=== PATIENT | male | born 1965 | race African-American/Black ===

== ENCOUNTER 2016-09-05 06:13 | Inpatient (IN) | payer MEDICAID ==
[~2016-09-05] VITALS: Ht 172 cm; Wt 44.9 kg
[~2016-09-05 06:13] MED LIST: ALBUTEROL2.5 MG/3 M INH; BISACODYL5 MG RECTAL; FLUCONAZOLE100 MG ORAL; FLUCONAZOLE100 MG RECTAL; GABAPENTIN400 MG RECTAL; LEVSIN-SL0.125 MG GT; LORAZEPAM2 MG/1 M4 GT; LOVENOX10 M4 SUBQ; MEROPENEM1 GM IV; MORPHINE S10 MG/5 ML GT; PROCHLORPERAZINE5 MG RECTAL; TYLENOL650 MG/20. GT
[2016-09-05 06:15] VITALS: BP 108/82
[2016-09-05 06:55] LABS: BASOPHILS % (AUTO) 0.6 % (0.0-2.0); EOSINOPHILS % (AUTO) 0.4 % (0.0-3.0); LYMPHOCYTES % (AUTO) 16.4 % (20.0-45.0); MEAN CORPUSCULAR HEMOGLOBIN 25.9 PG (27.0-31.0); MEAN CORPUSCULAR HGB CONC 31.3 G/DL (32.0-36.0); MEAN CORPUSCULAR VOLUME 83 FL (80-99); MONOCYTES % (AUTO) 5.1 % (1.0-10.0); NEUTROPHILS % (AUTO) 77.5 % (45.0-75.0); PLATELET COUNT 528 K/UL (150-450); RED CELL DISTRIBUTION WIDTH 15.6 % (11.6-14.8); WHITE BLOOD COUNT 13.4 K/UL (4.8-10.8)
[2016-09-05 06:57] LABS: INR 1.1 (0.9-1.1); PROTHROMBIN TIME 11.5 SEC (9.30-11.50)
[2016-09-05 07:02] LABS: ALANINE AMINOTRANSFERASE 27 U/L (3-41); ALBUMIN/GLOBULIN RATIO 0.5 (1.0-2.7); ANION GAP 17 (5-15); ASPARTATE AMINO TRANSFERASE 27 U/L (5-40); CALCIUM 10.6 mg/dL (8.6-10.2); CARBON DIOXIDE 28 mEQ/L (20-30); CHLORIDE 92 mEQ/L (98-107); CREATININE 0.6 mg/dL (0.7-1.2); GLOMERULAR FILTRATION RATE > 60 mL/min (>60); HEMOLYSIS 2; LIPASE 24 U/L (< 60); POTASSIUM 4.5 mEQ/L (3.4-4.9); SODIUM 137 mEQ/L (135-145); TOTAL PROTEIN 9.5 g/dL (6.6-8.7)
[2016-09-05 07:03] LABS: TROPONIN I < 0.30 ng/mL (<=0.30)
[2016-09-05 07:06] LABS: REFLEX LACTIC ACID YES OR NO YES
[2016-09-05] MEDS ORDERED: ZINC SULFATE220 M1 GT (07:07)
[2016-09-05] MEDS ORDERED: MACRODANTIN50 MG GT (07:07)
[2016-09-05] MEDS ORDERED: BACTRIM DS TAB1 EAC1 GT (07:07)
[2016-09-05] MEDS ORDERED: GABAPENTIN400 MG GT (07:07)
[2016-09-05] MEDS ORDERED: VITAMIN C500 M1 GT (07:07)
[2016-09-05 07:13] LABS: CKMB 2.1 ng/mL (< 6.7)
[2016-09-05 07:22] LABS: APPEARANCE,URINE SLIGHTLY CLOUDY; KETONES,URINE NEGATIVE (NEGATIVE); LEUKOCYTE ESTERASE ,URINE 3+ (NEGATIVE); NITRITE,URINE NEGATIVE (NEGATIVE); PH,URINE 8 (4.5-8.0); PROTEIN,URINE 2+ (NEGATIVE); UROBILINOGEN,URINE NORMAL MG/DL (0.0-1.0)
[2016-09-05] MEDS ORDERED: Ipratropium 0.02% Inh Soln 2.5ml UD HHN ONE (07:30)
[2016-09-05] MEDS ORDERED: Solu-MEDROL 125mg Inj IVP ONE (07:30)
[2016-09-05] MEDS ORDERED: Albuterol ud Inhalation HHN ONE (07:30)
[2016-09-05 07:35] LABS: BACTERIA,URINE FEW /HPF; SQUAMOUS EPITHELIAL CELL,UR OCCASIONAL /LPF (NONE/OCC); WBC,URINE 15-20 /HPF (0 - 0)
[2016-09-05] MEDS ORDERED: Tubing IV Cassette IV ONE (07:41)
[2016-09-05 08:02] LABS: ABG BASE EXCESS 2.7; ABG PCO2 39.9 mmHg (35.0-45.0)
[2016-09-05 08:03] LABS: ABG ALLEN TEST POSITIVE
--- NOTE | 2016-09-05 08:27 | Emergency Room Report ---
History of Present Illness General Chief Complaint: Dyspnea/Respdistress Source: Medical Record Present Illness HPI 50-year-old male presents ED for evaluation of shortness of breath. Per EMS symptoms started this morning a convalescent home. 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 O2 sats low on room air. Patient placed on nonrebreather by EMS with O2 sats in the 80s. Patient is unable to provide any additional history at this time. No reported fevers or chills. No reported chest pain. No other aggravating or relieving factors. No other associated symptoms Allergies: Coded Allergies: PENICILLINS (Unverified Allergy, Unknown, 09/05/16) Patient History Past Medical History: DM, HTN Past Surgical History: other - gtube Pertinent Family History: none Social History: Denies: alcohol use, drug use, smoking Immunizations: UTD Reviewed Nursing Documentation: PMH: Agreed, PSxH: Agreed Nursing Documentation-PMH Hx Hypertension: Yes Hx Diabetes: Yes Hx Gastrointestinal Problems: Yes - GASTROSTOMY Review of Systems All Other Systems: limited Physical Exam Vital Signs Date Time Temp Pulse Resp B/P Pulse Ox O2 Delivery O2 Flow Rate FiO2 09/05/16 06:07 126 35 94/70 80 Non-Rebreather 15.0 09/05/16 06:15 98.4 09/05/16 06:43 100 Sp02 EP Interpretation: reviewed, normal General Appearance: cachetic, thin, other - encephalopathy Head: normocephalic, atraumatic Eyes: bilateral eye PERRL, bilateral eye normal inspection ENT: hearing grossly normal, normal pharynx, no angioedema, normal voice Neck: full range of motion, supple/symm/no masses Respiratory: decreased breath sounds, crackles Cardiovascular #1: no edema, tachycardia Gastrointestinal: normal bowel sounds, non tender, soft, non-distended, no guarding, no rebound Rectal: deferred Genitourinary: no CVA tenderness Musculoskeletal: other - contracted limbs Neurologic: other - encephalopathy Psychiatric: other - encephalopathy Skin: normal inspection Lymphatic: normal inspection Procedures Critical Care Time Critical Care Time i. I feel this is a highly complex case requiring extensive working including EKG/Rhythm strip, Xray/CT/US, Blood/urine lab work, repeat exams while in ED, and administration of strong opiates/narcotics for pain control, admission to hospital or close patient follow up. Total time: 30 min bedside evaluation and treatment excludes procedures (EKG). Reason for critical care: Respiratory distress, hypoxic, tachycardic Possible complications: hypotension, hypertension, [place], shock, arrhythmias, metabolic acidosis, end organ damage, respiratory failure. Interventions: Labs, IV fluids, EKG, chest x-ray, BiPAP, nebulizer treatments, abx Course: Patient brought in for respiratory distress. Hypoxic period started on BiPAP, nebulizer treatments. O2 saturations improving. Labs showed sepsis, UTI. Chest x-ray shows hyperinflated lungs, atelectasis. Antibiotics given. Consultations: nursing staff, EMS, family Performed by: Dr York Tolerated well condition = serious j. because of unstable vital signs this patient had a condition that could potentially threaten life or limb. I feel this is a critical patient who required my full attention while patient was considered critical. Total Critical Care Time excluding procedures was greater than 35 minutes Medical Decision Making Diagnostic Impression: Primary Impression: COPD exacerbation Additional Impressions: Respiratory distress Sepsis Qualified Codes: A41.9 - Sepsis, unspecified organism UTI (urinary tract infection) Qualified Codes: N39.0 - Urinary tract infection, site not specified ER Course Hospital Course 50-year-old M presenting to ED with respiratory distress, hypoxic Differential diagnoses include: Pneumonia, CHF exacerbation, pneumothorax, fluid overload Clinical course Patient placed on stretcher. On clinical research monitor with hypoxia on room air and tachycardia. After initial history and physical, I ordered nebulizer treatments BIPAP. I ordered labs, IV fluids, EKG, chest x-ray, blood cultures, UA. Labs -leukocytosis noted, hemoglobin/hematocrit stable, electrolytes ok, lactate > 3, trop negative, UA + bacteria CXR - hyperinflated lungs, atelectasis noted EKG - tachycardic, no acute ischemic changes O2 saturations improving on BiPAP. Patient showed less retractions. Patient tachycardia resolving with IV fluids. Antibiotics given Case discussed with Dr. Tuttle and he agreed to the patient to his service for further care and support I feel this is a highly complex case requiring extensive working including EKG/ Rhythm strip, Xray/CT/US, Blood/urine lab work, repeat exams while in ED, and administration of strong opiates/narcotics for pain control, admission to hospital or close patient follow up. Diagnosis - COPD exacerbation, resp distress, sepsis, UTI Patient admitted to [facility] in serious condition Labs Test 09/05/16 06:20 09/05/16 07:00 09/05/16 07:50 09/05/16 08:00 White Blood Count 13.4 K/UL (4.8-10.8) Red Blood Count 3.70 M/UL (4.70-6.10) Hemoglobin 9.6 G/DL (14.2-18.0) Hematocrit 30.6 % (42.0-52.0) Mean Corpuscular Volume 83 FL (80-99) Mean Corpuscular Hemoglobin 25.9 PG (27.0-31.0) Mean Corpuscular Hemoglobin Concent 31.3 G/DL (32.0-36.0) Red Cell Distribution Width 15.6 % (11.6-14.8) Platelet Count 528 K/UL (150-450) Mean Platelet Volume 9.0 FL (6.5-10.1) Neutrophils (%) (Auto) 77.5 % (45.0-75.0) Lymphocytes (%) (Auto) 16.4 % (20.0-45.0) Monocytes (%) (Auto) 5.1 % (1.0-10.0) Eosinophils (%) (Auto) 0.4 % (0.0-3.0) Basophils (%) (Auto) 0.6 % (0.0-2.0) Prothrombin Time 11.5 SEC (9.30-11.50) Prothromb Time International Ratio 1.1 (0.9-1.1) Activated Partial Thromboplast Time 28 SEC (23-33) Sodium Level 137 mEQ/L (135-145) Potassium Level 4.5 mEQ/L (3.4-4.9) Chloride Level 92 mEQ/L (98-107) Carbon Dioxide Level 28 mEQ/L (20-30) Anion Gap 17 (5-15) Blood Urea Nitrogen 23 mg/dL (7-23) Creatinine 0.6 mg/dL (0.7-1.2) Estimat Glomerular Filtration Rate > 60 mL/min (>60) Glucose Level 132 mg/dL (74-106) Lactic Acid Level 3.40 mmol/L (0.66-2.22) Calcium Level 10.6 mg/dL (8.6-10.2) Total Bilirubin < 0.2 mg/dL (0.0-1.2) Aspartate Amino Transf (AST/SGOT) 27 U/L (5-40) Alanine Aminotransferase (ALT/SGPT) 27 U/L (3-41) Alkaline Phosphatase 141 U/L (40-129) Total Creatine Kinase 132 U/L (38-174) Creatine Kinase MB 2.1 ng/mL (< 6.7) Creatine Kinase MB Relative Index 1.5 Troponin I < 0.30 ng/mL (<=0.30) Pro-B-Type Natriuretic Peptide 198 pg/mL (0-125) Total Protein 9.5 g/dL (6.6-8.7) Albumin 3.2 g/dL (3.5-5.2) Globulin 6.3 g/dL Albumin/Globulin Ratio 0.5 (1.0-2.7) Lipase 24 U/L (< 60) Urine Color Pale yellow Urine Appearance Slightly cloudy Urine pH 8 (4.5-8.0) Urine Specific [place] 1.010 (1.005-1.035) Urine Protein 2+ (NEGATIVE) Urine Glucose (UA) Negative (NEGATIVE) Urine Ketones Negative (NEGATIVE) Urine Occult Blood 4+ (NEGATIVE) Urine Nitrite Negative (NEGATIVE) Urine Bilirubin Negative (NEGATIVE) Urine Urobilinogen Normal MG/DL (0.0-1.0) Urine Leukocyte Esterase 3+ (NEGATIVE) Urine RBC 5-10 /HPF (0 - 0) Urine WBC 15-20 /HPF (0 - 0) Urine Squamous Epithelial Cells Occasional /LPF Urine Calcium Oxalate Crystals /LPF (NONE) Urine Bacteria Few /HPF (NONE) Arterial Blood pH 7.447 (7.350-7.450) Arterial Blood Partial Pressure CO2 39.9 mmHg (35.0-45.0) Arterial Blood Partial Pressure O2 411.6 mmHg (75.0-100.0) Arterial Blood HCO3 26.9 mmol/L (22.0-26.0) Arterial Blood Oxygen Saturation 99.7 % (92.0-98.0) Arterial Blood Base Excess 2.7 Hammad Test Positive EKG Diagnostic Results Rate: tachycardiac Rhythm: other - not sinus ST Segments: no acute changes ASA given to the pt in ED: No Rhythm Strip Diag. Results EP Interpretation: yes Rhythm: no PVC's, no ectopy Chest X-Ray Diagnostic Results EP Interpretation: Yes Findings: no effusion, no pneumothorax, no acute cardiopulmonary disease, other - hyperinflatd lungs. atelectasis Number of Views: 1 Last Vital Signs Date Time Temp Pulse Resp B/P Pulse Ox O2 Delivery O2 Flow Rate FiO2 09/05/16 06:54 137 41 98 Facial 100 09/05/16 06:15 98.4 108/82 15.0 Status: improved Disposition: ADMITTED INPATIENT Condition: Serious Referrals: ROLY TUTTLE (PCP) LOUANN YORK M.D. Sep 05, 2016 08:27
[2016-09-05 08:30] VITALS: BP 118/64
[2016-09-05 10:00] VITALS: BP 97/62
--- NOTE | 2016-09-05 10:43 | Diagnostic Imaging Report ---
Indication: Dyspnea Comparison: 06/30/16 A single view chest radiograph was obtained. Findings: Examination limited by rotation. Cardiomegaly is present. Lungs remain clear. There is a right HR SPECIALIST shunt present. Previous right basal infiltrate no longer seen. Abnormal appearance of the right humerus which appears demineralized. Impression: No acute cardiopulmonary disease identified
[2016-09-05 12:00] VITALS: BP 93/61
[2016-09-05] MEDS ORDERED: Miralax 17gm pkt ORAL PRN (12:45)
[2016-09-05] MEDS ORDERED: DuoNeb 0.5-3(2.5)mg/3ml neb HHN PRN (12:45)
[2016-09-05] MEDS ORDERED: Mylanta II UD 30ml ORAL PRN (12:45)
[2016-09-05] MEDS ORDERED: Nitroglycerin Subl 0.4mg tab (Bottle Of 25) SL PRN (12:45)
--- NOTE | 2016-09-05 12:45 | History and Physical ---
History of Present Illness General Date patient seen: Sep 05, 2016 Reason for Hospitalization: Dyspnea/Respdistress Present Illness HPI 50-year-old male with extensive PMHx including meningitis, YARD BRAKEMAN shunt patient convalescent home.resident brought in by paramedics with CC of Dyspnea, desaturation. Pt was in respiratory failure in ER and was put on bipap and transferred to [facility]. Pt is awake, can't communicate, but seems to understand. Allergies: Coded Allergies: PENICILLINS (Unverified Allergy, Unknown, 09/05/16) Medication History Scheduled Ascorbic Acid* (Vitamin C*), 500 MG GT DAILY, (Reported) Bisacodyl* (Dulcolax*), 10 MG RECTAL DAILY, (Reported) Enoxaparin* (Lovenox*), 40 MG SUBQ DAILY, (Reported) Fluconazole (Fluconazole), 200 MG ORAL DAILY, (Reported) Gabapentin* (Gabapentin*), 400 MG GT THREE TIMES A DAY, (Reported) Lorazepam (Lorazepam), 2 MG GT Q4HR, (Reported) Nitrofurantoin Macrocrystal (Macrodantin*), 50 MG GT FOUR TIMES A DAY, (Reported ) Prochlorperazine Maleate* (Compazine*), 25 MG RECTAL Q6H, (Reported) Trimethoprim/Sulfamethoxazole 160/800* (Bactrim Ds Tablet*), 1 TAB GT TWICE A DAY, (Reported) Zinc Sulfate (Zinc Sulfate*), 220 MG GT DAILY, (Reported) Scheduled PRN Acetaminophen (Acetaminophen), 650 MG GT Q6H PRN for Prn Headache/Temp > 101, ( Reported) Albuterol Sulfate* (Albuterol Sulfate Hhn*), 3 ML INH Q4H PRN for Shortness of Breath, (Reported) Morphine Sulfate* (Morphine Sulfate*), 20 MG GT EVERY 2 HOURS PRN for For Pain, (Reported) Patient History Healthcare decision maker NONE Resuscitation status Full Code Advanced Directive on File No Past Medical/Surgical History Past Medical/Surgical History: (1) Feeding by G-tube (2) Severe protein-calorie malnutrition (3) S/P YARD BRAKEMAN shunt Review of Systems All Other Systems: negative except mentioned in HPI Physical Exam General Appearance: cachetic Lines, tubes and drains: peripheral HEENT: normocephalic, atraumatic Neck: non-tender, normal alignment Respiratory/Chest: chest wall non-tender, normal breath sounds Abdomen: normal bowel sounds Genitourinary/Rectal: normal genital exam, normal rectal exam Extremities: normal range of motion Last 24 Hour Vital Signs Date Time Temp Pulse Resp B/P Pulse Ox O2 Delivery O2 Flow Rate FiO2 09/05/16 10:15 100.8 112 28 97/62 100 Bi-pap 15.0 100 09/05/16 10:00 112 28 97/62 100 Bi-pap 40 09/05/16 09:15 40 09/05/16 09:14 119 31 100 Facial 50 09/05/16 08:30 100.8 122 32 118/64 100 Bi-pap 100 09/05/16 06:54 137 41 98 Facial 100 09/05/16 06:43 100 09/05/16 06:15 141 31 09/05/16 06:15 98.4 141 31 108/82 87 Non-Rebreather 15.0 09/05/16 06:07 126 35 94/70 80 Non-Rebreather 15.0 Intake and Output 09/04/16 09/05/16 19:00 07:00 Output Total 100 ml Balance -100 ml Output Urine Total 100 ml Laboratory Tests Test 09/05/16 06:20 09/05/16 07:00 09/05/16 07:50 09/05/16 08:00 White Blood Count 13.4 K/UL (4.8-10.8) H Red Blood Count 3.70 M/UL (4.70-6.10) L Hemoglobin 9.6 G/DL (14.2-18.0) L Hematocrit 30.6 % (42.0-52.0) L Mean Corpuscular Volume 83 FL (80-99) Mean Corpuscular Hemoglobin 25.9 PG (27.0-31.0) L Mean Corpuscular Hemoglobin Concent 31.3 G/DL (32.0-36.0) L Red Cell Distribution Width 15.6 % (11.6-14.8) H Platelet Count 528 K/UL (150-450) H Mean Platelet Volume 9.0 FL (6.5-10.1) Neutrophils (%) (Auto) 77.5 % (45.0-75.0) H Lymphocytes (%) (Auto) 16.4 % (20.0-45.0) L Monocytes (%) (Auto) 5.1 % (1.0-10.0) Eosinophils (%) (Auto) 0.4 % (0.0-3.0) Basophils (%) (Auto) 0.6 % (0.0-2.0) Prothrombin Time 11.5 SEC (9.30-11.50) Prothromb Time International Ratio 1.1 (0.9-1.1) Activated Partial Thromboplast Time 28 SEC (23-33) Sodium Level 137 mEQ/L (135-145) Potassium Level 4.5 mEQ/L (3.4-4.9) Chloride Level 92 mEQ/L (98-107) L Carbon Dioxide Level 28 mEQ/L (20-30) Anion Gap 17 (5-15) H Blood Urea Nitrogen 23 mg/dL (7-23) Creatinine 0.6 mg/dL (0.7-1.2) L Estimat Glomerular Filtration Rate > 60 mL/min (>60) Glucose Level 132 mg/dL (74-106) H Lactic Acid Level 3.40 mmol/L (0.66-2.22) H 0.80 mmol/L (0.66-2.22) Calcium Level 10.6 mg/dL (8.6-10.2) H Total Bilirubin < 0.2 mg/dL (0.0-1.2) Aspartate Amino Transf (AST/SGOT) 27 U/L (5-40) Alanine Aminotransferase (ALT/SGPT) 27 U/L (3-41) Alkaline Phosphatase 141 U/L (40-129) H Total Creatine Kinase 132 U/L (38-174) Creatine Kinase MB 2.1 ng/mL (< 6.7) Creatine Kinase MB Relative Index 1.5 Troponin I < 0.30 ng/mL (<=0.30) Pro-B-Type Natriuretic Peptide 198 pg/mL (0-125) H Total Protein 9.5 g/dL (6.6-8.7) H Albumin 3.2 g/dL (3.5-5.2) L Globulin 6.3 g/dL Albumin/Globulin Ratio 0.5 (1.0-2.7) L Lipase 24 U/L (< 60) Urine Color Pale yellow Urine Appearance Slightly cloudy Urine pH 8 (4.5-8.0) Urine Specific [place] 1.010 (1.005-1.035) Urine Protein 2+ (NEGATIVE) H Urine Glucose (UA) Negative (NEGATIVE) Urine Ketones Negative (NEGATIVE) Urine Occult Blood 4+ (NEGATIVE) H Urine Nitrite Negative (NEGATIVE) Urine Bilirubin Negative (NEGATIVE) Urine Urobilinogen Normal MG/DL (0.0-1.0) Urine Leukocyte Esterase 3+ (NEGATIVE) H Urine RBC 5-10 /HPF (0 - 0) H Urine WBC 15-20 /HPF (0 - 0) H Urine Squamous Epithelial Cells Occasional /LPF Urine Calcium Oxalate Crystals /LPF (NONE) Urine Bacteria Few /HPF (NONE) Arterial Blood pH 7.447 (7.350-7.450) Arterial Blood Partial Pressure CO2 39.9 mmHg (35.0-45.0) Arterial Blood Partial Pressure O2 411.6 mmHg (75.0-100.0) H Arterial Blood HCO3 26.9 mmol/L (22.0-26.0) H Arterial Blood Oxygen Saturation 99.7 % (92.0-98.0) H Arterial Blood Base Excess 2.7 Hammad Test Positive Height (Feet): 5 Height (Inches): 7.70 Weight (Pounds): 99 Assessment/Plan Problem List: (1) Respiratory distress ICD Codes: R06.00 - Dyspnea, unspecified SNOMED: 697602719 (2) Sepsis ICD Codes: A41.9 - Sepsis, unspecified organism SNOMED: 35773599, 879982547 Qualifiers: Qualified Codes: A41.9 - Sepsis, unspecified organism (3) Severe protein-calorie malnutrition ICD Codes: E43 - Unspecified severe protein-calorie malnutrition SNOMED: 186690543 (4) Feeding by G-tube ICD Codes: Z93.1 - Gastrostomy status SNOMED: 479239012, 898490066 (5) S/P YARD BRAKEMAN shunt ICD Codes: Z98.2 - Presence of cerebrospinal fluid drainage device SNOMED: 26888991, 266557877 Assessment/Plan lubin culture broad spectrum antibiotics Gtube feeding sliding scale ID evaluation check electrolytes. ROLY PERRIN Sep 05, 2016 12:45
[2016-09-05] MEDS: Aztreonam Inj 1 GM in NS 55 ML IVPB SCH ×2 (14:22→21:46)
--- NOTE | 2016-09-05 15:21 | Wound Care Consultation ---
Wound Assessment Wound Assessment #1: Wound Present on Admission: Yes New Wound: No Status Change of Wound: No Wound Location Body Site Modif: mid Wound Location Body Site: sacral Wound Type: pressure ulcer Kajal Test: Does not Kajal Pressure Ulcer Stage: IV/unstageable Wound Thickness: Full Thickness Wound Length: 10.0 Wound Width: 10.0 Wound Depth: utd Percent of Wound [place]/Red: 100 Wound Drainage Description: Serosanguineous Wound Drainage Amount: Scant Wound Drainage Odor: None/Absent Tissue Surrounding Wound: Macerated Wound General Appearance: Reddened Wound Assessment #2: Wound Number: #2 Wound Present on Admission: Yes New Wound: No Status Change of Wound: No Wound Location Body Site Modif: right Wound Location Body Site: ischial tuberosity Wound Type: pressure ulcer Kajal Test: Does not Kajal Pressure Ulcer Stage: IV/unstageable Wound Thickness: Full Thickness Wound Length: 8.5 Wound Width: 6.5 Wound Depth: utd Percent of Wound [place]/Red: 30 Percent of Wound Bed Yellow/Wh: 70 Wound Drainage Description: Serosanguineous Wound Drainage Amount: Moderate Wound Drainage Odor: Mild Odor Tissue Surrounding Wound: Macerated Wound General Appearance: Draining, Unapproximated, Bone Palpable Wound Assessment #3: Wound Number: #3 Wound Present on Admission: Yes New Wound: No Status Change of Wound: No Wound Location Body Site Modif: left Wound Location Body Site: ischial tuberosity Wound Type: pressure ulcer Kajal Test: Does not Kajal Pressure Ulcer Stage: IV/unstageable Wound Thickness: Full Thickness Wound Length: 8.0 Wound Width: 5.5 Wound Depth: utd Percent of Wound [place]/Red: 30 Percent of Wound Bed Yellow/Wh: 70 Wound Drainage Description: Serosanguineous Wound Drainage Amount: Moderate Wound Drainage Odor: None/Absent Tissue Surrounding Wound: Macerated Wound General Appearance: Draining, Unapproximated, Bone Palpable Wound Assessment #4: Wound Number: #4 Wound Present on Admission: Yes New Wound: No Status Change of Wound: No Wound Location Body Site Modif: left Wound Location Body Site: trochanter Wound Type: pressure ulcer Kajal Test: Does not Kajal Pressure Ulcer Stage: deep tissue injury Wound Thickness: Full Thickness Wound Length: 3.0 Wound Width: 3.0 Wound Depth: utd Percent of Wound Black/Brown: 100 Wound Drainage Amount: None Wound Drainage Odor: None/Absent Tissue Surrounding Wound: Erythemic Wound General Appearance: Blackened Wound Assessment #5: Wound Number: #5 Wound Present on Admission: Yes New Wound: No Status Change of Wound: No Wound Location Body Site Modif: left Wound Location Body Site: heel Wound Type: pressure ulcer Kajal Test: Does not Kajal Pressure Ulcer Stage: IV/unstageable Wound Thickness: Full Thickness Wound Length: 4.5 Wound Width: 7.0 Wound Depth: utd Percent of Wound [place]/Red: 10 Percent of Wound Bed Yellow/Wh: 60 Percent of Wound Black/Brown: 30 Wound Drainage Description: Serosanguineous Wound Drainage Amount: Moderate Wound Drainage Odor: Mild Odor Tissue Surrounding Wound: Macerated Wound General Appearance: Reddened, Draining, Bone Palpable Wound Assessment #6: Wound Number: #6 Wound Present on Admission: Yes New Wound: No Status Change of Wound: No Wound Location Body Site Modif: right Wound Location Body Site: heel Wound Type: pressure ulcer Kajal Test: Does not Kajal Pressure Ulcer Stage: IV/unstageable Wound Thickness: Full Thickness Wound Length: 4.5 Wound Width: 6.5 Wound Depth: utd Percent of Wound [place]/Red: 30 Percent of Wound Bed Yellow/Wh: 70 Wound Drainage Description: Serosanguineous Wound Drainage Amount: Moderate Wound Drainage Odor: Mild Odor Tissue Surrounding Wound: Macerated Wound General Appearance: Reddened, Draining Wound Assessment #7: Wound Number: #7 Wound Present on Admission: Yes New Wound: No Status Change of Wound: No Wound Location Body Site Modif: right Wound Location Body Site: trochanter Wound Type: pressure ulcer Kajal Test: Does not Kajal Pressure Ulcer Stage: IV/unstageable Wound Thickness: Full Thickness Wound Length: 4.0 Wound Width: 6.0 Wound Depth: utd Percent of Wound [place]/Red: 10 Percent of Wound Bed Yellow/Wh: 60 Percent of Wound Black/Brown: 30 Wound Drainage Description: Serosanguineous Wound Drainage Amount: Moderate Wound Drainage Odor: None/Absent Tissue Surrounding Wound: Macerated Wound General Appearance: Draining, Necrotic Wound Assessment #8: Wound Number: #8 Wound Present on Admission: Yes New Wound: No Status Change of Wound: No Wound Location Body Site Modif: right, mid Wound Location Body Site: foot Wound Type: pressure ulcer Kajal Test: Does not Kajal Pressure Ulcer Stage: IV/unstageable Wound Thickness: Full Thickness Wound Length: 1.5 Wound Width: 2.0 Wound Depth: utd Percent of Wound [place]/Red: 100 Wound Drainage Amount: None Wound Drainage Odor: None/Absent Tissue Surrounding Wound: Erythemic Wound General Appearance: Reddened Wound Assessment #9: Wound Number: #9 Wound Present on Admission: Yes New Wound: No Status Change of Wound: No Wound Location Body Site Modif: right Wound Location Body Site: shoulder Wound Type: pressure ulcer Kajal Test: Does not Kajal Pressure Ulcer Stage: IV/unstageable Wound Thickness: Full Thickness Wound Length: 2.0 Wound Width: 3.5 Wound Depth: utd Percent of Wound [place]/Red: 90 Percent of Wound Black/Brown: 10 Wound Drainage Amount: None Wound Drainage Odor: None/Absent Tissue Surrounding Wound: Indurated Wound General Appearance: Reddened Wound Assessment #10: Wound Present on Admission: Yes New Wound: No Status Change of Wound: No Wound Location Body Site Modif: right, lateral Wound Location Body Site: heel Wound Type: pressure ulcer Kajal Test: Does not Kajal Pressure Ulcer Stage: III Wound Thickness: Full Thickness Wound Length: 1.0 Wound Width: 1.0 Wound Depth: 0.3 Percent of Wound [place]/Red: 100 Wound Drainage Description: Serosanguineous Wound Drainage Amount: Scant Wound Drainage Odor: None/Absent Tissue Surrounding Wound: Erythemic Wound General Appearance: Reddened Wound Comment #1 Sacral stage IV/unstageable pressure ulcer #2 Right ischial tuberosity stage IV/unstageable pressure ulcer #3 Left ischial tuberosity stage IV/unstageable pressure ulcer #4 Right trochanter stage IV/unstageable pressure ulcer #5 Left trochanter DTI brown in color with scar tissue on surrounding area #6 Right heel stage IV/unsatgeable pressure ulcer #7 Left heel stage IV/unsatgeable pressure ulcer #8 Right lateral mid foot stage IV/unstageable pressure ulcer #9 Right lateral aspect of the heel stage III pressure ulcer #10 Right shoulder stage IV/unstageable pressure ulcer Recommendation -Right lateral mid foot, Right lateral heel, Right shoulder, Left trochanter and sacral pressure ulcers Cleanse with saline, pat dry, apply Triad cream, cover with Biatain silicone foam drg daily and PRN soiled/dislodged -Left heel, Right heel, Right trochanter, Left ischial tuberosity and Right ischial tuberosity pressure ulcers Cleanse with Dakin's solution, pat dry, apply Santyl ointment, apply with calcium alginate, cover with Biatain silicone daily and PRN soiled/dislodged -Turn and reposition -Keep clean and dry -Optimize nutrition -Low air loss overlay mattress -Offload both heels -Assess and f/u accordingly for any changes VENUS FERNANDEZ RN Sep 05, 2016 15:21
[2016-09-05 16:00] VITALS: BP 98/61
[2016-09-05] MEDS: Gabapentin 300 MG/6 ML Soln GT SCH ×2 (16:00→21:46)
[2016-09-05] MEDS ORDERED: Vancomycin 1.25 GM in D5W 275 ML IVPB SCH (16:00)
[2016-09-05] MEDS ORDERED: NovoLOG Insulin Flexpen SUBQ SCH (16:30)
[2016-09-05] MEDS: NovoLOG Insulin Flexpen SUBQ SCH (17:54)
[2016-09-05 20:00] VITALS: BP 97/67
--- NOTE | 2016-09-05 21:00 | Consultation ---
Consult Note Assessment/Plan A: The patient is a 50-year-old old male with : leukocytosis Fever UTI , probable Hx of Pna SpCx: ESBL Ecoli History of CVA status post ACADEMY EDUCATION DIRECTOR shunt and meningitis. History of DVT HTN DM PLAN: cont Vanco and Levaquin , change Azactam to Merrem d# 3 / 7 Monitor CBC Monitor BMP Monitor culture urine. Monitor chest x-ray JOSLYN NICOLE M.D. Sep 05, 2016 21:00
[2016-09-05] MEDS: Heparin 5000 units/ml inj SUBQ SCH (21:48)
--- NOTE | 2016-09-05 23:06 | Consultation ---
Consult Note Consult Note [id number] JOSLYN NICOLE M.D. Sep 05, 2016 23:06
[2016-09-06] VITALS (7 sets, daily range): BP systolic 88–115; BP diastolic 60–71
[2016-09-06] MEDS: NovoLOG Insulin Flexpen SUBQ SCH ×4 (00:36→18:00)
--- NOTE | 2016-09-06 04:40 | Consultation ---
DATE OF CONSULTATION: INFECTIOUS DISEASE CONSULTATION CONSULTING PHYSICIAN: Valentin Almeida M.D. REQUESTING PHYSICIAN: Yvon Tuttle M.D. REASON FOR CONSULTATION: Evaluation of the patient for sepsis and antibiotic management. HISTORY OF PRESENT ILLNESS: The patient is a 50-year-old male with multiple medical problems, who was brought to this medical center for sepsis. Infectious Disease consultation has been requested for further evaluation of the patient and antibiotic management. The patient is not able to provide information. Much of the information is gathered through the old chart. PAST MEDICAL HISTORY: 1. Significant for UTI. 2. History of ESBL E. coli pneumonia. 3. History of positive blood culture for coag-negative staph. 4. History of CVA. 5. History of DVT. 6. Hypertension. 7. Diabetes. MEDICATIONS: Levaquin, vancomycin, and aztreonam. ALLERGIES: Penicillin. The patient has been tolerating meropenem. SOCIAL HISTORY: The patient lives in a skilled nursing. FAMILY HISTORY: Noncontributory. REVIEW OF SYSTEMS: Unobtainable. PHYSICAL EXAMINATION: VITAL SIGNS: Pulse 86, temperature 97.4 degrees, T-max 100.8 degrees, blood pressure 97/57, and respiratory rate 22. HEENT: Mild pale conjunctivae. No icterus. NECK: No lymphadenopathy. CHEST: Coarse breathing sounds. HEART: S1 and S2. ABDOMEN: Soft. EXTREMITIES: No cyanosis. NEUROLOGIC: Obtunded. LABORATORY DATA: White blood cells 13.4, hemoglobin 9.6, and platelets 528,000. UA, 15 to 20 white blood cells. BUN 13 and creatinine 0.6. ALT, AST, and alkaline phosphatase were all unremarkable. Chest x-ray shows no active cardiopulmonary disease. ASSESSMENT: The patient is a 50-year-old male with multiple medical problems, who was brought to this medical center due to respiratory distress, fever, possible underlying pneumonia or sepsis due to extended-spectrum beta-lactamases Escherichia coli, cannot rule out in view of having extended-spectrum beta-lactamases and gram negatives in the past. PLAN: 1. We will continue the patient on Levaquin and vancomycin and change Azactam to meropenem. 2. Monitor CBC. 3. Monitor BMP. 4. Monitor other cultures. 5. Monitor chest x-ray. 6. Based on the patient's clinical course and laboratories, we will do further recommendations. Thank you Dr. Tuttle for allowing me to participate in the care of this patient. I will follow the patient with you during this hospitalization. Valentin Almeida M.D. DR: JESSE JOB#: [id number] CC:
[2016-09-06] MEDS ORDERED: Meropenem 1 GM in NS 110 ML IVPB SCH (06:00)
[2016-09-06 06:21] LABS: MEAN CORPUSCULAR HEMOGLOBIN 26.3 PG (27.0-31.0); MEAN CORPUSCULAR HGB CONC 31.6 G/DL (32.0-36.0); MEAN CORPUSCULAR VOLUME 83 FL (80-99); MEAN PLATELET VOLUME 7.6 FL (6.5-10.1); PLATELET COUNT 453 K/UL (150-450); RED BLOOD COUNT 2.52 M/UL (4.70-6.10); RED CELL DISTRIBUTION WIDTH 15.4 % (11.6-14.8); WHITE BLOOD COUNT 16.6 K/UL (4.8-10.8)
[2016-09-06 06:28] LABS: ANION GAP 15 (5-15); CALCIUM 9.1 mg/dL (8.6-10.2); CARBON DIOXIDE 25 mEQ/L (20-30); CHLORIDE 98 mEQ/L (98-107); CREATININE 0.4 mg/dL (0.7-1.2); GLOMERULAR FILTRATION RATE > 60 mL/min (>60); HEMOLYSIS 0; PHOSPHORUS 2.9 mg/dL (2.5-4.8); POTASSIUM 4.2 mEQ/L (3.4-4.9); SODIUM 138 mEQ/L (135-145)
[2016-09-06] MEDS ORDERED: Meropenem 1gm vial ONE (06:48)
[2016-09-06] MEDS: Meropenem 1 GM in NS 55 ML IVPB SCH ×3 (08:12→21:06)
[2016-09-06] MEDS: Gabapentin 300 MG/6 ML Soln GT SCH ×3 (08:32→18:03)
[2016-09-06 08:34] LABS: ANISOCYTOSIS 1+; BAND NEUTROPHILS % (MANUAL) 6 % (0-8); BASOPHILS % (MANUAL) 0 % (0-2); EOSINOPHILS % (MANUAL) 0 % (0-3); HYPOCHROMASIA 1+; LYMPHOCYTES % (MANUAL) 7 % (20-45); NEUTROPHILS % (MANUAL) 81 % (45-75); PLATELET ESTIMATE ADEQUATE; PLATELET MORPHOLOGY NORMAL; TOTAL CELLS COUNTED 100
[2016-09-06] MEDS: Heparin 5000 units/ml inj SUBQ SCH ×2 (08:43→20:18)
[2016-09-06 10:56] LABS: MEAN CORPUSCULAR HEMOGLOBIN 25.4 PG (27.0-31.0); MEAN CORPUSCULAR HGB CONC 30.4 G/DL (32.0-36.0); MEAN CORPUSCULAR VOLUME 83 FL (80-99); MEAN PLATELET VOLUME 7.7 FL (6.5-10.1); PLATELET COUNT 500 K/UL (150-450); RED BLOOD COUNT 2.88 M/UL (4.70-6.10); RED CELL DISTRIBUTION WIDTH 15.3 % (11.6-14.8); WHITE BLOOD COUNT 15.2 K/UL (4.8-10.8)
[2016-09-06 11:35] LABS: ANISOCYTOSIS 1+; BAND NEUTROPHILS % (MANUAL) 4 % (0-8); BASOPHILS % (MANUAL) 0 % (0-2); EOSINOPHILS % (MANUAL) 0 % (0-3); HYPOCHROMASIA 1+; LYMPHOCYTES % (MANUAL) 9 % (20-45); NEUTROPHILS % (MANUAL) 81 % (45-75); PLATELET ESTIMATE INCREASED; PLATELET MORPHOLOGY NORMAL; TOTAL CELLS COUNTED 100
--- NOTE | 2016-09-06 11:43 | Infectious Diseases Prog Note ---
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 History of DVT HTN DM PLAN: cont Vanco and Levaquin d# 3 / 7 Merrem d# 2 / Monitor CBC Monitor BMP Monitor culture urine. Bl, Sp Monitor chest x-ray BiPAP PRN Subjective Allergies: Coded Allergies: PENICILLINS (Unverified Allergy, Unknown, 09/05/16) Subjective non verbal Objective Vital Signs Last 24 Hour Vital Signs Date Time Temp Pulse Resp B/P Pulse Ox O2 Delivery O2 Flow Rate FiO2 09/06/16 10:54 Venturi Mask 10.0 40 09/06/16 10:54 100 Venturi Mask 10.0 40 09/06/16 08:36 86 16 100 Facial 30 09/06/16 08:00 84 09/06/16 08:00 97.3 84 16 97/65 100 Bi-pap 30 09/06/16 06:52 77 16 100 Facial 30 09/06/16 05:00 87 14 100 Facial 30 09/06/16 04:00 98.1 86 24 98/67 100 Bi-pap 30 09/06/16 04:00 84 09/06/16 02:50 81 14 99 Facial 30 09/06/16 00:56 88 16 100 Facial 30 09/06/16 00:00 98.0 89 19 99/65 99 Bi-pap 30 09/05/16 23:42 86 09/05/16 22:55 93 23 99 Facial 30 09/05/16 21:16 85 16 99 Facial 30 09/05/16 20:00 97.4 84 18 97/67 100 Bi-pap 30 09/05/16 19:42 86 09/05/16 19:02 88 19 100 Facial 30 09/05/16 17:27 98 19 100 Facial 30 09/05/16 16:00 97.5 98 17 98/61 100 Venturi Mask 45 09/05/16 14:56 98 18 100 10.0 45 09/05/16 12:00 104 09/05/16 12:00 97.5 107 20 93/61 100 Venturi Mask Height (Feet): 5 Height (Inches): 7.70 Weight (Pounds): 99 HEENT: atraumatic Respiratory/Chest: accessory muscle use Cardiovascular: normal rate, no gallop/murmur Abdomen: no mass Microbiology Date/Time Source Procedure Growth Status 09/05/16 07:00 Urine,Clean Catch Urine Culture - Preliminary Resulted Laboratory Tests Test 09/06/16 03:35 09/06/16 10:30 White Blood Count 16.6 K/UL (4.8-10.8) H 15.2 K/UL (4.8-10.8) H Red Blood Count 2.52 M/UL (4.70-6.10) L 2.88 M/UL (4.70-6.10) L Hemoglobin 6.6 G/DL (14.2-18.0) 7.3 G/DL (14.2-18.0) L Hematocrit 21.0 % (42.0-52.0) #L 24.0 % (42.0-52.0) L Mean Corpuscular Volume 83 FL (80-99) 83 FL (80-99) Mean Corpuscular Hemoglobin 26.3 PG (27.0-31.0) L 25.4 PG (27.0-31.0) L Mean Corpuscular Hemoglobin Concent 31.6 G/DL (32.0-36.0) L 30.4 G/DL (32.0-36.0) L Red Cell Distribution Width 15.4 % (11.6-14.8) H 15.3 % (11.6-14.8) H Platelet Count 453 K/UL (150-450) H 500 K/UL (150-450) H Mean Platelet Volume 7.6 FL (6.5-10.1) 7.7 FL (6.5-10.1) Neutrophils (%) (Auto) % (45.0-75.0) % (45.0-75.0) Lymphocytes (%) (Auto) % (20.0-45.0) % (20.0-45.0) Monocytes (%) (Auto) % (1.0-10.0) % (1.0-10.0) Eosinophils (%) (Auto) % (0.0-3.0) % (0.0-3.0) Basophils (%) (Auto) % (0.0-2.0) % (0.0-2.0) Differential Total Cells Counted 100 100 Neutrophils % (Manual) 81 % (45-75) H 81 % (45-75) H Lymphocytes % (Manual) 7 % (20-45) L 9 % (20-45) L Monocytes % (Manual) 6 % (1-10) 6 % (1-10) Eosinophils % (Manual) 0 % (0-3) 0 % (0-3) Basophils % (Manual) 0 % (0-2) 0 % (0-2) Band Neutrophils 6 % (0-8) 4 % (0-8) Platelet Estimate Adequate Increased H Platelet Morphology Normal Normal Hypochromasia 1+ 1+ Anisocytosis 1+ 1+ Sodium Level 138 mEQ/L (135-145) Potassium Level 4.2 mEQ/L (3.4-4.9) Chloride Level 98 mEQ/L (98-107) Carbon Dioxide Level 25 mEQ/L (20-30) Anion Gap 15 (5-15) Blood Urea Nitrogen 19 mg/dL (7-23) Creatinine 0.4 mg/dL (0.7-1.2) L Estimat Glomerular Filtration Rate > 60 mL/min (>60) Glucose Level 122 mg/dL (74-106) H Calcium Level 9.1 mg/dL (8.6-10.2) Phosphorus Level 2.9 mg/dL (2.5-4.8) Albumin 2.5 g/dL (3.5-5.2) L Current Medications Medications (Trade) Dose Ordered Sig/Cristina Route PRN Reason Start Time Stop Time Status Last Admin Dose Admin Acetaminophen (Tylenol) 650 mg Q4H PRN ORAL fever 09/05/16 12:45 10/05/16 12:44 Al Hydroxide/Mg Hydroxide (Mylanta II) 30 ml Q6H PRN ORAL dyspepsia 09/05/16 12:45 10/05/16 12:44 Albuterol/ Ipratropium (DuoNeb 0.5-3(2.5)mg/3ml) 3 ml EVERY 4 HOURS PRN HHN Shortness of Breath 09/05/16 12:45 09/10/16 12:44 Collagenase 1 applic 1 applic DAILY TOPIC 09/05/16 16:00 10/05/16 15:59 09/06/16 08:32 Dextrose STAT PRN IV Hypoglycemia 09/05/16 12:45 10/05/16 12:44 Gabapentin (Neurontin) 400 mg TID GT 09/05/16 16:00 10/05/16 15:59 09/06/16 08:32 Heparin Sodium (Porcine) (Heparin 5000 units/ml) 5,000 units EVERY 12 HOURS SUBQ 09/05/16 21:00 10/05/16 20:59 09/05/16 21:48 Insulin Aspart (NovoLOG) Q6HR SUBQ 09/05/16 18:00 10/05/16 17:59 09/06/16 06:42 Levofloxacin (Levaquin) 100 ml @ 100 mls/hr Q24H IVPB 09/06/16 08:00 09/13/16 07:59 09/06/16 09:27 Meropenem/Sodium Chloride (Merrem/Sodium Chloride) 55 ml @ 110 mls/hr Q8HR IVPB 09/06/16 08:00 09/11/16 07:59 09/06/16 08:12 Nitroglycerin (Ntg) 0.4 mg Q5M PRN SL Prn Chest Pain 09/05/16 12:45 10/05/16 12:44 Ondansetron HCl (Zofran) 4 mg Q6H PRN IVP Nausea & Vomiting 09/05/16 12:45 10/05/16 12:44 Polyethylene Glycol (Miralax) 17 gm DAILYPRN PRN ORAL Constipation 09/05/16 12:45 10/05/16 12:44 Temazepam (Restoril) 15 mg HSPRN PRN ORAL Insomnia 09/05/16 12:45 09/12/16 12:44 Vancomycin HCl (Vanco rx to dose) 1 ea DAILY PRN MISC . 09/05/16 13:30 10/05/16 13:29 Vancomycin HCl 1.25 gm/Dextrose 275 ml @ 183.3 mls/ hr Q24H IVPB 09/05/16 16:00 09/10/16 15:59 09/05/16 17:53 JOSLYN NICOLE M.D. Sep 06, 2016 11:43
--- NOTE | 2016-09-06 12:15 | Pulmonology Progress Note ---
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 Assessment/Plan iv antibiotics check cultures tolerating feeding check electrolytes med/surg prbc today Subjective ROS Limited/Unobtainable: No Interval Events: awake, lookd comfortable Allergies: Coded Allergies: PENICILLINS (Unverified Allergy, Unknown, 09/05/16) Objective Last 24 Hour Vital Signs Date Time Temp Pulse Resp B/P Pulse Ox O2 Delivery O2 Flow Rate FiO2 09/06/16 10:54 Venturi Mask 10.0 40 09/06/16 10:54 100 Venturi Mask 10.0 40 09/06/16 08:36 86 16 100 Facial 30 09/06/16 08:00 84 09/06/16 08:00 97.3 84 16 97/65 100 Bi-pap 30 09/06/16 06:52 77 16 100 Facial 30 09/06/16 05:00 87 14 100 Facial 30 09/06/16 04:00 98.1 86 24 98/67 100 Bi-pap 30 09/06/16 04:00 84 09/06/16 02:50 81 14 99 Facial 30 09/06/16 00:56 88 16 100 Facial 30 09/06/16 00:00 98.0 89 19 99/65 99 Bi-pap 30 09/05/16 23:42 86 09/05/16 22:55 93 23 99 Facial 30 09/05/16 21:16 85 16 99 Facial 30 09/05/16 20:00 97.4 84 18 97/67 100 Bi-pap 30 09/05/16 19:42 86 09/05/16 19:02 88 19 100 Facial 30 09/05/16 17:27 98 19 100 Facial 30 09/05/16 16:00 97.5 98 17 98/61 100 Venturi Mask 45 09/05/16 14:56 98 18 100 10.0 45 Intake and Output 09/05/16 09/06/16 19:00 07:00 Intake Total 1925 ml 460 ml Output Total 100 ml 350 ml Balance 1825 ml 110 ml Intake Free Water 100 ml 100 ml IV Total 1705 ml Tube Feeding 120 ml 360 ml Output Urine Total 100 ml 350 ml # Bowel Movements 1 Objective Respiratory/Chest: chest wall non-tender, lungs clear Cardiovascular: normal peripheral pulses Abdomen: normal bowel sounds, soft, non tender Extremities: no cyanosis, no clubbing Skin: no rash, no ulcers Lymphatic: no neck adenopathy General Appearance: cachetic Microbiology Date/Time Source Procedure Growth Status 09/05/16 07:00 Urine,Clean Catch Urine Culture - Preliminary Resulted Laboratory Tests 09/06/16 03:35: White Blood Count 16.6H, Red Blood Count 2.52L, Hemoglobin 6.6#*L, Hematocrit 21.0#L, Mean Corpuscular Volume 83, Mean Corpuscular Hemoglobin 26.3L, Mean Corpuscular Hemoglobin Concent 31.6L, Red Cell Distribution Width 15.4H, Platelet Count 453H, Mean Platelet Volume 7.6, Neutrophils (%) (Auto) , Lymphocytes (%) (Auto) , Monocytes (%) (Auto) , Eosinophils (%) (Auto) , Basophils (%) (Auto) , Differential Total Cells Counted 100, Neutrophils % ( Manual) 81H, Lymphocytes % (Manual) 7L, Monocytes % (Manual) 6, Eosinophils % ( Manual) 0, Basophils % (Manual) 0, Band Neutrophils 6, Platelet Estimate Adequate, Platelet Morphology Normal, Hypochromasia 1+, Anisocytosis 1+, Sodium Level 138, Potassium Level 4.2, Chloride Level 98, Carbon Dioxide Level 25, Anion Gap 15, Blood Urea Nitrogen 19, Creatinine 0.4L, Estimat Glomerular Filtration Rate > 60, Glucose Level 122H, Calcium Level 9.1, Phosphorus Level 2.9, Albumin 2.5L 09/06/16 10:30: White Blood Count 15.2H, Red Blood Count 2.88L, Hemoglobin 7.3L, Hematocrit 24.0L, Mean Corpuscular Volume 83, Mean Corpuscular Hemoglobin 25.4L, Mean Corpuscular Hemoglobin Concent 30.4L, Red Cell Distribution Width 15.3H, Platelet Count 500H, Mean Platelet Volume 7.7, Neutrophils (%) (Auto) , Lymphocytes (%) (Auto) , Monocytes (%) (Auto) , Eosinophils (%) (Auto) , Basophils (%) (Auto) , Differential Total Cells Counted 100, Neutrophils % ( Manual) 81H, Lymphocytes % (Manual) 9L, Monocytes % (Manual) 6, Eosinophils % ( Manual) 0, Basophils % (Manual) 0, Band Neutrophils 4, Platelet Estimate IncreasedH, Platelet Morphology Normal, Hypochromasia 1+, Anisocytosis 1+ Current Medications Medications (Trade) Dose Ordered Sig/Cristina Route PRN Reason Start Time Stop Time Status Last Admin Dose Admin Acetaminophen (Tylenol) 650 mg Q4H PRN ORAL fever 09/05/16 12:45 10/05/16 12:44 Al Hydroxide/Mg Hydroxide (Mylanta II) 30 ml Q6H PRN ORAL dyspepsia 09/05/16 12:45 10/05/16 12:44 Albuterol/ Ipratropium (DuoNeb 0.5-3(2.5)mg/3ml) 3 ml EVERY 4 HOURS PRN HHN Shortness of Breath 09/05/16 12:45 09/10/16 12:44 Collagenase 1 applic 1 applic DAILY TOPIC 09/05/16 16:00 10/05/16 15:59 09/06/16 08:32 Dextrose STAT PRN IV Hypoglycemia 09/05/16 12:45 10/05/16 12:44 Gabapentin (Neurontin) 400 mg TID GT 09/05/16 16:00 10/05/16 15:59 09/06/16 08:32 Heparin Sodium (Porcine) (Heparin 5000 units/ml) 5,000 units EVERY 12 HOURS SUBQ 09/05/16 21:00 10/05/16 20:59 09/05/16 21:48 Insulin Aspart (NovoLOG) Q6HR SUBQ 09/05/16 18:00 10/05/16 17:59 09/06/16 06:42 Levofloxacin (Levaquin) 100 ml @ 100 mls/hr Q24H IVPB 09/06/16 08:00 09/13/16 07:59 09/06/16 09:27 Meropenem/Sodium Chloride (Merrem/Sodium Chloride) 55 ml @ 110 mls/hr Q8HR IVPB 09/06/16 08:00 09/11/16 07:59 09/06/16 08:12 Nitroglycerin (Ntg) 0.4 mg Q5M PRN SL Prn Chest Pain 09/05/16 12:45 10/05/16 12:44 Ondansetron HCl (Zofran) 4 mg Q6H PRN IVP Nausea & Vomiting 09/05/16 12:45 10/05/16 12:44 Polyethylene Glycol (Miralax) 17 gm DAILYPRN PRN ORAL Constipation 09/05/16 12:45 10/05/16 12:44 Temazepam (Restoril) 15 mg HSPRN PRN ORAL Insomnia 09/05/16 12:45 09/12/16 12:44 Vancomycin HCl (Vanco rx to dose) 1 ea DAILY PRN MISC . 09/05/16 13:30 10/05/16 13:29 Vancomycin HCl 1.25 gm/Dextrose 275 ml @ 183.3 mls/ hr Q24H IVPB 09/05/16 16:00 09/10/16 15:59 09/05/16 17:53 ROLY PERRIN Sep 06, 2016 12:15
--- NOTE | 2016-09-06 14:16 | Cardiology Report ---
APPROVED REPORT EKG Measurement Heart [id number] Sinus tachycardia. Low voltage QRS Nonspecific ST abnormality Abnormal ECG
[2016-09-06] MEDS ORDERED: Nitroglycerin Subl 0.4mg tab (Bottle Of 25) SL PRN (15:15)
[2016-09-06] MEDS ORDERED: Mylanta II UD 30ml ORAL PRN (17:00)
[2016-09-06] MEDS ORDERED: DuoNeb 0.5-3(2.5)mg/3ml neb HHN PRN (17:00)
[2016-09-06] MEDS: Vancomycin 1.25 GM in D5W 275 ML IVPB SCH (18:03)
[2016-09-07] VITALS: BP 112/75
[2016-09-07 04:00] VITALS: BP 115/71
[2016-09-07] MEDS: NovoLOG Insulin Flexpen SUBQ SCH ×4 (06:00→18:51)
[2016-09-07] MEDS: Meropenem 1 GM in NS 55 ML IVPB SCH ×3 (06:04→21:48)
[2016-09-07 07:59] LABS: BASOPHILS % (AUTO) 0.4 % (0.0-2.0); LYMPHOCYTES % (AUTO) 11.5 % (20.0-45.0); MEAN CORPUSCULAR HEMOGLOBIN 26.6 PG (27.0-31.0); MEAN CORPUSCULAR HGB CONC 31.5 G/DL (32.0-36.0); MEAN CORPUSCULAR VOLUME 85 FL (80-99); MEAN PLATELET VOLUME 7.3 FL (6.5-10.1); MONOCYTES % (AUTO) 6.2 % (1.0-10.0); PLATELET COUNT 476 K/UL (150-450); RED BLOOD COUNT 3.29 M/UL (4.70-6.10); RED CELL DISTRIBUTION WIDTH 15.6 % (11.6-14.8)
[2016-09-07 08:00] VITALS: BP 87/56
[2016-09-07 08:27] LABS: ALANINE AMINOTRANSFERASE 20 U/L (3-41); ALBUMIN/GLOBULIN RATIO 0.5 (1.0-2.7); ANION GAP 14 (5-15); ASPARTATE AMINO TRANSFERASE 21 U/L (5-40); CALCIUM 9.1 mg/dL (8.6-10.2); CARBON DIOXIDE 27 mEQ/L (20-30); CHLORIDE 99 mEQ/L (98-107); CREATININE 0.5 mg/dL (0.7-1.2); GLOMERULAR FILTRATION RATE > 60 mL/min (>60); HEMOLYSIS 0; MAGNESIUM 2.1 mg/dL (1.7-2.5); PHOSPHORUS 2.2 mg/dL (2.5-4.8); POTASSIUM 3.5 mEQ/L (3.4-4.9); SODIUM 140 mEQ/L (135-145); TOTAL PROTEIN 7.5 g/dL (6.6-8.7)
[2016-09-07] MEDS: Gabapentin 300 MG/6 ML Soln GT SCH ×3 (09:55→19:14)
[2016-09-07] MEDS: Heparin 5000 units/ml inj SUBQ SCH ×2 (10:30→21:58)
[2016-09-07 12:00] VITALS: BP 95/69
[2016-09-07] MEDS ORDERED: NS 275ml ONE (14:47)
[2016-09-07] MEDS ORDERED: Tubing IV Secondary IV ONE (14:47)
[2016-09-07 16:00] VITALS: BP 87/56
[2016-09-07] MEDS: Vancomycin 1.25 GM in D5W 275 ML IVPB SCH (16:59)
--- NOTE | 2016-09-07 18:55 | Pulmonology Progress Note ---
Subjective Allergies: Coded Allergies: PENICILLINS (Unverified Allergy, Unknown, 09/05/16) Objective Last 24 Hour Vital Signs Date Time Temp Pulse Resp B/P Pulse Ox O2 Delivery O2 Flow Rate FiO2 09/07/16 12:00 97.4 100 95/69 09/07/16 08:00 97.9 73 18 87/56 97 Nasal Cannula 2.0 09/07/16 07:43 113 20 Nasal Cannula 2.0 28 09/07/16 07:43 97 Nasal Cannula 2.0 28 09/07/16 07:43 Nasal Cannula 2.0 28 09/07/16 04:00 98.6 113 18 115/71 99 Nasal Cannula 2.0 09/07/16 00:00 98.4 112 20 112/75 98 Nasal Cannula 2.0 09/06/16 20:00 97.9 109 18 115/71 100 Nasal Cannula 2.0 09/06/16 19:10 Nasal Cannula 3.0 32 09/06/16 19:09 100 Nasal Cannula 3.0 32 Intake and Output 09/06/16 09/07/16 19:00 07:00 Intake Total 115 ml 585 ml Output Total 600 ml 1050 ml Balance -485 ml -465 ml Intake Free Water 200 ml IV Total 55 ml 55 ml Tube Feeding 60 ml 330 ml Output Urine Total 600 ml 1050 ml Microbiology Date/Time Source Procedure Growth Status 09/05/16 06:30 Blood Blood Culture - Preliminary Gram Positive Cocci Resulted 09/05/16 06:20 Blood Blood Culture - Preliminary Gram Positive Cocci Resulted 09/05/16 21:00 Nasal Nares MRSA Culture - Final Staphylococcus Aureus - Mrsa Complete 09/05/16 07:30 Nasal Nares MRSA Culture - Final Staphylococcus Aureus - Mrsa Complete 09/05/16 07:00 Urine,Clean Catch Urine Culture - Preliminary Gram Negative Bacillus 1 Gram Negative Bacillus 2 Resulted 09/05/16 07:30 Rectum VRE Culture - Final Enterococcus Faecalis - Vre Complete Laboratory Tests 09/07/16 06:15: White Blood Count 12.0H, Red Blood Count 3.29L, Hemoglobin 8.8L, Hematocrit 27.8L, Mean Corpuscular Volume 85, Mean Corpuscular Hemoglobin 26.6L, Mean Corpuscular Hemoglobin Concent 31.5L, Red Cell Distribution Width 15.6H, Platelet Count 476H, Mean Platelet Volume 7.3, Neutrophils (%) (Auto) 82.0H, Lymphocytes (%) (Auto) 11.5L, Monocytes (%) (Auto) 6.2, Eosinophils (%) (Auto) 0.0, Basophils (%) (Auto) 0.4, Sodium Level 140, Potassium Level 3.5, Chloride Level 99, Carbon Dioxide Level 27, Anion Gap 14, Blood Urea Nitrogen 16, Creatinine 0.5L, Estimat Glomerular Filtration Rate > 60, Glucose Level 90, Calcium Level 9.1, Phosphorus Level 2.2L, Magnesium Level 2.1, Total Bilirubin 0.2, Aspartate Amino Transf (AST/SGOT) 21, Alanine Aminotransferase (ALT/SGPT) 20, Alkaline Phosphatase 153H, Total Protein 7.5, Albumin 2.6L, Globulin 4.9, Albumin/Globulin Ratio 0.5L Current Medications Medications (Trade) Dose Ordered Sig/Cristina Route PRN Reason Start Time Stop Time Status Last Admin Dose Admin Acetaminophen (Tylenol) 650 mg Q4H PRN ORAL fever 09/06/16 17:00 10/06/16 16:59 Al Hydroxide/Mg Hydroxide (Mylanta II) 30 ml Q6H PRN ORAL dyspepsia 09/06/16 17:00 10/06/16 16:59 Albuterol/ Ipratropium (DuoNeb 0.5-3(2.5)mg/3ml) 3 ml Q4H PRN HHN Shortness of Breath 09/06/16 17:00 09/11/16 16:59 Collagenase (Santyl) 1 applic DAILY TOPIC 09/07/16 09:00 10/07/16 08:59 09/07/16 12:07 Dextrose (Dextrose 50%) STAT PRN IV Hypoglycemia 09/06/16 17:00 10/06/16 16:59 Gabapentin (Neurontin) 400 mg TID GT 09/06/16 18:00 10/06/16 17:59 09/07/16 14:20 Heparin Sodium (Porcine) (Heparin 5000 units/ml) 5,000 units EVERY 12 HOURS SUBQ 09/06/16 21:00 10/06/16 20:59 09/07/16 10:30 Insulin Aspart (NovoLOG) Q6HR SUBQ 09/06/16 18:00 10/06/16 17:59 Levofloxacin 100 ml @ 100 mls/hr Q24H IVPB 09/07/16 08:00 09/14/16 07:59 09/07/16 10:06 Meropenem 1 gm/ Sodium Chloride 55 ml @ 110 mls/hr Q8HR IVPB 09/06/16 22:00 09/11/16 21:59 09/07/16 14:20 Nitroglycerin (Ntg) 0.4 mg Q5MIN X 3 DOSES PRN SL Prn Chest Pain 09/06/16 15:15 10/06/16 15:14 Ondansetron HCl (Zofran) 4 mg Q6H PRN IVP Nausea & Vomiting 09/06/16 18:00 10/06/16 17:59 Polyethylene Glycol (Miralax) 17 gm DAILYPRN PRN ORAL Constipation 09/07/16 17:00 10/07/16 16:59 Sodium Chloride (0.45% NS 1000ml) 1,000 ml @ 75 mls/hr [id number] IV 09/07/16 14:00 10/07/16 13:59 09/07/16 14:22 Temazepam (Restoril) 15 mg HSPRN PRN ORAL Insomnia 09/06/16 17:00 09/13/16 16:59 Vancomycin HCl 1 ea 1 ea DAILY PRN MISC PRN RX PROTOCOL 09/06/16 09:00 10/06/16 08:59 Vancomycin HCl/ Dextrose (Vancomycin/D5W) 275 ml @ 183.3 mls/ hr Q24H IVPB 09/06/16 17:00 09/11/16 16:59 09/07/16 16:59 Juana Will NP (Vanchtein) Sep 07, 2016 18:55
--- NOTE | 2016-09-07 19:36 | Pulmonology Progress Note ---
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 hx of HTN DM PLAN OF CARE MS floor O2 HHN prn CXR negative empiric abx ID follows, urine cx + GNB , blood cx + GPC aspiration precautions, GT feeding, monitor tolerance DVT prophylaxis BS management with SS of insulin off anti HTN meds, BP on the low side, monitor, gentle IVF HH stable after 2 u PRBC anemia workup discussed with sister at the bedside and caller anotehr sister Regina Cha re further POC case discussed and evaluated by supervising physician Subjective Allergies: Coded Allergies: PENICILLINS (Unverified Allergy, Unknown, 09/05/16) Subjective leukocytosis trending down,afebrile on O2 via NC sat stable s/p blood transfusion, sister at the bedside Objective Last 24 Hour Vital Signs Date Time Temp Pulse Resp B/P Pulse Ox O2 Delivery O2 Flow Rate FiO2 09/07/16 12:00 97.4 100 95/69 09/07/16 08:00 97.9 73 18 87/56 97 Nasal Cannula 2.0 09/07/16 07:43 113 20 Nasal Cannula 2.0 28 09/07/16 07:43 97 Nasal Cannula 2.0 28 09/07/16 07:43 Nasal Cannula 2.0 28 09/07/16 04:00 98.6 113 18 115/71 99 Nasal Cannula 2.0 09/07/16 00:00 98.4 112 20 112/75 98 Nasal Cannula 2.0 09/06/16 20:00 97.9 109 18 115/71 100 Nasal Cannula 2.0 Intake and Output 09/06/16 09/07/16 19:00 07:00 Intake Total 115 ml 585 ml Output Total 600 ml 1050 ml Balance -485 ml -465 ml Intake Free Water 200 ml IV Total 55 ml 55 ml Tube Feeding 60 ml 330 ml Output Urine Total 600 ml 1050 ml General Appearance: no acute distress, cachetic, other - bedridden HEENT: normocephalic, atraumatic, anicteric Respiratory/Chest: chest wall non-tender, lungs clear, no respiratory distress , no accessory muscle use Cardiovascular: normal rate, regular rhythm, no JVD Abdomen: normal bowel sounds, soft, non tender, other - G tube Genitourinary: normal external genitalia Extremities: no edema Neurologic/Psychiatric: abnormal gait - bedridden , other - lethargic occasionally arousable, bedridden, contracted Musculoskeletal: atrophy - BLE Microbiology Date/Time Source Procedure Growth Status 09/05/16 06:30 Blood Blood Culture - Preliminary Gram Positive Cocci Resulted 09/05/16 06:20 Blood Blood Culture - Preliminary Gram Positive Cocci Resulted 09/05/16 21:00 Nasal Nares MRSA Culture - Final Staphylococcus Aureus - Mrsa Complete 09/05/16 07:30 Nasal Nares MRSA Culture - Final Staphylococcus Aureus - Mrsa Complete 09/05/16 07:00 Urine,Clean Catch Urine Culture - Preliminary Gram Negative Bacillus 1 Gram Negative Bacillus 2 Resulted 09/05/16 07:30 Rectum VRE Culture - Final Enterococcus Faecalis - Vre Complete Laboratory Tests 09/07/16 06:15: White Blood Count 12.0H, Red Blood Count 3.29L, Hemoglobin 8.8L, Hematocrit 27.8L, Mean Corpuscular Volume 85, Mean Corpuscular Hemoglobin 26.6L, Mean Corpuscular Hemoglobin Concent 31.5L, Red Cell Distribution Width 15.6H, Platelet Count 476H, Mean Platelet Volume 7.3, Neutrophils (%) (Auto) 82.0H, Lymphocytes (%) (Auto) 11.5L, Monocytes (%) (Auto) 6.2, Eosinophils (%) (Auto) 0.0, Basophils (%) (Auto) 0.4, Sodium Level 140, Potassium Level 3.5, Chloride Level 99, Carbon Dioxide Level 27, Anion Gap 14, Blood Urea Nitrogen 16, Creatinine 0.5L, Estimat Glomerular Filtration Rate > 60, Glucose Level 90, Calcium Level 9.1, Phosphorus Level 2.2L, Magnesium Level 2.1, Total Bilirubin 0.2, Aspartate Amino Transf (AST/SGOT) 21, Alanine Aminotransferase (ALT/SGPT) 20, Alkaline Phosphatase 153H, Total Protein 7.5, Albumin 2.6L, Globulin 4.9, Albumin/Globulin Ratio 0.5L Current Medications Medications (Trade) Dose Ordered Sig/Cristina Route PRN Reason Start Time Stop Time Status Last Admin Dose Admin Acetaminophen (Tylenol) 650 mg Q4H PRN ORAL fever 09/06/16 17:00 10/06/16 16:59 Al Hydroxide/Mg Hydroxide (Mylanta II) 30 ml Q6H PRN ORAL dyspepsia 09/06/16 17:00 10/06/16 16:59 Albuterol/ Ipratropium (DuoNeb 0.5-3(2.5)mg/3ml) 3 ml Q4H PRN HHN Shortness of Breath 09/06/16 17:00 09/11/16 16:59 Collagenase (Santyl) 1 applic DAILY TOPIC 09/07/16 09:00 10/07/16 08:59 09/07/16 12:07 Dextrose (Dextrose 50%) STAT PRN IV Hypoglycemia 09/06/16 17:00 10/06/16 16:59 Gabapentin (Neurontin) 400 mg TID GT 09/06/16 18:00 10/06/16 17:59 09/07/16 19:14 Heparin Sodium (Porcine) (Heparin 5000 units/ml) 5,000 units EVERY 12 HOURS SUBQ 09/06/16 21:00 10/06/16 20:59 09/07/16 10:30 Insulin Aspart (NovoLOG) Q6HR SUBQ 09/06/16 18:00 10/06/16 17:59 Levofloxacin 100 ml @ 100 mls/hr Q24H IVPB 09/07/16 08:00 09/14/16 07:59 09/07/16 10:06 Meropenem 1 gm/ Sodium Chloride 55 ml @ 110 mls/hr Q8HR IVPB 09/06/16 22:00 09/11/16 21:59 09/07/16 14:20 Nitroglycerin (Ntg) 0.4 mg Q5MIN X 3 DOSES PRN SL Prn Chest Pain 09/06/16 15:15 10/06/16 15:14 Ondansetron HCl (Zofran) 4 mg Q6H PRN IVP Nausea & Vomiting 09/06/16 18:00 10/06/16 17:59 Polyethylene Glycol (Miralax) 17 gm DAILYPRN PRN ORAL Constipation 09/07/16 17:00 10/07/16 16:59 Sodium Chloride (0.45% NS 1000ml) 1,000 ml @ 75 mls/hr [id number] IV 09/07/16 14:00 10/07/16 13:59 09/07/16 14:22 Temazepam (Restoril) 15 mg HSPRN PRN ORAL Insomnia 09/06/16 17:00 09/13/16 16:59 Vancomycin HCl 1 ea 1 ea DAILY PRN MISC PRN RX PROTOCOL 09/06/16 09:00 10/06/16 08:59 Vancomycin HCl/ Dextrose (Vancomycin/D5W) 275 ml @ 183.3 mls/ hr Q24H IVPB 09/06/16 17:00 09/11/16 16:59 09/07/16 16:59 Suman (Nancy)Juana NP Sep 07, 2016 19:36
[2016-09-07 20:00] VITALS: BP 94/62
[2016-09-08] VITALS: BP 95/58
[2016-09-08 04:00] VITALS: BP 103/70
[2016-09-08] MEDS: Meropenem 1 GM in NS 55 ML IVPB SCH ×3 (06:05→21:26)
[2016-09-08] MEDS: NovoLOG Insulin Flexpen SUBQ SCH ×4 (06:39→17:23)
[2016-09-08 07:35] LABS: BASOPHILS % (AUTO) 0.3 % (0.0-2.0); EOSINOPHILS % (AUTO) 0.7 % (0.0-3.0); LYMPHOCYTES % (AUTO) 12.5 % (20.0-45.0); MEAN CORPUSCULAR HEMOGLOBIN 26.4 PG (27.0-31.0); MEAN CORPUSCULAR HGB CONC 31.3 G/DL (32.0-36.0); MEAN CORPUSCULAR VOLUME 85 FL (80-99); MEAN PLATELET VOLUME 7.4 FL (6.5-10.1); MONOCYTES % (AUTO) 4.4 % (1.0-10.0); NEUTROPHILS % (AUTO) 82.1 % (45.0-75.0); PLATELET COUNT 527 K/UL (150-450); RED BLOOD COUNT 4.26 M/UL (4.70-6.10); RED CELL DISTRIBUTION WIDTH 15.9 % (11.6-14.8)
[2016-09-08 07:47] LABS: HEMOLYSIS 176; IRON 35 ug/dL (59-158); TOTAL IRON BINDING CAPACITY 303 ug/dL (250-400)
[2016-09-08 07:52] LABS: ANION GAP 16 (5-15); CALCIUM 9.7 mg/dL (8.6-10.2); CARBON DIOXIDE 26 mEQ/L (20-30); CHLORIDE 92 mEQ/L (98-107); CREATININE 0.5 mg/dL (0.7-1.2); GLOMERULAR FILTRATION RATE > 60 mL/min (>60); HEMOLYSIS 8; POTASSIUM 4.1 mEQ/L (3.4-4.9); SODIUM 134 mEQ/L (135-145)
[2016-09-08 07:58] LABS: FERRITIN 1604 ng/mL (10-230)
[2016-09-08] MEDS: Heparin 5000 units/ml inj SUBQ SCH ×2 (08:36→21:27)
[2016-09-08 08:58] VITALS: BP 114/72
[2016-09-08] MEDS: Gabapentin 300 MG/6 ML Soln GT SCH ×3 (09:21→17:20)
[2016-09-08] MEDS ORDERED: 1/2 NS 1000ml IV ONE (11:09)
--- NOTE | 2016-09-08 11:50 | Pulmonology Progress Note ---
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 hx of HTN DM PLAN OF CARE MS floor O2 HHN prn CXR negative abx ID follows, urine cx + E coli, Pseudomonas , blood cx + SCON aspiration precautions, GT feeding, monitor tolerance DVT prophylaxis BS management with SS of insulin off anti HTN meds, BP on the low side, monitor, gentle IVF HH stable after 2 u PRBC anemia workup with high ferritin and low iron , stable B 12 , folate pending , CEA WNL , discussed with sister at the bedside and caller another sister Regina Cha re further POC case discussed and evaluated by supervising physician Subjective Allergies: Coded Allergies: PENICILLINS (Unverified Allergy, Unknown, 09/05/16) Subjective leukocytosis trending down, low garde feerv last night on O2 via NC sat stable s/p blood transfusion, HH stable Objective Last 24 Hour Vital Signs Date Time Temp Pulse Resp B/P Pulse Ox O2 Delivery O2 Flow Rate FiO2 09/08/16 08:58 97.7 80 15 114/72 99 Room Air 09/08/16 04:00 97.5 91 20 103/70 100 Nasal Cannula 2.0 09/08/16 00:00 98.1 80 22 95/58 98 09/07/16 22:47 98.1 09/07/16 20:00 100.4 107 22 94/62 100 Room Air 09/07/16 19:31 102 20 Nasal Cannula 2.0 28 09/07/16 19:30 99 Nasal Cannula 2.0 28 09/07/16 19:30 Nasal Cannula 2.0 28 09/07/16 16:00 97.9 73 18 87/56 97 Nasal Cannula 2.0 09/07/16 12:00 97.4 100 95/69 Intake and Output 09/07/16 09/08/16 19:00 07:00 Intake Total 1106.6 ml 745 ml Output Total 300 ml 800 ml Balance 806.6 ml -55 ml Intake Free Water 230 ml 200 ml IV Total 516.6 ml 185 ml Tube Feeding 360 ml 360 ml Output Urine Total 300 ml 800 ml # Bowel Movements 2 Objective General Appearance: no acute distress, cachetic, other - bedridden HEENT: normocephalic, atraumatic, anicteric Respiratory/Chest: chest wall non-tender, lungs clear, no respiratory distress , no accessory muscle use Cardiovascular: normal rate, regular rhythm, no JVD Abdomen: normal bowel sounds, soft, non tender, other - G tube Genitourinary: normal external genitalia Extremities: no edema Neurologic/Psychiatric: abnormal gait - bedridden , other - lethargic occasionally arousable, bedridden, contracted Musculoskeletal: atrophy - BLE Microbiology Date/Time Source Procedure Growth Status 09/05/16 21:00 Nasal Nares MRSA Culture - Final Staphylococcus Aureus - Mrsa Complete Laboratory Tests 09/08/16 04:45: Urine Legionella Antigen [Pending] 09/08/16 05:20: White Blood Count 11.0H, Red Blood Count 4.26L, Hemoglobin 11.3L, Hematocrit 36.0L, Mean Corpuscular Volume 85, Mean Corpuscular Hemoglobin 26.4L, Mean Corpuscular Hemoglobin Concent 31.3L, Red Cell Distribution Width 15.9H, Platelet Count 527H, Mean Platelet Volume 7.4, Neutrophils (%) (Auto) 82.1H, Lymphocytes (%) (Auto) 12.5L, Monocytes (%) (Auto) 4.4, Eosinophils (%) (Auto) 0.7, Basophils (%) (Auto) 0.3, Sodium Level 134L, Potassium Level 4.1, Chloride Level 92L, Carbon Dioxide Level 26, Anion Gap 16H, Blood Urea Nitrogen 13, Creatinine 0.5L, Estimat Glomerular Filtration Rate > 60, Glucose Level 89, Calcium Level 9.7, Iron Level 35L, Total Iron Binding Capacity 303, Percent Iron Saturation 12L, Unsaturated Iron Binding 268, Ferritin 1604H, Carcinoembryonic Antigen 2.0, Vitamin B12 Level 1896H, Folate [Pending] Current Medications Medications (Trade) Dose Ordered Sig/Cristina Route PRN Reason Start Time Stop Time Status Last Admin Dose Admin Acetaminophen (Tylenol) 650 mg Q4H PRN ORAL fever 09/06/16 17:00 10/06/16 16:59 09/07/16 21:48 Al Hydroxide/Mg Hydroxide (Mylanta II) 30 ml Q6H PRN ORAL dyspepsia 09/06/16 17:00 10/06/16 16:59 Albuterol/ Ipratropium (DuoNeb 0.5-3(2.5)mg/3ml) 3 ml Q4H PRN HHN Shortness of Breath 09/06/16 17:00 09/11/16 16:59 Collagenase (Santyl) 1 applic DAILY TOPIC 09/07/16 09:00 10/07/16 08:59 09/07/16 12:07 Dextrose (Dextrose 50%) STAT PRN IV Hypoglycemia 09/06/16 17:00 10/06/16 16:59 Gabapentin (Neurontin) 400 mg TID GT 09/06/16 18:00 10/06/16 17:59 09/08/16 09:21 Heparin Sodium (Porcine) (Heparin 5000 units/ml) 5,000 units EVERY 12 HOURS SUBQ 09/06/16 21:00 10/06/16 20:59 09/08/16 08:36 Insulin Aspart (NovoLOG) Q6HR SUBQ 09/06/16 18:00 10/06/16 17:59 Levofloxacin 100 ml @ 100 mls/hr Q24H IVPB 09/07/16 08:00 09/14/16 07:59 09/08/16 08:35 Meropenem 1 gm/ Sodium Chloride 55 ml @ 110 mls/hr Q8HR IVPB 09/06/16 22:00 09/11/16 21:59 09/08/16 06:05 Nitroglycerin (Ntg) 0.4 mg Q5MIN X 3 DOSES PRN SL Prn Chest Pain 09/06/16 15:15 10/06/16 15:14 Ondansetron HCl (Zofran) 4 mg Q6H PRN IVP Nausea & Vomiting 09/06/16 18:00 10/06/16 17:59 Polyethylene Glycol (Miralax) 17 gm DAILYPRN PRN ORAL Constipation 09/07/16 17:00 10/07/16 16:59 Sodium Chloride (0.45% NS 1000ml) 1,000 ml @ 75 mls/hr [id number] IV 09/07/16 14:00 10/07/16 13:59 09/08/16 04:30 Temazepam (Restoril) 15 mg HSPRN PRN ORAL Insomnia 09/06/16 17:00 09/13/16 16:59 Vancomycin HCl 1 ea 1 ea DAILY PRN MISC PRN RX PROTOCOL 09/06/16 09:00 10/06/16 08:59 Vancomycin HCl/ Dextrose (Vancomycin/D5W) 275 ml @ 183.3 mls/ hr Q24H IVPB 09/06/16 17:00 09/11/16 16:59 09/07/16 16:59 Suman (Nancy)Juana NP Sep 08, 2016 11:50
[2016-09-08 12:00] VITALS: BP 109/73
--- NOTE | 2016-09-08 13:51 | Infectious Diseases Prog Note ---
Assessment/Plan Assessment/Plan A; UTI Infected pressure ulcer DM HPN MRSA colonization P: Continue Meropenem & Vancomycin Discontinue Levaquin Subjective ROS Limited/Unobtainable: Yes Constitutional: Reports: fever, other - Oiuw=530.4 Allergies: Coded Allergies: PENICILLINS (Unverified Allergy, Unknown, 09/05/16) Objective Vital Signs Last 24 Hour Vital Signs Date Time Temp Pulse Resp B/P Pulse Ox O2 Delivery O2 Flow Rate FiO2 09/08/16 08:58 97.7 80 15 114/72 99 Room Air 09/08/16 04:00 97.5 91 20 103/70 100 Nasal Cannula 2.0 09/08/16 00:00 98.1 80 22 95/58 98 09/07/16 22:47 98.1 09/07/16 20:00 100.4 107 22 94/62 100 Room Air 09/07/16 19:31 102 20 Nasal Cannula 2.0 28 09/07/16 19:30 99 Nasal Cannula 2.0 28 09/07/16 19:30 Nasal Cannula 2.0 28 09/07/16 16:00 97.9 73 18 87/56 97 Nasal Cannula 2.0 Height (Feet): 5 Height (Inches): 7.70 Weight (Pounds): 99 General Appearance: no acute distress HEENT: mucous membranes moist Respiratory/Chest: lungs clear Cardiovascular: normal rate Abdomen: soft, non tender, other - GT feeding Extremities: no edema Skin: ulcers Neurologic/Psychiatric: unresponsiveness Microbiology Date/Time Source Procedure Growth Status 09/05/16 21:00 Nasal Nares MRSA Culture - Final Staphylococcus Aureus - Mrsa Complete Laboratory Tests Test 09/08/16 04:45 09/08/16 05:20 Urine Legionella Antigen Pending White Blood Count 11.0 K/UL (4.8-10.8) H Red Blood Count 4.26 M/UL (4.70-6.10) L Hemoglobin 11.3 G/DL (14.2-18.0) L Hematocrit 36.0 % (42.0-52.0) L Mean Corpuscular Volume 85 FL (80-99) Mean Corpuscular Hemoglobin 26.4 PG (27.0-31.0) L Mean Corpuscular Hemoglobin Concent 31.3 G/DL (32.0-36.0) L Red Cell Distribution Width 15.9 % (11.6-14.8) H Platelet Count 527 K/UL (150-450) H Mean Platelet Volume 7.4 FL (6.5-10.1) Neutrophils (%) (Auto) 82.1 % (45.0-75.0) H Lymphocytes (%) (Auto) 12.5 % (20.0-45.0) L Monocytes (%) (Auto) 4.4 % (1.0-10.0) Eosinophils (%) (Auto) 0.7 % (0.0-3.0) Basophils (%) (Auto) 0.3 % (0.0-2.0) Sodium Level 134 mEQ/L (135-145) L Potassium Level 4.1 mEQ/L (3.4-4.9) Chloride Level 92 mEQ/L (98-107) L Carbon Dioxide Level 26 mEQ/L (20-30) Anion Gap 16 (5-15) H Blood Urea Nitrogen 13 mg/dL (7-23) Creatinine 0.5 mg/dL (0.7-1.2) L Estimat Glomerular Filtration Rate > 60 mL/min (>60) Glucose Level 89 mg/dL (74-106) Calcium Level 9.7 mg/dL (8.6-10.2) Iron Level 35 ug/dL (59-158) L Total Iron Binding Capacity 303 ug/dL (250-400) Percent Iron Saturation 12 % (15-50) L Unsaturated Iron Binding 268 ug/dL (112-346) Ferritin 1604 ng/mL (10-230) H Carcinoembryonic Antigen 2.0 ng/mL Vitamin B12 Level 1896 pg/mL (211-946) H Folate Pending Current Medications Medications (Trade) Dose Ordered Sig/Cristina Route PRN Reason Start Time Stop Time Status Last Admin Dose Admin Acetaminophen (Tylenol) 650 mg Q4H PRN ORAL fever 09/06/16 17:00 10/06/16 16:59 09/07/16 21:48 Al Hydroxide/Mg Hydroxide (Mylanta II) 30 ml Q6H PRN ORAL dyspepsia 09/06/16 17:00 10/06/16 16:59 Albuterol/ Ipratropium (DuoNeb 0.5-3(2.5)mg/3ml) 3 ml Q4H PRN HHN Shortness of Breath 09/06/16 17:00 09/11/16 16:59 Collagenase (Santyl) 1 applic DAILY TOPIC 09/07/16 09:00 10/07/16 08:59 09/08/16 13:00 Dextrose (Dextrose 50%) STAT PRN IV Hypoglycemia 09/06/16 17:00 10/06/16 16:59 Gabapentin (Neurontin) 400 mg TID GT 09/06/16 18:00 10/06/16 17:59 09/08/16 13:38 Heparin Sodium (Porcine) (Heparin 5000 units/ml) 5,000 units EVERY 12 HOURS SUBQ 09/06/16 21:00 10/06/16 20:59 09/08/16 08:36 Insulin Aspart (NovoLOG) Q6HR SUBQ 09/06/16 18:00 10/06/16 17:59 09/08/16 12:00 Levofloxacin 100 ml @ 100 mls/hr Q24H IVPB 09/07/16 08:00 09/14/16 07:59 09/08/16 08:35 Meropenem 1 gm/ Sodium Chloride 55 ml @ 110 mls/hr Q8HR IVPB 09/06/16 22:00 09/11/16 21:59 09/08/16 13:38 Nitroglycerin (Ntg) 0.4 mg Q5MIN X 3 DOSES PRN SL Prn Chest Pain 09/06/16 15:15 10/06/16 15:14 Ondansetron HCl (Zofran) 4 mg Q6H PRN IVP Nausea & Vomiting 09/06/16 18:00 10/06/16 17:59 Polyethylene Glycol (Miralax) 17 gm DAILYPRN PRN ORAL Constipation 09/07/16 17:00 10/07/16 16:59 Sodium Chloride (0.45% NS 1000ml) 1,000 ml @ 75 mls/hr [id number] IV 09/07/16 14:00 10/07/16 13:59 09/08/16 04:30 Temazepam (Restoril) 15 mg HSPRN PRN ORAL Insomnia 09/06/16 17:00 09/13/16 16:59 Vancomycin HCl 1 ea 1 ea DAILY PRN MISC PRN RX PROTOCOL 09/06/16 09:00 10/06/16 08:59 Vancomycin HCl/ Dextrose (Vancomycin/D5W) 275 ml @ 183.3 mls/ hr Q24H IVPB 09/06/16 17:00 09/11/16 16:59 09/07/16 16:59 LOPEZ MARCIAL Sep 08, 2016 13:51
[2016-09-08 16:00] VITALS: BP 108/68
[2016-09-08] MEDS: Vancomycin 1.25 GM in D5W 275 ML IVPB SCH (17:19)
[2016-09-08 19:00] VITALS: BP 110/73
[2016-09-09] VITALS: BP 112/72
[2016-09-09] MEDS: NovoLOG Insulin Flexpen SUBQ SCH ×4 (00:29→18:30)
[2016-09-09 04:00] VITALS: BP 116/73
[2016-09-09] MEDS: Vancomycin 1gm/D5W 275ml IVPB SCH ×4 (05:04→17:18)
[2016-09-09] MEDS: Meropenem 1 GM in NS 55 ML IVPB SCH ×3 (06:19→21:00)
[2016-09-09 08:00] VITALS: BP 110/68
[2016-09-09 08:06] LABS: OTHERS PATHOLOGIST COMMENT
[2016-09-09] MEDS: Gabapentin 300 MG/6 ML Soln GT SCH ×3 (09:05→19:06)
[2016-09-09] MEDS: Dakin's 0.25% (Half Strength) 16oz TOPIC SCH (09:05)
[2016-09-09] MEDS: Heparin 5000 units/ml inj SUBQ SCH ×2 (09:07→21:05)
--- NOTE | 2016-09-09 09:52 | Infectious Diseases Prog Note ---
Assessment/Plan Assessment/Plan A: The patient is a 50-year-old old male with : leukocytosis , increased Fever , SP UTI , probable Hx of Pna SpCx: ESBL Ecoli Multiple lower Ext decubitus Cxray : No acute cardiopulmonary disease identified History of CVA status post FI[employer]GEANT shunt and meningitis. History of DVT HTN DM PLAN: cont Vanco d# 6 / 7 Merrem d# 5 / 7 ( 2/5 SP Levaquin d# 5 ) Monitor CBC Monitor BMP Monitor culture B Monitor chest x-ray BiPAP PRN Subjective Constitutional: Denies: anorexia, chills, drenching sweats, fatigue, fever, no symptoms, other Allergies: Coded Allergies: PENICILLINS (Unverified Allergy, Unknown, 09/05/16) Subjective non verbal Objective Vital Signs Last 24 Hour Vital Signs Date Time Temp Pulse Resp B/P Pulse Ox O2 Delivery O2 Flow Rate FiO2 09/09/16 08:00 96.1 68 18 110/68 98 Nasal Cannula 2.0 09/09/16 04:00 96.8 104 20 116/73 90 Nasal Cannula 2.0 09/09/16 00:00 97.9 102 20 112/72 93 Nasal Cannula 2.0 09/08/16 19:09 Nasal Cannula 2.0 28 09/08/16 19:09 99 Nasal Cannula 2.0 28 09/08/16 19:07 90 18 Nasal Cannula 2.0 28 09/08/16 19:00 97.0 88 16 110/73 98 Nasal Cannula 2.0 09/08/16 16:00 96.1 94 16 108/68 98 Nasal Cannula 2.0 09/08/16 12:00 80 20 109/73 98 Nasal Cannula 2.0 80 Height (Feet): 5 Height (Inches): 7.70 Weight (Pounds): 99 HEENT: atraumatic Respiratory/Chest: normal breath sounds Cardiovascular: normal rate Abdomen: no organomegaly Laboratory Tests Test 09/08/16 15:00 Vancomycin Level Trough 7.4 ug/mL (5.0-12.0) Current Medications Medications (Trade) Dose Ordered Sig/Cristina Route PRN Reason Start Time Stop Time Status Last Admin Dose Admin Acetaminophen (Tylenol) 650 mg Q4H PRN ORAL fever 09/06/16 17:00 10/06/16 16:59 09/07/16 21:48 Al Hydroxide/Mg Hydroxide (Mylanta II) 30 ml Q6H PRN ORAL dyspepsia 09/06/16 17:00 10/06/16 16:59 Albuterol/ Ipratropium (DuoNeb 0.5-3(2.5)mg/3ml) 3 ml Q4H PRN HHN Shortness of Breath 09/06/16 17:00 09/11/16 16:59 Collagenase (Santyl) 1 applic DAILY TOPIC 09/07/16 09:00 10/07/16 08:59 09/09/16 09:06 Dextrose (Dextrose 50%) STAT PRN IV Hypoglycemia 09/06/16 17:00 10/06/16 16:59 Gabapentin (Neurontin) 400 mg TID GT 09/06/16 18:00 10/06/16 17:59 09/09/16 09:05 Heparin Sodium (Porcine) (Heparin 5000 units/ml) 5,000 units EVERY 12 HOURS SUBQ 09/06/16 21:00 10/06/16 20:59 09/09/16 09:07 Insulin Aspart (NovoLOG) Q6HR SUBQ 09/06/16 18:00 10/06/16 17:59 09/09/16 05:29 Meropenem/Sodium Chloride (Merrem/Sodium Chloride) 55 ml @ 110 mls/hr Q8HR IVPB 09/06/16 22:00 09/11/16 21:59 09/09/16 06:19 Nitroglycerin (Ntg) 0.4 mg Q5MIN X 3 DOSES PRN SL Prn Chest Pain 09/06/16 15:15 10/06/16 15:14 Ondansetron HCl (Zofran) 4 mg Q6H PRN IVP Nausea & Vomiting 09/06/16 18:00 10/06/16 17:59 Polyethylene Glycol (Miralax) 17 gm DAILYPRN PRN ORAL Constipation 09/07/16 17:00 10/07/16 16:59 Sodium Hypochlorite 1 applic 1 applic DAILY TOPIC 09/09/16 09:00 10/09/16 08:59 09/09/16 09:05 Sodium Chloride (0.45% NS 1000ml) 1,000 ml @ 75 mls/hr [id number] IV 09/07/16 14:00 10/07/16 13:59 09/09/16 00:20 Temazepam (Restoril) 15 mg HSPRN PRN ORAL Insomnia 09/06/16 17:00 09/13/16 16:59 Vancomycin HCl 1 ea 1 ea DAILY PRN MISC PRN RX PROTOCOL 09/06/16 09:00 10/06/16 08:59 Vancomycin HCl/ Dextrose (Vancomycin/D5W) 275 ml @ 183.708 mls/hr Q12HR@0500,1700 IVPB 09/09/16 05:00 09/14/16 04:59 09/09/16 05:04 JOSLYN NICOLE M.D. Sep 09, 2016 09:51
[2016-09-09 12:00] VITALS: BP 117/70
[2016-09-09 16:00] VITALS: BP 109/70
[2016-09-09 20:00] VITALS: BP 105/67
--- NOTE | 2016-09-09 23:03 | Pulmonology Progress Note ---
Assessment/Plan Problems: (1) Respiratory distress (2) Sepsis (3) Severe protein-calorie malnutrition (4) Feeding by G-tube (5) S/P AGILE QA TESTER shunt Assessment/Plan wbc decreasing iv antibiotics check cultures tolerating feeding check electrolytes med/surg h/h better dc soon Subjective Allergies: Coded Allergies: PENICILLINS (Unverified Allergy, Unknown, 09/05/16) Objective Last 24 Hour Vital Signs Date Time Temp Pulse Resp B/P Pulse Ox O2 Delivery O2 Flow Rate FiO2 09/09/16 20:00 99.0 80 17 105/67 99 Room Air 09/09/16 16:00 100.2 105 17 109/70 99 Room Air 09/09/16 12:00 97.5 95 18 117/70 98 Nasal Cannula 2.0 09/09/16 08:00 96.1 68 18 110/68 98 Nasal Cannula 2.0 09/09/16 07:54 91 18 Nasal Cannula 2.0 28 09/09/16 07:54 100 Nasal Cannula 2.0 28 09/09/16 07:54 Nasal Cannula 2.0 28 09/09/16 04:00 96.8 104 20 116/73 90 Nasal Cannula 2.0 09/09/16 00:00 97.9 102 20 112/72 93 Nasal Cannula 2.0 Intake and Output 09/08/16 09/09/16 18:59 06:59 Intake Total 1623.3 ml 1590 ml Output Total 1050 ml Balance 1623.3 ml 540 ml Intake Free Water 200 ml 200 ml IV Total 1063.3 ml 1060 ml Tube Feeding 360 ml 330 ml Output Urine Total 1050 ml Objective Respiratory/Chest: chest wall non-tender, lungs clear Cardiovascular: normal peripheral pulses Abdomen: normal bowel sounds, soft, non tender Extremities: no cyanosis, no clubbing Skin: no rash, no ulcers Lymphatic: no neck adenopathy Current Medications Medications (Trade) Dose Ordered Sig/Cristina Route PRN Reason Start Time Stop Time Status Last Admin Dose Admin Acetaminophen (Tylenol) 650 mg Q4H PRN ORAL fever 09/06/16 17:00 10/06/16 16:59 09/07/16 21:48 Al Hydroxide/Mg Hydroxide (Mylanta II) 30 ml Q6H PRN ORAL dyspepsia 09/06/16 17:00 10/06/16 16:59 Albuterol/ Ipratropium (DuoNeb 0.5-3(2.5)mg/3ml) 3 ml Q4H PRN HHN Shortness of Breath 09/06/16 17:00 09/11/16 16:59 Collagenase (Santyl) 1 applic DAILY TOPIC 09/07/16 09:00 10/07/16 08:59 09/09/16 09:06 Dextrose (Dextrose 50%) STAT PRN IV Hypoglycemia 09/06/16 17:00 10/06/16 16:59 Gabapentin (Neurontin) 400 mg TID GT 09/06/16 18:00 10/06/16 17:59 09/09/16 19:06 Heparin Sodium (Porcine) (Heparin 5000 units/ml) 5,000 units EVERY 12 HOURS SUBQ 09/06/16 21:00 10/06/16 20:59 09/09/16 21:05 Insulin Aspart (NovoLOG) Q6HR SUBQ 09/06/16 18:00 10/06/16 17:59 09/09/16 18:30 Meropenem/Sodium Chloride (Merrem/Sodium Chloride) 55 ml @ 110 mls/hr Q8HR IVPB 09/06/16 22:00 09/11/16 21:59 09/09/16 21:00 Nitroglycerin (Ntg) 0.4 mg Q5MIN X 3 DOSES PRN SL Prn Chest Pain 09/06/16 15:15 10/06/16 15:14 Ondansetron HCl (Zofran) 4 mg Q6H PRN IVP Nausea & Vomiting 09/06/16 18:00 10/06/16 17:59 Polyethylene Glycol (Miralax) 17 gm DAILYPRN PRN ORAL Constipation 09/07/16 17:00 10/07/16 16:59 Sodium Hypochlorite 1 applic 1 applic DAILY TOPIC 09/09/16 09:00 10/09/16 08:59 09/09/16 09:05 Sodium Chloride (0.45% NS 1000ml) 1,000 ml @ 75 mls/hr [id number] IV 09/07/16 14:00 10/07/16 13:59 09/09/16 19:05 Temazepam (Restoril) 15 mg HSPRN PRN ORAL Insomnia 09/06/16 17:00 09/13/16 16:59 Vancomycin HCl 1 ea 1 ea DAILY PRN MISC PRN RX PROTOCOL 09/06/16 09:00 10/06/16 08:59 Vancomycin HCl/ Dextrose (Vancomycin/D5W) 275 ml @ 183.708 mls/hr Q12HR@0500,1700 IVPB 09/09/16 05:00 09/14/16 04:59 09/09/16 17:18 ROLY PERRIN Sep 09, 2016 23:03
[2016-09-10] VITALS: BP 115/81
[2016-09-10] MEDS: Miralax 17gm pkt ORAL PRN (00:31)
[2016-09-10 04:00] VITALS: BP 117/80
[2016-09-10] MEDS: Meropenem 1 GM in NS 55 ML IVPB SCH ×3 (05:16→21:14)
[2016-09-10] MEDS: NovoLOG Insulin Flexpen SUBQ SCH ×5 (05:31→23:48)
[2016-09-10] MEDS: Vancomycin 1gm/D5W 275ml IVPB SCH ×2 (06:42)
[2016-09-10 08:00] VITALS: BP 118/87
[2016-09-10] MEDS: Gabapentin 300 MG/6 ML Soln GT SCH ×3 (09:04→19:10)
[2016-09-10] MEDS: Heparin 5000 units/ml inj SUBQ SCH ×2 (09:05→21:16)
[2016-09-10] MEDS: Dakin's 0.25% (Half Strength) 16oz TOPIC SCH (09:07)
--- NOTE | 2016-09-10 10:03 | Infectious Diseases Prog Note ---
Assessment/Plan Assessment/Plan A: The patient is a 50-year-old old male with : leukocytosis , improving Fever , low grade UTI , probable Hx of Pna SpCx: ESBL Ecoli Multiple lower Ext decubitus Cxray : No acute cardiopulmonary disease identified History of CVA status post [employer] shunt and meningitis. History of DVT HTN DM PLAN: cont Merrem d# 6 / , DC Vanco d# 7 / 7 ( 2/5 SP Levaquin d# 5 ) Monitor CBC Monitor BMP Monitor culture Monitor chest x-ray BiPAP PRN Subjective Allergies: Coded Allergies: PENICILLINS (Unverified Allergy, Unknown, 09/05/16) Subjective non verbal Objective Vital Signs Last 24 Hour Vital Signs Date Time Temp Pulse Resp B/P Pulse Ox O2 Delivery O2 Flow Rate FiO2 09/10/16 08:00 98.1 73 18 118/87 97 Nasal Cannula 2.0 09/10/16 04:00 98.1 76 18 117/80 100 Nasal Cannula 2.0 09/10/16 00:00 98.2 75 18 115/81 100 Nasal Cannula 2.0 09/09/16 20:15 80 20 Room Air 2.0 28 09/09/16 20:15 99 Nasal Cannula 2.0 28 09/09/16 20:15 Nasal Cannula 2.0 28 09/09/16 20:00 99.0 80 17 105/67 99 Room Air 09/09/16 16:00 100.2 105 17 109/70 99 Room Air 09/09/16 12:00 97.5 95 18 117/70 98 Nasal Cannula 2.0 Height (Feet): 5 Height (Inches): 7.70 Weight (Pounds): 99 HEENT: anicteric Respiratory/Chest: no respiratory distress Abdomen: soft, non tender Laboratory Tests Test 09/10/16 04:30 Vancomycin Level Trough 16.3 ug/mL (5.0-12.0) H Current Medications Medications (Trade) Dose Ordered Sig/Cristina Route PRN Reason Start Time Stop Time Status Last Admin Dose Admin Acetaminophen (Tylenol) 650 mg Q4H PRN ORAL fever 09/06/16 17:00 10/06/16 16:59 09/07/16 21:48 Al Hydroxide/Mg Hydroxide (Mylanta II) 30 ml Q6H PRN ORAL dyspepsia 09/06/16 17:00 10/06/16 16:59 Albuterol/ Ipratropium (DuoNeb 0.5-3(2.5)mg/3ml) 3 ml Q4H PRN HHN Shortness of Breath 09/06/16 17:00 09/11/16 16:59 Collagenase (Santyl) 1 applic DAILY TOPIC 09/07/16 09:00 10/07/16 08:59 09/10/16 09:08 Dextrose (Dextrose 50%) STAT PRN IV Hypoglycemia 09/06/16 17:00 10/06/16 16:59 Gabapentin (Neurontin) 400 mg TID GT 09/06/16 18:00 10/06/16 17:59 09/10/16 09:04 Heparin Sodium (Porcine) (Heparin 5000 units/ml) 5,000 units EVERY 12 HOURS SUBQ 09/06/16 21:00 10/06/16 20:59 09/10/16 09:05 Insulin Aspart (NovoLOG) Q6HR SUBQ 09/06/16 18:00 10/06/16 17:59 09/10/16 05:31 Meropenem/Sodium Chloride (Merrem/Sodium Chloride) 55 ml @ 110 mls/hr Q8HR IVPB 09/06/16 22:00 09/11/16 21:59 09/10/16 05:16 Nitroglycerin (Ntg) 0.4 mg Q5MIN X 3 DOSES PRN SL Prn Chest Pain 09/06/16 15:15 10/06/16 15:14 Ondansetron HCl (Zofran) 4 mg Q6H PRN IVP Nausea & Vomiting 09/06/16 18:00 10/06/16 17:59 Polyethylene Glycol (Miralax) 17 gm DAILYPRN PRN ORAL Constipation 09/07/16 17:00 10/07/16 16:59 09/10/16 00:31 Sodium Hypochlorite 1 applic 1 applic DAILY TOPIC 09/09/16 09:00 10/09/16 08:59 09/10/16 09:07 Sodium Chloride (0.45% NS 1000ml) 1,000 ml @ 75 mls/hr [id number] IV 09/07/16 14:00 10/07/16 13:59 09/10/16 09:04 Temazepam (Restoril) 15 mg HSPRN PRN ORAL Insomnia 09/06/16 17:00 09/13/16 16:59 Vancomycin HCl 1 ea 1 ea DAILY PRN MISC PRN RX PROTOCOL 09/06/16 09:00 10/06/16 08:59 Vancomycin HCl/ Dextrose (Vancomycin/D5W) 275 ml @ 183.708 mls/hr Q12HR@0500,1700 IVPB 09/09/16 05:00 09/14/16 04:59 09/10/16 06:42 JOSLYN NICOLE M.D. Sep 10, 2016 10:03
[2016-09-10 12:00] VITALS: BP 112/78
[2016-09-10] MEDS ORDERED: Tubing IV Secondary IV ONE (15:19)
[2016-09-10] MEDS ORDERED: 1/2 NS 1000ml IV ONE (15:19)
[2016-09-10 16:00] VITALS: BP 122/76
--- NOTE | 2016-09-10 16:31 | Pulmonology Progress Note ---
Assessment/Plan Problems: (1) Respiratory distress (2) Sepsis (3) Severe protein-calorie malnutrition (4) Feeding by G-tube (5) S/P PLASTER CASTER shunt Assessment/Plan wbc decreasing iv antibiotics check cultures tolerating feeding check electrolytes med/surg h/h better dc soon Subjective ROS Limited/Unobtainable: No Constitutional: Reports: no symptoms HEENT: Repors: no symptoms Allergies: Coded Allergies: PENICILLINS (Unverified Allergy, Unknown, 09/05/16) Objective Last 24 Hour Vital Signs Date Time Temp Pulse Resp B/P Pulse Ox O2 Delivery O2 Flow Rate FiO2 09/10/16 12:00 97.6 78 18 112/78 97 Nasal Cannula 2.0 09/10/16 08:00 98.1 73 18 118/87 97 Nasal Cannula 2.0 09/10/16 04:00 98.1 76 18 117/80 100 Nasal Cannula 2.0 09/10/16 00:00 98.2 75 18 115/81 100 Nasal Cannula 2.0 09/09/16 20:15 80 20 Room Air 2.0 28 09/09/16 20:15 99 Nasal Cannula 2.0 28 09/09/16 20:15 Nasal Cannula 2.0 28 09/09/16 20:00 99.0 80 17 105/67 99 Room Air Intake and Output 09/09/16 09/10/16 19:00 07:00 Intake Total 1505.000 ml 1465 ml Output Total 975 ml Balance 1505.000 ml 490 ml Intake Free Water 200 ml 200 ml IV Total 875.000 ml 785 ml Tube Feeding 430 ml 480 ml Output Urine Total 975 ml Objective Respiratory/Chest: chest wall non-tender, lungs clear Cardiovascular: normal peripheral pulses Abdomen: normal bowel sounds, soft, non tender Extremities: no cyanosis, no clubbing Skin: no rash, no ulcers Lymphatic: no neck adenopathy General Appearance: WD/WN HEENT: normocephalic, atraumatic Respiratory/Chest: chest wall non-tender, respiratory distress Cardiovascular: normal peripheral pulses Abdomen: normal bowel sounds Genitourinary: normal external genitalia Extremities: no cyanosis Neurologic/Psychiatric: no motor/sensory deficits Laboratory Tests 09/10/16 04:30: Vancomycin Level Trough 16.3H Current Medications Medications (Trade) Dose Ordered Sig/Cristina Route PRN Reason Start Time Stop Time Status Last Admin Dose Admin Acetaminophen (Tylenol) 650 mg Q4H PRN ORAL fever 09/06/16 17:00 10/06/16 16:59 09/07/16 21:48 Al Hydroxide/Mg Hydroxide (Mylanta II) 30 ml Q6H PRN ORAL dyspepsia 09/06/16 17:00 10/06/16 16:59 Albuterol/ Ipratropium (DuoNeb 0.5-3(2.5)mg/3ml) 3 ml Q4H PRN HHN Shortness of Breath 09/06/16 17:00 09/11/16 16:59 Collagenase (Santyl) 1 applic DAILY TOPIC 09/07/16 09:00 10/07/16 08:59 09/10/16 09:08 Dextrose (Dextrose 50%) STAT PRN IV Hypoglycemia 09/06/16 17:00 10/06/16 16:59 Gabapentin (Neurontin) 400 mg TID GT 09/06/16 18:00 10/06/16 17:59 09/10/16 13:08 Heparin Sodium (Porcine) (Heparin 5000 units/ml) 5,000 units EVERY 12 HOURS SUBQ 09/06/16 21:00 10/06/16 20:59 09/10/16 09:05 Insulin Aspart (NovoLOG) Q6HR SUBQ 09/06/16 18:00 10/06/16 17:59 09/10/16 12:36 Meropenem/Sodium Chloride (Merrem/Sodium Chloride) 55 ml @ 110 mls/hr Q8HR IVPB 09/10/16 14:00 09/18/16 21:59 09/10/16 13:34 Nitroglycerin (Ntg) 0.4 mg Q5MIN X 3 DOSES PRN SL Prn Chest Pain 09/06/16 15:15 10/06/16 15:14 Ondansetron HCl (Zofran) 4 mg Q6H PRN IVP Nausea & Vomiting 09/06/16 18:00 10/06/16 17:59 Polyethylene Glycol (Miralax) 17 gm DAILYPRN PRN ORAL Constipation 09/07/16 17:00 10/07/16 16:59 09/10/16 00:31 Sodium Hypochlorite 1 applic 1 applic DAILY TOPIC 09/09/16 09:00 10/09/16 08:59 09/10/16 09:07 Sodium Chloride (0.45% NS 1000ml) 1,000 ml @ 75 mls/hr [id number] IV 09/07/16 14:00 10/07/16 13:59 09/10/16 09:04 Temazepam 15 mg 15 mg HSPRN PRN ORAL Insomnia 09/06/16 17:00 09/13/16 16:59 ROLY PERRIN Sep 10, 2016 16:31
[2016-09-10 20:00] VITALS: BP 126/76
[2016-09-11] VITALS: BP 130/85
[2016-09-11 04:00] VITALS: BP 125/79
[2016-09-11 04:21] LABS: BASOPHILS % (AUTO) 0.7 % (0.0-2.0); EOSINOPHILS % (AUTO) 1.6 % (0.0-3.0); LYMPHOCYTES % (AUTO) 12.4 % (20.0-45.0); MEAN CORPUSCULAR HEMOGLOBIN 26.7 PG (27.0-31.0); MEAN CORPUSCULAR HGB CONC 32.3 G/DL (32.0-36.0); MEAN CORPUSCULAR VOLUME 83 FL (80-99); MEAN PLATELET VOLUME 7.3 FL (6.5-10.1); MONOCYTES % (AUTO) 7.9 % (1.0-10.0); NEUTROPHILS % (AUTO) 77.4 % (45.0-75.0); PLATELET COUNT 488 K/UL (150-450); RED BLOOD COUNT 3.75 M/UL (4.70-6.10); RED CELL DISTRIBUTION WIDTH 15.9 % (11.6-14.8); WHITE BLOOD COUNT 10.8 K/UL (4.8-10.8)
[2016-09-11] MEDS: Meropenem 1 GM in NS 55 ML IVPB SCH ×3 (05:05→21:27)
[2016-09-11 05:28] LABS: ERYTHROCYTE SEDIMENTATION RATE 110 MM/HR (0-20)
[2016-09-11] MEDS: NovoLOG Insulin Flexpen SUBQ SCH ×4 (06:01→23:56)
[2016-09-11 07:17] LABS: ALANINE AMINOTRANSFERASE 12 U/L (3-41); ALBUMIN/GLOBULIN RATIO 0.5 (1.0-2.7); ANION GAP 11 (5-15); ASPARTATE AMINO TRANSFERASE 14 U/L (5-40); CALCIUM 8.6 mg/dL (8.6-10.2); CARBON DIOXIDE 30 mEQ/L (20-30); CHLORIDE 86 mEQ/L (98-107); CREATININE 0.3 mg/dL (0.7-1.2); CRP QUANT 2.5 mg/dL (< 0.5); GLOMERULAR FILTRATION RATE > 60 mL/min (>60); HEMOLYSIS 8; MAGNESIUM 1.9 mg/dL (1.7-2.5); PHOSPHORUS 1.3 mg/dL (2.5-4.8); POTASSIUM 3.6 mEQ/L (3.4-4.9); SODIUM 127 mEQ/L (135-145); TOTAL PROTEIN 7.2 g/dL (6.6-8.7)
[2016-09-11 08:00] VITALS: BP 141/95
[2016-09-11] MEDS: Gabapentin 300 MG/6 ML Soln GT SCH ×3 (09:23→18:20)
[2016-09-11] MEDS: Dakin's 0.25% (Half Strength) 16oz TOPIC SCH (09:23)
[2016-09-11] MEDS: Heparin 5000 units/ml inj SUBQ SCH ×2 (09:25→21:35)
[2016-09-11 12:00] VITALS: BP 127/75
[2016-09-11 16:00] VITALS: BP 152/84
--- NOTE | 2016-09-11 17:10 | Infectious Diseases Prog Note ---
Assessment/Plan Assessment/Plan A: The patient is a 50-year-old old male with : leukocytosis , SP Fever , low grade UTI , probable Hx of Pna SpCx: ESBL Ecoli Multiple lower Ext decubitus Cxray : No acute cardiopulmonary disease identified History of CVA status post FINISH OPENER shunt and meningitis. History of DVT HTN DM PLAN: cont Merrem d# , ( 3 Vanco d# ) ( 2/ SP Levaquin d# 5 ) Monitor CBC Monitor BMP Monitor culture Monitor chest x-ray BiPAP PRN Subjective Constitutional: Denies: anorexia, chills, drenching sweats, fatigue, fever, no symptoms, other Allergies: Coded Allergies: PENICILLINS (Unverified Allergy, Unknown, 09/05/16) Subjective non verbal Objective Vital Signs Last 24 Hour Vital Signs Date Time Temp Pulse Resp B/P Pulse Ox O2 Delivery O2 Flow Rate FiO2 09/11/16 16:00 97.9 83 18 152/84 100 Room Air 09/11/16 12:06 98 Nasal Cannula 2.0 28 09/11/16 12:06 Nasal Cannula 2.0 28 09/11/16 12:06 78 18 Room Air 2.0 28 09/11/16 12:00 98.1 77 18 127/75 98 Room Air 09/11/16 08:00 96.6 74 20 141/95 98 Nasal Cannula 2.0 09/11/16 04:00 98.4 71 18 125/79 98 Nasal Cannula 2.0 09/11/16 00:00 98.7 77 20 130/85 98 Nasal Cannula 2.0 09/10/16 20:00 97.3 74 19 126/76 97 Nasal Cannula 2.0 09/10/16 19:25 Nasal Cannula 2.0 28 09/10/16 19:25 77 20 Room Air 2.0 28 09/10/16 19:25 98 Nasal Cannula 2.0 28 Height (Feet): 5 Height (Inches): 7.70 Weight (Pounds): 99 HEENT: anicteric Respiratory/Chest: lungs clear Cardiovascular: regularly irregular Abdomen: no organomegaly Laboratory Tests Test 09/11/16 03:50 09/11/16 16:30 White Blood Count 10.8 K/UL (4.8-10.8) Red Blood Count 3.75 M/UL (4.70-6.10) L Hemoglobin 10.0 G/DL (14.2-18.0) L Hematocrit 31.0 % (42.0-52.0) L Mean Corpuscular Volume 83 FL (80-99) Mean Corpuscular Hemoglobin 26.7 PG (27.0-31.0) L Mean Corpuscular Hemoglobin Concent 32.3 G/DL (32.0-36.0) Red Cell Distribution Width 15.9 % (11.6-14.8) H Platelet Count 488 K/UL (150-450) H Mean Platelet Volume 7.3 FL (6.5-10.1) Neutrophils (%) (Auto) 77.4 % (45.0-75.0) H Lymphocytes (%) (Auto) 12.4 % (20.0-45.0) L Monocytes (%) (Auto) 7.9 % (1.0-10.0) Eosinophils (%) (Auto) 1.6 % (0.0-3.0) Basophils (%) (Auto) 0.7 % (0.0-2.0) Erythrocyte Sedimentation Rate 110 MM/HR (0-20) H Sodium Level 127 mEQ/L (135-145) L Potassium Level 3.6 mEQ/L (3.4-4.9) Chloride Level 86 mEQ/L (98-107) L Carbon Dioxide Level 30 mEQ/L (20-30) Anion Gap 11 (5-15) Blood Urea Nitrogen 6 mg/dL (7-23) L Creatinine 0.3 mg/dL (0.7-1.2) L Estimat Glomerular Filtration Rate > 60 mL/min (>60) Glucose Level 123 mg/dL (74-106) H Calcium Level 8.6 mg/dL (8.6-10.2) Phosphorus Level 1.3 mg/dL (2.5-4.8) L Magnesium Level 1.9 mg/dL (1.7-2.5) Total Bilirubin < 0.2 mg/dL (0.0-1.2) Aspartate Amino Transf (AST/SGOT) 14 U/L (5-40) Alanine Aminotransferase (ALT/SGPT) 12 U/L (3-41) Alkaline Phosphatase 112 U/L (40-129) C-Reactive Protein, Quantitative 2.5 mg/dL (< 0.5) H Total Protein 7.2 g/dL (6.6-8.7) Albumin 2.6 g/dL (3.5-5.2) L Globulin 4.6 g/dL Albumin/Globulin Ratio 0.5 (1.0-2.7) L Vancomycin Level Trough 2.9 ug/mL (5.0-12.0) L Current Medications Medications (Trade) Dose Ordered Sig/Cristina Route PRN Reason Start Time Stop Time Status Last Admin Dose Admin Acetaminophen (Tylenol) 650 mg Q4H PRN ORAL fever 09/06/16 17:00 10/06/16 16:59 09/07/16 21:48 Al Hydroxide/Mg Hydroxide (Mylanta II) 30 ml Q6H PRN ORAL dyspepsia 09/06/16 17:00 10/06/16 16:59 Collagenase (Santyl) 1 applic DAILY TOPIC 09/07/16 09:00 10/07/16 08:59 09/11/16 09:23 Dextrose (Dextrose 50%) STAT PRN IV Hypoglycemia 09/06/16 17:00 10/06/16 16:59 Gabapentin (Neurontin) 400 mg TID GT 09/06/16 18:00 10/06/16 17:59 09/11/16 14:11 Heparin Sodium (Porcine) (Heparin 5000 units/ml) 5,000 units EVERY 12 HOURS SUBQ 09/06/16 21:00 10/06/16 20:59 09/11/16 09:25 Insulin Aspart (NovoLOG) Q6HR SUBQ 09/06/16 18:00 10/06/16 17:59 09/11/16 11:38 Meropenem/Sodium Chloride (Merrem/Sodium Chloride) 55 ml @ 110 mls/hr Q8HR IVPB 09/10/16 14:00 09/18/16 21:59 09/11/16 14:03 Nitroglycerin (Ntg) 0.4 mg Q5MIN X 3 DOSES PRN SL Prn Chest Pain 09/06/16 15:15 10/06/16 15:14 Ondansetron HCl (Zofran) 4 mg Q6H PRN IVP Nausea & Vomiting 09/06/16 18:00 10/06/16 17:59 Polyethylene Glycol (Miralax) 17 gm DAILYPRN PRN ORAL Constipation 09/07/16 17:00 10/07/16 16:59 09/10/16 00:31 Sodium Hypochlorite 1 applic 1 applic DAILY TOPIC 09/09/16 09:00 10/09/16 08:59 09/11/16 09:23 Sodium Chloride (0.45% NS 1000ml) 1,000 ml @ 75 mls/hr [id number] IV 09/07/16 14:00 10/07/16 13:59 09/11/16 11:40 Temazepam 15 mg 15 mg HSPRN PRN ORAL Insomnia 09/06/16 17:00 09/13/16 16:59 JOSLYN NICOLE M.D. Sep 11, 2016 17:10
--- NOTE | 2016-09-11 20:52 | Pulmonology Progress Note ---
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 Assessment/Plan wbc decreasing iv antibiotics check cultures tolerating feeding check electrolytes med/surg h/h better dc soon Subjective ROS Limited/Unobtainable: Yes Interval Events: awake, looks comfortable, Allergies: Coded Allergies: PENICILLINS (Unverified Allergy, Unknown, 09/05/16) Objective Last 24 Hour Vital Signs Date Time Temp Pulse Resp B/P Pulse Ox O2 Delivery O2 Flow Rate FiO2 09/11/16 16:00 97.9 83 18 152/84 100 Room Air 09/11/16 12:06 98 Nasal Cannula 2.0 28 09/11/16 12:06 Nasal Cannula 2.0 28 09/11/16 12:06 78 18 Room Air 2.0 28 09/11/16 12:00 98.1 77 18 127/75 98 Room Air 09/11/16 08:00 96.6 74 20 141/95 98 Nasal Cannula 2.0 09/11/16 04:00 98.4 71 18 125/79 98 Nasal Cannula 2.0 09/11/16 00:00 98.7 77 20 130/85 98 Nasal Cannula 2.0 Intake and Output 09/10/16 09/11/16 19:00 07:00 Intake Total 930 ml 835 ml Output Total 2300 ml 1100 ml Balance -1370 ml -265 ml Intake Oral 240 ml Free Water 250 ml IV Total 675 ml Tube Feeding 440 ml 160 ml Output Urine Total 2300 ml 1100 ml Objective Respiratory/Chest: chest wall non-tender, lungs clear Cardiovascular: normal peripheral pulses Abdomen: normal bowel sounds, soft, non tender Extremities: no cyanosis, no clubbing Skin: no rash, no ulcers Lymphatic: no neck adenopathy Laboratory Tests 09/11/16 03:50: White Blood Count 10.8, Red Blood Count 3.75L, Hemoglobin 10.0L, Hematocrit 31.0L, Mean Corpuscular Volume 83, Mean Corpuscular Hemoglobin 26.7L, Mean Corpuscular Hemoglobin Concent 32.3, Red Cell Distribution Width 15.9H, Platelet Count 488H, Mean Platelet Volume 7.3, Neutrophils (%) (Auto) 77.4H, Lymphocytes (%) (Auto) 12.4L, Monocytes (%) (Auto) 7.9, Eosinophils (%) (Auto) 1.6, Basophils (%) (Auto) 0.7, Erythrocyte Sedimentation Rate 110H, Sodium Level 127L, Potassium Level 3.6, Chloride Level 86L, Carbon Dioxide Level 30, Anion Gap 11, Blood Urea Nitrogen 6L, Creatinine 0.3L, Estimat Glomerular Filtration Rate > 60, Glucose Level 123H, Calcium Level 8.6, Phosphorus Level 1.3L, Magnesium Level 1.9, Total Bilirubin < 0.2, Aspartate Amino Transf (AST/ SGOT) 14, Alanine Aminotransferase (ALT/SGPT) 12, Alkaline Phosphatase 112, C- Reactive Protein, Quantitative 2.5H, Total Protein 7.2, Albumin 2.6L, Globulin 4.6, Albumin/Globulin Ratio 0.5L 09/11/16 16:30: Vancomycin Level Trough 2.9L Current Medications Medications (Trade) Dose Ordered Sig/Cristina Route PRN Reason Start Time Stop Time Status Last Admin Dose Admin Acetaminophen (Tylenol) 650 mg Q4H PRN ORAL fever 09/06/16 17:00 10/06/16 16:59 09/07/16 21:48 Al Hydroxide/Mg Hydroxide (Mylanta II) 30 ml Q6H PRN ORAL dyspepsia 09/06/16 17:00 10/06/16 16:59 Collagenase (Santyl) 1 applic DAILY TOPIC 09/07/16 09:00 10/07/16 08:59 09/11/16 09:23 Dextrose (Dextrose 50%) STAT PRN IV Hypoglycemia 09/06/16 17:00 10/06/16 16:59 Gabapentin (Neurontin) 400 mg TID GT 09/06/16 18:00 10/06/16 17:59 09/11/16 18:20 Heparin Sodium (Porcine) (Heparin 5000 units/ml) 5,000 units EVERY 12 HOURS SUBQ 09/06/16 21:00 10/06/16 20:59 09/11/16 09:25 Insulin Aspart (NovoLOG) Q6HR SUBQ 09/06/16 18:00 10/06/16 17:59 09/11/16 18:35 Meropenem/Sodium Chloride (Merrem/Sodium Chloride) 55 ml @ 110 mls/hr Q8HR IVPB 09/10/16 14:00 09/18/16 21:59 09/11/16 14:03 Nitroglycerin (Ntg) 0.4 mg Q5MIN X 3 DOSES PRN SL Prn Chest Pain 09/06/16 15:15 10/06/16 15:14 Ondansetron HCl (Zofran) 4 mg Q6H PRN IVP Nausea & Vomiting 09/06/16 18:00 10/06/16 17:59 Polyethylene Glycol (Miralax) 17 gm DAILYPRN PRN ORAL Constipation 09/07/16 17:00 10/07/16 16:59 09/10/16 00:31 Sodium Hypochlorite 1 applic 1 applic DAILY TOPIC 09/09/16 09:00 10/09/16 08:59 09/11/16 09:23 Sodium Chloride (0.45% NS 1000ml) 1,000 ml @ 75 mls/hr [id number] IV 09/07/16 14:00 10/07/16 13:59 09/11/16 11:40 Temazepam 15 mg 15 mg HSPRN PRN ORAL Insomnia 09/06/16 17:00 09/13/16 16:59 ROLY PERRIN Sep 11, 2016 20:52
[2016-09-11 20:57] VITALS: BP 139/85
[2016-09-12] VITALS (7 sets, daily range): BP systolic 99–137; BP diastolic 70–96
[2016-09-12] MEDS: Meropenem 1 GM in NS 55 ML IVPB SCH ×3 (05:05→21:59)
[2016-09-12] MEDS: NovoLOG Insulin Flexpen SUBQ SCH ×3 (05:56→18:57)
[2016-09-12] MEDS: Dakin's 0.25% (Half Strength) 16oz TOPIC SCH (08:43)
[2016-09-12] MEDS: Heparin 5000 units/ml inj SUBQ SCH (08:47)
[2016-09-12] MEDS: Gabapentin 300 MG/6 ML Soln GT SCH ×3 (10:18→18:58)
[2016-09-12] MEDS: Miralax 17gm pkt ORAL PRN (13:52)
[2016-09-12] MEDS ORDERED: Miralax 17gm pkt ORAL PRN (17:00)
[2016-09-12] MEDS ORDERED: Nitroglycerin Subl 0.4mg tab (Bottle Of 25) SL PRN (19:45)
[2016-09-12] MEDS ORDERED: Morphine Sulfate 10mg/5ml Oral Soln ud GT PRN (19:45)
[2016-09-12] MEDS ORDERED: Albuterol ud Inhalation HHN PRN (19:45)
[2016-09-12] MEDS ORDERED: Mylanta II UD 30ml GT PRN (20:00)
[2016-09-12] MEDS ORDERED: Mylanta II UD 30ml ORAL PRN (20:00)
[2016-09-12] MEDS ORDERED: Miralax 17gm pkt GT PRN (20:12)
[2016-09-12] MEDS ORDERED: Heparin 5000 units/ml inj SUBQ SCH (21:00)
[2016-09-12] MEDS: Fluconazole 100mg tab GT SCH (21:56)
[2016-09-12] MEDS: Acetaminophen 650mg/20.3ml GT PRN (21:57)
[2016-09-12] MEDS: Nitrofurantoin 50mg cap GT SCH (22:18)
[2016-09-13] VITALS: BP 99/5
[2016-09-13 00:37] LABS: ABG ALLEN TEST POSITIVE; ABG BASE EXCESS 8.6; ABG PCO2 41.6 mmHg (35.0-45.0)
[2016-09-13] MEDS: NovoLOG Insulin Flexpen SUBQ SCH ×5 (00:44→23:46)
[2016-09-13 04:00] VITALS: BP 108/71
[2016-09-13] MEDS: Meropenem 1 GM in NS 55 ML IVPB SCH ×3 (05:30→21:00)
[2016-09-13 06:16] LABS: MEAN CORPUSCULAR HEMOGLOBIN 26.4 PG (27.0-31.0); MEAN CORPUSCULAR HGB CONC 32.4 G/DL (32.0-36.0); MEAN CORPUSCULAR VOLUME 81 FL (80-99); PLATELET COUNT 336 K/UL (150-450); RED BLOOD COUNT 4.13 M/UL (4.70-6.10)
[2016-09-13 06:54] LABS: ALANINE AMINOTRANSFERASE 11 U/L (3-41); ALBUMIN/GLOBULIN RATIO 0.5 (1.0-2.7); ANION GAP 16 (5-15); ASPARTATE AMINO TRANSFERASE 16 U/L (5-40); CALCIUM 8.8 mg/dL (8.6-10.2); CARBON DIOXIDE 28 mEQ/L (20-30); CHLORIDE 78 mEQ/L (98-107); CREATININE 0.4 mg/dL (0.7-1.2); GLOMERULAR FILTRATION RATE > 60 mL/min (>60); HEMOLYSIS 7; POTASSIUM 3.9 mEQ/L (3.4-4.9); SODIUM 122 mEQ/L (135-145); TOTAL PROTEIN 7.6 g/dL (6.6-8.7)
[2016-09-13] MEDS: Acetaminophen 650mg/20.3ml GT PRN (07:46)
[2016-09-13 08:00] VITALS: BP 104/72
[2016-09-13 08:08] LABS: BAND NEUTROPHILS % (MANUAL) 5 % (0-8); BASOPHILS % (MANUAL) 0 % (0-2); EOSINOPHILS % (MANUAL) 0 % (0-3); LYMPHOCYTES % (MANUAL) 13 % (20-45); NEUTROPHILS % (MANUAL) 75 % (45-75); PLATELET CLUMPS 1+; PLATELET ESTIMATE ADEQUATE; PLATELET MORPHOLOGY NORMAL; TOTAL CELLS COUNTED 100
[2016-09-13] MEDS ORDERED: Bactrim DS (160mg/800mg) tab GT SCH (09:00)
[2016-09-13] MEDS: Fluconazole 100mg tab GT SCH (09:09)
[2016-09-13] MEDS: Zinc Sulfate 220mg cap GT SCH (09:10)
[2016-09-13] MEDS: Ascorbic Acid 500mg tab GT SCH (09:10)
[2016-09-13] MEDS: Dakin's 0.25% (Half Strength) 16oz TOPIC SCH (09:11)
[2016-09-13] MEDS: Enoxaparin 40mg Inj SUBQ SCH (09:12)
[2016-09-13] MEDS: Nitrofurantoin 50mg cap GT SCH ×2 (09:38→14:19)
[2016-09-13] MEDS: Gabapentin 300 MG/6 ML Soln GT SCH ×3 (09:39→18:19)
--- NOTE | 2016-09-13 11:43 | Pulmonology Progress Note ---
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 Assessment/Plan repeat labs, cxr transfer to [facility] check cultures tolerating feeding check electrolytes Subjective ROS Limited/Unobtainable: Yes Interval Events: late note for 09/12/16, pt is more dysnic Allergies: Coded Allergies: PENICILLINS (Unverified Allergy, Unknown, 09/05/16) Objective Last 24 Hour Vital Signs Date Time Temp Pulse Resp B/P Pulse Ox O2 Delivery O2 Flow Rate FiO2 09/13/16 10:30 98.4 09/13/16 08:20 98.4 09/13/16 08:00 112 09/13/16 08:00 101.5 120 20 104/72 99 Nasal Cannula 3.0 09/13/16 06:45 Nasal Cannula 2.0 28 09/13/16 06:45 98 Nasal Cannula 2.0 28 09/13/16 04:00 98.1 120 20 108/71 100 Nasal Cannula 3.0 09/13/16 00:00 116 09/13/16 00:00 98.0 103 24 99/5 99 Nasal Cannula 4.0 09/12/16 20:00 98 09/12/16 20:00 99.5 104 19 99/70 98 Nasal Cannula 2.0 09/12/16 19:46 97 Nasal Cannula 2.0 28 09/12/16 19:46 Nasal Cannula 2.0 28 09/12/16 17:43 101.7 09/12/16 17:15 101.5 130 22 124/81 95 Nasal Cannula 2.0 09/12/16 16:00 101.1 131 20 118/81 95 Nasal Cannula 2.0 09/12/16 12:00 98.6 109 18 128/91 97 Nasal Cannula 2.0 Intake and Output 09/12/16 09/13/16 19:00 07:00 Intake Total 840 ml 1468 ml Output Total 1150 ml 2400 ml Balance -310 ml -932 ml Free Water 100 ml 150 ml IV Total 300 ml 878 ml Tube Feeding 440 ml 440 ml Output Urine Total 1150 ml 2400 ml Objective Respiratory/Chest: chest wall non-tender, lungs clear Cardiovascular: normal peripheral pulses Abdomen: normal bowel sounds, soft, non tender Extremities: no cyanosis, no clubbing Skin: no rash, no ulcers Lymphatic: no neck adenopathy Laboratory Tests 09/13/16 00:26: Arterial Blood pH 7.510H, Arterial Blood Partial Pressure CO2 41.6, Arterial Blood Partial Pressure O2 81.6, Arterial Blood HCO3 32.4H, Arterial Blood Oxygen Saturation 95.7, Arterial Blood Base Excess 8.6, Hammad Test Positive 09/13/16 03:15: White Blood Count 21.0H, Red Blood Count 4.13L, Hemoglobin 10.9L, Hematocrit 33.6L, Mean Corpuscular Volume 81, Mean Corpuscular Hemoglobin 26.4L, Mean Corpuscular Hemoglobin Concent 32.4, Red Cell Distribution Width 16.0H, Platelet Count 336, Mean Platelet Volume 7.0, Neutrophils (%) (Auto) , Lymphocytes (%) (Auto) , Monocytes (%) (Auto) , Eosinophils (%) (Auto) , Basophils (%) (Auto) , Differential Total Cells Counted 100, Neutrophils % ( Manual) 75, Lymphocytes % (Manual) 13L, Monocytes % (Manual) 7, Eosinophils % ( Manual) 0, Basophils % (Manual) 0, Band Neutrophils 5, Platelet Estimate Adequate, Platelet Morphology Normal, Clumped Platelets 1+, Red Blood Cell Morphology Normal, Sodium Level 122L, Potassium Level 3.9, Chloride Level 78L, Carbon Dioxide Level 28, Anion Gap 16H, Blood Urea Nitrogen 9, Creatinine 0.4L, Estimat Glomerular Filtration Rate > 60, Glucose Level 88, Calcium Level 8.8, Total Bilirubin 0.5, Aspartate Amino Transf (AST/SGOT) 16, Alanine Aminotransferase (ALT/SGPT) 11, Alkaline Phosphatase 120, Total Protein 7.6, Albumin 2.8L, Globulin 4.8, Albumin/Globulin Ratio 0.5L Current Medications Medications (Trade) Dose Ordered Sig/Cristina Route PRN Reason Start Time Stop Time Status Last Admin Dose Admin Acetaminophen (Tylenol) 650 mg Q6H PRN GT Prn Headache/Temp > 101 09/12/16 19:45 10/12/16 19:44 09/13/16 07:46 Al Hydroxide/Mg Hydroxide (Mylanta II) 30 ml Q6H PRN GT dyspepsia 09/12/16 20:00 10/12/16 19:59 Albuterol Sulfate (Proventil) 2.5 mg Q4H PRN HHN Shortness of Breath 09/12/16 19:45 09/17/16 19:44 Ascorbic Acid (Vitamin C) 500 mg DAILY GT 09/13/16 09:00 10/13/16 08:59 09/13/16 09:10 Bisacodyl (Dulcolax) 10 mg DAILYPRN PRN RECTAL Constipation 09/13/16 07:45 10/13/16 07:44 09/13/16 09:13 Collagenase (Santyl) 1 applic DAILY TOPIC 09/13/16 09:00 10/13/16 08:59 09/13/16 09:11 Dextrose (Dextrose 50%) STAT PRN IV Hypoglycemia 09/12/16 20:00 10/12/16 19:59 Enoxaparin Sodium (Lovenox) 40 mg DAILY SUBQ 09/13/16 09:00 10/13/16 08:59 09/13/16 09:12 Fluconazole (Diflucan) 200 mg DAILY GT 09/12/16 21:00 09/19/16 20:59 09/13/16 09:09 Gabapentin (Neurontin) 400 mg TID GT 09/13/16 09:00 10/13/16 08:59 09/13/16 09:39 Insulin Aspart (NovoLOG) Q6HR SUBQ 09/13/16 00:00 10/13/16 00:00 09/13/16 05:30 Meropenem/Sodium Chloride (Merrem/Sodium Chloride) 55 ml @ 110 mls/hr Q8HR IVPB 09/12/16 22:00 09/14/16 21:59 09/13/16 05:30 Morphine Sulfate (Morphine 10mg/ 5ml Oral Soln) 20 mg Q2H PRN GT FOR PAIN 4-09/12/16 19:45 09/19/16 19:44 Nitrofurantoin (Nitrofurantoin) 50 mg FOUR TIMES A DAY GT 09/12/16 21:00 09/19/16 20:59 09/13/16 09:38 Nitroglycerin (Ntg) 0.4 mg Q5MIN X 3 DOSES PRN SL Prn Chest Pain 09/12/16 19:45 10/12/16 19:44 Ondansetron HCl (Zofran) 4 mg Q6H PRN IVP Nausea & Vomiting 3/9/17 20:00 10/12/16 19:59 Polyethylene Glycol (Miralax) 17 gm DAILYPRN PRN GT Constipation 09/12/16 20:12 10/12/16 16:59 Sodium Hypochlorite (Dakin's Half Strength) 1 applic DAILY TOPIC 09/13/16 09:00 10/13/16 08:59 09/13/16 09:11 Temazepam (Restoril) 15 mg HSPRN PRN GT Insomnia 09/12/16 21:00 09/19/16 20:59 Trimethoprim/ Sulfamethoxazole (Bactrim-DS) 1 ea TWICE A DAY GT 09/13/16 09:00 09/20/16 08:59 09/13/16 09:10 Zinc Sulfate 220 mg 220 mg DAILY GT 09/13/16 09:00 10/13/16 08:59 09/13/16 09:10 ROLY PERRIN Sep 13, 2016 11:43
--- NOTE | 2016-09-13 11:45 | Pulmonology Progress Note ---
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 Assessment/Plan wbc higherr cxr is unchanged keep in [facility] repeat cultures tolerating feeding adjust antibiotics Subjective ROS Limited/Unobtainable: No Interval Events: breathing is much better Allergies: Coded Allergies: PENICILLINS (Unverified Allergy, Unknown, 09/05/16) Objective Last 24 Hour Vital Signs Date Time Temp Pulse Resp B/P Pulse Ox O2 Delivery O2 Flow Rate FiO2 09/13/16 10:30 98.4 09/13/16 08:20 98.4 09/13/16 08:00 112 09/13/16 08:00 101.5 120 20 104/72 99 Nasal Cannula 3.0 09/13/16 06:45 Nasal Cannula 2.0 28 09/13/16 06:45 98 Nasal Cannula 2.0 28 09/13/16 04:00 98.1 120 20 108/71 100 Nasal Cannula 3.0 09/13/16 00:00 116 09/13/16 00:00 98.0 103 24 99/5 99 Nasal Cannula 4.0 09/12/16 20:00 98 09/12/16 20:00 99.5 104 19 99/70 98 Nasal Cannula 2.0 09/12/16 19:46 97 Nasal Cannula 2.0 28 09/12/16 19:46 Nasal Cannula 2.0 28 09/12/16 17:43 101.7 09/12/16 17:15 101.5 130 22 124/81 95 Nasal Cannula 2.0 09/12/16 16:00 101.1 131 20 118/81 95 Nasal Cannula 2.0 09/12/16 12:00 98.6 109 18 128/91 97 Nasal Cannula 2.0 Intake and Output 09/12/16 09/13/16 19:00 07:00 Intake Total 840 ml 1468 ml Output Total 1150 ml 2400 ml Balance -310 ml -932 ml Free Water 100 ml 150 ml IV Total 300 ml 878 ml Tube Feeding 440 ml 440 ml Output Urine Total 1150 ml 2400 ml Objective Respiratory/Chest: chest wall non-tender, lungs clear Cardiovascular: normal peripheral pulses Abdomen: normal bowel sounds, soft, non tender Extremities: no cyanosis, no clubbing Skin: no rash, no ulcers Lymphatic: no neck adenopathy Laboratory Tests 09/13/16 00:26: Arterial Blood pH 7.510H, Arterial Blood Partial Pressure CO2 41.6, Arterial Blood Partial Pressure O2 81.6, Arterial Blood HCO3 32.4H, Arterial Blood Oxygen Saturation 95.7, Arterial Blood Base Excess 8.6, Hammad Test Positive 09/13/16 03:15: White Blood Count 21.0H, Red Blood Count 4.13L, Hemoglobin 10.9L, Hematocrit 33.6L, Mean Corpuscular Volume 81, Mean Corpuscular Hemoglobin 26.4L, Mean Corpuscular Hemoglobin Concent 32.4, Red Cell Distribution Width 16.0H, Platelet Count 336, Mean Platelet Volume 7.0, Neutrophils (%) (Auto) , Lymphocytes (%) (Auto) , Monocytes (%) (Auto) , Eosinophils (%) (Auto) , Basophils (%) (Auto) , Differential Total Cells Counted 100, Neutrophils % ( Manual) 75, Lymphocytes % (Manual) 13L, Monocytes % (Manual) 7, Eosinophils % ( Manual) 0, Basophils % (Manual) 0, Band Neutrophils 5, Platelet Estimate Adequate, Platelet Morphology Normal, Clumped Platelets 1+, Red Blood Cell Morphology Normal, Sodium Level 122L, Potassium Level 3.9, Chloride Level 78L, Carbon Dioxide Level 28, Anion Gap 16H, Blood Urea Nitrogen 9, Creatinine 0.4L, Estimat Glomerular Filtration Rate > 60, Glucose Level 88, Calcium Level 8.8, Total Bilirubin 0.5, Aspartate Amino Transf (AST/SGOT) 16, Alanine Aminotransferase (ALT/SGPT) 11, Alkaline Phosphatase 120, Total Protein 7.6, Albumin 2.8L, Globulin 4.8, Albumin/Globulin Ratio 0.5L Current Medications Medications (Trade) Dose Ordered Sig/Cristina Route PRN Reason Start Time Stop Time Status Last Admin Dose Admin Acetaminophen (Tylenol) 650 mg Q6H PRN GT Prn Headache/Temp > 101 09/12/16 19:45 10/12/16 19:44 09/13/16 07:46 Al Hydroxide/Mg Hydroxide (Mylanta II) 30 ml Q6H PRN GT dyspepsia 09/12/16 20:00 10/12/16 19:59 Albuterol Sulfate (Proventil) 2.5 mg Q4H PRN HHN Shortness of Breath 09/12/16 19:45 09/17/16 19:44 Ascorbic Acid (Vitamin C) 500 mg DAILY GT 09/13/16 09:00 10/13/16 08:59 09/13/16 09:10 Bisacodyl (Dulcolax) 10 mg DAILYPRN PRN RECTAL Constipation 09/13/16 07:45 10/13/16 07:44 09/13/16 09:13 Collagenase (Santyl) 1 applic DAILY TOPIC 09/13/16 09:00 10/13/16 08:59 09/13/16 09:11 Dextrose (Dextrose 50%) STAT PRN IV Hypoglycemia 09/12/16 20:00 10/12/16 19:59 Enoxaparin Sodium (Lovenox) 40 mg DAILY SUBQ 09/13/16 09:00 10/13/16 08:59 09/13/16 09:12 Fluconazole (Diflucan) 200 mg DAILY GT 09/12/16 21:00 09/19/16 20:59 09/13/16 09:09 Gabapentin (Neurontin) 400 mg TID GT 09/13/16 09:00 10/13/16 08:59 09/13/16 09:39 Insulin Aspart (NovoLOG) Q6HR SUBQ 09/13/16 00:00 10/13/16 00:00 09/13/16 05:30 Meropenem/Sodium Chloride (Merrem/Sodium Chloride) 55 ml @ 110 mls/hr Q8HR IVPB 09/12/16 22:00 09/14/16 21:59 09/13/16 05:30 Morphine Sulfate (Morphine 10mg/ 5ml Oral Soln) 20 mg Q2H PRN GT FOR PAIN 4-09/12/16 19:45 09/19/16 19:44 Nitrofurantoin (Nitrofurantoin) 50 mg FOUR TIMES A DAY GT 09/12/16 21:00 09/19/16 20:59 09/13/16 09:38 Nitroglycerin (Ntg) 0.4 mg Q5MIN X 3 DOSES PRN SL Prn Chest Pain 09/12/16 19:45 10/12/16 19:44 Ondansetron HCl (Zofran) 4 mg Q6H PRN IVP Nausea & Vomiting 09/12/16 20:00 4/8/17 19:59 Polyethylene Glycol (Miralax) 17 gm DAILYPRN PRN GT Constipation 09/12/16 20:12 10/12/16 16:59 Sodium Hypochlorite (Dakin's Half Strength) 1 applic DAILY TOPIC 09/13/16 09:00 10/13/16 08:59 09/13/16 09:11 Temazepam (Restoril) 15 mg HSPRN PRN GT Insomnia 09/12/16 21:00 09/19/16 20:59 Trimethoprim/ Sulfamethoxazole (Bactrim-DS) 1 ea TWICE A DAY GT 09/13/16 09:00 09/20/16 08:59 09/13/16 09:10 Zinc Sulfate 220 mg 220 mg DAILY GT 09/13/16 09:00 10/13/16 08:59 09/13/16 09:10 ROLY PERRIN Sep 13, 2016 11:45
--- NOTE | 2016-09-13 11:47 | Infectious Diseases Prog Note ---
Assessment/Plan Assessment/Plan A: The patient is a 50-year-old old male with : leukocytosis Fever UTI , probable Hx of Pna SpCx: ESBL Ecoli Multiple lower Ext decubitus Cxray : No acute cardiopulmonary disease identified History of CVA status post [employer] shunt and meningitis. History of DVT HTN DM PLAN: cont Merrem d# , cont Diflucan d# 2 add IV Vanco d# 1 ( hold Bactrim and Nitrofurantoin ) ( 09/10 Vanco d# ) ( 08/11 SP Levaquin d# 5 ) Monitor CBC Monitor BMP Monitor chest x-ray Monitor Cx ( Bl, Ur. SP ) DW PCP Subjective Constitutional: Denies: anorexia, chills, drenching sweats, fatigue, fever, no symptoms, other Allergies: Coded Allergies: PENICILLINS (Unverified Allergy, Unknown, 09/05/16) Subjective non verbal Objective Vital Signs Last 24 Hour Vital Signs Date Time Temp Pulse Resp B/P Pulse Ox O2 Delivery O2 Flow Rate FiO2 09/13/16 10:30 98.4 09/13/16 08:20 98.4 09/13/16 08:00 112 09/13/16 08:00 101.5 120 20 104/72 99 Nasal Cannula 3.0 09/13/16 06:45 Nasal Cannula 2.0 28 09/13/16 06:45 98 Nasal Cannula 2.0 28 09/13/16 04:00 98.1 120 20 108/71 100 Nasal Cannula 3.0 09/13/16 00:00 116 09/13/16 00:00 98.0 103 24 99/5 99 Nasal Cannula 4.0 09/12/16 20:00 98 09/12/16 20:00 99.5 104 19 99/70 98 Nasal Cannula 2.0 09/12/16 19:46 97 Nasal Cannula 2.0 28 09/12/16 19:46 Nasal Cannula 2.0 28 09/12/16 17:43 101.7 09/12/16 17:15 101.5 130 22 124/81 95 Nasal Cannula 2.0 09/12/16 16:00 101.1 131 20 118/81 95 Nasal Cannula 2.0 09/12/16 12:00 98.6 109 18 128/91 97 Nasal Cannula 2.0 Height (Feet): 5 Height (Inches): 7.70 Weight (Pounds): 99 HEENT: anicteric Respiratory/Chest: lungs clear Cardiovascular: normal rate Abdomen: soft, non tender Laboratory Tests Test 09/13/16 00:26 09/13/16 03:15 Arterial Blood pH 7.510 (7.350-7.450) Arterial Blood Partial Pressure CO2 41.6 mmHg (35.0-45.0) Arterial Blood Partial Pressure O2 81.6 mmHg (75.0-100.0) Arterial Blood HCO3 32.4 mmol/L (22.0-26.0) H Arterial Blood Oxygen Saturation 95.7 % (92.0-98.0) Arterial Blood Base Excess 8.6 Hammad Test Positive White Blood Count 21.0 K/UL (4.8-10.8) H Red Blood Count 4.13 M/UL (4.70-6.10) L Hemoglobin 10.9 G/DL (14.2-18.0) L Hematocrit 33.6 % (42.0-52.0) L Mean Corpuscular Volume 81 FL (80-99) Mean Corpuscular Hemoglobin 26.4 PG (27.0-31.0) L Mean Corpuscular Hemoglobin Concent 32.4 G/DL (32.0-36.0) Red Cell Distribution Width 16.0 % (11.6-14.8) H Platelet Count 336 K/UL (150-450) Mean Platelet Volume 7.0 FL (6.5-10.1) Neutrophils (%) (Auto) % (45.0-75.0) Lymphocytes (%) (Auto) % (20.0-45.0) Monocytes (%) (Auto) % (1.0-10.0) Eosinophils (%) (Auto) % (0.0-3.0) Basophils (%) (Auto) % (0.0-2.0) Differential Total Cells Counted 100 Neutrophils % (Manual) 75 % (45-75) Lymphocytes % (Manual) 13 % (20-45) L Monocytes % (Manual) 7 % (1-10) Eosinophils % (Manual) 0 % (0-3) Basophils % (Manual) 0 % (0-2) Band Neutrophils 5 % (0-8) Platelet Estimate Adequate Platelet Morphology Normal Clumped Platelets 1+ Red Blood Cell Morphology Normal Sodium Level 122 mEQ/L (135-145) L Potassium Level 3.9 mEQ/L (3.4-4.9) Chloride Level 78 mEQ/L (98-107) L Carbon Dioxide Level 28 mEQ/L (20-30) Anion Gap 16 (5-15) H Blood Urea Nitrogen 9 mg/dL (7-23) Creatinine 0.4 mg/dL (0.7-1.2) L Estimat Glomerular Filtration Rate > 60 mL/min (>60) Glucose Level 88 mg/dL (74-106) Calcium Level 8.8 mg/dL (8.6-10.2) Total Bilirubin 0.5 mg/dL (0.0-1.2) Aspartate Amino Transf (AST/SGOT) 16 U/L (5-40) Alanine Aminotransferase (ALT/SGPT) 11 U/L (3-41) Alkaline Phosphatase 120 U/L (40-129) Total Protein 7.6 g/dL (6.6-8.7) Albumin 2.8 g/dL (3.5-5.2) L Globulin 4.8 g/dL Albumin/Globulin Ratio 0.5 (1.0-2.7) L Current Medications Medications (Trade) Dose Ordered Sig/Cristina Route PRN Reason Start Time Stop Time Status Last Admin Dose Admin Acetaminophen (Tylenol) 650 mg Q6H PRN GT Prn Headache/Temp > 101 09/12/16 19:45 10/12/16 19:44 09/13/16 07:46 Al Hydroxide/Mg Hydroxide (Mylanta II) 30 ml Q6H PRN GT dyspepsia 09/12/16 20:00 10/12/16 19:59 Albuterol Sulfate (Proventil) 2.5 mg Q4H PRN HHN Shortness of Breath 09/12/16 19:45 09/17/16 19:44 Ascorbic Acid (Vitamin C) 500 mg DAILY GT 09/13/16 09:00 10/13/16 08:59 09/13/16 09:10 Bisacodyl (Dulcolax) 10 mg DAILYPRN PRN RECTAL Constipation 09/13/16 07:45 10/13/16 07:44 09/13/16 09:13 Collagenase (Santyl) 1 applic DAILY TOPIC 09/13/16 09:00 10/13/16 08:59 09/13/16 09:11 Dextrose (Dextrose 50%) STAT PRN IV Hypoglycemia 09/12/16 20:00 10/12/16 19:59 Enoxaparin Sodium (Lovenox) 40 mg DAILY SUBQ 09/13/16 09:00 10/13/16 08:59 09/13/16 09:12 Fluconazole (Diflucan) 200 mg DAILY GT 09/12/16 21:00 09/19/16 20:59 09/13/16 09:09 Gabapentin (Neurontin) 400 mg TID GT 09/13/16 09:00 10/13/16 08:59 09/13/16 09:39 Insulin Aspart (NovoLOG) Q6HR SUBQ 09/13/16 00:00 10/13/16 00:00 09/13/16 05:30 Meropenem/Sodium Chloride (Merrem/Sodium Chloride) 55 ml @ 110 mls/hr Q8HR IVPB 09/12/16 22:00 09/14/16 21:59 09/13/16 05:30 Morphine Sulfate (Morphine 10mg/ 5ml Oral Soln) 20 mg Q2H PRN GT FOR PAIN 4-09/12/16 19:45 09/19/16 19:44 Nitrofurantoin (Nitrofurantoin) 50 mg FOUR TIMES A DAY GT 09/12/16 21:00 09/19/16 20:59 09/13/16 09:38 Nitroglycerin (Ntg) 0.4 mg Q5MIN X 3 DOSES PRN SL Prn Chest Pain 09/12/16 19:45 10/12/16 19:44 Ondansetron HCl (Zofran) 4 mg Q6H PRN IVP Nausea & Vomiting 09/12/16 20:00 10/12/16 19:59 Polyethylene Glycol (Miralax) 17 gm DAILYPRN PRN GT Constipation 09/12/16 20:12 10/12/16 16:59 Sodium Hypochlorite (Dakin's Half Strength) 1 applic DAILY TOPIC 09/13/16 09:00 10/13/16 08:59 09/13/16 09:11 Temazepam (Restoril) 15 mg HSPRN PRN GT Insomnia 09/12/16 21:00 09/19/16 20:59 Trimethoprim/ Sulfamethoxazole (Bactrim-DS) 1 ea TWICE A DAY GT 09/13/16 09:00 09/20/16 08:59 09/13/16 09:10 Zinc Sulfate 220 mg 220 mg DAILY GT 09/13/16 09:00 10/13/16 08:59 09/13/16 09:10 JOSLYN NICOLE M.D. Sep 13, 2016 11:47
[2016-09-13 12:00] VITALS: BP 90/60
--- NOTE | 2016-09-13 13:55 | Diagnostic Imaging Report ---
Indication: Dyspnea Comparison: September 05, 2016 A single view chest radiograph was obtained. Findings: The lungs remain clear. Cardiac silhouette is stable. Ventricular peritoneal shunt, IVC filter and gastrostomy again noted. Impression: No significant change. No acute findings appreciated.
[2016-09-13] MEDS ORDERED: Vancomycin 1gm/D5W 275ml IVPB ONE ×2 (15:00)
[2016-09-13 16:00] VITALS: BP 127/78
--- NOTE | 2016-09-13 18:55 | Cardiology Progress Note ---
Assessment/Plan Assessment/Plan [id number] profound sinus tachy demand related fever ivc filter hyponatremia echo and ivf abx with ivc filter unlikey to have a PE but not impossible Objective Last 24 Hour Vital Signs Date Time Temp Pulse Resp B/P Pulse Ox O2 Delivery O2 Flow Rate FiO2 09/13/16 16:00 98.6 122 20 127/78 100 Nasal Cannula 3.0 09/13/16 15:20 97.9 09/13/16 12:00 97.9 99 20 90/60 100 Nasal Cannula 3.0 09/13/16 08:20 98.4 09/13/16 08:00 112 09/13/16 08:00 101.5 120 20 104/72 99 Nasal Cannula 3.0 09/13/16 06:45 Nasal Cannula 2.0 28 09/13/16 06:45 98 Nasal Cannula 2.0 28 09/13/16 04:00 98.1 120 20 108/71 100 Nasal Cannula 3.0 09/13/16 00:00 116 09/13/16 00:00 98.0 103 24 99/5 99 Nasal Cannula 4.0 09/12/16 20:00 98 09/12/16 20:00 99.5 104 19 99/70 98 Nasal Cannula 2.0 09/12/16 19:46 97 Nasal Cannula 2.0 28 09/12/16 19:46 Nasal Cannula 2.0 28 Intake and Output 09/12/16 09/13/16 19:00 07:00 Intake Total 840 ml 1543 ml Output Total 1150 ml 2400 ml Balance -310 ml -857 ml Free Water 100 ml 150 ml IV Total 300 ml 953 ml Tube Feeding 440 ml 440 ml Output Urine Total 1150 ml 2400 ml Laboratory Tests Test 09/13/16 00:26 09/13/16 03:15 Arterial Blood pH 7.510 (7.350-7.450) Arterial Blood Partial Pressure CO2 41.6 mmHg (35.0-45.0) Arterial Blood Partial Pressure O2 81.6 mmHg (75.0-100.0) Arterial Blood HCO3 32.4 mmol/L (22.0-26.0) H Arterial Blood Oxygen Saturation 95.7 % (92.0-98.0) Arterial Blood Base Excess 8.6 Hammad Test Positive White Blood Count 21.0 K/UL (4.8-10.8) H Red Blood Count 4.13 M/UL (4.70-6.10) L Hemoglobin 10.9 G/DL (14.2-18.0) L Hematocrit 33.6 % (42.0-52.0) L Mean Corpuscular Volume 81 FL (80-99) Mean Corpuscular Hemoglobin 26.4 PG (27.0-31.0) L Mean Corpuscular Hemoglobin Concent 32.4 G/DL (32.0-36.0) Red Cell Distribution Width 16.0 % (11.6-14.8) H Platelet Count 336 K/UL (150-450) Mean Platelet Volume 7.0 FL (6.5-10.1) Neutrophils (%) (Auto) % (45.0-75.0) Lymphocytes (%) (Auto) % (20.0-45.0) Monocytes (%) (Auto) % (1.0-10.0) Eosinophils (%) (Auto) % (0.0-3.0) Basophils (%) (Auto) % (0.0-2.0) Differential Total Cells Counted 100 Neutrophils % (Manual) 75 % (45-75) Lymphocytes % (Manual) 13 % (20-45) L Monocytes % (Manual) 7 % (1-10) Eosinophils % (Manual) 0 % (0-3) Basophils % (Manual) 0 % (0-2) Band Neutrophils 5 % (0-8) Platelet Estimate Adequate Platelet Morphology Normal Clumped Platelets 1+ Red Blood Cell Morphology Normal Sodium Level 122 mEQ/L (135-145) L Potassium Level 3.9 mEQ/L (3.4-4.9) Chloride Level 78 mEQ/L (98-107) L Carbon Dioxide Level 28 mEQ/L (20-30) Anion Gap 16 (5-15) H Blood Urea Nitrogen 9 mg/dL (7-23) Creatinine 0.4 mg/dL (0.7-1.2) L Estimat Glomerular Filtration Rate > 60 mL/min (>60) Glucose Level 88 mg/dL (74-106) Calcium Level 8.8 mg/dL (8.6-10.2) Total Bilirubin 0.5 mg/dL (0.0-1.2) Aspartate Amino Transf (AST/SGOT) 16 U/L (5-40) Alanine Aminotransferase (ALT/SGPT) 11 U/L (3-41) Alkaline Phosphatase 120 U/L (40-129) Total Protein 7.6 g/dL (6.6-8.7) Albumin 2.8 g/dL (3.5-5.2) L Globulin 4.8 g/dL Albumin/Globulin Ratio 0.5 (1.0-2.7) L EUFEMIA NELSON Sep 13, 2016 18:55
[2016-09-13 20:00] VITALS: BP 103/90
--- NOTE | 2016-09-13 20:57 | Wound Nurse Progress Note ---
Wound RN Progress Note Wound Consult Pt with multiple stage IV/unstageable pressure ulcers. wounds area same in size. no further deterioration noted. cont same wound care treatment. kept clean and dry. will cont to monitor. VENUS FERNANDEZ RN Sep 13, 2016 20:57
[2016-09-14] VITALS (7 sets, daily range): BP systolic 94–159; BP diastolic 59–94
[2016-09-14] MEDS: Vancomycin 1gm/D5W 275ml IVPB SCH ×4 (02:21→14:13)
[2016-09-14 05:13] LABS: BASOPHILS % (AUTO) 0.8 % (0.0-2.0); LYMPHOCYTES % (AUTO) 10.7 % (20.0-45.0); MEAN CORPUSCULAR HEMOGLOBIN 26.2 PG (27.0-31.0); MEAN CORPUSCULAR HGB CONC 31.6 G/DL (32.0-36.0); MEAN CORPUSCULAR VOLUME 83 FL (80-99); MEAN PLATELET VOLUME 7.1 FL (6.5-10.1); MONOCYTES % (AUTO) 6.2 % (1.0-10.0); NEUTROPHILS % (AUTO) 81.2 % (45.0-75.0); PLATELET COUNT 474 K/UL (150-450); RED BLOOD COUNT 4.08 M/UL (4.70-6.10)
[2016-09-14 05:26] LABS: ALANINE AMINOTRANSFERASE 10 U/L (3-41); ALBUMIN/GLOBULIN RATIO 0.5 (1.0-2.7); ANION GAP 12 (5-15); ASPARTATE AMINO TRANSFERASE 15 U/L (5-40); CALCIUM 8.8 mg/dL (8.6-10.2); CARBON DIOXIDE 30 mEQ/L (20-30); CHLORIDE 89 mEQ/L (98-107); CREATININE 0.4 mg/dL (0.7-1.2); GLOMERULAR FILTRATION RATE > 60 mL/min (>60); HEMOLYSIS 0; MAGNESIUM 2.1 mg/dL (1.7-2.5); PHOSPHORUS 1.2 mg/dL (2.5-4.8); POTASSIUM 3.9 mEQ/L (3.4-4.9); SODIUM 131 mEQ/L (135-145); TOTAL PROTEIN 7.3 g/dL (6.6-8.7)
[2016-09-14] MEDS: NovoLOG Insulin Flexpen SUBQ SCH ×3 (05:37→18:33)
[2016-09-14] MEDS: Meropenem 1 GM in NS 55 ML IVPB SCH ×2 (05:38→13:34)
[2016-09-14] MEDS: Acetaminophen 650mg/20.3ml GT PRN (05:55)
[2016-09-14] MEDS: Zinc Sulfate 220mg cap GT SCH (09:12)
[2016-09-14] MEDS: Ascorbic Acid 500mg tab GT SCH (09:12)
[2016-09-14] MEDS: Dakin's 0.25% (Half Strength) 16oz TOPIC SCH (09:12)
[2016-09-14] MEDS: Fluconazole 100mg tab GT SCH (09:12)
[2016-09-14] MEDS: Enoxaparin 40mg Inj SUBQ SCH (09:17)
[2016-09-14] MEDS: Gabapentin 300 MG/6 ML Soln GT SCH ×3 (10:46→13:34)
--- NOTE | 2016-09-14 11:32 | Pulmonology Progress Note ---
Assessment/Plan Problems: (1) Respiratory distress (2) Sepsis (3) Severe protein-calorie malnutrition (4) Feeding by G-tube (5) S/P [employer] shunt Assessment/Plan wbc is back to asif cxr is unchanged keep in cecilia repeat cultures, sputum has GNR tolerating feeding Subjective ROS Limited/Unobtainable: No Allergies: Coded Allergies: PENICILLINS (Unverified Allergy, Unknown, 09/05/16) Objective Last 24 Hour Vital Signs Date Time Temp Pulse Resp B/P Pulse Ox O2 Delivery O2 Flow Rate FiO2 09/14/16 08:00 90 09/14/16 08:00 97.2 101 18 94/59 100 Nasal Cannula 3.0 09/14/16 06:57 105 18 Nasal Cannula 3.0 32 09/14/16 06:56 Nasal Cannula 2.0 28 09/14/16 06:56 98 Nasal Cannula 2.0 28 09/14/16 06:25 98.7 09/14/16 04:00 99.5 118 20 121/80 100 Nasal Cannula 3.0 09/14/16 04:00 111 09/14/16 00:00 133 09/14/16 00:00 98.6 123 20 105/72 97 Nasal Cannula 3.0 09/13/16 20:00 116 09/13/16 20:00 97.0 124 18 103/90 100 Nasal Cannula 3.0 09/13/16 19:40 Nasal Cannula 2.0 28 09/13/16 19:30 93 Nasal Cannula 2.0 28 09/13/16 19:18 97.9 09/13/16 16:00 117 09/13/16 16:00 98.6 122 20 127/78 100 Nasal Cannula 3.0 09/13/16 12:00 97.9 99 20 90/60 100 Nasal Cannula 3.0 Intake and Output 09/13/16 09/14/16 19:00 07:00 Intake Total 785 ml 1962.4 ml Output Total 650 ml 700 ml Balance 135 ml 1262.4 ml Free Water 100 ml 100 ml IV Total 175 ml 1367.4 ml Tube Feeding 480 ml 495 ml Other 30 ml Output Urine Total 650 ml 700 ml # Bowel Movements 1 Objective Respiratory/Chest: chest wall non-tender, lungs clear Cardiovascular: normal peripheral pulses Abdomen: normal bowel sounds, soft, non tender Extremities: no cyanosis, no clubbing Skin: no rash, no ulcers Lymphatic: no neck adenopathy Microbiology Date/Time Source Procedure Growth Status 09/13/16 14:20 Sputum Gram Stain Pending Resulted 09/13/16 14:20 Sputum Culture - Preliminary Gram Negative Bacillus 1 Resulted 09/13/16 14:20 Urine,Clean Catch Urine Culture - Preliminary NO GROWTH Resulted Laboratory Tests 09/14/16 03:25: White Blood Count 10.0#, Red Blood Count 4.08L, Hemoglobin 10.7L, Hematocrit 33.7L, Mean Corpuscular Volume 83, Mean Corpuscular Hemoglobin 26.2L, Mean Corpuscular Hemoglobin Concent 31.6L, Red Cell Distribution Width 16.0H, Platelet Count 474H, Mean Platelet Volume 7.1, Neutrophils (%) (Auto) 81.2H, Lymphocytes (%) (Auto) 10.7L, Monocytes (%) (Auto) 6.2, Eosinophils (%) (Auto) 1.0, Basophils (%) (Auto) 0.8, Sodium Level 131L, Potassium Level 3.9, Chloride Level 89L, Carbon Dioxide Level 30, Anion Gap 12, Blood Urea Nitrogen 10, Creatinine 0.4L, Estimat Glomerular Filtration Rate > 60, Glucose Level 131H, Calcium Level 8.8, Phosphorus Level 1.2L, Magnesium Level 2.1, Total Bilirubin < 0.2, Aspartate Amino Transf (AST/SGOT) 15, Alanine Aminotransferase (ALT/SGPT ) 10, Alkaline Phosphatase 117, Pro-B-Type Natriuretic Peptide 358H, Total Protein 7.3, Albumin 2.6L, Globulin 4.7, Albumin/Globulin Ratio 0.5L Current Medications Medications (Trade) Dose Ordered Sig/Cristina Route PRN Reason Start Time Stop Time Status Last Admin Dose Admin Acetaminophen (Tylenol) 650 mg Q6H PRN GT Prn Headache/Temp > 101 09/12/16 19:45 10/12/16 19:44 09/14/16 05:55 Al Hydroxide/Mg Hydroxide (Mylanta II) 30 ml Q6H PRN GT dyspepsia 09/12/16 20:00 10/12/16 19:59 Albuterol Sulfate (Proventil) 2.5 mg Q4H PRN HHN Shortness of Breath 09/12/16 19:45 09/17/16 19:44 Ascorbic Acid (Vitamin C) 500 mg DAILY GT 09/13/16 09:00 10/13/16 08:59 09/14/16 09:12 Bisacodyl (Dulcolax) 10 mg DAILYPRN PRN RECTAL Constipation 09/13/16 07:45 10/13/16 07:44 09/13/16 09:13 Collagenase (Santyl) 1 applic DAILY TOPIC 09/13/16 09:00 10/13/16 08:59 09/14/16 09:12 Dextrose (Dextrose 50%) STAT PRN IV Hypoglycemia 09/12/16 20:00 10/12/16 19:59 Enoxaparin Sodium (Lovenox) 40 mg DAILY SUBQ 09/13/16 09:00 10/13/16 08:59 09/14/16 09:17 Fluconazole (Diflucan) 200 mg DAILY GT 09/12/16 21:00 09/19/16 20:59 09/14/16 09:12 Gabapentin (Neurontin) 400 mg TID GT 09/13/16 09:00 10/13/16 08:59 09/14/16 10:48 Insulin Aspart (NovoLOG) Q6HR SUBQ 09/13/16 00:00 10/13/16 00:00 09/13/16 12:23 Meropenem/Sodium Chloride (Merrem/Sodium Chloride) 55 ml @ 110 mls/hr Q8HR IVPB 09/13/16 14:00 09/21/16 21:59 09/14/16 05:38 Morphine Sulfate (Morphine 10mg/ 5ml Oral Soln) 20 mg Q2H PRN GT FOR PAIN 10-1409/12/16 19:45 09/19/16 19:44 Ondansetron HCl (Zofran) 4 mg Q6H PRN IVP Nausea & Vomiting 09/12/16 20:00 10/12/16 19:59 Polyethylene Glycol 17 gm 17 gm DAILYPRN PRN GT Constipation 09/12/16 20:12 10/12/16 16:59 Sodium Hypochlorite (Dakin's Half Strength) 1 applic DAILY TOPIC 09/13/16 09:00 10/13/16 08:59 09/14/16 09:12 Sodium Chloride (Sodium Chloride 1000ml bag) 1,000 ml @ 125 mls/hr Q8H IV 09/13/16 19:15 10/13/16 19:14 09/14/16 07:55 Temazepam (Restoril) 15 mg HSPRN PRN GT Insomnia 09/12/16 21:00 09/19/16 20:59 Vancomycin HCl 1 ea 1 ea DAILY PRN MISC Per rx protocol 09/13/16 12:15 10/13/16 12:14 Vancomycin HCl 1 gm/Dextrose 275 ml @ 183.708 mls/hr Q12HR@0200,1400 IVPB 09/14/16 02:00 09/19/16 01:59 09/14/16 02:21 Zinc Sulfate (Zinc Sulfate) 220 mg DAILY GT 09/13/16 09:00 10/13/16 08:59 09/14/16 09:12 ROLY PERRIN Sep 14, 2016 11:32
--- NOTE | 2016-09-14 12:33 | Cardiology Progress Note ---
Assessment/Plan Assessment/Plan profound sinus tachy demand related fever ivc filter hyponatremia echo beign performed now no effusion abx with ivc filter unlikey to have a PE but not impossible contineu ivf na is better Subjective ROS Limited/Unobtainable: Yes Objective Last 24 Hour Vital Signs Date Time Temp Pulse Resp B/P Pulse Ox O2 Delivery O2 Flow Rate FiO2 09/14/16 11:40 97.2 09/14/16 08:00 90 09/14/16 08:00 97.2 101 18 94/59 100 Nasal Cannula 3.0 09/14/16 06:57 105 18 Nasal Cannula 3.0 32 09/14/16 06:56 Nasal Cannula 2.0 28 09/14/16 06:56 98 Nasal Cannula 2.0 28 09/14/16 06:25 98.7 09/14/16 04:00 99.5 118 20 121/80 100 Nasal Cannula 3.0 09/14/16 04:00 111 09/14/16 00:00 133 09/14/16 00:00 98.6 123 20 105/72 97 Nasal Cannula 3.0 09/13/16 20:00 116 09/13/16 20:00 97.0 124 18 103/90 100 Nasal Cannula 3.0 09/13/16 19:40 Nasal Cannula 2.0 28 09/13/16 19:30 93 Nasal Cannula 2.0 28 09/13/16 16:00 117 09/13/16 16:00 98.6 122 20 127/78 100 Nasal Cannula 3.0 General Appearance: no apparent distress, alert Neck: supple Cardiovascular: normal rate, regular rhythm Respiratory/Chest: lungs clear Abdomen: non tender, soft Extremities: no swelling Intake and Output 09/13/16 09/14/16 19:00 07:00 Intake Total 785 ml 1962.4 ml Output Total 650 ml 700 ml Balance 135 ml 1262.4 ml Free Water 100 ml 100 ml IV Total 175 ml 1367.4 ml Tube Feeding 480 ml 495 ml Other 30 ml Output Urine Total 650 ml 700 ml # Bowel Movements 1 Laboratory Tests Test 09/14/16 03:25 White Blood Count 10.0 K/UL (4.8-10.8) # Red Blood Count 4.08 M/UL (4.70-6.10) L Hemoglobin 10.7 G/DL (14.2-18.0) L Hematocrit 33.7 % (42.0-52.0) L Mean Corpuscular Volume 83 FL (80-99) Mean Corpuscular Hemoglobin 26.2 PG (27.0-31.0) L Mean Corpuscular Hemoglobin Concent 31.6 G/DL (32.0-36.0) L Red Cell Distribution Width 16.0 % (11.6-14.8) H Platelet Count 474 K/UL (150-450) H Mean Platelet Volume 7.1 FL (6.5-10.1) Neutrophils (%) (Auto) 81.2 % (45.0-75.0) H Lymphocytes (%) (Auto) 10.7 % (20.0-45.0) L Monocytes (%) (Auto) 6.2 % (1.0-10.0) Eosinophils (%) (Auto) 1.0 % (0.0-3.0) Basophils (%) (Auto) 0.8 % (0.0-2.0) Sodium Level 131 mEQ/L (135-145) L Potassium Level 3.9 mEQ/L (3.4-4.9) Chloride Level 89 mEQ/L (98-107) L Carbon Dioxide Level 30 mEQ/L (20-30) Anion Gap 12 (5-15) Blood Urea Nitrogen 10 mg/dL (7-23) Creatinine 0.4 mg/dL (0.7-1.2) L Estimat Glomerular Filtration Rate > 60 mL/min (>60) Glucose Level 131 mg/dL (74-106) H Calcium Level 8.8 mg/dL (8.6-10.2) Phosphorus Level 1.2 mg/dL (2.5-4.8) L Magnesium Level 2.1 mg/dL (1.7-2.5) Total Bilirubin < 0.2 mg/dL (0.0-1.2) Aspartate Amino Transf (AST/SGOT) 15 U/L (5-40) Alanine Aminotransferase (ALT/SGPT) 10 U/L (3-41) Alkaline Phosphatase 117 U/L (40-129) Pro-B-Type Natriuretic Peptide 358 pg/mL (0-125) H Total Protein 7.3 g/dL (6.6-8.7) Albumin 2.6 g/dL (3.5-5.2) L Globulin 4.7 g/dL Albumin/Globulin Ratio 0.5 (1.0-2.7) L Microbiology Date/Time Source Procedure Growth Status 09/13/16 14:20 Sputum Gram Stain - Final Resulted 09/13/16 14:20 Sputum Culture - Preliminary Gram Negative Bacillus 1 Resulted 09/13/16 14:20 Urine,Clean Catch Urine Culture - Preliminary NO GROWTH Resulted EUFEMIA NELSON Sep 14, 2016 12:33
[2016-09-14] MEDS ORDERED: Morphine Sulfate 10mg/5ml Oral Soln ud GT PRN (15:45)
[2016-09-14] MEDS ORDERED: Albuterol ud Inhalation HHN PRN (15:45)
--- NOTE | 2016-09-14 16:09 | Infectious Diseases Prog Note ---
Assessment/Plan Assessment/Plan A: The patient is a 50-year-old old male with : leukocytosis , SP Fever improving UTI , probable Hx of Pna SpCx: ESBL Ecoli Multiple lower Ext decubitus Cxray : No acute cardiopulmonary disease identified History of CVA status post [employer] shunt and meningitis. History of DVT HTN DM PLAN: cont Merrem d# , cont Diflucan d# 3 add IV Vanco d# 2 ( hold Bactrim and Nitrofurantoin ) ( 09/10 Vanco d# / ) ( / SP Levaquin d# 5 ) Monitor CBC Monitor BMP Monitor chest x-ray Monitor Cx ( Bl, Ur. SP ) Subjective Allergies: Coded Allergies: PENICILLINS (Unverified Allergy, Unknown, 09/05/16) Subjective non verbal Objective Vital Signs Last 24 Hour Vital Signs Date Time Temp Pulse Resp B/P Pulse Ox O2 Delivery O2 Flow Rate FiO2 09/14/16 14:30 97.2 09/14/16 12:00 96.4 117 19 131/75 100 Nasal Cannula 2.0 09/14/16 08:00 90 09/14/16 08:00 97.2 101 18 94/59 100 Nasal Cannula 3.0 09/14/16 06:57 105 18 Nasal Cannula 3.0 32 09/14/16 06:56 Nasal Cannula 2.0 28 09/14/16 06:56 98 Nasal Cannula 2.0 28 09/14/16 06:25 98.7 09/14/16 04:00 99.5 118 20 121/80 100 Nasal Cannula 3.0 09/14/16 04:00 111 09/14/16 00:00 133 09/14/16 00:00 98.6 123 20 105/72 97 Nasal Cannula 3.0 09/13/16 20:00 116 09/13/16 20:00 97.0 124 18 103/90 100 Nasal Cannula 3.0 09/13/16 19:40 Nasal Cannula 2.0 28 09/13/16 19:30 93 Nasal Cannula 2.0 28 Height (Feet): 5 Height (Inches): 7.70 Weight (Pounds): 99 HEENT: anicteric Respiratory/Chest: normal breath sounds Cardiovascular: regular rhythm Abdomen: non distended Microbiology Date/Time Source Procedure Growth Status 09/13/16 14:20 Sputum Gram Stain - Final Resulted 09/13/16 14:20 Sputum Culture - Preliminary Gram Negative Bacillus 1 Resulted 09/13/16 14:20 Urine,Clean Catch Urine Culture - Preliminary NO GROWTH Resulted Laboratory Tests Test 09/14/16 03:25 White Blood Count 10.0 K/UL (4.8-10.8) # Red Blood Count 4.08 M/UL (4.70-6.10) L Hemoglobin 10.7 G/DL (14.2-18.0) L Hematocrit 33.7 % (42.0-52.0) L Mean Corpuscular Volume 83 FL (80-99) Mean Corpuscular Hemoglobin 26.2 PG (27.0-31.0) L Mean Corpuscular Hemoglobin Concent 31.6 G/DL (32.0-36.0) L Red Cell Distribution Width 16.0 % (11.6-14.8) H Platelet Count 474 K/UL (150-450) H Mean Platelet Volume 7.1 FL (6.5-10.1) Neutrophils (%) (Auto) 81.2 % (45.0-75.0) H Lymphocytes (%) (Auto) 10.7 % (20.0-45.0) L Monocytes (%) (Auto) 6.2 % (1.0-10.0) Eosinophils (%) (Auto) 1.0 % (0.0-3.0) Basophils (%) (Auto) 0.8 % (0.0-2.0) Sodium Level 131 mEQ/L (135-145) L Potassium Level 3.9 mEQ/L (3.4-4.9) Chloride Level 89 mEQ/L (98-107) L Carbon Dioxide Level 30 mEQ/L (20-30) Anion Gap 12 (5-15) Blood Urea Nitrogen 10 mg/dL (7-23) Creatinine 0.4 mg/dL (0.7-1.2) L Estimat Glomerular Filtration Rate > 60 mL/min (>60) Glucose Level 131 mg/dL (74-106) H Calcium Level 8.8 mg/dL (8.6-10.2) Phosphorus Level 1.2 mg/dL (2.5-4.8) L Magnesium Level 2.1 mg/dL (1.7-2.5) Total Bilirubin < 0.2 mg/dL (0.0-1.2) Aspartate Amino Transf (AST/SGOT) 15 U/L (5-40) Alanine Aminotransferase (ALT/SGPT) 10 U/L (3-41) Alkaline Phosphatase 117 U/L (40-129) Pro-B-Type Natriuretic Peptide 358 pg/mL (0-125) H Total Protein 7.3 g/dL (6.6-8.7) Albumin 2.6 g/dL (3.5-5.2) L Globulin 4.7 g/dL Albumin/Globulin Ratio 0.5 (1.0-2.7) L Current Medications Medications (Trade) Dose Ordered Sig/Cristina Route PRN Reason Start Time Stop Time Status Last Admin Dose Admin Acetaminophen (Tylenol) 650 mg Q6H PRN GT Prn Headache/Temp > 101 09/14/16 19:45 10/14/16 19:44 Al Hydroxide/Mg Hydroxide (Mylanta II) 30 ml Q6H PRN GT dyspepsia 09/14/16 20:00 10/14/16 19:59 Albuterol Sulfate (Proventil) 2.5 mg Q4H PRN HHN Shortness of Breath 09/14/16 15:45 09/19/16 15:44 Ascorbic Acid (Vitamin C) 500 mg DAILY GT 09/15/16 09:00 10/15/16 08:59 Bisacodyl (Dulcolax) 10 mg DAILYPRN PRN RECTAL Constipation 09/15/16 07:45 10/15/16 07:44 Collagenase (Santyl) 1 applic DAILY TOPIC 09/15/16 09:00 10/15/16 08:59 Dextrose (Dextrose 50%) STAT PRN IV Hypoglycemia 09/14/16 20:00 10/14/16 19:59 Enoxaparin Sodium (Lovenox) 40 mg DAILY SUBQ 09/15/16 09:00 10/15/16 08:59 Fluconazole (Diflucan) 200 mg DAILY GT 09/15/16 09:00 09/19/16 08:59 Gabapentin (Neurontin) 400 mg TID GT 09/14/16 18:00 10/14/16 17:59 Insulin Aspart (NovoLOG) Q6HR SUBQ 09/14/16 18:00 10/14/16 17:59 Meropenem 1 gm/ Sodium Chloride 55 ml @ 110 mls/hr Q8HR IVPB 09/14/16 22:00 09/18/16 21:59 Morphine Sulfate (Morphine 10mg/ 5ml Oral Soln) 20 mg Q2H PRN GT FOR PAIN 4-10 09/14/16 15:45 09/21/16 15:44 Ondansetron HCl (Zofran) 4 mg Q6H PRN IVP Nausea & Vomiting 09/14/16 20:00 10/14/16 19:59 Polyethylene Glycol (Miralax) 17 gm DAILYPRN PRN GT Constipation 09/14/16 20:15 10/14/16 20:14 Sodium Hypochlorite (Dakin's Half Strength) 1 applic DAILY TOPIC 09/15/16 09:00 10/15/16 08:59 Sodium Chloride 1,000 ml @ 125 mls/hr Q8H IV 09/14/16 16:00 10/14/16 15:59 Temazepam (Restoril) 15 mg HSPRN PRN GT Insomnia 09/14/16 21:00 09/21/16 20:59 Vancomycin HCl (Vanco rx to dose) 1 ea DAILY PRN MISC Per rx protocol 09/15/16 09:00 10/15/16 08:59 Vancomycin HCl/ Dextrose (Vancomycin/D5W) 275 ml @ 183.708 mls/hr Q12HR@0200,1400 IVPB 09/15/16 02:00 09/18/16 01:59 Zinc Sulfate (Zinc Sulfate) 220 mg DAILY GT 09/15/16 09:00 10/15/16 08:59 JOSLYN NICOLE M.D. Sep 14, 2016 16:09
[2016-09-14] MEDS ORDERED: Gabapentin 300 MG/6 ML Soln GT SCH (18:00)
[2016-09-14] MEDS ORDERED: Acetaminophen 650mg/20.3ml GT PRN (19:45)
[2016-09-14] MEDS ORDERED: Mylanta II UD 30ml GT PRN (20:00)
[2016-09-14] MEDS ORDERED: Miralax 17gm pkt GT PRN (20:15)
[2016-09-14] MEDS ORDERED: Sterile Water For Irrig 2000ml IRRIG ONE (21:37)
[2016-09-14] MEDS ORDERED: 1/2 NS 1000ml IV ONE (21:37)
[2016-09-14] MEDS ORDERED: Meropenem 1 GM in NS 55 ML IVPB SCH (22:00)
[2016-09-14 23:57] LABS: ABG ALLEN TEST POSITIVE; ABG BASE EXCESS 2.1; ABG PCO2 42.2 mmHg (35.0-45.0)
[2016-09-15 00:20] VITALS: BP 89/57
[2016-09-15] MEDS ORDERED: Acetaminophen 650mg/20.3ml GT PRN (01:45)
[2016-09-15] MEDS ORDERED: Morphine Sulfate 10mg/5ml Oral Soln ud GT PRN (01:45)
[2016-09-15] MEDS ORDERED: Vancomycin 1 GM in D5W 275 ML IVPB SCH ×4 (02:00)
[2016-09-15] MEDS ORDERED: Mylanta II UD 30ml GT PRN (02:00)
[2016-09-15] MEDS ORDERED: Albuterol ud Inhalation HHN PRN (03:45)
[2016-09-15 04:00] VITALS: BP 121/78
[2016-09-15 05:02] LABS: BASOPHILS % (AUTO) 0.5 % (0.0-2.0); LYMPHOCYTES % (AUTO) 15.8 % (20.0-45.0); MEAN CORPUSCULAR HEMOGLOBIN 25.9 PG (27.0-31.0); MEAN CORPUSCULAR HGB CONC 31.1 G/DL (32.0-36.0); MEAN CORPUSCULAR VOLUME 83 FL (80-99); MEAN PLATELET VOLUME 6.9 FL (6.5-10.1); MONOCYTES % (AUTO) 5.9 % (1.0-10.0); NEUTROPHILS % (AUTO) 76.9 % (45.0-75.0); PLATELET COUNT 360 K/UL (150-450); RED BLOOD COUNT 3.64 M/UL (4.70-6.10); RED CELL DISTRIBUTION WIDTH 16.2 % (11.6-14.8); WHITE BLOOD COUNT 10.5 K/UL (4.8-10.8)
[2016-09-15] MEDS: Meropenem 1 GM in NS 55 ML IVPB SCH ×3 (05:45→21:26)
[2016-09-15] MEDS: NovoLOG Insulin Flexpen SUBQ SCH ×4 (05:51→17:45)
[2016-09-15 07:10] LABS: ALANINE AMINOTRANSFERASE 14 U/L (3-41); ALBUMIN/GLOBULIN RATIO 0.5 (1.0-2.7); ANION GAP 9 (5-15); ASPARTATE AMINO TRANSFERASE 21 U/L (5-40); CALCIUM 8.7 mg/dL (8.6-10.2); CARBON DIOXIDE 33 mEQ/L (20-30); CHLORIDE 92 mEQ/L (98-107); CREATININE 0.4 mg/dL (0.7-1.2); GLOMERULAR FILTRATION RATE > 60 mL/min (>60); HEMOLYSIS 3; MAGNESIUM 2.1 mg/dL (1.7-2.5); PHOSPHORUS 1.4 mg/dL (2.5-4.8); SODIUM 134 mEQ/L (135-145); TOTAL PROTEIN 6.8 g/dL (6.6-8.7)
[2016-09-15 08:00] VITALS: BP 118/77
--- NOTE | 2016-09-15 08:51 | Infectious Diseases Prog Note ---
Assessment/Plan Assessment/Plan A; UTI Infected pressure ulcer DM HPN MRSA colonization P: Continue Meropenem & Vancomycin Subjective ROS Limited/Unobtainable: Yes Allergies: Coded Allergies: PENICILLINS (Unverified Allergy, Unknown, 09/05/16) Objective Vital Signs Last 24 Hour Vital Signs Date Time Temp Pulse Resp B/P Pulse Ox O2 Delivery O2 Flow Rate FiO2 09/15/16 07:43 99 Nasal Cannula 2.0 28 09/15/16 07:43 84 20 Nasal Cannula 2.0 28 09/15/16 07:43 Nasal Cannula 2.0 28 09/15/16 04:00 99.0 112 24 121/78 99 Nasal Cannula 09/15/16 03:49 106 09/15/16 00:42 101 09/15/16 00:20 98.2 99 28 89/57 92 Room Air 09/14/16 22:00 99.1 09/14/16 20:00 100.0 129 14 100/61 98 Room Air 09/14/16 19:10 96 18 Nasal Cannula 2.0 28 09/14/16 19:10 97 Nasal Cannula 2.0 28 09/14/16 19:10 Nasal Cannula 2.0 28 09/14/16 16:21 98.2 118 20 115/81 100 Nasal Cannula 09/14/16 14:30 97.2 09/14/16 12:00 96.4 117 19 131/75 100 Nasal Cannula 2.0 Height (Feet): 5 Height (Inches): 7.70 Weight (Pounds): 99 General Appearance: cachetic HEENT: mucous membranes moist Respiratory/Chest: lungs clear Cardiovascular: normal rate Abdomen: soft, non tender, other - GT feeding Neurologic/Psychiatric: aphasia Microbiology Date/Time Source Procedure Growth Status 09/13/16 14:30 Blood Blood Culture - Preliminary NO GROWTH AFTER 24 HOURS Resulted 09/13/16 14:20 Blood Blood Culture - Preliminary NO GROWTH AFTER 24 HOURS Resulted 09/13/16 14:20 Sputum Gram Stain - Final Resulted 09/13/16 14:20 Sputum Culture - Preliminary Gram Negative Bacillus 1 Resulted 09/13/16 14:20 Urine,Clean Catch Urine Culture - Preliminary NO GROWTH AFTER 24 HOURS Resulted Laboratory Tests Test 09/14/16 23:46 09/15/16 01:30 09/15/16 03:00 Arterial Blood pH 7.421 (7.350-7.450) Arterial Blood Partial Pressure CO2 42.2 mmHg (35.0-45.0) Arterial Blood Partial Pressure O2 151.7 mmHg (75.0-100.0) H Arterial Blood HCO3 26.8 mmol/L (22.0-26.0) H Arterial Blood Oxygen Saturation 98.6 % (92.0-98.0) H Arterial Blood Base Excess 2.1 Hammad Test Positive Vancomycin Level Trough 11.6 ug/mL (5.0-12.0) White Blood Count 10.5 K/UL (4.8-10.8) Red Blood Count 3.64 M/UL (4.70-6.10) L Hemoglobin 9.4 G/DL (14.2-18.0) L Hematocrit 30.4 % (42.0-52.0) L Mean Corpuscular Volume 83 FL (80-99) Mean Corpuscular Hemoglobin 25.9 PG (27.0-31.0) L Mean Corpuscular Hemoglobin Concent 31.1 G/DL (32.0-36.0) L Red Cell Distribution Width 16.2 % (11.6-14.8) H Platelet Count 360 K/UL (150-450) Mean Platelet Volume 6.9 FL (6.5-10.1) Neutrophils (%) (Auto) 76.9 % (45.0-75.0) H Lymphocytes (%) (Auto) 15.8 % (20.0-45.0) L Monocytes (%) (Auto) 5.9 % (1.0-10.0) Eosinophils (%) (Auto) 1.0 % (0.0-3.0) Basophils (%) (Auto) 0.5 % (0.0-2.0) Sodium Level 134 mEQ/L (135-145) L Potassium Level 4.0 mEQ/L (3.4-4.9) Chloride Level 92 mEQ/L (98-107) L Carbon Dioxide Level 33 mEQ/L (20-30) H Anion Gap 9 (5-15) Blood Urea Nitrogen 10 mg/dL (7-23) Creatinine 0.4 mg/dL (0.7-1.2) L Estimat Glomerular Filtration Rate > 60 mL/min (>60) Glucose Level 94 mg/dL (74-106) Calcium Level 8.7 mg/dL (8.6-10.2) Phosphorus Level 1.4 mg/dL (2.5-4.8) L Magnesium Level 2.1 mg/dL (1.7-2.5) Total Bilirubin < 0.2 mg/dL (0.0-1.2) Aspartate Amino Transf (AST/SGOT) 21 U/L (5-40) Alanine Aminotransferase (ALT/SGPT) 14 U/L (3-41) Alkaline Phosphatase 115 U/L (40-129) Total Protein 6.8 g/dL (6.6-8.7) Albumin 2.5 g/dL (3.5-5.2) L Globulin 4.3 g/dL Albumin/Globulin Ratio 0.5 (1.0-2.7) L Current Medications Medications (Trade) Dose Ordered Sig/Cristina Route PRN Reason Start Time Stop Time Status Last Admin Dose Admin Acetaminophen (Tylenol) 650 mg Q6H PRN GT Prn Headache/Temp > 101 09/15/16 01:45 10/15/16 01:44 Al Hydroxide/Mg Hydroxide (Mylanta II) 30 ml Q6H PRN GT dyspepsia 09/15/16 02:00 10/15/16 01:59 Albuterol Sulfate (Proventil) 2.5 mg Q4H PRN HHN Shortness of Breath 09/15/16 03:45 09/20/16 03:44 Ascorbic Acid (Vitamin C) 500 mg DAILY GT 09/15/16 09:00 10/15/16 08:59 Bisacodyl (Dulcolax) 10 mg DAILYPRN PRN RECTAL Constipation 09/15/16 07:45 10/15/16 07:44 Collagenase (Santyl) 1 applic DAILY TOPIC 09/15/16 09:00 10/15/16 08:59 Dextrose (Dextrose 50%) STAT PRN IV Hypoglycemia 09/15/16 20:00 10/15/16 19:59 Enoxaparin Sodium (Lovenox) 40 mg DAILY SUBQ 09/15/16 09:00 10/15/16 08:59 Fluconazole (Diflucan) 200 mg DAILY GT 09/15/16 09:00 09/22/16 08:59 Gabapentin (Neurontin) 400 mg TID GT 09/15/16 09:00 10/15/16 08:59 Insulin Aspart (NovoLOG) Q6HR SUBQ 09/15/16 06:00 10/15/16 05:59 Meropenem 1 gm/ Sodium Chloride 55 ml @ 110 mls/hr Q8HR IVPB 09/15/16 06:00 09/20/16 05:59 09/15/16 05:45 Morphine Sulfate (Morphine 10mg/ 5ml Oral Soln) 20 mg Q2H PRN GT FOR PAIN 4-10 09/15/16 01:45 09/22/16 01:44 Ondansetron HCl (Zofran) 4 mg Q6H PRN IVP Nausea & Vomiting 09/15/16 02:00 10/15/16 01:59 Polyethylene Glycol (Miralax) 17 gm DAILYPRN PRN GT Constipation 09/15/16 20:15 10/15/16 20:14 Sodium Hypochlorite (Dakin's Half Strength) 1 applic DAILY TOPIC 09/15/16 09:00 10/15/16 08:59 Sodium Chloride (Sodium Chloride 1000ml bag) 1,000 ml @ 125 mls/hr Q8H IV 09/15/16 00:30 10/15/16 00:29 09/15/16 03:05 Temazepam (Restoril) 15 mg HSPRN PRN GT Insomnia 09/15/16 21:00 09/22/16 20:59 Vancomycin HCl (Vanco rx to dose) 1 ea DAILY PRN MISC Per rx protocol 09/15/16 09:00 10/15/16 08:59 Vancomycin HCl/ Dextrose (Vancomycin/D5W) 275 ml @ 183.708 mls/hr Q8H IVPB 09/15/16 11:30 09/20/16 11:29 Zinc Sulfate 220 mg 220 mg DAILY GT 09/15/16 09:00 10/15/16 08:59 LOPEZ MARCIAL Sep 15, 2016 08:51
[2016-09-15] MEDS ORDERED: Enoxaparin 40mg Inj SUBQ SCH ×2 (09:00)
[2016-09-15] MEDS ORDERED: Fluconazole 100mg tab GT SCH ×2 (09:00)
[2016-09-15] MEDS ORDERED: Zinc Sulfate 220mg cap GT SCH ×2 (09:00)
[2016-09-15] MEDS ORDERED: Ascorbic Acid 500mg tab GT SCH ×2 (09:00)
[2016-09-15] MEDS ORDERED: Dakin's 0.25% (Half Strength) 16oz TOPIC SCH ×2 (09:00)
[2016-09-15] MEDS: Gabapentin 300 MG/6 ML Soln GT SCH ×3 (09:43→18:44)
[2016-09-15] MEDS ORDERED: NS 275ml ONE (09:59)
[2016-09-15 12:00] VITALS: BP 117/76
[2016-09-15] MEDS: Vancomycin 750mg/D5W 275ml IVPB SCH ×4 (12:23→19:41)
--- NOTE | 2016-09-15 13:00 | Cardiology Progress Note ---
Assessment/Plan Assessment/Plan profound sinus tachy demand related fever ivc filter hyponatremia echo no effusion abx with ivc filter unlikely to have a PE but not impossible continue ivf na is better than yest hr still high but overall the peak are not as high as they were a few days ago Subjective ROS Limited/Unobtainable: Yes Objective Last 24 Hour Vital Signs Date Time Temp Pulse Resp B/P Pulse Ox O2 Delivery O2 Flow Rate FiO2 09/15/16 12:00 98.6 126 20 117/76 99 Nasal Cannula 1.0 09/15/16 10:42 98.2 09/15/16 08:00 98.2 102 19 118/77 97 Nasal Cannula 2.5 09/15/16 07:43 99 Nasal Cannula 2.0 28 09/15/16 07:43 84 20 Nasal Cannula 2.0 28 09/15/16 07:43 Nasal Cannula 2.0 28 09/15/16 04:00 99.0 112 24 121/78 99 Nasal Cannula 09/15/16 03:49 106 09/15/16 00:42 101 09/15/16 00:20 98.2 99 28 89/57 92 Room Air 09/14/16 22:00 99.1 09/14/16 20:00 100.0 129 14 100/61 98 Room Air 09/14/16 19:10 96 18 Nasal Cannula 2.0 28 09/14/16 19:10 97 Nasal Cannula 2.0 28 09/14/16 19:10 Nasal Cannula 2.0 28 09/14/16 16:21 98.2 118 20 115/81 100 Nasal Cannula 09/14/16 14:30 97.2 General Appearance: alert Neck: supple Cardiovascular: normal rate, regular rhythm Respiratory/Chest: lungs clear Abdomen: normal bowel sounds, non tender, soft Extremities: non-tender Intake and Output 09/14/16 09/15/16 19:00 07:00 Intake Total 1883.7 ml 1370 ml Output Total 600 ml 1400 ml Balance 1283.7 ml -30 ml Free Water 100 ml IV Total 1238.7 ml 555 ml Tube Feeding 600 ml 715 ml Other 45 ml Output Urine Total 600 ml 1400 ml Laboratory Tests Test 09/14/16 23:46 09/15/16 01:30 09/15/16 03:00 Arterial Blood pH 7.421 (7.350-7.450) Arterial Blood Partial Pressure CO2 42.2 mmHg (35.0-45.0) Arterial Blood Partial Pressure O2 151.7 mmHg (75.0-100.0) H Arterial Blood HCO3 26.8 mmol/L (22.0-26.0) H Arterial Blood Oxygen Saturation 98.6 % (92.0-98.0) H Arterial Blood Base Excess 2.1 Hammad Test Positive Vancomycin Level Trough 11.6 ug/mL (5.0-12.0) White Blood Count 10.5 K/UL (4.8-10.8) Red Blood Count 3.64 M/UL (4.70-6.10) L Hemoglobin 9.4 G/DL (14.2-18.0) L Hematocrit 30.4 % (42.0-52.0) L Mean Corpuscular Volume 83 FL (80-99) Mean Corpuscular Hemoglobin 25.9 PG (27.0-31.0) L Mean Corpuscular Hemoglobin Concent 31.1 G/DL (32.0-36.0) L Red Cell Distribution Width 16.2 % (11.6-14.8) H Platelet Count 360 K/UL (150-450) Mean Platelet Volume 6.9 FL (6.5-10.1) Neutrophils (%) (Auto) 76.9 % (45.0-75.0) H Lymphocytes (%) (Auto) 15.8 % (20.0-45.0) L Monocytes (%) (Auto) 5.9 % (1.0-10.0) Eosinophils (%) (Auto) 1.0 % (0.0-3.0) Basophils (%) (Auto) 0.5 % (0.0-2.0) Sodium Level 134 mEQ/L (135-145) L Potassium Level 4.0 mEQ/L (3.4-4.9) Chloride Level 92 mEQ/L (98-107) L Carbon Dioxide Level 33 mEQ/L (20-30) H Anion Gap 9 (5-15) Blood Urea Nitrogen 10 mg/dL (7-23) Creatinine 0.4 mg/dL (0.7-1.2) L Estimat Glomerular Filtration Rate > 60 mL/min (>60) Glucose Level 94 mg/dL (74-106) Calcium Level 8.7 mg/dL (8.6-10.2) Phosphorus Level 1.4 mg/dL (2.5-4.8) L Magnesium Level 2.1 mg/dL (1.7-2.5) Total Bilirubin < 0.2 mg/dL (0.0-1.2) Aspartate Amino Transf (AST/SGOT) 21 U/L (5-40) Alanine Aminotransferase (ALT/SGPT) 14 U/L (3-41) Alkaline Phosphatase 115 U/L (40-129) Total Protein 6.8 g/dL (6.6-8.7) Albumin 2.5 g/dL (3.5-5.2) L Globulin 4.3 g/dL Albumin/Globulin Ratio 0.5 (1.0-2.7) L Microbiology Date/Time Source Procedure Growth Status 09/13/16 14:30 Blood Blood Culture - Preliminary NO GROWTH AFTER 24 HOURS Resulted 09/13/16 14:20 Blood Blood Culture - Preliminary NO GROWTH AFTER 24 HOURS Resulted 09/13/16 14:20 Sputum Gram Stain - Final Complete 09/13/16 14:20 Sputum Culture - Final Acinetobacter Baumannii Complx Complete 09/13/16 14:20 Urine,Clean Catch Urine Culture - Preliminary NO GROWTH AFTER 24 HOURS Resulted EUFEMIA NELSON Sep 15, 2016 13:00
[2016-09-15 16:00] VITALS: BP 117/81
[2016-09-15] MEDS: Colistin for inhalation INH SCH (19:20)
[2016-09-15 20:00] VITALS: BP 113/69
[2016-09-15] MEDS ORDERED: Miralax 17gm pkt GT PRN (20:15)
--- NOTE | 2016-09-15 23:16 | Pulmonology Progress Note ---
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 Assessment/Plan wbc is back to asif cxr is unchanged repeat cultures, sputum has GNR tolerating feeding Subjective ROS Limited/Unobtainable: Yes Interval Events: more comfortable Allergies: Coded Allergies: PENICILLINS (Unverified Allergy, Unknown, 09/05/16) Objective Last 24 Hour Vital Signs Date Time Temp Pulse Resp B/P Pulse Ox O2 Delivery O2 Flow Rate FiO2 09/15/16 21:49 75 18 99 Nasal Cannula 3.0 32 09/15/16 21:40 78 18 96 Nasal Cannula 3.0 32 09/15/16 20:00 98.4 107 20 113/69 98 Nasal Cannula 2.0 09/15/16 20:00 102 09/15/16 19:43 98.4 09/15/16 19:36 Nasal Cannula 2.0 28 09/15/16 19:35 98 Nasal Cannula 2.0 28 09/15/16 19:35 75 20 Nasal Cannula 2.0 28 09/15/16 16:00 99.0 107 18 117/81 99 Nasal Cannula 3.0 09/15/16 16:00 96 09/15/16 12:00 108 09/15/16 12:00 98.6 126 20 117/76 99 Nasal Cannula 1.0 09/15/16 08:00 100 09/15/16 08:00 98.2 102 19 118/77 97 Nasal Cannula 2.5 09/15/16 07:43 99 Nasal Cannula 2.0 28 09/15/16 07:43 84 20 Nasal Cannula 2.0 28 09/15/16 07:43 Nasal Cannula 2.0 28 09/15/16 04:00 99.0 112 24 121/78 99 Nasal Cannula 09/15/16 03:49 106 09/15/16 00:42 101 09/15/16 00:20 98.2 99 28 89/57 92 Room Air Intake and Output 09/14/16 09/15/16 19:00 07:00 Intake Total 1883.7 ml 1370 ml Output Total 600 ml 1400 ml Balance 1283.7 ml -30 ml Free Water 100 ml IV Total 1238.7 ml 555 ml Tube Feeding 600 ml 715 ml Other 45 ml Output Urine Total 600 ml 1400 ml Objective Respiratory/Chest: chest wall non-tender, lungs clear Cardiovascular: normal peripheral pulses Abdomen: normal bowel sounds, soft, non tender Extremities: no cyanosis, no clubbing Skin: no rash, no ulcers Lymphatic: no neck adenopathy Microbiology Date/Time Source Procedure Growth Status 09/13/16 14:30 Blood Blood Culture - Preliminary NO GROWTH AFTER 24 HOURS Resulted 09/13/16 14:20 Blood Blood Culture - Preliminary NO GROWTH AFTER 24 HOURS Resulted 09/13/16 14:20 Sputum Gram Stain - Final Complete 09/13/16 14:20 Sputum Culture - Final Acinetobacter Baumannii Complx Complete 09/13/16 14:20 Urine,Clean Catch Urine Culture - Preliminary NO GROWTH AFTER 24 HOURS Resulted Laboratory Tests 09/14/16 23:46: Arterial Blood pH 7.421, Arterial Blood Partial Pressure CO2 42.2, Arterial Blood Partial Pressure O2 151.7H, Arterial Blood HCO3 26.8H, Arterial Blood Oxygen Saturation 98.6H, Arterial Blood Base Excess 2.1, Hammad Test Positive 09/15/16 01:30: Vancomycin Level Trough 11.6 09/15/16 03:00: White Blood Count 10.5, Red Blood Count 3.64L, Hemoglobin 9.4L, Hematocrit 30.4L , Mean Corpuscular Volume 83, Mean Corpuscular Hemoglobin 25.9L, Mean Corpuscular Hemoglobin Concent 31.1L, Red Cell Distribution Width 16.2H, Platelet Count 360, Mean Platelet Volume 6.9, Neutrophils (%) (Auto) 76.9H, Lymphocytes (%) (Auto) 15.8L, Monocytes (%) (Auto) 5.9, Eosinophils (%) (Auto) 1.0, Basophils (%) (Auto) 0.5, Sodium Level 134L, Potassium Level 4.0, Chloride Level 92L, Carbon Dioxide Level 33H, Anion Gap 9, Blood Urea Nitrogen 10, Creatinine 0.4L, Estimat Glomerular Filtration Rate > 60, Glucose Level 94, Calcium Level 8.7, Phosphorus Level 1.4L, Magnesium Level 2.1, Total Bilirubin < 0.2, Aspartate Amino Transf (AST/SGOT) 21, Alanine Aminotransferase (ALT/SGPT ) 14, Alkaline Phosphatase 115, Total Protein 6.8, Albumin 2.5L, Globulin 4.3, Albumin/Globulin Ratio 0.5L Current Medications Medications (Trade) Dose Ordered Sig/Cristina Route PRN Reason Start Time Stop Time Status Last Admin Dose Admin Acetaminophen (Tylenol) 650 mg Q6H PRN GT Prn Headache/Temp > 101 09/15/16 01:45 10/15/16 01:44 Al Hydroxide/Mg Hydroxide (Mylanta II) 30 ml Q6H PRN GT dyspepsia 09/15/16 02:00 10/15/16 01:59 Albuterol Sulfate (Proventil) 2.5 mg Q4H PRN HHN Shortness of Breath 09/15/16 03:45 09/20/16 03:44 Ascorbic Acid (Vitamin C) 500 mg DAILY GT 09/15/16 09:00 10/15/16 08:59 09/15/16 09:33 Bisacodyl (Dulcolax) 10 mg DAILYPRN PRN RECTAL Constipation 09/15/16 07:45 10/15/16 07:44 Colistimethate Sodium (Colistin *inhalation use only*) 75 mg Q12HR@0600,1800 INH 09/15/16 18:00 09/22/16 17:59 Collagenase (Santyl) 1 applic DAILY TOPIC 09/15/16 09:00 10/15/16 08:59 09/15/16 09:37 Dextrose (Dextrose 50%) STAT PRN IV Hypoglycemia 09/15/16 20:00 10/15/16 19:59 Enoxaparin Sodium (Lovenox) 40 mg DAILY SUBQ 09/15/16 09:00 10/15/16 08:59 09/15/16 09:45 Fluconazole (Diflucan) 200 mg DAILY GT 09/15/16 09:00 09/22/16 08:59 09/15/16 09:34 Gabapentin (Neurontin) 400 mg TID GT 09/15/16 09:00 10/15/16 08:59 09/15/16 18:44 Insulin Aspart (NovoLOG) Q6HR SUBQ 09/15/16 06:00 10/15/16 05:59 09/15/16 17:45 Meropenem 1 gm/ Sodium Chloride 55 ml @ 110 mls/hr Q8HR IVPB 09/15/16 06:00 09/20/16 05:59 09/15/16 21:26 Morphine Sulfate (Morphine 10mg/ 5ml Oral Soln) 20 mg Q2H PRN GT FOR PAIN 4-10 09/15/16 01:45 09/22/16 01:44 Ondansetron HCl (Zofran) 4 mg Q6H PRN IVP Nausea & Vomiting 09/15/16 02:00 10/15/16 01:59 Polyethylene Glycol (Miralax) 17 gm DAILYPRN PRN GT Constipation 09/15/16 20:15 10/15/16 20:14 Sodium Hypochlorite (Dakin's Half Strength) 1 applic DAILY TOPIC 09/15/16 09:00 10/15/16 08:59 09/15/16 09:35 Sodium Chloride (Sodium Chloride 1000ml bag) 1,000 ml @ 125 mls/hr Q8H IV 09/15/16 00:30 10/15/16 00:29 09/15/16 16:42 Temazepam (Restoril) 15 mg HSPRN PRN GT Insomnia 09/15/16 21:00 09/22/16 20:59 Vancomycin HCl (Vanco rx to dose) 1 ea DAILY PRN MISC Per rx protocol 09/15/16 09:00 10/15/16 08:59 Vancomycin HCl/ Dextrose (Vancomycin/D5W) 275 ml @ 183.708 mls/hr Q8H IVPB 09/15/16 11:30 09/20/16 11:29 09/15/16 19:41 Zinc Sulfate 220 mg 220 mg DAILY GT 09/15/16 09:00 10/15/16 08:59 09/15/16 09:35 ROLY PERRIN Sep 15, 2016 23:16
[2016-09-16] VITALS: BP 116/73
[2016-09-16] MEDS: NovoLOG Insulin Flexpen SUBQ SCH ×4 (00:16→18:29)
[2016-09-16] MEDS: Vancomycin 750mg/D5W 275ml IVPB SCH ×2 (03:15)
[2016-09-16 04:00] VITALS: BP 99/56
[2016-09-16] MEDS: Meropenem 1 GM in NS 55 ML IVPB SCH ×3 (05:28→22:07)
[2016-09-16] MEDS: Colistin for inhalation INH SCH ×2 (06:45→21:21)
[2016-09-16 08:30] VITALS: BP 93/59
--- NOTE | 2016-09-16 08:58 | Consultation ---
DATE OF CONSULTATION: 09/13/2016 CARDIOLOGY CONSULTATION CONSULTING PHYSICIAN: Toby Calero M.D. REFERRING PHYSICIAN: Yvon Tuttle M.D. REASON FOR REFERRAL: Tachycardia. HISTORY OF PRESENT ILLNESS: The patient is an unfortunate middle-aged male with history of multiple medical problems, who has presented to the hospital for evaluation of possible pneumonia. This cardiac consultation was requested by Dr. Tuttle because of tachycardia up to 150 beats per minute. The patient is unable to provide a meaningful history whatsoever. The patient has had a past medical history of UTI, bacteremia, CVA, DVT, hypertension, diabetes mellitus as well as meningitis reportedly previously according to the old chart, and encephalopathy and diabetes mellitus. The patient also has dysphagia and pneumonia as well. REVIEW OF SYSTEMS: Unable to obtain. ALLERGIES: To penicillin. SOCIAL HISTORY: He does not smoke or drink alcoholic beverages. He lives in a convalescent facility. PHYSICAL EXAMINATION: GENERAL: The patient is a middle-aged . HEENT: Eyes are open, responsive. NECK: Supple. There is no jugular venous distention. LUNGS: Rhonchi noted. CARDIAC: Regular rhythm. Tachycardic. ABDOMEN: Soft and nontender. Positive bowel sounds. EXTREMITIES: Contracted. NEUROLOGIC: Noncommunicative, responsive. LABORATORY VALUES: White count of 21,000 with a hemoglobin of 10.9 and platelet count of 336,000. PH of 7.51, pCO2 of 41, pO2 of 82, and bicarbonate of 32. Sodium is 122, down from 127; potassium 3.9; chloride 78; bicarbonate 28; BUN of 9; creatinine 0.4; and glucose of 88. Liver function tests are normal except for the fact he has an albumin of 2.8. Vitamin B12 previously was 1800. Ferritin was 1600. INR is 1.0. Urinalysis shows 15 to 20 WBCs. The patient's chest x-ray performed today shows no significant changes. Lungs are clear. Cardiac silhouette is stable. Ventriculoperitoneal shunt, IVC filter, and gastrostomy tube are in place. Electrocardiogram shows picture consistent with sinus tachycardia with rates up to 150s to 160s. ASSESSMENT AND PLAN: 1. Sinus tachycardia secondary to . 2. Urinary tract infection. 3. Sepsis. 4. Protein-calorie malnutrition. 5. . 6. Ventriculoperitoneal shunt. 7. Inferior vena cava filter. PLAN: Dr. Tuttle, this patient was seen in cardiac consultation. The etiology of the patient's tachycardia is not yet clear although he did have some fevers of 101.5 earlier actually, which can certainly explain the tachycardia. He does not appear to be overtly hypoxic or respiratory distress of any sort. At this time, I would recommend checking an electrocardiogram to make sure there is no pericardial effusion or other etiologies that caused this tachycardia in addition to the fevers. have already been started and the patient's fever has decreased. His heart rate is not as high as it was before, nevertheless, still elevated. Chest x-ray was not revealing of any infiltrates although pulmonary embolism is a possibility. The patient has IVC filter making that less likely. Toby Calero M.D. DR: MOIZ JOB#: [id number] CC:
[2016-09-16] MEDS ORDERED: Dakin's 0.25% (Half Strength) 16oz TOPIC SCH (09:00)
[2016-09-16] MEDS ORDERED: Morphine Sulfate 10mg/5ml Oral Soln ud GT PRN (09:45)
--- NOTE | 2016-09-16 09:46 | Infectious Diseases Prog Note ---
Assessment/Plan Assessment/Plan A: The patient is a 50-year-old old male with : leukocytosis , SP Fever improving UTI , probable Hx of Pna SpCx: ESBL Ecoli Multiple lower Ext decubitus sputum Cx : MDR- ACB Cxray : No acute cardiopulmonary disease identified History of CVA status post BIOLOGY LECTURER shunt and meningitis. History of DVT HTN DM PLAN: cont Merrem d# , cont Diflucan d# / and IV Vanco d# / , colistin d# 1 ( 09/10 Vanco d# / ) ( 2/ SP Levaquin d# 5 ) Monitor CBC Monitor BMP Monitor chest x-ray Monitor Cx ( Bl ) Subjective Allergies: Coded Allergies: PENICILLINS (Unverified Allergy, Unknown, 09/05/16) Subjective non verbal Objective Vital Signs Last 24 Hour Vital Signs Date Time Temp Pulse Resp B/P Pulse Ox O2 Delivery O2 Flow Rate FiO2 09/16/16 08:30 96.8 89 20 93/59 99 Nasal Cannula 3.0 09/16/16 07:05 89 19 100 Nasal Cannula 3.0 32 09/16/16 06:45 84 20 Nasal Cannula 3.0 32 09/16/16 06:45 Nasal Cannula 3.0 32 09/16/16 06:45 100 Nasal Cannula 3.0 32 09/16/16 06:45 32 09/16/16 06:45 84 20 100 Nasal Cannula 3.0 32 09/16/16 04:00 95 09/16/16 04:00 98.1 75 22 99/56 100 Nasal Cannula 3.0 09/16/16 03:44 98.1 09/16/16 00:00 100.2 102 20 116/73 100 Nasal Cannula 3.0 09/16/16 00:00 100.2 94 19 116/73 99 Nasal Cannula 5.0 09/16/16 00:00 93 09/15/16 21:49 75 18 99 Nasal Cannula 3.0 32 09/15/16 21:40 78 18 96 Nasal Cannula 3.0 32 09/15/16 20:00 98.4 107 20 113/69 98 Nasal Cannula 2.0 09/15/16 20:00 102 09/15/16 19:43 98.4 09/15/16 19:36 Nasal Cannula 2.0 28 09/15/16 19:35 98 Nasal Cannula 2.0 28 09/15/16 19:35 75 20 Nasal Cannula 2.0 28 09/15/16 16:00 99.0 107 18 117/81 99 Nasal Cannula 3.0 09/15/16 16:00 96 09/15/16 12:00 108 09/15/16 12:00 98.6 126 20 117/76 99 Nasal Cannula 1.0 Height (Feet): 5 Height (Inches): 7.70 Weight (Pounds): 99 HEENT: mucous membranes moist Respiratory/Chest: normal breath sounds Cardiovascular: regular rhythm Abdomen: non distended Microbiology Date/Time Source Procedure Growth Status 09/13/16 14:30 Blood Blood Culture - Preliminary NO GROWTH AFTER 48 HOURS Resulted 09/13/16 14:20 Blood Blood Culture - Preliminary NO GROWTH AFTER 48 HOURS Resulted 09/13/16 14:20 Sputum Gram Stain - Final Complete 09/13/16 14:20 Sputum Culture - Final Acinetobacter Baumannii Complx Complete 09/13/16 14:20 Urine,Clean Catch Urine Culture - Final NO GROWTH AFTER 48 HOURS Complete Current Medications Medications (Trade) Dose Ordered Sig/Cristina Route PRN Reason Start Time Stop Time Status Last Admin Dose Admin Acetaminophen (Tylenol) 650 mg Q6H PRN GT Prn Headache/Temp > 101 09/16/16 10:00 10/16/16 09:59 Al Hydroxide/Mg Hydroxide (Mylanta II) 30 ml Q6H PRN GT dyspepsia 09/16/16 10:00 10/16/16 09:59 Albuterol Sulfate (Proventil) 2.5 mg Q4H PRN HHN Shortness of Breath 09/16/16 10:00 09/21/16 09:59 Ascorbic Acid (Vitamin C) 500 mg DAILY GT 09/16/16 10:00 10/16/16 09:59 Bisacodyl (Dulcolax) 10 mg DAILYPRN PRN RECTAL Constipation 09/16/16 10:00 10/16/16 09:59 Colistimethate Sodium (Colistin *inhalation use only*) 75 mg Q12HR@0600,1800 INH 09/16/16 18:00 09/23/16 17:59 Collagenase (Santyl) 1 applic DAILY TOPIC 09/16/16 09:00 10/16/16 08:59 Dextrose (Dextrose 50%) STAT PRN IV Hypoglycemia 09/16/16 10:00 10/16/16 09:59 Enoxaparin Sodium (Lovenox) 40 mg DAILY SUBQ 09/16/16 10:00 10/16/16 09:59 Fluconazole (Diflucan) 200 mg DAILY GT 09/16/16 10:00 09/23/16 09:59 Gabapentin (Neurontin) 400 mg TID GT 09/16/16 10:00 10/16/16 09:59 Insulin Aspart (NovoLOG) Q6HR SUBQ 09/16/16 12:00 10/16/16 11:59 Meropenem 1 gm/ Sodium Chloride 55 ml @ 110 mls/hr Q8HR IVPB 09/16/16 14:00 09/21/16 13:59 Morphine Sulfate (Morphine 10mg/ 5ml Oral Soln) 20 mg Q2H PRN GT FOR PAIN 4-10 09/16/16 09:45 09/23/16 09:44 Ondansetron HCl (Zofran) 4 mg Q6H PRN IVP Nausea & Vomiting 09/16/16 10:00 10/16/16 09:59 Polyethylene Glycol (Miralax) 17 gm DAILYPRN PRN GT Constipation 09/16/16 10:00 10/16/16 09:59 Sodium Hypochlorite (Dakin's Half Strength) 1 applic DAILY TOPIC 09/16/16 09:00 10/16/16 08:59 Sodium Chloride 1,000 ml @ 125 mls/hr Q8H IV 09/16/16 09:45 10/16/16 09:44 Temazepam (Restoril) 15 mg HSPRN PRN GT Insomnia 09/16/16 21:00 09/23/16 20:59 Vancomycin HCl (Vanco rx to dose) 1 ea DAILY PRN MISC Per rx protocol 09/16/16 09:00 10/16/16 08:59 Vancomycin HCl/ Dextrose (Vancomycin/D5W) 275 ml @ 183.708 mls/hr Q8H IVPB 09/16/16 11:30 09/21/16 11:29 Zinc Sulfate (Zinc Sulfate) 220 mg DAILY GT 09/16/16 10:00 10/16/16 09:59 JOSLYN NICOLE M.D. Sep 16, 2016 09:46
[2016-09-16] MEDS: Fluconazole 100mg tab GT SCH (09:57)
[2016-09-16] MEDS: Zinc Sulfate 220mg cap GT SCH (09:57)
[2016-09-16] MEDS: Ascorbic Acid 500mg tab GT SCH (09:57)
[2016-09-16] MEDS ORDERED: Mylanta II UD 30ml GT PRN (10:00)
[2016-09-16] MEDS ORDERED: Miralax 17gm pkt GT PRN (10:00)
[2016-09-16] MEDS ORDERED: Albuterol ud Inhalation HHN PRN (10:00)
[2016-09-16] MEDS: Gabapentin 300 MG/6 ML Soln GT SCH ×3 (10:34→18:26)
[2016-09-16] MEDS: Enoxaparin 40mg Inj SUBQ SCH (10:36)
[2016-09-16 11:24] VITALS: BP 104/66
[2016-09-16] MEDS: Vancomycin 750 MG in D5W 275 ML IVPB SCH ×2 (12:45→20:33)
--- NOTE | 2016-09-16 13:59 | Cardiology Report ---
APPROVED REPORT EKG Measurement Heart [id number] Sinus rhythm Low voltage QRS Nonspecific ST and T wave abnormality Abnormal ECG
--- NOTE | 2016-09-16 14:29 | Cardiology Report ---
APPROVED REPORT EXAM: Two-dimensional and M-mode echocardiogram with Doppler and color Doppler. INDICATION Tachycardia M-Mode DIMENSIONS IVSd0.7 (0.7-1.1cm)Left Atrium (MM)2.3 (1.6-4.0cm) LVDd3.5 (3.5-5.6cm)Aortic Root2.9 (2.0-3.7cm) PWd0.8 (0.7-1.1cm)Aortic Cusp Exc.1.9 (1.5-2.0cm) LVDs1.6 (2.5-4.0cm) PWs1.2 cm Technically difficult study due to poor acoustic windows, patient position and contacted arm. Study quality precludes accurate assessment of regional wall motion. Normal left ventricular chamber size, systolic function and wall motion. Left ventricular ejection fraction estimated to be 55 %. No evidence of ventricular hypertrophy. No evidence of pericardial fat or effusion. All other cardiac chamber sizes are within normal limits. Mild focal aortic valve sclerosis with adequate cusp excursion. Mildly thickened mitral valve leaflets with normal excursion. Mild mitral annulus and aortic root calcification. Pulmonic valve not well visualized. Normal tricuspid valve structure. IVC at normal size with physiologic collapse. A color flow and spectral Doppler study was performed and revealed: No aortic regurgitation. Trace mitral regurgitation. Mitral inflow velocities indicates normal left ventricular diastolic function. Tricuspid systolic velocities suggests peak right ventricular systolic pressure of 26 mmHg. No pulmonic regurgitation present.
[2016-09-16 16:00] VITALS: BP 129/65
--- NOTE | 2016-09-16 16:38 | Pulmonology Progress Note ---
Assessment/Plan Problems: (1) Multiple drug resistant organism (MDRO) culture positive (2) Respiratory distress (3) Sepsis (4) Severe protein-calorie malnutrition (5) Feeding by G-tube (6) S/P [employer] shunt Assessment/Plan wbc is back to asif cxr is unchanged repeat cultures, sputum has MDR GNR tolerating feeding cont Merrem d# 12 / , cont Diflucan d# 5/ and IV Vanco d# 4 / , colistin d# 1 Subjective ROS Limited/Unobtainable: Yes Interval Events: comfortable Allergies: Coded Allergies: PENICILLINS (Unverified Allergy, Unknown, 09/05/16) Objective Last 24 Hour Vital Signs Date Time Temp Pulse Resp B/P Pulse Ox O2 Delivery O2 Flow Rate FiO2 09/16/16 14:36 97.2 09/16/16 11:24 97.2 106 21 104/66 100 Nasal Cannula 3.0 09/16/16 08:30 96.8 89 20 93/59 99 Nasal Cannula 3.0 09/16/16 08:00 89 09/16/16 07:05 89 19 100 Nasal Cannula 3.0 32 09/16/16 06:45 84 20 Nasal Cannula 3.0 32 09/16/16 06:45 Nasal Cannula 3.0 32 09/16/16 06:45 100 Nasal Cannula 3.0 32 09/16/16 06:45 32 09/16/16 06:45 84 20 100 Nasal Cannula 3.0 32 09/16/16 04:00 95 09/16/16 04:00 98.1 75 22 99/56 100 Nasal Cannula 3.0 09/16/16 03:44 98.1 09/16/16 00:00 100.2 102 20 116/73 100 Nasal Cannula 3.0 09/16/16 00:00 100.2 94 19 116/73 99 Nasal Cannula 5.0 09/16/16 00:00 93 09/15/16 21:49 75 18 99 Nasal Cannula 3.0 32 09/15/16 21:40 78 18 96 Nasal Cannula 3.0 32 09/15/16 20:00 98.4 107 20 113/69 98 Nasal Cannula 2.0 09/15/16 20:00 102 09/15/16 19:43 98.4 09/15/16 19:36 Nasal Cannula 2.0 28 09/15/16 19:35 98 Nasal Cannula 2.0 28 09/15/16 19:35 75 20 Nasal Cannula 2.0 28 Intake and Output 09/15/16 09/16/16 19:00 07:00 Intake Total 2620 ml 2605.000 ml Output Total 675 ml 2600 ml Balance 1945 ml 5.000 ml Free Water 100 ml 100 ml IV Total 1830 ml 1845.000 ml Tube Feeding 660 ml 660 ml Other 30 ml Output Urine Total 675 ml 2600 ml # Bowel Movements 1 Objective Respiratory/Chest: chest wall non-tender, lungs clear Cardiovascular: normal peripheral pulses Abdomen: normal bowel sounds, soft, non tender Extremities: no cyanosis, no clubbing Skin: no rash, no ulcers Lymphatic: no neck adenopathy Current Medications Medications (Trade) Dose Ordered Sig/Cristina Route PRN Reason Start Time Stop Time Status Last Admin Dose Admin Acetaminophen (Tylenol) 650 mg Q6H PRN GT Prn Headache/Temp > 101 09/16/16 10:00 10/16/16 09:59 Al Hydroxide/Mg Hydroxide (Mylanta II) 30 ml Q6H PRN GT dyspepsia 09/16/16 10:00 10/16/16 09:59 Albuterol Sulfate (Proventil) 2.5 mg Q4H PRN HHN Shortness of Breath 09/16/16 10:00 09/21/16 09:59 Ascorbic Acid (Vitamin C) 500 mg DAILY GT 09/16/16 10:00 10/16/16 09:59 09/16/16 09:57 Bisacodyl (Dulcolax) 10 mg DAILYPRN PRN RECTAL Constipation 09/16/16 10:00 10/16/16 09:59 Colistimethate Sodium (Colistin *inhalation use only*) 75 mg Q12HR@0600,1800 INH 09/16/16 18:00 09/23/16 17:59 Collagenase (Santyl) 1 applic DAILY@2100 TOPIC 09/16/16 21:00 10/16/16 20:59 Dextrose (Dextrose 50%) STAT PRN IV Hypoglycemia 09/16/16 10:00 10/16/16 09:59 Enoxaparin Sodium (Lovenox) 40 mg DAILY SUBQ 09/16/16 10:00 10/16/16 09:59 09/16/16 10:36 Fluconazole (Diflucan) 200 mg DAILY GT 09/16/16 10:00 09/23/16 09:59 09/16/16 09:57 Gabapentin (Neurontin) 400 mg TID GT 09/16/16 10:00 10/16/16 09:59 09/16/16 13:37 Insulin Aspart (NovoLOG) Q6HR SUBQ 09/16/16 12:00 10/16/16 11:59 09/16/16 12:16 Meropenem 1 gm/ Sodium Chloride 55 ml @ 110 mls/hr Q8HR IVPB 09/16/16 14:00 09/21/16 13:59 09/16/16 14:16 Morphine Sulfate (Morphine 10mg/ 5ml Oral Soln) 20 mg Q2H PRN GT FOR PAIN 4-10 09/16/16 09:45 09/23/16 09:44 Ondansetron HCl (Zofran) 4 mg Q6H PRN IVP Nausea & Vomiting 09/16/16 10:00 10/16/16 09:59 Polyethylene Glycol (Miralax) 17 gm DAILYPRN PRN GT Constipation 09/16/16 10:00 10/16/16 09:59 Sodium Hypochlorite (Dakin's Half Strength) 1 applic DAILY@2100 TOPIC 09/16/16 21:00 10/16/16 20:59 Sodium Chloride 1,000 ml @ 125 mls/hr Q8H IV 09/16/16 09:45 10/16/16 09:44 09/16/16 10:31 Temazepam (Restoril) 15 mg HSPRN PRN GT Insomnia 09/16/16 21:00 09/23/16 20:59 Vancomycin HCl (Vanco rx to dose) 1 ea DAILY PRN MISC Per rx protocol 09/16/16 09:00 10/16/16 08:59 Vancomycin HCl/ Dextrose (Vancomycin/D5W) 275 ml @ 183.708 mls/hr Q8H IVPB 09/16/16 11:30 09/21/16 11:29 09/16/16 12:45 Zinc Sulfate (Zinc Sulfate) 220 mg DAILY GT 09/16/16 10:00 10/16/16 09:59 09/16/16 09:57 ROLY PERRIN Sep 16, 2016 16:38
[2016-09-16] MEDS ORDERED: Colistin for inhalation INH SCH (18:00)
[2016-09-16 19:00] VITALS: BP 112/61
[2016-09-16] MEDS: Dakin's 0.25% (Half Strength) 16oz TOPIC SCH (22:41)
[2016-09-17] VITALS (7 sets, daily range): BP systolic 92–117; BP diastolic 60–71
[2016-09-17] MEDS: Vancomycin 750 MG in D5W 275 ML IVPB SCH ×3 (03:30→19:20)
[2016-09-17] MEDS: NovoLOG Insulin Flexpen SUBQ SCH ×4 (05:09→18:00)
[2016-09-17] MEDS: Meropenem 1 GM in NS 55 ML IVPB SCH ×3 (05:09→22:32)
[2016-09-17] MEDS: Ascorbic Acid 500mg tab GT SCH (09:39)
[2016-09-17] MEDS: Zinc Sulfate 220mg cap GT SCH (09:39)
[2016-09-17] MEDS: Fluconazole 100mg tab GT SCH (09:39)
[2016-09-17] MEDS: Enoxaparin 40mg Inj SUBQ SCH (09:41)
[2016-09-17] MEDS: Gabapentin 300 MG/6 ML Soln GT SCH ×3 (09:47→19:21)
--- NOTE | 2016-09-17 10:16 | Infectious Diseases Prog Note ---
Assessment/Plan Assessment/Plan A: The patient is a 50-year-old old male with : leukocytosis , SP Fever low grade UTI , probable Hx of Pna SpCx: ESBL Ecoli Multiple lower Ext decubitus ? Pneumonia sputum Cx : MDR- ACB Cxray : No acute cardiopulmonary disease identified History of CVA status post [employer] shunt and meningitis. History of DVT HTN DM PLAN: cont Merrem d# , cont Diflucan d# / and IV Vanco d# / , colistin INH d#2 ( 09/10 Vanco d# ) ( / SP Levaquin d# 5 ) Monitor CBC Monitor BMP Monitor chest x-ray Monitor Cx ( Bl ) Subjective Constitutional: Denies: anorexia, chills, drenching sweats, fatigue, fever, no symptoms, other Allergies: Coded Allergies: PENICILLINS (Unverified Allergy, Unknown, 09/05/16) Subjective non verbal Objective Vital Signs Last 24 Hour Vital Signs Date Time Temp Pulse Resp B/P Pulse Ox O2 Delivery O2 Flow Rate FiO2 09/17/16 08:15 98 105/60 09/17/16 07:25 98.2 93 16 92/70 99 Nasal Cannula 09/17/16 04:00 97.7 86 16 96/61 99 Nasal Cannula 2.0 09/17/16 00:00 99.9 95 16 102/64 98 Nasal Cannula 2.0 09/16/16 21:25 103 18 98 Nasal Cannula 3.0 32 09/16/16 21:24 98 18 98 Nasal Cannula 3.0 32 09/16/16 20:33 Nasal Cannula 3.0 32 09/16/16 20:33 99 Nasal Cannula 3.0 32 09/16/16 20:32 116 18 Nasal Cannula 3.0 32 09/16/16 19:00 99.1 109 18 112/61 99 Nasal Cannula 3.0 09/16/16 16:00 100.2 105 18 129/65 99 Nasal Cannula 3.0 09/16/16 14:36 97.2 09/16/16 11:24 97.2 106 21 104/66 100 Nasal Cannula 3.0 Height (Feet): 5 Height (Inches): 7.70 Weight (Pounds): 99 HEENT: atraumatic Respiratory/Chest: normal breath sounds Cardiovascular: no gallop/murmur Abdomen: non distended Current Medications Medications (Trade) Dose Ordered Sig/Cristina Route PRN Reason Start Time Stop Time Status Last Admin Dose Admin Acetaminophen (Tylenol) 650 mg Q6H PRN GT Prn Headache/Temp > 101 09/16/16 10:00 10/16/16 09:59 Al Hydroxide/Mg Hydroxide (Mylanta II) 30 ml Q6H PRN GT dyspepsia 09/16/16 10:00 10/16/16 09:59 Albuterol Sulfate (Proventil) 2.5 mg Q4H PRN HHN Shortness of Breath 09/16/16 10:00 09/21/16 09:59 Ascorbic Acid (Vitamin C) 500 mg DAILY GT 09/16/16 10:00 10/16/16 09:59 09/17/16 09:39 Bisacodyl (Dulcolax) 10 mg DAILYPRN PRN RECTAL Constipation 09/16/16 10:00 10/16/16 09:59 Colistimethate Sodium (Colistin *inhalation use only*) 75 mg Q12H INH 09/16/16 22:00 09/23/16 21:59 09/16/16 21:21 Collagenase (Santyl) 1 applic DAILY@2100 TOPIC 09/16/16 21:00 10/16/16 20:59 09/16/16 22:40 Dextrose (Dextrose 50%) STAT PRN IV Hypoglycemia 09/16/16 10:00 10/16/16 09:59 Enoxaparin Sodium (Lovenox) 40 mg DAILY SUBQ 09/16/16 10:00 10/16/16 09:59 09/17/16 09:41 Fluconazole (Diflucan) 200 mg DAILY GT 09/16/16 10:00 09/23/16 09:59 09/17/16 09:39 Gabapentin (Neurontin) 400 mg TID GT 09/16/16 10:00 10/16/16 09:59 09/17/16 09:47 Insulin Aspart (NovoLOG) Q6HR SUBQ 09/16/16 12:00 10/16/16 11:59 09/17/16 05:09 Meropenem 1 gm/ Sodium Chloride 55 ml @ 110 mls/hr Q8HR IVPB 09/16/16 14:00 09/21/16 13:59 09/17/16 05:09 Morphine Sulfate (Morphine 10mg/ 5ml Oral Soln) 20 mg Q2H PRN GT FOR PAIN 4-10 09/16/16 09:45 09/23/16 09:44 Ondansetron HCl (Zofran) 4 mg Q6H PRN IVP Nausea & Vomiting 09/16/16 10:00 10/16/16 09:59 Polyethylene Glycol (Miralax) 17 gm DAILYPRN PRN GT Constipation 09/16/16 10:00 10/16/16 09:59 Sodium Hypochlorite (Dakin's Half Strength) 1 applic DAILY@2100 TOPIC 09/16/16 21:00 10/16/16 20:59 09/16/16 22:41 Sodium Chloride 1,000 ml @ 125 mls/hr Q8H IV 09/16/16 09:45 10/16/16 09:44 09/17/16 09:40 Temazepam (Restoril) 15 mg HSPRN PRN GT Insomnia 09/16/16 21:00 09/23/16 20:59 Vancomycin HCl (Vanco rx to dose) 1 ea DAILY PRN MISC Per rx protocol 09/16/16 09:00 10/16/16 08:59 Vancomycin HCl/ Dextrose (Vancomycin/D5W) 275 ml @ 183.708 mls/hr Q8H IVPB 09/16/16 11:30 09/21/16 11:29 09/17/16 03:30 Zinc Sulfate (Zinc Sulfate) 220 mg DAILY GT 09/16/16 10:00 10/16/16 09:59 09/17/16 09:39 JOSLYN NICOLE M.D. Sep 17, 2016 10:16
[2016-09-17] MEDS: Colistin for inhalation INH SCH ×2 (10:36→22:49)
[2016-09-17] MEDS ORDERED: Sterile Water Irrig 1000ml IRRIG ONE (15:41)
--- NOTE | 2016-09-17 22:33 | Pulmonology Progress Note ---
Assessment/Plan Problems: (1) Multiple drug resistant organism (MDRO) culture positive (2) Respiratory distress (3) Sepsis (4) Severe protein-calorie malnutrition (5) Feeding by G-tube (6) S/P [employer] shunt Assessment/Plan wbc is back to asif cxr is unchanged repeat cultures, sputum has MDR GNR tolerating feeding abx by ID pts sister apparently agreed to hospice Subjective ROS Limited/Unobtainable: No Interval Events: awake, comfortable Allergies: Coded Allergies: PENICILLINS (Unverified Allergy, Unknown, 09/05/16) Objective Last 24 Hour Vital Signs Date Time Temp Pulse Resp B/P Pulse Ox O2 Delivery O2 Flow Rate FiO2 09/17/16 20:20 96.2 09/17/16 19:00 96.1 107 18 117/71 94 Nasal Cannula 2.0 09/17/16 16:00 96.2 92 20 114/61 94 Nasal Cannula 2.0 09/17/16 11:14 97.9 79 16 105/66 98 Nasal Cannula 09/17/16 10:46 102 18 99 Nasal Cannula 2.0 28 09/17/16 10:36 99 Nasal Cannula 2.0 28 09/17/16 10:36 102 18 99 Nasal Cannula 2.0 28 09/17/16 10:36 Nasal Cannula 2.0 28 09/17/16 10:36 102 18 Nasal Cannula 2.0 28 09/17/16 08:15 98 105/60 09/17/16 07:25 98.2 93 16 92/70 99 Nasal Cannula 09/17/16 04:00 97.7 86 16 96/61 99 Nasal Cannula 2.0 09/17/16 00:00 99.9 95 16 102/64 98 Nasal Cannula 2.0 Intake and Output 09/16/16 09/17/16 19:00 07:00 Intake Total 1293.708 ml 1830.000 ml Output Total 400 ml 1600 ml Balance 893.708 ml 230.000 ml Intake Oral 0 ml Free Water 100 ml IV Total 808.708 ml 1830.000 ml Tube Feeding 385 ml Output Urine Total 400 ml 1600 ml Objective Respiratory/Chest: chest wall non-tender, lungs clear Cardiovascular: normal peripheral pulses Abdomen: normal bowel sounds, soft, non tender Extremities: no cyanosis, no clubbing Skin: no rash, no ulcers Lymphatic: no neck adenopathy Current Medications Medications (Trade) Dose Ordered Sig/Cristina Route PRN Reason Start Time Stop Time Status Last Admin Dose Admin Acetaminophen (Tylenol) 650 mg Q6H PRN GT Prn Headache/Temp > 101 09/16/16 10:00 10/16/16 09:59 Al Hydroxide/Mg Hydroxide (Mylanta II) 30 ml Q6H PRN GT dyspepsia 09/16/16 10:00 10/16/16 09:59 Albuterol Sulfate (Proventil) 2.5 mg Q4H PRN HHN Shortness of Breath 09/16/16 10:00 09/21/16 09:59 Ascorbic Acid (Vitamin C) 500 mg DAILY GT 09/16/16 10:00 10/16/16 09:59 09/17/16 09:39 Bisacodyl (Dulcolax) 10 mg DAILYPRN PRN RECTAL Constipation 09/16/16 10:00 10/16/16 09:59 Colistimethate Sodium (Colistin *inhalation use only*) 75 mg Q12H INH 09/16/16 22:00 09/23/16 21:59 09/17/16 10:36 Collagenase (Santyl) 1 applic DAILY@2100 TOPIC 09/16/16 21:00 10/16/16 20:59 09/16/16 22:40 Dextrose (Dextrose 50%) STAT PRN IV Hypoglycemia 09/16/16 10:00 10/16/16 09:59 Enoxaparin Sodium (Lovenox) 40 mg DAILY SUBQ 09/16/16 10:00 10/16/16 09:59 09/17/16 09:41 Fluconazole (Diflucan) 200 mg DAILY GT 09/16/16 10:00 09/23/16 09:59 09/17/16 09:39 Gabapentin (Neurontin) 400 mg TID GT 09/16/16 10:00 10/16/16 09:59 09/17/16 19:21 Insulin Aspart (NovoLOG) Q6HR SUBQ 09/16/16 12:00 10/16/16 11:59 09/17/16 13:54 Meropenem 1 gm/ Sodium Chloride 55 ml @ 110 mls/hr Q8HR IVPB 09/16/16 14:00 09/21/16 13:59 09/17/16 13:57 Morphine Sulfate (Morphine 10mg/ 5ml Oral Soln) 20 mg Q2H PRN GT FOR PAIN 4-10 09/16/16 09:45 09/23/16 09:44 Ondansetron HCl (Zofran) 4 mg Q6H PRN IVP Nausea & Vomiting 09/16/16 10:00 10/16/16 09:59 Polyethylene Glycol (Miralax) 17 gm DAILYPRN PRN GT Constipation 09/16/16 10:00 10/16/16 09:59 Sodium Hypochlorite (Dakin's Half Strength) 1 applic DAILY@2100 TOPIC 09/16/16 21:00 10/16/16 20:59 09/16/16 22:41 Sodium Chloride 1,000 ml @ 125 mls/hr Q8H IV 09/16/16 09:45 10/16/16 09:44 09/17/16 09:40 Temazepam (Restoril) 15 mg HSPRN PRN GT Insomnia 09/16/16 21:00 09/23/16 20:59 Vancomycin HCl (Vanco rx to dose) 1 ea DAILY PRN MISC Per rx protocol 09/16/16 09:00 10/16/16 08:59 Vancomycin HCl/ Dextrose (Vancomycin/D5W) 275 ml @ 183.708 mls/hr Q8H IVPB 09/16/16 11:30 09/21/16 11:29 09/17/16 19:20 Zinc Sulfate (Zinc Sulfate) 220 mg DAILY GT 09/16/16 10:00 10/16/16 09:59 09/17/16 09:39 ROLY PERRIN Sep 17, 2016 22:33
[2016-09-18] VITALS: BP 128/72
[2016-09-18] MEDS: NovoLOG Insulin Flexpen SUBQ SCH ×4 (00:07→18:00)
[2016-09-18] MEDS: Dakin's 0.25% (Half Strength) 16oz TOPIC SCH ×3 (03:17→22:45)
[2016-09-18] MEDS: Vancomycin 750 MG in D5W 275 ML IVPB SCH ×3 (03:18→21:54)
[2016-09-18 04:00] VITALS: BP 109/58
[2016-09-18] MEDS: Meropenem 1 GM in NS 55 ML IVPB SCH ×3 (05:59→20:55)
[2016-09-18] MEDS: Colistin for inhalation INH SCH ×2 (07:43→19:58)
[2016-09-18 08:09] VITALS: BP 98/62
[2016-09-18] MEDS: Fluconazole 100mg tab GT SCH (08:52)
[2016-09-18] MEDS: Ascorbic Acid 500mg tab GT SCH (08:52)
[2016-09-18] MEDS: Zinc Sulfate 220mg cap GT SCH (08:52)
[2016-09-18] MEDS: Enoxaparin 40mg Inj SUBQ SCH (08:53)
[2016-09-18] MEDS: Gabapentin 300 MG/6 ML Soln GT SCH ×3 (10:37→18:23)
[2016-09-18 11:37] VITALS: BP 95/59
[2016-09-18 16:00] VITALS: BP 106/68
[2016-09-18 20:00] VITALS: BP 108/67
--- NOTE | 2016-09-18 20:12 | Infectious Diseases Prog Note ---
Assessment/Plan Assessment/Plan A: The patient is a 50-year-old old male with : leukocytosis , SP Fever low grade , SP UTI , probable Hx of Pna SpCx: ESBL Ecoli Multiple lower Ext decubitus ? Pneumonia sputum Cx : MDR- ACB Cxray : No acute cardiopulmonary disease identified History of CVA status post [employer] shunt and meningitis. History of DVT HTN DM PLAN: cont Merrem d# / , cont Diflucan d# / and IV Vanco d# / , colistin INH d# 3 ( 09/10 Vanco d# ) ( 2/ SP Levaquin d# 5 ) Monitor CBC Monitor BMP Monitor chest x-ray Monitor Cx ( Bl ) d poor prognosis, consider hospice / comfort care Subjective Constitutional: Denies: anorexia, chills, drenching sweats, fatigue, fever, no symptoms, other Allergies: Coded Allergies: PENICILLINS (Unverified Allergy, Unknown, 09/05/16) Subjective non verbal Objective Vital Signs Last 24 Hour Vital Signs Date Time Temp Pulse Resp B/P Pulse Ox O2 Delivery O2 Flow Rate FiO2 09/18/16 20:05 118 18 99 Nasal Cannula 2.0 28 09/18/16 20:05 109 18 100 Nasal Cannula 2.0 28 09/18/16 19:04 Nasal Cannula 2.0 28 09/18/16 19:03 105 18 Nasal Cannula 2.0 28 09/18/16 19:03 99 Nasal Cannula 2.0 28 09/18/16 16:00 98.1 107 18 106/68 100 Room Air 09/18/16 11:37 98.4 100 20 95/59 94 Nasal Cannula 2.0 09/18/16 08:09 97.7 104 21 98/62 98 Nasal Cannula 2.0 09/18/16 07:55 106 18 100 Nasal Cannula 2.0 28 09/18/16 07:48 Nasal Cannula 2.0 28 09/18/16 07:41 103 16 Nasal Cannula 2.0 28 09/18/16 07:40 103 18 99 Nasal Cannula 2.0 28 09/18/16 07:39 99 Nasal Cannula 2.0 28 09/18/16 04:00 100 18 109/58 94 Nasal Cannula 2.0 09/18/16 00:00 98.6 99 18 128/72 99 Nasal Cannula 09/17/16 23:00 102 18 99 Nasal Cannula 2.0 28 09/17/16 22:52 28 09/17/16 22:52 100 18 96 Nasal Cannula 2.0 28 09/17/16 22:51 96 Nasal Cannula 2.0 28 09/17/16 22:51 Nasal Cannula 2.0 28 09/17/16 22:50 100 18 Nasal Cannula 2.0 28 09/17/16 20:20 96.2 Height (Feet): 5 Height (Inches): 7.70 Weight (Pounds): 99 HEENT: anicteric Respiratory/Chest: normal breath sounds Cardiovascular: regular rhythm Abdomen: no organomegaly Laboratory Tests Test 09/18/16 19:50 Vancomycin Level Trough Pending Current Medications Medications (Trade) Dose Ordered Sig/Cristina Route PRN Reason Start Time Stop Time Status Last Admin Dose Admin Acetaminophen (Tylenol) 650 mg Q6H PRN GT Prn Headache/Temp > 101 09/16/16 10:00 10/16/16 09:59 Al Hydroxide/Mg Hydroxide (Mylanta II) 30 ml Q6H PRN GT dyspepsia 09/16/16 10:00 10/16/16 09:59 Albuterol Sulfate (Proventil) 2.5 mg Q4H PRN HHN Shortness of Breath 09/16/16 10:00 09/21/16 09:59 Ascorbic Acid (Vitamin C) 500 mg DAILY GT 09/16/16 10:00 10/16/16 09:59 09/18/16 08:52 Bisacodyl (Dulcolax) 10 mg DAILYPRN PRN RECTAL Constipation 09/16/16 10:00 10/16/16 09:59 Colistimethate Sodium (Colistin *inhalation use only*) 75 mg Q12H INH 09/16/16 22:00 09/23/16 21:59 09/18/16 19:58 Collagenase (Santyl) 1 applic DAILY@2100 TOPIC 09/16/16 21:00 10/16/16 20:59 09/18/16 03:17 Dextrose (Dextrose 50%) STAT PRN IV Hypoglycemia 09/16/16 10:00 10/16/16 09:59 Enoxaparin Sodium (Lovenox) 40 mg DAILY SUBQ 09/16/16 10:00 4/12/17 09:59 09/18/16 08:53 Fluconazole (Diflucan) 200 mg DAILY GT 09/16/16 10:00 09/23/16 09:59 09/18/16 08:52 Gabapentin (Neurontin) 400 mg TID GT 09/16/16 10:00 10/16/16 09:59 09/18/16 18:23 Insulin Aspart (NovoLOG) Q6HR SUBQ 09/16/16 12:00 10/16/16 11:59 09/18/16 13:05 Meropenem 1 gm/ Sodium Chloride 55 ml @ 110 mls/hr Q8HR IVPB 09/16/16 14:00 09/21/16 13:59 09/18/16 15:01 Morphine Sulfate (Morphine 10mg/ 5ml Oral Soln) 20 mg Q2H PRN GT FOR PAIN 4-10 09/16/16 09:45 09/23/16 09:44 Ondansetron HCl (Zofran) 4 mg Q6H PRN IVP Nausea & Vomiting 09/16/16 10:00 10/16/16 09:59 Polyethylene Glycol (Miralax) 17 gm DAILYPRN PRN GT Constipation 09/16/16 10:00 10/16/16 09:59 Sodium Hypochlorite (Dakin's Half Strength) 1 applic DAILY@2100 TOPIC 09/16/16 21:00 10/16/16 20:59 09/18/16 03:17 Sodium Chloride 1,000 ml @ 125 mls/hr Q8H IV 09/16/16 09:45 10/16/16 09:44 09/18/16 10:37 Temazepam (Restoril) 15 mg HSPRN PRN GT Insomnia 09/16/16 21:00 09/23/16 20:59 Vancomycin HCl (Vanco rx to dose) 1 ea DAILY PRN MISC Per rx protocol 09/16/16 09:00 10/16/16 08:59 Vancomycin HCl/ Dextrose (Vancomycin/D5W) 275 ml @ 183.708 mls/hr Q8H IVPB 09/16/16 11:30 09/21/16 11:29 09/18/16 13:04 Zinc Sulfate (Zinc Sulfate) 220 mg DAILY GT 09/16/16 10:00 10/16/16 09:59 09/18/16 08:52 JOSLYN NICOLE M.D. Sep 18, 2016 20:12
[2016-09-19] VITALS: BP 92/52
[2016-09-19] MEDS: NovoLOG Insulin Flexpen SUBQ SCH ×4 (00:37→18:25)
[2016-09-19 04:00] VITALS: BP 113/71
[2016-09-19] MEDS: Meropenem 1 GM in NS 55 ML IVPB SCH ×3 (06:39→21:10)
[2016-09-19 08:14] VITALS: BP 95/61
[2016-09-19] MEDS: Colistin for inhalation INH SCH ×2 (09:58→19:59)
[2016-09-19] MEDS: Zinc Sulfate 220mg cap GT SCH (10:10)
[2016-09-19] MEDS: Ascorbic Acid 500mg tab GT SCH (10:10)
[2016-09-19] MEDS: Fluconazole 100mg tab GT SCH (10:11)
[2016-09-19] MEDS: Gabapentin 300 MG/6 ML Soln GT SCH ×3 (10:11→18:22)
--- NOTE | 2016-09-19 10:14 | Infectious Diseases Prog Note ---
Assessment/Plan Assessment/Plan A: The patient is a 50-year-old old male with : leukocytosis , SP Fever low grade , SP UTI , probable Hx of Pna SpCx: ESBL Ecoli Multiple lower Ext decubitus ? 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 History of DVT HTN DM PLAN: cont Merrem d# / , cont Diflucan d# / and IV Vanco d# / , colistin INH d# / ( 09/10 Vanco d# / ) ( 2/ SP Levaquin d# 5 ) Monitor CBC Monitor BMP Monitor chest x-ray Monitor Cx ( Bl ) poor prognosis, consider hospice / comfort care Subjective Allergies: Coded Allergies: PENICILLINS (Unverified Allergy, Unknown, 09/05/16) Subjective non verbal Objective Vital Signs Last 24 Hour Vital Signs Date Time Temp Pulse Resp B/P Pulse Ox O2 Delivery O2 Flow Rate FiO2 09/19/16 10:00 108 16 Nasal Cannula 2.0 28 09/19/16 10:00 Nasal Cannula 2.0 28 09/19/16 10:00 108 16 100 Nasal Cannula 2.0 28 09/19/16 10:00 100 Nasal Cannula 2.0 28 09/19/16 08:14 97.6 105 20 95/61 99 Nasal Cannula 2.0 09/19/16 04:00 98.1 96 18 113/71 100 Nasal Cannula 2.0 09/19/16 00:00 98.2 97 18 92/52 100 Nasal Cannula 2.0 09/18/16 20:05 118 18 99 Nasal Cannula 2.0 28 09/18/16 20:05 109 18 100 Nasal Cannula 2.0 28 09/18/16 20:00 98.1 107 17 108/67 100 Room Air 09/18/16 19:04 Nasal Cannula 2.0 28 09/18/16 19:03 105 18 Nasal Cannula 2.0 28 09/18/16 19:03 99 Nasal Cannula 2.0 28 09/18/16 16:00 98.1 107 18 106/68 100 Room Air 09/18/16 11:37 98.4 100 20 95/59 94 Nasal Cannula 2.0 Height (Feet): 5 Height (Inches): 7.70 Weight (Pounds): 99 HEENT: anicteric Respiratory/Chest: lungs clear Cardiovascular: regular rhythm Abdomen: soft, non tender Laboratory Tests Test 09/18/16 19:50 Vancomycin Level Trough 18.9 ug/mL (5.0-12.0) H Current Medications Medications (Trade) Dose Ordered Sig/Cristina Route PRN Reason Start Time Stop Time Status Last Admin Dose Admin Acetaminophen (Tylenol) 650 mg Q6H PRN GT Prn Headache/Temp > 101 09/16/16 10:00 10/16/16 09:59 Al Hydroxide/Mg Hydroxide (Mylanta II) 30 ml Q6H PRN GT dyspepsia 09/16/16 10:00 10/16/16 09:59 Albuterol Sulfate (Proventil) 2.5 mg Q4H PRN HHN Shortness of Breath 09/16/16 10:00 09/21/16 09:59 Ascorbic Acid (Vitamin C) 500 mg DAILY GT 09/16/16 10:00 10/16/16 09:59 09/18/16 08:52 Bisacodyl (Dulcolax) 10 mg DAILYPRN PRN RECTAL Constipation 09/16/16 10:00 10/16/16 09:59 Colistimethate Sodium 75 mg 75 mg Q12H INH 09/16/16 22:00 09/23/16 21:59 09/19/16 09:58 Collagenase (Santyl) 1 applic DAILY@2100 TOPIC 09/16/16 21:00 10/16/16 20:59 09/18/16 22:45 Dextrose (Dextrose 50%) STAT PRN IV Hypoglycemia 09/16/16 10:00 10/16/16 09:59 Enoxaparin Sodium (Lovenox) 40 mg DAILY SUBQ 09/16/16 10:00 10/16/16 09:59 09/18/16 08:53 Fluconazole (Diflucan) 200 mg DAILY GT 09/16/16 10:00 09/23/16 09:59 09/18/16 08:52 Gabapentin (Neurontin) 400 mg TID GT 09/16/16 10:00 10/16/16 09:59 09/18/16 18:23 Insulin Aspart (NovoLOG) Q6HR SUBQ 09/16/16 12:00 10/16/16 11:59 09/19/16 06:40 Meropenem 1 gm/ Sodium Chloride 55 ml @ 110 mls/hr Q8HR IVPB 09/16/16 14:00 09/21/16 13:59 09/19/16 06:39 Morphine Sulfate (Morphine 10mg/ 5ml Oral Soln) 20 mg Q2H PRN GT FOR PAIN 4-10 09/16/16 09:45 09/23/16 09:44 Ondansetron HCl (Zofran) 4 mg Q6H PRN IVP Nausea & Vomiting 09/16/16 10:00 10/16/16 09:59 Polyethylene Glycol (Miralax) 17 gm DAILYPRN PRN GT Constipation 09/16/16 10:00 10/16/16 09:59 Sodium Hypochlorite (Dakin's Half Strength) 1 applic DAILY@2100 TOPIC 09/16/16 21:00 10/16/16 20:59 09/18/16 22:45 Sodium Chloride (Sodium Chloride 1000ml bag) 1,000 ml @ 125 mls/hr Q8H IV 09/16/16 09:45 10/16/16 09:44 09/18/16 20:54 Temazepam (Restoril) 15 mg HSPRN PRN GT Insomnia 09/16/16 21:00 09/23/16 20:59 Vancomycin HCl (Vanco rx to dose) 1 ea DAILY PRN MISC Per rx protocol 09/16/16 09:00 10/16/16 08:59 Vancomycin HCl/ Dextrose (Vancomycin/D5W) 275 ml @ 183.708 mls/hr Q12HR@1100,2300 IVPB 09/19/16 11:00 09/24/16 10:59 Zinc Sulfate (Zinc Sulfate) 220 mg DAILY GT 09/16/16 10:00 10/16/16 09:59 09/18/16 08:52 JOSLYN NICOLE M.D. Sep 19, 2016 10:14
[2016-09-19] MEDS: Enoxaparin 40mg Inj SUBQ SCH (10:17)
[2016-09-19] MEDS: Vancomycin 1gm in D5W 275ml IVPB SCH ×2 (10:19→22:03)
[2016-09-19 12:15] VITALS: BP 95/62
[2016-09-19] MEDS ORDERED: Sterile Water Irrig 1000ml IRRIG ONE (14:45)
[2016-09-19 16:00] VITALS: BP_SYST 130
--- NOTE | 2016-09-19 16:21 | Pulmonology Progress Note ---
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 Assessment/Plan wbc is back to asif cxr is unchanged repeat cultures, sputum has MDR GNR tolerating feeding abx by ID pts sister apparently agreed to hospice dc planning in process check labs in am Subjective ROS Limited/Unobtainable: No Allergies: Coded Allergies: PENICILLINS (Unverified Allergy, Unknown, 09/05/16) Objective Last 24 Hour Vital Signs Date Time Temp Pulse Resp B/P Pulse Ox O2 Delivery O2 Flow Rate FiO2 09/19/16 14:01 97.6 09/19/16 12:15 98.3 70 20 95/62 95 Nasal Cannula 2.0 09/19/16 10:15 106 18 100 Nasal Cannula 2.0 28 09/19/16 10:00 108 16 Nasal Cannula 2.0 28 09/19/16 10:00 Nasal Cannula 2.0 28 09/19/16 10:00 108 16 100 Nasal Cannula 2.0 28 09/19/16 10:00 100 Nasal Cannula 2.0 28 09/19/16 08:14 97.6 105 20 95/61 99 Nasal Cannula 2.0 09/19/16 04:00 98.1 96 18 113/71 100 Nasal Cannula 2.0 09/19/16 00:00 98.2 97 18 92/52 100 Nasal Cannula 2.0 09/18/16 20:05 118 18 99 Nasal Cannula 2.0 28 09/18/16 20:05 109 18 100 Nasal Cannula 2.0 28 09/18/16 20:00 98.1 107 17 108/67 100 Room Air 09/18/16 19:04 Nasal Cannula 2.0 28 09/18/16 19:03 105 18 Nasal Cannula 2.0 28 09/18/16 19:03 99 Nasal Cannula 2.0 28 Intake and Output 09/18/16 09/19/16 19:00 07:00 Intake Total 735 ml 1665 ml Output Total 1400 ml 1750 ml Balance -665 ml -85 ml Free Water 100 ml 100 ml IV Total 250 ml 1125 ml Tube Feeding 385 ml 440 ml Output Urine Total 1400 ml 1750 ml Objective Respiratory/Chest: chest wall non-tender, lungs clear Cardiovascular: normal peripheral pulses Abdomen: normal bowel sounds, soft, non tender Extremities: no cyanosis, no clubbing Skin: no rash, no ulcers Lymphatic: no neck adenopathy Laboratory Tests 09/18/16 19:50: Vancomycin Level Trough 18.9H Current Medications Medications (Trade) Dose Ordered Sig/Cristina Route PRN Reason Start Time Stop Time Status Last Admin Dose Admin Acetaminophen (Tylenol) 650 mg Q6H PRN GT Prn Headache/Temp > 101 09/16/16 10:00 10/16/16 09:59 Al Hydroxide/Mg Hydroxide (Mylanta II) 30 ml Q6H PRN GT dyspepsia 09/16/16 10:00 10/16/16 09:59 Albuterol Sulfate (Proventil) 2.5 mg Q4H PRN HHN Shortness of Breath 09/16/16 10:00 09/21/16 09:59 Ascorbic Acid (Vitamin C) 500 mg DAILY GT 09/16/16 10:00 10/16/16 09:59 09/19/16 10:10 Bisacodyl (Dulcolax) 10 mg DAILYPRN PRN RECTAL Constipation 09/16/16 10:00 10/16/16 09:59 Colistimethate Sodium 75 mg 75 mg Q12H INH 09/16/16 22:00 09/23/16 21:59 09/19/16 09:58 Collagenase (Santyl) 1 applic DAILY@2100 TOPIC 09/16/16 21:00 10/16/16 20:59 09/18/16 22:45 Dextrose (Dextrose 50%) STAT PRN IV Hypoglycemia 09/16/16 10:00 10/16/16 09:59 Enoxaparin Sodium (Lovenox) 40 mg DAILY SUBQ 09/16/16 10:00 10/16/16 09:59 09/19/16 10:17 Fluconazole (Diflucan) 200 mg DAILY GT 09/16/16 10:00 09/23/16 09:59 09/19/16 10:11 Gabapentin (Neurontin) 400 mg TID GT 09/16/16 10:00 10/16/16 09:59 09/19/16 13:02 Insulin Aspart (NovoLOG) Q6HR SUBQ 09/16/16 12:00 10/16/16 11:59 09/19/16 13:05 Meropenem 1 gm/ Sodium Chloride 55 ml @ 110 mls/hr Q8HR IVPB 09/16/16 14:00 09/21/16 13:59 09/19/16 13:02 Morphine Sulfate (Morphine 10mg/ 5ml Oral Soln) 20 mg Q2H PRN GT FOR PAIN 4-10 09/16/16 09:45 09/23/16 09:44 Ondansetron HCl (Zofran) 4 mg Q6H PRN IVP Nausea & Vomiting 09/16/16 10:00 10/16/16 09:59 Polyethylene Glycol (Miralax) 17 gm DAILYPRN PRN GT Constipation 09/16/16 10:00 10/16/16 09:59 Sodium Hypochlorite (Dakin's Half Strength) 1 applic DAILY@2100 TOPIC 09/16/16 21:00 10/16/16 20:59 09/18/16 22:45 Sodium Chloride (Sodium Chloride 1000ml bag) 1,000 ml @ 125 mls/hr Q8H IV 09/16/16 09:45 10/16/16 09:44 09/19/16 10:11 Temazepam (Restoril) 15 mg HSPRN PRN GT Insomnia 09/16/16 21:00 09/23/16 20:59 Vancomycin HCl (Vanco rx to dose) 1 ea DAILY PRN MISC Per rx protocol 09/16/16 09:00 10/16/16 08:59 Vancomycin HCl/ Dextrose (Vancomycin/D5W) 275 ml @ 183.708 mls/hr Q12HR@1100,2300 IVPB 09/19/16 11:00 09/24/16 10:59 09/19/16 10:19 Zinc Sulfate (Zinc Sulfate) 220 mg DAILY GT 09/16/16 10:00 10/16/16 09:59 09/19/16 10:10 ROLY PERRIN Sep 19, 2016 16:21
[2016-09-19 20:00] VITALS: BP 125/84
[2016-09-20] VITALS: BP 114/67
[2016-09-20] MEDS: NovoLOG Insulin Flexpen SUBQ SCH ×4 (00:30→19:11)
[2016-09-20 04:00] VITALS: BP 117/76
[2016-09-20] MEDS: Meropenem 1 GM in NS 55 ML IVPB SCH ×3 (05:23→22:11)
[2016-09-20 07:17] LABS: INR 1.1 (0.9-1.1); PROTHROMBIN TIME 10.7 SEC (9.30-11.50)
[2016-09-20 07:32] LABS: ALANINE AMINOTRANSFERASE 15 U/L (3-41); ALBUMIN/GLOBULIN RATIO 0.5 (1.0-2.7); ANION GAP 9 (5-15); ASPARTATE AMINO TRANSFERASE 17 U/L (5-40); CALCIUM 8.7 mg/dL (8.6-10.2); CARBON DIOXIDE 34 mEQ/L (20-30); CHLORIDE 92 mEQ/L (98-107); CREATININE 0.2 mg/dL (0.7-1.2); GLOMERULAR FILTRATION RATE > 60 mL/min (>60); HEMOLYSIS 0; MAGNESIUM 1.8 mg/dL (1.7-2.5); PHOSPHORUS 1.7 mg/dL (2.5-4.8); POTASSIUM 3.9 mEQ/L (3.4-4.9); SODIUM 135 mEQ/L (135-145); TOTAL PROTEIN 6.7 g/dL (6.6-8.7)
[2016-09-20 07:34] LABS: MEAN CORPUSCULAR HEMOGLOBIN 26.1 PG (27.0-31.0); MEAN CORPUSCULAR VOLUME 84 FL (80-99); MEAN PLATELET VOLUME 6.9 FL (6.5-10.1); PLATELET COUNT 322 K/UL (150-450); RED BLOOD COUNT 2.79 M/UL (4.70-6.10); RED CELL DISTRIBUTION WIDTH 16.5 % (11.6-14.8); WHITE BLOOD COUNT 10.5 K/UL (4.8-10.8)
--- NOTE | 2016-09-20 07:36 | Pulmonology Progress Note ---
Assessment/Plan Assessment/Plan ASSESSMENT acute respiratorily failure requiring BiPAP,- resolved Sepsis with bacteremia UTI possible PNA acute anemia s/p blood transfusion dysphagia, feeding by G-tube severe protein calorie malnutrition hx of CVA S/P [employer]IST shunt hx of HTN DM IVC filter protein calorie malnutrition multiple decub POA ( sacral stage 4, R heel stage 4, L heel stage 4, R trochanter stage 4, R shoulder st 4) electrolyte imbalance PLAN OF CARE [facility] floor O2 HHN prn CXR negative abx ID follows, urine cx + E coli ESBL, Pseudomonas , repeated urine cx negative blood cx + SCON, repeated negative sputum cx + MDR ACB, but CXR negative aspiration precautions, GT feeding, monitor tolerance DVT prophylaxis , has IVC filter BS management with SS of insulin off anti HTN meds, gentle IVF transfuse one unit of PRBC today anemia workup with high ferritin and low iron , stable B 12 , folate , CEA WNL , 30 meQ K phosphate sister apparently agreed to hospice dc planning case discussed and evaluated by supervising physician Subjective Allergies: Coded Allergies: PENICILLINS (Unverified Allergy, Unknown, 09/05/16) Subjective leukocytosis resolved, afebrile on O2 via NC , sat stable HH trending down Objective Last 24 Hour Vital Signs Date Time Temp Pulse Resp B/P Pulse Ox O2 Delivery O2 Flow Rate FiO2 09/20/16 04:00 99.1 103 18 117/76 100 Nasal Cannula 2.0 09/20/16 00:00 99.1 18 114/67 100 Room Air 09/19/16 20:58 97 18 99 Nasal Cannula 2.0 28 09/19/16 20:00 97.9 102 19 125/84 96 Room Air 09/19/16 20:00 99 Nasal Cannula 2.0 28 09/19/16 20:00 97 18 96 Nasal Cannula 2.0 28 09/19/16 20:00 Nasal Cannula 2.0 28 09/19/16 20:00 100 18 Nasal Cannula 2.0 28 09/19/16 16:00 97.7 17 130/ 99 Room Air 09/19/16 14:01 97.6 09/19/16 12:15 98.3 70 20 95/62 95 Nasal Cannula 2.0 09/19/16 10:15 106 18 100 Nasal Cannula 2.0 28 09/19/16 10:00 108 16 Nasal Cannula 2.0 28 09/19/16 10:00 Nasal Cannula 2.0 28 09/19/16 10:00 108 16 100 Nasal Cannula 2.0 28 09/19/16 10:00 100 Nasal Cannula 2.0 28 09/19/16 08:14 97.6 105 20 95/61 99 Nasal Cannula 2.0 Intake and Output 09/19/16 09/20/16 19:00 07:00 Intake Total 1870 ml 708.708 ml Output Total 600 ml 2100 ml Balance 1270 ml -1391.292 ml Free Water 350 ml IV Total 860 ml 488.708 ml Tube Feeding 660 ml 220 ml Output Urine Total 600 ml 2100 ml Objective General Appearance: no acute distress, cachetic, bedridden AA male HEENT: normocephalic, atraumatic, anicteric Respiratory/Chest: chest wall non-tender, lungs clear, no respiratory distress , no accessory muscle use Cardiovascular: normal rate, regular rhythm, no JVD Abdomen: normal bowel sounds, soft, non tender, G tube Genitourinary: normal external genitalia Extremities: no edema Neurologic/Psychiatric: abnormal gait, bedridden , contracted, open eyes spontaneously, not verbally responsive Musculoskeletal: atrophy - BLE Laboratory Tests 09/20/16 04:45: White Blood Count [Pending], Red Blood Count [Pending], Hemoglobin [Pending], Hematocrit [Pending], Mean Corpuscular Volume [Pending], Mean Corpuscular Hemoglobin [Pending], Mean Corpuscular Hemoglobin Concent [Pending], Red Cell Distribution Width [Pending], Platelet Count [Pending], Mean Platelet Volume [ Pending], Neutrophils (%) (Auto) [Pending], Lymphocytes (%) (Auto) [Pending], Monocytes (%) (Auto) [Pending], Eosinophils (%) (Auto) [Pending], Basophils (%) (Auto) [Pending], Prothrombin Time 10.7, Prothromb Time International Ratio 1.1 , Activated Partial Thromboplast Time 31, Sodium Level [Pending], Potassium Level [Pending], Chloride Level [Pending], Carbon Dioxide Level [Pending], Blood Urea Nitrogen [Pending], Creatinine [Pending], Estimat Glomerular Filtration Rate [Pending], Glucose Level [Pending], Calcium Level [Pending], Phosphorus Level [Pending], Magnesium Level [Pending], Total Bilirubin [Pending] , Aspartate Amino Transf (AST/SGOT) [Pending], Alanine Aminotransferase (ALT/ SGPT) [Pending], Alkaline Phosphatase [Pending], Total Protein [Pending], Albumin [Pending], Globulin [Pending] Current Medications Medications (Trade) Dose Ordered Sig/Cristina Route PRN Reason Start Time Stop Time Status Last Admin Dose Admin Acetaminophen (Tylenol) 650 mg Q6H PRN GT Prn Headache/Temp > 101 09/16/16 10:00 10/16/16 09:59 Al Hydroxide/Mg Hydroxide (Mylanta II) 30 ml Q6H PRN GT dyspepsia 09/16/16 10:00 10/16/16 09:59 Albuterol Sulfate (Proventil) 2.5 mg Q4H PRN HHN Shortness of Breath 09/16/16 10:00 09/21/16 09:59 Ascorbic Acid (Vitamin C) 500 mg DAILY GT 09/16/16 10:00 10/16/16 09:59 09/19/16 10:10 Bisacodyl (Dulcolax) 10 mg DAILYPRN PRN RECTAL Constipation 09/16/16 10:00 10/16/16 09:59 Colistimethate Sodium 75 mg 75 mg Q12H INH 09/16/16 22:00 09/25/16 21:59 09/19/16 19:59 Collagenase (Santyl) 1 applic DAILY@2100 TOPIC 09/16/16 21:00 10/16/16 20:59 09/18/16 22:45 Dextrose (Dextrose 50%) STAT PRN IV Hypoglycemia 09/16/16 10:00 10/16/16 09:59 Enoxaparin Sodium (Lovenox) 40 mg DAILY SUBQ 09/16/16 10:00 10/16/16 09:59 09/19/16 10:17 Fluconazole (Diflucan) 200 mg DAILY GT 09/16/16 10:00 09/23/16 09:59 09/19/16 10:11 Gabapentin (Neurontin) 400 mg TID GT 09/16/16 10:00 10/16/16 09:59 09/19/16 18:22 Insulin Aspart (NovoLOG) Q6HR SUBQ 09/16/16 12:00 10/16/16 11:59 09/20/16 06:30 Meropenem 1 gm/ Sodium Chloride 55 ml @ 110 mls/hr Q8HR IVPB 09/16/16 14:00 09/25/16 13:59 09/20/16 05:23 Morphine Sulfate (Morphine 10mg/ 5ml Oral Soln) 20 mg Q2H PRN GT FOR PAIN 4-10 09/16/16 09:45 09/23/16 09:44 Ondansetron HCl (Zofran) 4 mg Q6H PRN IVP Nausea & Vomiting 09/16/16 10:00 10/16/16 09:59 Polyethylene Glycol (Miralax) 17 gm DAILYPRN PRN GT Constipation 09/16/16 10:00 10/16/16 09:59 Sodium Hypochlorite (Dakin's Half Strength) 1 applic DAILY@2100 TOPIC 09/16/16 21:00 10/16/16 20:59 09/18/16 22:45 Sodium Chloride (Sodium Chloride 1000ml bag) 1,000 ml @ 125 mls/hr Q8H IV 09/16/16 09:45 10/16/16 09:44 09/20/16 01:57 Temazepam (Restoril) 15 mg HSPRN PRN GT Insomnia 09/16/16 21:00 09/23/16 20:59 Vancomycin HCl (Vanco rx to dose) 1 ea DAILY PRN MISC Per rx protocol 09/16/16 09:00 10/16/16 08:59 Vancomycin HCl/ Dextrose (Vancomycin/D5W) 275 ml @ 183.708 mls/hr Q12HR@1100,2300 IVPB 09/19/16 11:00 09/24/16 10:59 09/19/16 22:03 Zinc Sulfate (Zinc Sulfate) 220 mg DAILY GT 09/16/16 10:00 10/16/16 09:59 09/19/16 10:10 Juana Will NP (Vanchtein) Sep 20, 2016 07:36
[2016-09-20 08:23] VITALS: BP 119/61
[2016-09-20] MEDS: Ascorbic Acid 500mg tab GT SCH (09:22)
[2016-09-20] MEDS: Zinc Sulfate 220mg cap GT SCH (09:22)
[2016-09-20] MEDS: Fluconazole 100mg tab GT SCH (09:22)
[2016-09-20] MEDS: Enoxaparin 40mg Inj SUBQ SCH (09:23)
[2016-09-20] MEDS: Gabapentin 300 MG/6 ML Soln GT SCH ×3 (09:24→19:10)
--- NOTE | 2016-09-20 10:05 | Infectious Diseases Prog Note ---
Assessment/Plan Assessment/Plan A: The patient is a 50-year-old old male with : leukocytosis SP Fever low grade SP UTI , probable - UCx PSA, ESBL Ecoli Multiple lower Ext decubitus ? 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 History of DVT DM MRSA, VRE colonized PCN allergy - tolerating meropenem Full Code PLAN: cont Merrem d# 16 / , cont Diflucan d# / , IV Vanco d# 8 / , colistin INH d# / ( 09/10 Vanco d# / ) ( 08/11 SP Levaquin d# 5 ) Monitor CBC, temperatures, re-culture if acute change Monitor BMP Monitor chest x-ray wound care Subjective Allergies: Coded Allergies: PENICILLINS (Unverified Allergy, Unknown, 09/05/16) Subjective remains afebrile. appears comfortable Objective Vital Signs Last 24 Hour Vital Signs Date Time Temp Pulse Resp B/P Pulse Ox O2 Delivery O2 Flow Rate FiO2 09/20/16 08:23 97.9 105 21 119/61 98 Nasal Cannula 2.0 09/20/16 04:00 99.1 103 18 117/76 100 Nasal Cannula 2.0 09/20/16 00:00 99.1 18 114/67 100 Room Air 09/19/16 20:58 97 18 99 Nasal Cannula 2.0 28 09/19/16 20:00 97.9 102 19 125/84 96 Room Air 09/19/16 20:00 99 Nasal Cannula 2.0 28 09/19/16 20:00 97 18 96 Nasal Cannula 2.0 28 09/19/16 20:00 Nasal Cannula 2.0 28 09/19/16 20:00 100 18 Nasal Cannula 2.0 28 09/19/16 16:00 97.7 17 130/ 99 Room Air 09/19/16 14:01 97.6 09/19/16 12:15 98.3 70 20 95/62 95 Nasal Cannula 2.0 09/19/16 10:15 106 18 100 Nasal Cannula 2.0 28 Height (Feet): 5 Height (Inches): 7.70 Weight (Pounds): 99 General Appearance: no acute distress Respiratory/Chest: no respiratory distress Cardiovascular: normal rate, regular rhythm Abdomen: normal bowel sounds, soft, non tender, non distended Laboratory Tests Test 09/20/16 04:45 White Blood Count 10.5 K/UL (4.8-10.8) Red Blood Count 2.79 M/UL (4.70-6.10) L Hemoglobin 7.3 G/DL (14.2-18.0) L Hematocrit 23.4 % (42.0-52.0) L Mean Corpuscular Volume 84 FL (80-99) Mean Corpuscular Hemoglobin 26.1 PG (27.0-31.0) L Mean Corpuscular Hemoglobin Concent 31.0 G/DL (32.0-36.0) L Red Cell Distribution Width 16.5 % (11.6-14.8) H Platelet Count 322 K/UL (150-450) Mean Platelet Volume 6.9 FL (6.5-10.1) Neutrophils (%) (Auto) % (45.0-75.0) Lymphocytes (%) (Auto) % (20.0-45.0) Monocytes (%) (Auto) % (1.0-10.0) Eosinophils (%) (Auto) % (0.0-3.0) Basophils (%) (Auto) % (0.0-2.0) Neutrophils % (Manual) Pending Lymphocytes % (Manual) Pending Platelet Estimate Pending Platelet Morphology Pending Prothrombin Time 10.7 SEC (9.30-11.50) Prothromb Time International Ratio 1.1 (0.9-1.1) Activated Partial Thromboplast Time 31 SEC (23-33) Sodium Level 135 mEQ/L (135-145) Potassium Level 3.9 mEQ/L (3.4-4.9) Chloride Level 92 mEQ/L (98-107) L Carbon Dioxide Level 34 mEQ/L (20-30) H Anion Gap 9 (5-15) Blood Urea Nitrogen 8 mg/dL (7-23) Creatinine 0.2 mg/dL (0.7-1.2) L Estimat Glomerular Filtration Rate > 60 mL/min (>60) Glucose Level 109 mg/dL (74-106) H Calcium Level 8.7 mg/dL (8.6-10.2) Phosphorus Level 1.7 mg/dL (2.5-4.8) L Magnesium Level 1.8 mg/dL (1.7-2.5) Total Bilirubin < 0.2 mg/dL (0.0-1.2) Aspartate Amino Transf (AST/SGOT) 17 U/L (5-40) Alanine Aminotransferase (ALT/SGPT) 15 U/L (3-41) Alkaline Phosphatase 119 U/L (40-129) Total Protein 6.7 g/dL (6.6-8.7) Albumin 2.3 g/dL (3.5-5.2) L Globulin 4.4 g/dL Albumin/Globulin Ratio 0.5 (1.0-2.7) L Current Medications Medications (Trade) Dose Ordered Sig/Cristina Route PRN Reason Start Time Stop Time Status Last Admin Dose Admin Acetaminophen (Tylenol) 650 mg Q6H PRN GT Prn Headache/Temp > 101 09/16/16 10:00 10/16/16 09:59 Al Hydroxide/Mg Hydroxide (Mylanta II) 30 ml Q6H PRN GT dyspepsia 09/16/16 10:00 10/16/16 09:59 Albuterol Sulfate (Proventil) 2.5 mg Q4H PRN HHN Shortness of Breath 09/16/16 10:00 09/21/16 09:59 Ascorbic Acid (Vitamin C) 500 mg DAILY GT 09/16/16 10:00 10/16/16 09:59 09/20/16 09:22 Bisacodyl (Dulcolax) 10 mg DAILYPRN PRN RECTAL Constipation 09/16/16 10:00 10/16/16 09:59 Colistimethate Sodium 75 mg 75 mg Q12H INH 09/16/16 22:00 09/25/16 21:59 09/19/16 19:59 Collagenase (Santyl) 1 applic DAILY@2100 TOPIC 09/16/16 21:00 10/16/16 20:59 09/18/16 22:45 Dextrose (Dextrose 50%) STAT PRN IV Hypoglycemia 09/16/16 10:00 10/16/16 09:59 Enoxaparin Sodium (Lovenox) 40 mg DAILY SUBQ 09/16/16 10:00 10/16/16 09:59 09/20/16 09:23 Fluconazole (Diflucan) 200 mg DAILY GT 09/16/16 10:00 09/23/16 09:59 09/20/16 09:22 Gabapentin (Neurontin) 400 mg TID GT 09/16/16 10:00 10/16/16 09:59 09/20/16 09:24 Insulin Aspart (NovoLOG) Q6HR SUBQ 09/16/16 12:00 10/16/16 11:59 09/20/16 06:30 Meropenem 1 gm/ Sodium Chloride 55 ml @ 110 mls/hr Q8HR IVPB 09/16/16 14:00 09/25/16 13:59 09/20/16 05:23 Morphine Sulfate (Morphine 10mg/ 5ml Oral Soln) 20 mg Q2H PRN GT FOR PAIN 4-09/16/16 09:45 09/23/16 09:44 Ondansetron HCl (Zofran) 4 mg Q6H PRN IVP Nausea & Vomiting 09/16/16 10:00 10/16/16 09:59 Polyethylene Glycol (Miralax) 17 gm DAILYPRN PRN GT Constipation 09/16/16 10:00 10/16/16 09:59 Sodium Hypochlorite (Dakin's Half Strength) 1 applic DAILY@2100 TOPIC 09/16/16 21:00 10/16/16 20:59 09/18/16 22:45 Sodium Chloride (Sodium Chloride 1000ml bag) 1,000 ml @ 125 mls/hr Q8H IV 09/16/16 09:45 10/16/16 09:44 09/20/16 01:57 Temazepam (Restoril) 15 mg HSPRN PRN GT Insomnia 09/16/16 21:00 09/23/16 20:59 Vancomycin HCl (Vanco rx to dose) 1 ea DAILY PRN MISC Per rx protocol 09/16/16 09:00 10/16/16 08:59 Vancomycin HCl/ Dextrose (Vancomycin/D5W) 275 ml @ 183.708 mls/hr Q12HR@1100,2300 IVPB 09/19/16 11:00 09/24/16 10:59 09/19/16 22:03 Zinc Sulfate (Zinc Sulfate) 220 mg DAILY GT 09/16/16 10:00 10/16/16 09:59 09/20/16 09:22 LULU HARRIS 17, 2017 10:05
[2016-09-20] MEDS: Colistin for inhalation INH SCH ×2 (10:33→22:48)
[2016-09-20] MEDS: Vancomycin 1gm in D5W 275ml IVPB SCH ×2 (11:00→22:49)
[2016-09-20 11:16] LABS: ANISOCYTOSIS 1+; BAND NEUTROPHILS % (MANUAL) 1 % (0-8); BASOPHILS % (MANUAL) 0 % (0-2); EOSINOPHILS % (MANUAL) 2 % (0-3); HYPOCHROMASIA 1+; LYMPHOCYTES % (MANUAL) 13 % (20-45); NEUTROPHILS % (MANUAL) 76 % (45-75); PLATELET ESTIMATE ADEQUATE; PLATELET MORPHOLOGY NORMAL; TOTAL CELLS COUNTED 100
[2016-09-20 11:38] VITALS: BP 97/63
[2016-09-20 15:37] VITALS: BP 117/87
[2016-09-20] MEDS ORDERED: POTASSIUM PHOSPHATE IV ONE (18:00)
[2016-09-20] MEDS ORDERED: NS IV ONE (18:00)
[2016-09-20 20:00] VITALS: BP 116/72
[2016-09-20] MEDS: Dakin's 0.25% (Half Strength) 16oz TOPIC SCH (21:47)
[2016-09-21] VITALS: BP 116/69
[2016-09-21] MEDS: NovoLOG Insulin Flexpen SUBQ SCH ×4 (00:12→18:02)
[2016-09-21 04:00] VITALS: BP 128/77
[2016-09-21] MEDS: Meropenem 1 GM in NS 55 ML IVPB SCH ×3 (05:16→21:21)
[2016-09-21 07:26] LABS: ANION GAP 12 (5-15); CARBON DIOXIDE 32 mEQ/L (20-30); CHLORIDE 90 mEQ/L (98-107); CREATININE 0.4 mg/dL (0.7-1.2); GLOMERULAR FILTRATION RATE > 60 mL/min (>60); HEMOLYSIS 6; POTASSIUM 4.5 mEQ/L (3.4-4.9); SODIUM 134 mEQ/L (135-145)
[2016-09-21 07:39] LABS: BASOPHILS % (AUTO) 0.6 % (0.0-2.0); EOSINOPHILS % (AUTO) 1.7 % (0.0-3.0); MEAN CORPUSCULAR HEMOGLOBIN 27.8 PG (27.0-31.0); MEAN CORPUSCULAR VOLUME 84 FL (80-99); MEAN PLATELET VOLUME 7.2 FL (6.5-10.1); MONOCYTES % (AUTO) 7.8 % (1.0-10.0); NEUTROPHILS % (AUTO) 75.9 % (45.0-75.0); PLATELET COUNT 259 K/UL (150-450); RED BLOOD COUNT 3.97 M/UL (4.70-6.10); RED CELL DISTRIBUTION WIDTH 16.8 % (11.6-14.8); WHITE BLOOD COUNT 9.5 K/UL (4.8-10.8)
[2016-09-21 08:10] VITALS: BP 110/74
[2016-09-21] MEDS: Ascorbic Acid 500mg tab GT SCH (09:10)
[2016-09-21] MEDS: Fluconazole 100mg tab GT SCH (09:10)
[2016-09-21] MEDS: Zinc Sulfate 220mg cap GT SCH (09:10)
[2016-09-21] MEDS: Enoxaparin 40mg Inj SUBQ SCH (09:11)
[2016-09-21] MEDS: Colistin for inhalation INH SCH ×2 (09:31→21:31)
[2016-09-21] MEDS: Gabapentin 300 MG/6 ML Soln GT SCH ×3 (10:12→18:00)
--- NOTE | 2016-09-21 10:23 | Infectious Diseases Prog Note ---
Assessment/Plan Assessment/Plan ASSESSMENT: 50-year-old old male with : leukocytosis SP Fever low grade - recurrent UTI , probable - UCx PSA, ESBL Ecoli Multiple lower Ext decubitus ? 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 History of DVT DM MRSA, VRE colonized PCN allergy - tolerating meropenem Full Code PLAN: cont Merrem d# , cont Diflucan d# , IV Vanco d# / , colistin INH d# / ( 09/10 Vanco d# / ) ( 08/11 SP Levaquin d# 5 ) Monitor CBC, temperatures, re-culture if acute leukocytosis or persistent low grade fever Monitor BMP Monitor chest x-ray wound care Subjective Allergies: Coded Allergies: PENICILLINS (Unverified Allergy, Unknown, 09/05/16) Subjective recurrent low grade fever. no new cultures sent appears comfortable Objective Vital Signs Last 24 Hour Vital Signs Date Time Temp Pulse Resp B/P Pulse Ox O2 Delivery O2 Flow Rate FiO2 09/21/16 09:41 72 20 99 Nasal Cannula 2.0 28 09/21/16 09:31 Nasal Cannula 2.0 28 09/21/16 09:31 97 Nasal Cannula 2.0 28 09/21/16 09:31 68 20 97 Nasal Cannula 2.0 28 09/21/16 09:31 68 20 Nasal Cannula 2.0 28 09/21/16 08:10 97.7 101 21 110/74 97 Nasal Cannula 2.0 09/21/16 04:00 99.0 108 18 128/77 98 Nasal Cannula 2.0 09/21/16 00:00 99.1 107 18 116/69 96 Nasal Cannula 2.0 09/20/16 20:09 100.0 09/20/16 20:00 100.0 108 18 116/72 99 Nasal Cannula 2.0 09/20/16 19:30 Nasal Cannula 2.0 28 09/20/16 19:30 97 Nasal Cannula 2.0 28 09/20/16 19:30 102 20 99 Nasal Cannula 2.0 28 09/20/16 19:30 97 20 Nasal Cannula 2.0 28 09/20/16 19:30 100 20 96 Nasal Cannula 2.0 28 09/20/16 15:37 99.3 102 21 117/87 100 Nasal Cannula 2.0 09/20/16 11:38 98.0 109 21 97/63 97 Nasal Cannula 2.0 09/20/16 10:37 101 16 99 Nasal Cannula 2.0 28 09/20/16 10:30 Nasal Cannula 2.0 28 09/20/16 10:30 99 Nasal Cannula 2.0 28 09/20/16 10:30 101 18 Nasal Cannula 2.0 28 09/20/16 10:30 101 18 99 Nasal Cannula 2.0 28 Height (Feet): 5 Height (Inches): 7.70 Weight (Pounds): 99 General Appearance: no acute distress Respiratory/Chest: no respiratory distress Cardiovascular: normal rate, regular rhythm Abdomen: normal bowel sounds, soft, non tender, non distended Laboratory Tests Test 09/21/16 04:35 White Blood Count 9.5 K/UL (4.8-10.8) Red Blood Count 3.97 M/UL (4.70-6.10) L Hemoglobin 11.1 G/DL (14.2-18.0) #L Hematocrit 33.5 % (42.0-52.0) #L Mean Corpuscular Volume 84 FL (80-99) Mean Corpuscular Hemoglobin 27.8 PG (27.0-31.0) Mean Corpuscular Hemoglobin Concent 33.0 G/DL (32.0-36.0) Red Cell Distribution Width 16.8 % (11.6-14.8) H Platelet Count 259 K/UL (150-450) Mean Platelet Volume 7.2 FL (6.5-10.1) Neutrophils (%) (Auto) 75.9 % (45.0-75.0) H Lymphocytes (%) (Auto) 14.0 % (20.0-45.0) L Monocytes (%) (Auto) 7.8 % (1.0-10.0) Eosinophils (%) (Auto) 1.7 % (0.0-3.0) Basophils (%) (Auto) 0.6 % (0.0-2.0) Sodium Level 134 mEQ/L (135-145) L Potassium Level 4.5 mEQ/L (3.4-4.9) Chloride Level 90 mEQ/L (98-107) L Carbon Dioxide Level 32 mEQ/L (20-30) H Anion Gap 12 (5-15) Blood Urea Nitrogen 6 mg/dL (7-23) L Creatinine 0.4 mg/dL (0.7-1.2) #L Estimat Glomerular Filtration Rate > 60 mL/min (>60) Glucose Level 97 mg/dL (74-106) Calcium Level 9.0 mg/dL (8.6-10.2) Phosphorus Level 3.0 mg/dL (2.5-4.8) Current Medications Medications (Trade) Dose Ordered Sig/Cristina Route PRN Reason Start Time Stop Time Status Last Admin Dose Admin Acetaminophen (Tylenol) 650 mg Q6H PRN GT Prn Headache/Temp > 101 09/16/16 10:00 10/16/16 09:59 Al Hydroxide/Mg Hydroxide (Mylanta II) 30 ml Q6H PRN GT dyspepsia 09/16/16 10:00 10/16/16 09:59 Ascorbic Acid (Vitamin C) 500 mg DAILY GT 09/16/16 10:00 10/16/16 09:59 09/21/16 09:10 Bisacodyl (Dulcolax) 10 mg DAILYPRN PRN RECTAL Constipation 09/16/16 10:00 10/16/16 09:59 Colistimethate Sodium 75 mg 75 mg Q12H INH 09/16/16 22:00 09/25/16 21:59 09/21/16 09:31 Collagenase (Santyl) 1 applic DAILY@2100 TOPIC 09/16/16 21:00 10/16/16 20:59 09/20/16 21:46 Dextrose (Dextrose 50%) STAT PRN IV Hypoglycemia 09/16/16 10:00 10/16/16 09:59 Enoxaparin Sodium (Lovenox) 40 mg DAILY SUBQ 09/16/16 10:00 10/16/16 09:59 09/21/16 09:11 Fluconazole (Diflucan) 200 mg DAILY GT 09/16/16 10:00 09/23/16 09:59 09/21/16 09:10 Gabapentin (Neurontin) 400 mg TID GT 09/16/16 10:00 10/16/16 09:59 09/21/16 10:12 Insulin Aspart (NovoLOG) Q6HR SUBQ 09/16/16 12:00 10/16/16 11:59 09/21/16 00:12 Meropenem 1 gm/ Sodium Chloride 55 ml @ 110 mls/hr Q8HR IVPB 09/16/16 14:00 09/25/16 13:59 09/21/16 05:16 Morphine Sulfate (Morphine 10mg/ 5ml Oral Soln) 20 mg Q2H PRN GT FOR PAIN 4-10 09/16/16 09:45 09/23/16 09:44 Ondansetron HCl (Zofran) 4 mg Q6H PRN IVP Nausea & Vomiting 09/16/16 10:00 10/16/16 09:59 Polyethylene Glycol (Miralax) 17 gm DAILYPRN PRN GT Constipation 09/16/16 10:00 10/16/16 09:59 Sodium Hypochlorite (Dakin's Half Strength) 1 applic DAILY@2100 TOPIC 09/16/16 21:00 10/16/16 20:59 09/20/16 21:47 Sodium Chloride (Sodium Chloride 1000ml bag) 1,000 ml @ 125 mls/hr Q8H IV 09/16/16 09:45 10/16/16 09:44 09/21/16 09:17 Temazepam (Restoril) 15 mg HSPRN PRN GT Insomnia 09/16/16 21:00 09/23/16 20:59 Vancomycin HCl (Vanco rx to dose) 1 ea DAILY PRN MISC Per rx protocol 09/16/16 09:00 10/16/16 08:59 Vancomycin HCl/ Dextrose (Vancomycin/D5W) 275 ml @ 183.708 mls/hr Q12HR@1100,2300 IVPB 09/19/16 11:00 09/24/16 10:59 09/20/16 22:49 Zinc Sulfate (Zinc Sulfate) 220 mg DAILY GT 09/16/16 10:00 10/16/16 09:59 09/21/16 09:10 LULU HARRIS 18, 2017 10:23
[2016-09-21] MEDS: Vancomycin 1gm in D5W 275ml IVPB SCH ×2 (11:17→22:28)
[2016-09-21 12:02] VITALS: BP 103/67
--- NOTE | 2016-09-21 13:34 | Pulmonology Progress Note ---
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 hx of HTN DM IVC filter protein calorie malnutrition multiple decub POA ( sacral stage 4, R heel stage 4, L heel stage 4, R trochanter stage 4, R shoulder st 4) electrolyte imbalance PLAN OF CARE [facility] floor O2 HHN prn CXR negative abx ID follows, urine cx + E coli ESBL, Pseudomonas , repeated urine cx negative blood cx + SCON, repeated negative sputum cx + MDR ACB, but CXR negative aspiration precautions, GT feeding, monitor tolerance DVT prophylaxis , has IVC filter BS management with SS of insulin off anti HTN meds, gentle IVF s/p 1 u PRBC , HH stable anemia workup with high ferritin and low iron , stable B 12 , folate , CEA WNL , 30 meQ K phosphate sister apparently agreed to hospice dc planning hospice eval in progress case discussed and evaluated by supervising physician Subjective Allergies: Coded Allergies: PENICILLINS (Unverified Allergy, Unknown, 09/05/16) Subjective leukocytosis resolved, afebrile on O2 via NC , sat stable HH up after blood transfusion Objective Last 24 Hour Vital Signs Date Time Temp Pulse Resp B/P Pulse Ox O2 Delivery O2 Flow Rate FiO2 09/21/16 12:02 97.7 105 21 103/67 97 Nasal Cannula 2.0 09/21/16 11:10 97.7 09/21/16 09:41 72 20 99 Nasal Cannula 2.0 28 09/21/16 09:31 Nasal Cannula 2.0 28 09/21/16 09:31 97 Nasal Cannula 2.0 28 09/21/16 09:31 68 20 97 Nasal Cannula 2.0 28 09/21/16 09:31 68 20 Nasal Cannula 2.0 28 09/21/16 08:10 97.7 101 21 110/74 97 Nasal Cannula 2.0 09/21/16 04:00 99.0 108 18 128/77 98 Nasal Cannula 2.0 09/21/16 00:00 99.1 107 18 116/69 96 Nasal Cannula 2.0 09/20/16 20:00 100.0 108 18 116/72 99 Nasal Cannula 2.0 09/20/16 19:30 Nasal Cannula 2.0 28 09/20/16 19:30 97 Nasal Cannula 2.0 28 09/20/16 19:30 102 20 99 Nasal Cannula 2.0 28 09/20/16 19:30 97 20 Nasal Cannula 2.0 28 09/20/16 19:30 100 20 96 Nasal Cannula 2.0 28 09/20/16 15:37 99.3 102 21 117/87 100 Nasal Cannula 2.0 Intake and Output 09/20/16 09/21/16 19:00 07:00 Intake Total 1595 ml 1858.000 ml Output Total 1150 ml 1300 ml Balance 445 ml 558.000 ml Intake Oral 0 ml Free Water 200 ml 100 ml IV Total 485 ml 1098.000 ml Tube Feeding 660 ml 660 ml Blood Product 250 ml Output Urine Total 1150 ml 1300 ml # Bowel Movements 2 Objective General Appearance: no acute distress, cachetic, bedridden AA male HEENT: normocephalic, atraumatic, anicteric Respiratory/Chest: chest wall non-tender, lungs clear, no respiratory distress , no accessory muscle use Cardiovascular: normal rate, regular rhythm, no JVD Abdomen: normal bowel sounds, soft, non tender, G tube Genitourinary: normal external genitalia Extremities: no edema Neurologic/Psychiatric: abnormal gait, bedridden , contracted, open eyes spontaneously, not verbally responsive Musculoskeletal: atrophy - BLE Laboratory Tests 09/21/16 04:35: White Blood Count 9.5, Red Blood Count 3.97L, Hemoglobin 11.1#L, Hematocrit 33.5 #L, Mean Corpuscular Volume 84, Mean Corpuscular Hemoglobin 27.8, Mean Corpuscular Hemoglobin Concent 33.0, Red Cell Distribution Width 16.8H, Platelet Count 259, Mean Platelet Volume 7.2, Neutrophils (%) (Auto) 75.9H, Lymphocytes (%) (Auto) 14.0L, Monocytes (%) (Auto) 7.8, Eosinophils (%) (Auto) 1.7, Basophils (%) (Auto) 0.6, Sodium Level 134L, Potassium Level 4.5, Chloride Level 90L, Carbon Dioxide Level 32H, Anion Gap 12, Blood Urea Nitrogen 6L, Creatinine 0.4#L, Estimat Glomerular Filtration Rate > 60, Glucose Level 97, Calcium Level 9.0, Phosphorus Level 3.0 Current Medications Medications (Trade) Dose Ordered Sig/Cristina Route PRN Reason Start Time Stop Time Status Last Admin Dose Admin Acetaminophen (Tylenol) 650 mg Q6H PRN GT Prn Headache/Temp > 101 09/16/16 10:00 10/16/16 09:59 Al Hydroxide/Mg Hydroxide (Mylanta II) 30 ml Q6H PRN GT dyspepsia 09/16/16 10:00 10/16/16 09:59 Ascorbic Acid (Vitamin C) 500 mg DAILY GT 09/16/16 10:00 10/16/16 09:59 09/21/16 09:10 Bisacodyl (Dulcolax) 10 mg DAILYPRN PRN RECTAL Constipation 09/16/16 10:00 10/16/16 09:59 Colistimethate Sodium 75 mg 75 mg Q12H INH 09/16/16 22:00 09/25/16 21:59 09/21/16 09:31 Collagenase (Santyl) 1 applic DAILY@2100 TOPIC 09/16/16 21:00 10/16/16 20:59 09/20/16 21:46 Dextrose (Dextrose 50%) STAT PRN IV Hypoglycemia 09/16/16 10:00 10/16/16 09:59 Enoxaparin Sodium (Lovenox) 40 mg DAILY SUBQ 09/16/16 10:00 10/16/16 09:59 09/21/16 09:11 Fluconazole (Diflucan) 200 mg DAILY GT 09/16/16 10:00 09/21/16 23:59 09/21/16 09:10 Gabapentin (Neurontin) 400 mg TID GT 09/16/16 10:00 10/16/16 09:59 09/21/16 13:12 Insulin Aspart (NovoLOG) Q6HR SUBQ 09/16/16 12:00 10/16/16 11:59 09/21/16 11:34 Meropenem 1 gm/ Sodium Chloride 55 ml @ 110 mls/hr Q8HR IVPB 09/16/16 14:00 09/25/16 13:59 09/21/16 05:16 Morphine Sulfate (Morphine 10mg/ 5ml Oral Soln) 20 mg Q2H PRN GT FOR PAIN 4-10 09/16/16 09:45 09/23/16 09:44 Ondansetron HCl (Zofran) 4 mg Q6H PRN IVP Nausea & Vomiting 09/16/16 10:00 10/16/16 09:59 Polyethylene Glycol (Miralax) 17 gm DAILYPRN PRN GT Constipation 09/16/16 10:00 10/16/16 09:59 Sodium Hypochlorite (Dakin's Half Strength) 1 applic DAILY@2100 TOPIC 09/16/16 21:00 10/16/16 20:59 09/20/16 21:47 Sodium Chloride (Sodium Chloride 1000ml bag) 1,000 ml @ 125 mls/hr Q8H IV 09/16/16 09:45 10/16/16 09:44 09/21/16 09:17 Temazepam (Restoril) 15 mg HSPRN PRN GT Insomnia 09/16/16 21:00 09/23/16 20:59 Vancomycin HCl (Vanco rx to dose) 1 ea DAILY PRN MISC Per rx protocol 09/16/16 09:00 10/16/16 08:59 Vancomycin HCl/ Dextrose (Vancomycin/D5W) 275 ml @ 183.708 mls/hr Q12HR@1100,2300 IVPB 09/19/16 11:00 09/24/16 10:59 09/21/16 11:17 Zinc Sulfate (Zinc Sulfate) 220 mg DAILY GT 09/16/16 10:00 10/16/16 09:59 09/21/16 09:10 Suman (Nancy)Juana NP Sep 21, 2016 13:34
[2016-09-21 16:00] VITALS: BP 112/70
[2016-09-21 19:00] VITALS: BP 117/73
[2016-09-22] VITALS: BP 121/76
[2016-09-22] MEDS: Dakin's 0.25% (Half Strength) 16oz TOPIC SCH
[2016-09-22] MEDS: NovoLOG Insulin Flexpen SUBQ SCH ×4 (00:22→18:00)
[2016-09-22 04:00] VITALS: BP 105/68
[2016-09-22] MEDS: Meropenem 1 GM in NS 55 ML IVPB SCH ×3 (05:54→22:16)
[2016-09-22 07:59] VITALS: BP 101/66
[2016-09-22 08:21] LABS: ANION GAP 15 (5-15); CALCIUM 8.4 mg/dL (8.6-10.2); CARBON DIOXIDE 30 mEQ/L (20-30); CHLORIDE 92 mEQ/L (98-107); CREATININE 0.3 mg/dL (0.7-1.2); GLOMERULAR FILTRATION RATE > 60 mL/min (>60); HEMOLYSIS 131; POTASSIUM 4.7 mEQ/L (3.4-4.9); SODIUM 137 mEQ/L (135-145)
[2016-09-22] MEDS: Ascorbic Acid 500mg tab GT SCH (09:20)
[2016-09-22] MEDS: Zinc Sulfate 220mg cap GT SCH (09:20)
[2016-09-22] MEDS: Enoxaparin 40mg Inj SUBQ SCH (09:23)
[2016-09-22] MEDS: Colistin for inhalation INH SCH ×2 (09:49→21:12)
[2016-09-22] MEDS: Gabapentin 300 MG/6 ML Soln GT SCH ×3 (10:39→18:40)
[2016-09-22 10:42] LABS: BASOPHILS % (AUTO) 0.8 % (0.0-2.0); MEAN CORPUSCULAR HEMOGLOBIN 27.1 PG (27.0-31.0); MEAN CORPUSCULAR HGB CONC 31.8 G/DL (32.0-36.0); MEAN CORPUSCULAR VOLUME 85 FL (80-99); MONOCYTES % (AUTO) 8.2 % (1.0-10.0); PLATELET COUNT 348 K/UL (150-450); RED BLOOD COUNT 3.49 M/UL (4.70-6.10); WHITE BLOOD COUNT 10.8 K/UL (4.8-10.8)
--- NOTE | 2016-09-22 10:51 | Infectious Diseases Prog Note ---
Assessment/Plan Assessment/Plan ASSESSMENT: 50-year-old old male with : leukocytosis SP Fever low grade - recurrent x1 resolved UTI , probable - UCx PSA, ESBL Ecoli Multiple lower Ext decubitus ? 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 History of DVT DM MRSA, VRE colonized PCN allergy - tolerating meropenem Full Code PLAN: cont Merrem d# , colistin INH d# . Finishes IV Vanco d# today ( 09/21 SP Diflucan d# ) ( 09/10 Vanco d# ) ( 08/11 SP Levaquin d# 5 ) Monitor CBC, temperatures, re-culture if acute leukocytosis or persistent low grade fever Monitor BMP Monitor chest x-ray wound care Subjective Allergies: Coded Allergies: PENICILLINS (Unverified Allergy, Unknown, 09/05/16) Subjective recurrent low grade fever x1 resolved. appears comfortable Objective Vital Signs Last 24 Hour Vital Signs Date Time Temp Pulse Resp B/P Pulse Ox O2 Delivery O2 Flow Rate FiO2 09/22/16 09:55 Nasal Cannula 3.0 32 09/22/16 09:55 97 Nasal Cannula 3.0 32 09/22/16 09:49 32 09/22/16 09:49 107 20 97 Nasal Cannula 3.0 32 09/22/16 07:59 97.0 111 20 101/66 100 Room Air 09/22/16 04:00 98.1 113 18 105/68 100 Nasal Cannula 2.0 09/22/16 00:00 97.7 160 22 121/76 99 Nasal Cannula 2.0 09/21/16 21:46 98 20 94 Nasal Cannula 2.0 28 09/21/16 21:26 Nasal Cannula 2.0 28 09/21/16 21:26 92 20 94 Nasal Cannula 2.0 28 09/21/16 21:26 94 Nasal Cannula 2.0 28 09/21/16 21:26 28 09/21/16 19:00 98.0 94 18 117/73 100 Nasal Cannula 2.0 09/21/16 18:59 97.2 09/21/16 16:00 97.2 119 18 112/70 100 Nasal Cannula 2.0 09/21/16 12:02 97.7 105 21 103/67 97 Nasal Cannula 2.0 Height (Feet): 5 Height (Inches): 7.70 Weight (Pounds): 99 General Appearance: no acute distress Respiratory/Chest: no respiratory distress Cardiovascular: normal rate, regular rhythm Abdomen: normal bowel sounds, soft, non tender, non distended Laboratory Tests Test 09/22/16 05:20 09/22/16 09:30 Sodium Level 137 mEQ/L (135-145) Potassium Level 4.7 mEQ/L (3.4-4.9) Chloride Level 92 mEQ/L (98-107) L Carbon Dioxide Level 30 mEQ/L (20-30) Anion Gap 15 (5-15) Blood Urea Nitrogen 10 mg/dL (7-23) Creatinine 0.3 mg/dL (0.7-1.2) L Estimat Glomerular Filtration Rate > 60 mL/min (>60) Glucose Level 115 mg/dL (74-106) H Calcium Level 8.4 mg/dL (8.6-10.2) L White Blood Count 10.8 K/UL (4.8-10.8) Red Blood Count 3.49 M/UL (4.70-6.10) L Hemoglobin 9.5 G/DL (14.2-18.0) L Hematocrit 29.7 % (42.0-52.0) L Mean Corpuscular Volume 85 FL (80-99) Mean Corpuscular Hemoglobin 27.1 PG (27.0-31.0) Mean Corpuscular Hemoglobin Concent 31.8 G/DL (32.0-36.0) L Red Cell Distribution Width 17.0 % (11.6-14.8) H Platelet Count 348 K/UL (150-450) Mean Platelet Volume 7.0 FL (6.5-10.1) Neutrophils (%) (Auto) 83.0 % (45.0-75.0) H Lymphocytes (%) (Auto) 7.0 % (20.0-45.0) L Monocytes (%) (Auto) 8.2 % (1.0-10.0) Eosinophils (%) (Auto) 1.0 % (0.0-3.0) Basophils (%) (Auto) 0.8 % (0.0-2.0) Current Medications Medications (Trade) Dose Ordered Sig/Cristina Route PRN Reason Start Time Stop Time Status Last Admin Dose Admin Acetaminophen (Tylenol) 650 mg Q6H PRN GT Prn Headache/Temp > 101 09/16/16 10:00 10/16/16 09:59 Al Hydroxide/Mg Hydroxide (Mylanta II) 30 ml Q6H PRN GT dyspepsia 09/16/16 10:00 10/16/16 09:59 Ascorbic Acid (Vitamin C) 500 mg DAILY GT 09/16/16 10:00 10/16/16 09:59 09/22/16 09:20 Bisacodyl (Dulcolax) 10 mg DAILYPRN PRN RECTAL Constipation 09/16/16 10:00 10/16/16 09:59 Colistimethate Sodium 75 mg 75 mg Q12H INH 09/16/16 22:00 09/25/16 21:59 09/22/16 09:49 Collagenase (Santyl) 1 applic DAILY@0000 TOPIC 09/22/16 00:00 10/16/16 20:59 09/22/16 00:00 Dextrose (Dextrose 50%) STAT PRN IV Hypoglycemia 09/16/16 10:00 10/16/16 09:59 Enoxaparin Sodium (Lovenox) 40 mg DAILY SUBQ 09/16/16 10:00 10/16/16 09:59 09/22/16 09:23 Gabapentin (Neurontin) 400 mg TID GT 09/16/16 10:00 10/16/16 09:59 09/22/16 10:39 Insulin Aspart (NovoLOG) Q6HR SUBQ 09/16/16 12:00 10/16/16 11:59 09/22/16 05:50 Meropenem 1 gm/ Sodium Chloride 55 ml @ 110 mls/hr Q8HR IVPB 09/16/16 14:00 09/25/16 13:59 09/22/16 05:54 Morphine Sulfate (Morphine 10mg/ 5ml Oral Soln) 20 mg Q2H PRN GT FOR PAIN 4-10 09/21/16 13:45 09/28/16 13:44 Ondansetron HCl (Zofran) 4 mg Q6H PRN IVP Nausea & Vomiting 09/16/16 10:00 10/16/16 09:59 Polyethylene Glycol (Miralax) 17 gm DAILYPRN PRN GT Constipation 09/16/16 10:00 10/16/16 09:59 Sodium Hypochlorite (Dakin's Half Strength) 1 applic DAILY@0000 TOPIC 09/22/16 00:00 10/16/16 20:59 09/22/16 00:00 Sodium Chloride (Sodium Chloride 1000ml bag) 1,000 ml @ 125 mls/hr Q8H IV 09/16/16 09:45 10/16/16 09:44 09/22/16 09:24 Temazepam (Restoril) 15 mg HSPRN PRN GT Insomnia 09/21/16 13:45 09/28/16 13:44 Vancomycin HCl (Vanco rx to dose) 1 ea DAILY PRN MISC Per rx protocol 09/16/16 09:00 10/16/16 08:59 Vancomycin HCl/ Dextrose (Vancomycin/D5W) 275 ml @ 183.708 mls/hr Q12HR@1100,2300 IVPB 09/19/16 11:00 09/24/16 10:59 09/21/16 22:28 Zinc Sulfate (Zinc Sulfate) 220 mg DAILY GT 09/16/16 10:00 10/16/16 09:59 09/22/16 09:20 LULU HARRIS 19, 2017 10:51
[2016-09-22] MEDS: Vancomycin 1gm in D5W 275ml IVPB SCH ×2 (11:35→22:16)
[2016-09-22 11:49] VITALS: BP 117/65
--- NOTE | 2016-09-22 13:03 | Pulmonology Progress Note ---
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 hx of HTN DM IVC filter protein calorie malnutrition multiple decub POA ( sacral stage 4, R heel stage 4, L heel stage 4, R trochanter stage 4, R shoulder st 4) electrolyte imbalance PLAN OF CARE [facility] floor O2 HHN prn CXR negative abx ID follows, urine cx + E coli ESBL, Pseudomonas , repeated urine cx negative blood cx + SCON, repeated negative sputum cx + MDR ACB, but CXR negative aspiration precautions, GT feeding, monitor tolerance DVT prophylaxis , has IVC filter BS management with SS of insulin off anti HTN meds, gentle IVF s/p 1 u PRBC , HH stable anemia workup with high ferritin and low iron , stable B 12 , folate , CEA WNL , 30 meQ K phosphate sister apparently agreed to hospice dc planning hospice eval in progress case discussed and evaluated by supervising physician Subjective Allergies: Coded Allergies: PENICILLINS (Unverified Allergy, Unknown, 09/05/16) Subjective leukocytosis resolved, afebrile on O2 via NC , sat stable HH up after blood transfusion Objective Last 24 Hour Vital Signs Date Time Temp Pulse Resp B/P Pulse Ox O2 Delivery O2 Flow Rate FiO2 09/22/16 11:49 97.4 109 20 117/65 100 Room Air 09/22/16 10:00 102 20 97 Nasal Cannula 3.0 32 09/22/16 09:55 Nasal Cannula 3.0 32 09/22/16 09:55 97 Nasal Cannula 3.0 32 09/22/16 09:49 32 09/22/16 09:49 107 20 97 Nasal Cannula 3.0 32 09/22/16 07:59 97.0 111 20 101/66 100 Room Air 09/22/16 04:00 98.1 113 18 105/68 100 Nasal Cannula 2.0 09/22/16 00:00 97.7 160 22 121/76 99 Nasal Cannula 2.0 09/21/16 21:46 98 20 94 Nasal Cannula 2.0 28 09/21/16 21:26 Nasal Cannula 2.0 28 09/21/16 21:26 92 20 94 Nasal Cannula 2.0 28 09/21/16 21:26 94 Nasal Cannula 2.0 28 09/21/16 21:26 28 09/21/16 19:00 98.0 94 18 117/73 100 Nasal Cannula 2.0 09/21/16 18:59 97.2 09/21/16 16:00 97.2 119 18 112/70 100 Nasal Cannula 2.0 Intake and Output 09/21/16 09/22/16 19:00 07:00 Intake Total 1130 ml 1720 ml Output Total 1400 ml 500 ml Balance -270 ml 1220 ml Free Water 190 ml 100 ml IV Total 555 ml 1180 ml Tube Feeding 385 ml 440 ml Output Urine Total 1400 ml 500 ml # Bowel Movements 1 Objective General Appearance: no acute distress, cachetic, bedridden AA male HEENT: normocephalic, atraumatic, anicteric Respiratory/Chest: chest wall non-tender, lungs clear, no respiratory distress , no accessory muscle use Cardiovascular: normal rate, regular rhythm, no JVD Abdomen: normal bowel sounds, soft, non tender, G tube Genitourinary: normal external genitalia Extremities: no edema Neurologic/Psychiatric: abnormal gait, bedridden , contracted, open eyes spontaneously, not verbally responsive Musculoskeletal: atrophy - BLE Laboratory Tests 09/22/16 05:20: Sodium Level 137, Potassium Level 4.7, Chloride Level 92L, Carbon Dioxide Level 30, Anion Gap 15, Blood Urea Nitrogen 10, Creatinine 0.3L, Estimat Glomerular Filtration Rate > 60, Glucose Level 115H, Calcium Level 8.4L 09/22/16 09:30: White Blood Count 10.8, Red Blood Count 3.49L, Hemoglobin 9.5L, Hematocrit 29.7L , Mean Corpuscular Volume 85, Mean Corpuscular Hemoglobin 27.1, Mean Corpuscular Hemoglobin Concent 31.8L, Red Cell Distribution Width 17.0H, Platelet Count 348, Mean Platelet Volume 7.0, Neutrophils (%) (Auto) 83.0H, Lymphocytes (%) (Auto) 7.0L, Monocytes (%) (Auto) 8.2, Eosinophils (%) (Auto) 1.0, Basophils (%) (Auto) 0.8 Current Medications Medications (Trade) Dose Ordered Sig/Cristina Route PRN Reason Start Time Stop Time Status Last Admin Dose Admin Acetaminophen (Tylenol) 650 mg Q6H PRN GT Prn Headache/Temp > 101 09/16/16 10:00 10/16/16 09:59 Al Hydroxide/Mg Hydroxide (Mylanta II) 30 ml Q6H PRN GT dyspepsia 09/16/16 10:00 10/16/16 09:59 Ascorbic Acid (Vitamin C) 500 mg DAILY GT 09/16/16 10:00 10/16/16 09:59 09/22/16 09:20 Bisacodyl (Dulcolax) 10 mg DAILYPRN PRN RECTAL Constipation 09/16/16 10:00 10/16/16 09:59 Colistimethate Sodium 75 mg 75 mg Q12H INH 09/16/16 22:00 09/25/16 21:59 09/22/16 09:49 Collagenase (Santyl) 1 applic DAILY@0000 TOPIC 09/22/16 00:00 10/16/16 20:59 09/22/16 00:00 Dextrose (Dextrose 50%) STAT PRN IV Hypoglycemia 09/16/16 10:00 10/16/16 09:59 Enoxaparin Sodium (Lovenox) 40 mg DAILY SUBQ 09/16/16 10:00 10/16/16 09:59 09/22/16 09:23 Gabapentin (Neurontin) 400 mg TID GT 09/16/16 10:00 10/16/16 09:59 09/22/16 10:39 Insulin Aspart (NovoLOG) Q6HR SUBQ 09/16/16 12:00 10/16/16 11:59 09/22/16 12:00 Meropenem 1 gm/ Sodium Chloride 55 ml @ 110 mls/hr Q8HR IVPB 09/16/16 14:00 09/25/16 13:59 09/22/16 05:54 Morphine Sulfate (Morphine 10mg/ 5ml Oral Soln) 20 mg Q2H PRN GT FOR PAIN 4-10 09/21/16 13:45 09/28/16 13:44 Ondansetron HCl (Zofran) 4 mg Q6H PRN IVP Nausea & Vomiting 09/16/16 10:00 10/16/16 09:59 Polyethylene Glycol (Miralax) 17 gm DAILYPRN PRN GT Constipation 09/16/16 10:00 10/16/16 09:59 Sodium Hypochlorite (Dakin's Half Strength) 1 applic DAILY@0000 TOPIC 09/22/16 00:00 10/16/16 20:59 09/22/16 00:00 Sodium Chloride (Sodium Chloride 1000ml bag) 1,000 ml @ 125 mls/hr Q8H IV 09/16/16 09:45 10/16/16 09:44 09/22/16 09:24 Temazepam (Restoril) 15 mg HSPRN PRN GT Insomnia 09/21/16 13:45 09/28/16 13:44 Vancomycin HCl (Vanco rx to dose) 1 ea DAILY PRN MISC Per rx protocol 09/16/16 09:00 09/22/16 23:59 Vancomycin HCl/ Dextrose (Vancomycin/D5W) 275 ml @ 183.708 mls/hr Q12HR@1100,2300 IVPB 09/19/16 11:00 09/22/16 23:59 09/22/16 11:35 Zinc Sulfate (Zinc Sulfate) 220 mg DAILY GT 09/16/16 10:00 10/16/16 09:59 09/22/16 09:20 Suman (Nancy)Juana NP Sep 22, 2016 13:03
[2016-09-22] MEDS ORDERED: NS 275ml ONE (14:56)
[2016-09-22] MEDS ORDERED: Tubing IV Secondary IV ONE (14:56)
[2016-09-22 16:00] VITALS: BP 106/71
[2016-09-22 19:00] VITALS: BP 109/73
[2016-09-23] VITALS: BP 99/74
[2016-09-23] MEDS: Dakin's 0.25% (Half Strength) 16oz TOPIC SCH
[2016-09-23] MEDS: NovoLOG Insulin Flexpen SUBQ SCH ×4 (00:02→18:05)
[2016-09-23 04:00] VITALS: BP 104/64
[2016-09-23] MEDS: Meropenem 1 GM in NS 55 ML IVPB SCH ×3 (05:52→21:55)
[2016-09-23 06:27] LABS: BASOPHILS % (AUTO) 0.5 % (0.0-2.0); EOSINOPHILS % (AUTO) 1.5 % (0.0-3.0); LYMPHOCYTES % (AUTO) 9.8 % (20.0-45.0); MEAN CORPUSCULAR HEMOGLOBIN 26.8 PG (27.0-31.0); MEAN CORPUSCULAR HGB CONC 31.7 G/DL (32.0-36.0); MEAN CORPUSCULAR VOLUME 85 FL (80-99); MEAN PLATELET VOLUME 6.8 FL (6.5-10.1); MONOCYTES % (AUTO) 6.2 % (1.0-10.0); PLATELET COUNT 375 K/UL (150-450); RED BLOOD COUNT 3.28 M/UL (4.70-6.10); RED CELL DISTRIBUTION WIDTH 17.5 % (11.6-14.8); WHITE BLOOD COUNT 9.6 K/UL (4.8-10.8)
[2016-09-23 07:02] LABS: ANION GAP 10 (5-15); CALCIUM 8.7 mg/dL (8.6-10.2); CARBON DIOXIDE 35 mEQ/L (20-30); CHLORIDE 92 mEQ/L (98-107); CREATININE 0.3 mg/dL (0.7-1.2); GLOMERULAR FILTRATION RATE > 60 mL/min (>60); HEMOLYSIS 2; POTASSIUM 3.9 mEQ/L (3.4-4.9); SODIUM 137 mEQ/L (135-145)
[2016-09-23 08:08] VITALS: BP 97/65
[2016-09-23] MEDS: Colistin for inhalation INH SCH ×2 (08:21→20:21)
[2016-09-23] MEDS: Gabapentin 300 MG/6 ML Soln GT SCH ×3 (09:00→18:03)
[2016-09-23] MEDS: Ascorbic Acid 500mg tab GT SCH (09:18)
[2016-09-23] MEDS: Zinc Sulfate 220mg cap GT SCH (09:18)
[2016-09-23] MEDS: Enoxaparin 40mg Inj SUBQ SCH (09:20)
--- NOTE | 2016-09-23 09:57 | Infectious Diseases Prog Note ---
Assessment/Plan Assessment/Plan ASSESSMENT: 50-year-old old male with : leukocytosis SP Fever low grade - recurrent x1 resolved UTI , probable - UCx PSA, ESBL Ecoli Multiple lower Ext decubitus ? Pneumonia sputum Cx : MDR- ACB Cxray : No acute cardiopulmonary disease identified CONS bacteremia - cleared 09/13, TTE(-) SBE SP Rx History of CVA status post MUSIC COORDINATOR shunt and meningitis. History of DVT DM MRSA, VRE colonized PCN allergy - tolerating meropenem Full Code PLAN: cont Merrem d# , colistin INH d# / . ( 09/22 SP IV Vanco d# ) ( 09/21 SP Diflucan d# 10 / ) ( 09/10 Vanco d# / ) ( 08/11 SP Levaquin d# 5 ) Monitor CBC, temperatures, re-culture if acute change Monitor BMP Monitor chest x-ray wound care Subjective Allergies: Coded Allergies: PENICILLINS (Unverified Allergy, Unknown, 09/05/16) Subjective remains afebrile appears comfortable Objective Vital Signs Last 24 Hour Vital Signs Date Time Temp Pulse Resp B/P Pulse Ox O2 Delivery O2 Flow Rate FiO2 09/23/16 08:35 120 16 100 Nasal Cannula 3.0 32 09/23/16 08:20 118 16 99 Nasal Cannula 3.0 32 09/23/16 08:08 99.1 114 21 97/65 95 Nasal Cannula 3.0 09/23/16 07:59 Nasal Cannula 3.0 32 09/23/16 07:58 98 Nasal Cannula 3.0 32 09/23/16 04:00 99.1 117 18 104/64 100 Nasal Cannula 2.0 09/23/16 00:00 97.5 18 99/74 97 Nasal Cannula 2.0 09/22/16 21:29 115 16 97 Nasal Cannula 3.0 32 09/22/16 21:14 32 09/22/16 21:13 118 16 99 Nasal Cannula 3.0 32 09/22/16 19:26 98 Nasal Cannula 3.0 32 09/22/16 19:26 Nasal Cannula 3.0 32 09/22/16 19:00 98.1 123 18 109/73 99 Nasal Cannula 3.0 09/22/16 16:00 97.0 114 18 106/71 Nasal Cannula 3.0 09/22/16 11:49 97.4 109 20 117/65 100 Room Air 09/22/16 10:00 102 20 97 Nasal Cannula 3.0 32 Height (Feet): 5 Height (Inches): 7.70 Weight (Pounds): 99 General Appearance: no acute distress Respiratory/Chest: no respiratory distress Cardiovascular: normal rate, regular rhythm Abdomen: normal bowel sounds, soft, non tender, non distended Laboratory Tests Test 09/23/16 05:00 White Blood Count 9.6 K/UL (4.8-10.8) Red Blood Count 3.28 M/UL (4.70-6.10) L Hemoglobin 8.8 G/DL (14.2-18.0) L Hematocrit 27.8 % (42.0-52.0) L Mean Corpuscular Volume 85 FL (80-99) Mean Corpuscular Hemoglobin 26.8 PG (27.0-31.0) L Mean Corpuscular Hemoglobin Concent 31.7 G/DL (32.0-36.0) L Red Cell Distribution Width 17.5 % (11.6-14.8) H Platelet Count 375 K/UL (150-450) Mean Platelet Volume 6.8 FL (6.5-10.1) Neutrophils (%) (Auto) 82.0 % (45.0-75.0) H Lymphocytes (%) (Auto) 9.8 % (20.0-45.0) L Monocytes (%) (Auto) 6.2 % (1.0-10.0) Eosinophils (%) (Auto) 1.5 % (0.0-3.0) Basophils (%) (Auto) 0.5 % (0.0-2.0) Sodium Level 137 mEQ/L (135-145) Potassium Level 3.9 mEQ/L (3.4-4.9) Chloride Level 92 mEQ/L (98-107) L Carbon Dioxide Level 35 mEQ/L (20-30) H Anion Gap 10 (5-15) Blood Urea Nitrogen 8 mg/dL (7-23) Creatinine 0.3 mg/dL (0.7-1.2) L Estimat Glomerular Filtration Rate > 60 mL/min (>60) Glucose Level 98 mg/dL (74-106) Calcium Level 8.7 mg/dL (8.6-10.2) Current Medications Medications (Trade) Dose Ordered Sig/Cristina Route PRN Reason Start Time Stop Time Status Last Admin Dose Admin Acetaminophen (Tylenol) 650 mg Q6H PRN GT Prn Headache/Temp > 101 09/16/16 10:00 10/16/16 09:59 Al Hydroxide/Mg Hydroxide (Mylanta II) 30 ml Q6H PRN GT dyspepsia 09/16/16 10:00 10/16/16 09:59 Ascorbic Acid (Vitamin C) 500 mg DAILY GT 09/16/16 10:00 10/16/16 09:59 09/23/16 09:18 Bisacodyl (Dulcolax) 10 mg DAILYPRN PRN RECTAL Constipation 09/16/16 10:00 10/16/16 09:59 Colistimethate Sodium (Colistin *inhalation use only*) 75 mg Q12H INH 09/16/16 22:00 09/25/16 21:59 09/23/16 08:21 Collagenase (Santyl) 1 applic DAILY@0000 TOPIC 09/22/16 00:00 10/16/16 20:59 09/23/16 00:00 Dextrose (Dextrose 50%) STAT PRN IV Hypoglycemia 09/16/16 10:00 10/16/16 09:59 Enoxaparin Sodium (Lovenox) 40 mg DAILY SUBQ 09/16/16 10:00 10/16/16 09:59 09/23/16 09:20 Gabapentin (Neurontin) 400 mg TID GT 09/16/16 10:00 10/16/16 09:59 09/22/16 18:40 Insulin Aspart (NovoLOG) Q6HR SUBQ 09/16/16 12:00 10/16/16 11:59 09/23/16 05:53 Meropenem 1 gm/ Sodium Chloride 55 ml @ 110 mls/hr Q8HR IVPB 09/16/16 14:00 09/25/16 13:59 09/23/16 05:52 Morphine Sulfate (Morphine 10mg/ 5ml Oral Soln) 20 mg Q2H PRN GT FOR PAIN 4-10 09/21/16 13:45 09/28/16 13:44 Ondansetron HCl (Zofran) 4 mg Q6H PRN IVP Nausea & Vomiting 09/16/16 10:00 10/16/16 09:59 Polyethylene Glycol (Miralax) 17 gm DAILYPRN PRN GT Constipation 09/16/16 10:00 10/16/16 09:59 Sodium Hypochlorite (Dakin's Half Strength) 1 applic DAILY@0000 TOPIC 09/22/16 00:00 10/16/16 20:59 09/23/16 00:00 Sodium Chloride (Sodium Chloride 1000ml bag) 1,000 ml @ 125 mls/hr Q8H IV 09/16/16 09:45 10/16/16 09:44 09/23/16 03:00 Temazepam (Restoril) 15 mg HSPRN PRN GT Insomnia 09/21/16 13:45 09/28/16 13:44 Zinc Sulfate (Zinc Sulfate) 220 mg DAILY GT 09/16/16 10:00 10/16/16 09:59 09/23/16 09:18 LULU HARRIS 20, 2017 09:57
[2016-09-23 11:51] VITALS: BP 96/73
[2016-09-23 16:00] VITALS: BP 137/75
--- NOTE | 2016-09-23 16:22 | Wound Care Consultation ---
Wound Assessment Wound Assessment #1: Wound Number: #1 Wound Present on Admission: Yes New Wound: No Status Change of Wound: No Wound Location Body Site Modif: mid Wound Location Body Site: sacral Wound Type: pressure ulcer Kajal Test: Does not Kajal Pressure Ulcer Stage: IV/unstageable Wound Thickness: Full Thickness Wound Length: 10.0 Wound Width: 10.0 Wound Depth: 0.3 Percent of Wound [place]/Red: 100 Wound Drainage Description: Serosanguineous Wound Drainage Amount: Moderate Wound Drainage Odor: None/Absent Tissue Surrounding Wound: Erythemic Wound General Appearance: Reddened, Draining Wound Assessment #2: Wound Number: #2 Wound Present on Admission: Yes New Wound: No Status Change of Wound: No Wound Location Body Site Modif: right Wound Location Body Site: ischial tuberosity Wound Type: pressure ulcer Kajal Test: Does not Kajal Pressure Ulcer Stage: IV/unstageable Wound Thickness: Full Thickness Wound Length: 8.5 Wound Width: 6.5 Wound Depth: UTD Percent of Wound [place]/Red: 50 Percent of Wound Bed Yellow/Wh: 50 Wound Drainage Description: Serosanguineous Wound Drainage Amount: Moderate Wound Drainage Odor: None/Absent Tissue Surrounding Wound: Macerated Wound General Appearance: Reddened, Bone Palpable Wound Assessment #3: Wound Number: #3 Wound Present on Admission: Yes New Wound: No Status Change of Wound: No Wound Location Body Site Modif: left Wound Location Body Site: ischial tuberosity Wound Type: pressure ulcer Kajal Test: Does not Kajal Pressure Ulcer Stage: IV/unstageable Wound Thickness: Full Thickness Wound Length: 8.0 Wound Width: 5.5 Wound Depth: UTD Percent of Wound [place]/Red: 40 Percent of Wound Bed Yellow/Wh: 60 Wound Drainage Description: Serosanguineous Wound Drainage Amount: Moderate Wound Drainage Odor: None/Absent Tissue Surrounding Wound: Macerated Wound General Appearance: Reddened, Draining, Bone Palpable Wound Assessment #4: Wound Number: #4 Wound Present on Admission: Yes New Wound: No Status Change of Wound: No Wound Location Body Site Modif: left Wound Location Body Site: trochanter Wound Type: pressure ulcer Kajal Test: Does not Kajal Pressure Ulcer Stage: deep tissue injury - BROWN IN COLOR SURROUNDING SKIN NOTED WITH FULL THICKNESS SCAR TISSUE. Wound Thickness: Full Thickness Wound Length: 3.0 Wound Width: 3.0 Wound Depth: UTD Percent of Wound Black/Brown: 100 Wound Drainage Amount: None Wound Drainage Odor: None/Absent Tissue Surrounding Wound: Erythemic Wound General Appearance: Blackened - BROWN Wound Assessment #5: Wound Number: #5 Wound Present on Admission: Yes New Wound: No Status Change of Wound: No Wound Location Body Site Modif: left Wound Location Body Site: heel Wound Type: pressure ulcer Kajal Test: Does not Kajal Pressure Ulcer Stage: IV/unstageable Wound Thickness: Full Thickness Wound Length: 4.5 Wound Width: 7.0 Wound Depth: UTD Percent of Wound [place]/Red: 30 Percent of Wound Bed Yellow/Wh: 50 Percent of Wound Black/Brown: 20 Wound Drainage Description: Serosanguineous Wound Drainage Amount: Moderate Wound Drainage Odor: None/Absent Tissue Surrounding Wound: Macerated Wound General Appearance: Reddened, Draining, Necrotic, Bone Palpable Wound Assessment #6: Wound Number: #6 Wound Present on Admission: Yes New Wound: No Status Change of Wound: No Wound Location Body Site Modif: right Wound Location Body Site: heel Wound Type: pressure ulcer Kajal Test: Does not Kajal Pressure Ulcer Stage: IV/unstageable Wound Thickness: Full Thickness Wound Length: 4.5 Wound Width: 6.5 Wound Depth: UTD Percent of Wound [place]/Red: 40 Percent of Wound Bed Yellow/Wh: 60 Wound Drainage Description: Serosanguineous Wound Drainage Amount: Moderate Wound Drainage Odor: None/Absent Tissue Surrounding Wound: Macerated Wound General Appearance: Reddened, Draining, Necrotic Wound Assessment #7: Wound Number: #7 Wound Present on Admission: Yes New Wound: No Status Change of Wound: No Wound Location Body Site Modif: right Wound Location Body Site: trochanter Wound Type: pressure ulcer Kajal Test: Does not Kajal Pressure Ulcer Stage: IV/unstageable Wound Thickness: Full Thickness Wound Length: 4.0 Wound Width: 6.0 Wound Depth: UTD Percent of Wound [place]/Red: 10 Percent of Wound Bed Yellow/Wh: 60 Percent of Wound Black/Brown: 30 Wound Drainage Description: Serosanguineous Wound Drainage Amount: Moderate Wound Drainage Odor: None/Absent Tissue Surrounding Wound: Macerated Wound General Appearance: Reddened, Draining, Necrotic Wound Assessment #8: Wound Number: #8 Wound Present on Admission: Yes New Wound: No Status Change of Wound: No Wound Location Body Site Modif: left - CLARIFICATION OF SITE. CORRECT SITE LEFT MID FOOT., mid Wound Location Body Site: foot Wound Type: pressure ulcer Kajal Test: Does not Kajal Pressure Ulcer Stage: IV/unstageable Wound Thickness: Full Thickness Wound Length: 1.5 Wound Width: 1.5 Wound Depth: 0.2 Percent of Wound [place]/Red: 100 Wound Drainage Description: Serosanguineous Wound Drainage Amount: Scant Wound Drainage Odor: None/Absent Tissue Surrounding Wound: Erythemic Wound General Appearance: Reddened Wound Assessment #9: Wound Number: #9 Wound Present on Admission: Yes New Wound: No Status Change of Wound: No Wound Location Body Site Modif: right Wound Location Body Site: shoulder Wound Type: pressure ulcer Kajal Test: Does not Kajal Pressure Ulcer Stage: IV/unstageable Wound Thickness: Full Thickness Wound Length: 2.0 Wound Width: 2.0 Wound Depth: 0.1 Percent of Wound [place]/Red: 100 Wound Drainage Amount: None Wound Drainage Odor: None/Absent Tissue Surrounding Wound: Intact Wound General Appearance: Reddened Wound Assessment #10: Wound Number: #10 Wound Present on Admission: Yes New Wound: No Status Change of Wound: No Wound Location Body Site Modif: left, lateral Wound Location Body Site: heel Wound Type: pressure ulcer Kajal Test: Does not Kajal Pressure Ulcer Stage: III Wound Thickness: Full Thickness Wound Length: 1.0 Wound Width: 1.0 Wound Depth: 0.3 Percent of Wound [place]/Red: 100 Wound Drainage Amount: Scant Wound Drainage Odor: None/Absent Tissue Surrounding Wound: Erythemic Wound General Appearance: Reddened Wound Comment #1 Sacral stage IV/unstageable pressure ulcer-noted good progress, current treatment effective, no further deterioration noted. #2 Right ischial tuberosity stage IV/unstageable pressure ulcer-noted good progress, current treatment effective, no further deterioration noted. #3 Left ischial tuberosity stage IV/unstageable pressure ulcer-noted good progress, current treatment effective, no further deterioration noted. #4 Right trochanter stage IV/unstageable pressure ulcer -noted good progress, current treatment effective, no further deterioration noted. #5 Left trochanter DTI brown in color with scar tissue on surrounding area- noted good progress, current treatment effective, no further deterioration noted. #6 Right heel stage IV/unstageable pressure ulcer-noted good progress, current treatment effective, no further deterioration noted. #7 Left heel stage IV/unstageable pressure ulcer -noted good progress, current treatment effective, no further deterioration noted. #8 Left lateral mid foot stage IV/unstageable pressure ulcer-noted good progress , current treatment effective, no further deterioration noted. #9 Left lateral aspect of the heel stage III pressure ulcer- noted good progress , current treatment effective, no further deterioration noted. #10 Right shoulder stage IV/unstageable pressure ulcer- noted with good progress , current treatment effective,no further deterioration noted. upon reassessment done , no change noted, no further deterioration noted. Recommendation -Left lateral mid foot, Left lateral heel, Right shoulder, Left trochanter and sacral pressure ulcers Cleanse with saline, pat dry, apply Triad cream, cover with Biatain silicone foam drg daily and PRN soiled/dislodged -Left heel, Right heel, Right trochanter, Left ischial tuberosity and Right ischial tuberosity pressure ulcers Cleanse with Dakin's solution, pat dry, apply Santyl ointment, apply with calcium alginate, cover with Biatain silicone daily and PRN soiled/dislodged -Turn and reposition -Avoid shear and friction. -Offload affected wound sites. -Keep clean and dry. -Optimize nutrition. -Low air loss overlay mattress -Offload both heels. -Assess and f/u accordingly for any changes. CECELIA LOPEZ Sep 23, 2016 16:22
--- NOTE | 2016-09-23 16:49 | Pulmonology Progress Note ---
Assessment/Plan Problems: (1) Multiple drug resistant organism (MDRO) culture positive (2) Respiratory distress (3) Sepsis (4) Severe protein-calorie malnutrition (5) Feeding by G-tube (6) S/P [employer]ERIAL [employer]ER shunt Assessment/Plan repeat cultures, sputum has MDR GNR tolerating feeding abx by ID, on meropenem Iv fluids pts sister apparently agreed to hospice dc planning in process check labs in am Subjective ROS Limited/Unobtainable: Yes Allergies: Coded Allergies: PENICILLINS (Unverified Allergy, Unknown, 09/05/16) Objective Last 24 Hour Vital Signs Date Time Temp Pulse Resp B/P Pulse Ox O2 Delivery O2 Flow Rate FiO2 09/23/16 16:00 99.9 100 20 137/75 97 Nasal Cannula 4.0 09/23/16 13:22 99.0 09/23/16 11:51 99.0 113 21 96/73 95 Nasal Cannula 2.0 09/23/16 08:35 120 16 100 Nasal Cannula 3.0 32 09/23/16 08:20 118 16 99 Nasal Cannula 3.0 32 09/23/16 08:08 99.1 114 21 97/65 95 Nasal Cannula 3.0 09/23/16 07:59 Nasal Cannula 3.0 32 09/23/16 07:58 98 Nasal Cannula 3.0 32 09/23/16 04:00 99.1 117 18 104/64 100 Nasal Cannula 2.0 09/23/16 00:00 97.5 18 99/74 97 Nasal Cannula 2.0 09/22/16 21:29 115 16 97 Nasal Cannula 3.0 32 09/22/16 21:14 32 09/22/16 21:13 118 16 99 Nasal Cannula 3.0 32 09/22/16 19:26 98 Nasal Cannula 3.0 32 09/22/16 19:26 Nasal Cannula 3.0 32 09/22/16 19:00 98.1 123 18 109/73 99 Nasal Cannula 3.0 Intake and Output 09/22/16 09/23/16 19:00 07:00 Intake Total 1250 ml 1665 ml Output Total 700 ml 1900 ml Balance 550 ml -235 ml Free Water 100 ml IV Total 1250 ml 1125 ml Tube Feeding 440 ml Output Urine Total 700 ml 1900 ml Objective Respiratory/Chest: chest wall non-tender, lungs clear Cardiovascular: normal peripheral pulses Abdomen: normal bowel sounds, soft, non tender Extremities: no cyanosis, no clubbing Skin: no rash, no ulcers Lymphatic: no neck adenopathy Laboratory Tests 09/23/16 05:00: White Blood Count 9.6, Red Blood Count 3.28L, Hemoglobin 8.8L, Hematocrit 27.8L , Mean Corpuscular Volume 85, Mean Corpuscular Hemoglobin 26.8L, Mean Corpuscular Hemoglobin Concent 31.7L, Red Cell Distribution Width 17.5H, Platelet Count 375, Mean Platelet Volume 6.8, Neutrophils (%) (Auto) 82.0H, Lymphocytes (%) (Auto) 9.8L, Monocytes (%) (Auto) 6.2, Eosinophils (%) (Auto) 1.5, Basophils (%) (Auto) 0.5, Sodium Level 137, Potassium Level 3.9, Chloride Level 92L, Carbon Dioxide Level 35H, Anion Gap 10, Blood Urea Nitrogen 8, Creatinine 0.3L, Estimat Glomerular Filtration Rate > 60, Glucose Level 98, Calcium Level 8.7 Current Medications Medications (Trade) Dose Ordered Sig/Cristina Route PRN Reason Start Time Stop Time Status Last Admin Dose Admin Acetaminophen (Tylenol) 650 mg Q6H PRN GT Prn Headache/Temp > 101 09/16/16 10:00 10/16/16 09:59 Al Hydroxide/Mg Hydroxide (Mylanta II) 30 ml Q6H PRN GT dyspepsia 09/16/16 10:00 10/16/16 09:59 Ascorbic Acid (Vitamin C) 500 mg DAILY GT 09/16/16 10:00 10/16/16 09:59 09/23/16 09:18 Bisacodyl (Dulcolax) 10 mg DAILYPRN PRN RECTAL Constipation 09/16/16 10:00 10/16/16 09:59 Colistimethate Sodium (Colistin *inhalation use only*) 75 mg Q12H INH 09/16/16 22:00 09/25/16 21:59 09/23/16 08:21 Collagenase (Santyl) 1 applic DAILY@0000 TOPIC 09/22/16 00:00 10/16/16 20:59 09/23/16 00:00 Dextrose (Dextrose 50%) STAT PRN IV Hypoglycemia 09/16/16 10:00 10/16/16 09:59 Enoxaparin Sodium (Lovenox) 40 mg DAILY SUBQ 09/16/16 10:00 10/16/16 09:59 09/23/16 09:20 Gabapentin (Neurontin) 400 mg TID GT 09/16/16 10:00 10/16/16 09:59 09/23/16 12:23 Insulin Aspart (NovoLOG) Q6HR SUBQ 09/16/16 12:00 10/16/16 11:59 09/23/16 12:25 Meropenem 1 gm/ Sodium Chloride 55 ml @ 110 mls/hr Q8HR IVPB 09/16/16 14:00 09/25/16 13:59 09/23/16 13:03 Morphine Sulfate (Morphine 10mg/ 5ml Oral Soln) 20 mg Q2H PRN GT FOR PAIN 4-09/21/16 13:45 09/28/16 13:44 Ondansetron HCl (Zofran) 4 mg Q6H PRN IVP Nausea & Vomiting 09/16/16 10:00 10/16/16 09:59 Polyethylene Glycol (Miralax) 17 gm DAILYPRN PRN GT Constipation 09/16/16 10:00 10/16/16 09:59 Sodium Hypochlorite (Dakin's Half Strength) 1 applic DAILY@0000 TOPIC 09/22/16 00:00 10/16/16 20:59 09/23/16 00:00 Sodium Chloride (Sodium Chloride 1000ml bag) 1,000 ml @ 125 mls/hr Q8H IV 09/16/16 09:45 10/16/16 09:44 09/23/16 11:25 Temazepam (Restoril) 15 mg HSPRN PRN GT Insomnia 09/21/16 13:45 09/28/16 13:44 Zinc Sulfate (Zinc Sulfate) 220 mg DAILY GT 09/16/16 10:00 10/16/16 09:59 09/23/16 09:18 ROLY PERRIN Sep 23, 2016 16:49
[2016-09-23] MEDS ORDERED: NS 275ml ONE (18:42)
[2016-09-23] MEDS ORDERED: Tubing Blood Filter IV ONE (18:42)
[2016-09-23] MEDS ORDERED: Tubing IV Secondary IV ONE (18:42)
[2016-09-23 19:00] VITALS: BP 105/59
[2016-09-24] VITALS: BP 102/61
[2016-09-24] MEDS: Dakin's 0.25% (Half Strength) 16oz TOPIC SCH
[2016-09-24] MEDS: NovoLOG Insulin Flexpen SUBQ SCH ×5 (00:09→23:59)
[2016-09-24 04:00] VITALS: BP 100/62
[2016-09-24] MEDS: Meropenem 1 GM in NS 55 ML IVPB SCH ×3 (05:55→22:11)
[2016-09-24] MEDS: Colistin for inhalation INH SCH ×2 (07:30→21:30)
[2016-09-24 08:07] VITALS: BP 103/63
[2016-09-24] MEDS: Ascorbic Acid 500mg tab GT SCH (08:44)
[2016-09-24] MEDS: Zinc Sulfate 220mg cap GT SCH (08:44)
[2016-09-24] MEDS: Gabapentin 300 MG/6 ML Soln GT SCH ×3 (08:44→18:03)
[2016-09-24] MEDS: Enoxaparin 40mg Inj SUBQ SCH (08:48)
--- NOTE | 2016-09-24 09:42 | Infectious Diseases Prog Note ---
Assessment/Plan Assessment/Plan ASSESSMENT: 50-year-old old male with : leukocytosis SP Fever low grade - recurrent x1 resolved UTI , probable - UCx PSA, ESBL Ecoli Multiple lower Ext decubitus ? 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 History of DVT DM MRSA, VRE colonized PCN allergy - tolerating meropenem Full Code PLAN: cont Merrem d# , colistin INH d# / . ( 09/22 SP IV Vanco d# ) ( 09/21 SP Diflucan d# / ) ( 09/10 Vanco d# ) ( 08/11 SP Levaquin d# 5 ) Monitor CBC, temperatures, re-culture if acute change Monitor BMP Monitor chest x-ray wound care Subjective Allergies: Coded Allergies: PENICILLINS (Unverified Allergy, Unknown, 09/05/16) Subjective remains afebrile appears comfortable Objective Vital Signs Last 24 Hour Vital Signs Date Time Temp Pulse Resp B/P Pulse Ox O2 Delivery O2 Flow Rate FiO2 09/24/16 08:07 98.3 110 21 103/63 95 Nasal Cannula 3.0 09/24/16 07:36 Nasal Cannula 3.0 32 09/24/16 07:35 112 16 100 Nasal Cannula 3.0 32 09/24/16 07:25 107 16 99 Nasal Cannula 3.0 32 09/24/16 07:24 97 Nasal Cannula 3.0 32 09/24/16 04:00 98.2 104 18 100/62 99 Nasal Cannula 2.0 09/24/16 00:00 98.2 111 18 102/61 99 Nasal Cannula 2.0 09/23/16 20:28 118 16 100 Nasal Cannula 3.0 32 09/23/16 20:21 Nasal Cannula 3.0 32 09/23/16 20:21 111 16 99 Nasal Cannula 3.0 32 09/23/16 20:20 99 Nasal Cannula 3.0 32 09/23/16 19:00 99.0 100 20 105/59 93 Nasal Cannula 4.0 09/23/16 16:00 99.9 100 20 137/75 97 Nasal Cannula 4.0 09/23/16 13:22 99.0 09/23/16 11:51 99.0 113 21 96/73 95 Nasal Cannula 2.0 Height (Feet): 5 Height (Inches): 7.70 Weight (Pounds): 99 General Appearance: no acute distress Respiratory/Chest: no respiratory distress Cardiovascular: normal rate, regular rhythm Abdomen: normal bowel sounds, soft, non tender, non distended Current Medications Medications (Trade) Dose Ordered Sig/Cristina Route PRN Reason Start Time Stop Time Status Last Admin Dose Admin Acetaminophen (Tylenol) 650 mg Q6H PRN GT Prn Headache/Temp > 101 09/16/16 10:00 10/16/16 09:59 Al Hydroxide/Mg Hydroxide (Mylanta II) 30 ml Q6H PRN GT dyspepsia 09/16/16 10:00 10/16/16 09:59 Ascorbic Acid (Vitamin C) 500 mg DAILY GT 09/16/16 10:00 10/16/16 09:59 09/24/16 08:44 Bisacodyl (Dulcolax) 10 mg DAILYPRN PRN RECTAL Constipation 09/16/16 10:00 10/16/16 09:59 Colistimethate Sodium (Colistin *inhalation use only*) 75 mg Q12H INH 09/16/16 22:00 09/25/16 21:59 09/24/16 07:30 Collagenase (Santyl) 1 applic DAILY@0000 TOPIC 09/22/16 00:00 10/16/16 20:59 09/24/16 00:00 Dextrose (Dextrose 50%) STAT PRN IV Hypoglycemia 09/16/16 10:00 10/16/16 09:59 Enoxaparin Sodium (Lovenox) 40 mg DAILY SUBQ 09/16/16 10:00 10/16/16 09:59 09/24/16 08:48 Gabapentin (Neurontin) 400 mg TID GT 09/16/16 10:00 10/16/16 09:59 09/24/16 08:44 Insulin Aspart (NovoLOG) Q6HR SUBQ 09/16/16 12:00 10/16/16 11:59 09/24/16 05:56 Meropenem 1 gm/ Sodium Chloride 55 ml @ 110 mls/hr Q8HR IVPB 09/16/16 14:00 09/25/16 13:59 09/24/16 05:55 Morphine Sulfate (Morphine 10mg/ 5ml Oral Soln) 20 mg Q2H PRN GT FOR PAIN 4-10 09/21/16 13:45 09/28/16 13:44 Ondansetron HCl (Zofran) 4 mg Q6H PRN IVP Nausea & Vomiting 09/16/16 10:00 10/16/16 09:59 Polyethylene Glycol (Miralax) 17 gm DAILYPRN PRN GT Constipation 09/16/16 10:00 10/16/16 09:59 Sodium Hypochlorite (Dakin's Half Strength) 1 applic DAILY@0000 TOPIC 09/22/16 00:00 10/16/16 20:59 09/24/16 00:00 Sodium Chloride (Sodium Chloride 1000ml bag) 1,000 ml @ 125 mls/hr Q8H IV 09/16/16 09:45 10/16/16 09:44 09/24/16 08:49 Temazepam (Restoril) 15 mg HSPRN PRN GT Insomnia 09/21/16 13:45 09/28/16 13:44 Zinc Sulfate (Zinc Sulfate) 220 mg DAILY GT 09/16/16 10:00 10/16/16 09:59 09/24/16 08:44 LULU HARRIS 21, 2017 09:42
[2016-09-24 11:31] VITALS: BP 105/59
[2016-09-24 16:00] VITALS: BP 107/63
[2016-09-24 19:00] VITALS: BP 104/59
[2016-09-25] VITALS: BP 102/61
[2016-09-25] MEDS: Dakin's 0.25% (Half Strength) 16oz TOPIC SCH (00:22)
[2016-09-25 04:00] VITALS: BP 100/66
[2016-09-25] MEDS: Meropenem 1 GM in NS 55 ML IVPB SCH ×3 (05:53→22:24)
[2016-09-25] MEDS: NovoLOG Insulin Flexpen SUBQ SCH ×4 (05:54→23:56)
[2016-09-25 07:53] VITALS: BP 100/64
--- NOTE | 2016-09-25 09:48 | Infectious Diseases Prog Note ---
Assessment/Plan Assessment/Plan ASSESSMENT: 50-year-old old male with : leukocytosis SP Fever low grade - recurrent x1, resolved UTI , probable - UCx PSA, ESBL Ecoli Multiple lower Ext decubitus ? Pneumonia sputum Cx : MDR- ACB Cxray : No acute cardiopulmonary disease identified CONS bacteremia - cleared 09/13, TTE(-) SBE SP Rx History of CVA status post KAITARA TARAKA shunt and meningitis. History of DVT DM MRSA, VRE colonized PCN allergy - tolerating meropenem Full Code PLAN: finishes Merrem d# , colistin INH d# today. Monitor pt off of ABX ( 09/22 SP IV Vanco d# ) ( 09/21 SP Diflucan d# ) ( 09/10 Vanco d# ) ( 08/11 SP Levaquin d# 5 ) Monitor CBC, temperatures, re-culture if acute change Monitor BMP Monitor chest x-ray wound care Subjective Allergies: Coded Allergies: PENICILLINS (Unverified Allergy, Unknown, 09/05/16) Subjective remains afebrile appears comfortable Objective Vital Signs Last 24 Hour Vital Signs Date Time Temp Pulse Resp B/P Pulse Ox O2 Delivery O2 Flow Rate FiO2 09/25/16 07:53 99.5 106 21 100/64 97 Nasal Cannula 3.0 09/25/16 07:51 Nasal Cannula 3.0 32 09/25/16 07:50 98 Nasal Cannula 3.0 32 09/25/16 04:00 98.1 104 18 100/66 100 Nasal Cannula 2.0 09/25/16 00:00 98.4 111 18 102/61 100 Nasal Cannula 2.0 09/24/16 21:35 103 18 100 Nasal Cannula 3.0 32 09/24/16 21:34 102 18 98 Nasal Cannula 3.0 32 09/24/16 19:24 Nasal Cannula 3.0 32 09/24/16 19:23 100 Nasal Cannula 3.0 32 09/24/16 19:00 98.2 100 20 104/59 98 Room Air 09/24/16 16:00 97.3 100 20 107/63 97 Room Air 09/24/16 13:15 98.2 09/24/16 11:31 98.2 112 21 105/59 96 Nasal Cannula 3.0 Height (Feet): 5 Height (Inches): 7.70 Weight (Pounds): 99 General Appearance: no acute distress Respiratory/Chest: no respiratory distress Cardiovascular: normal rate, regular rhythm Abdomen: normal bowel sounds, soft, non tender, non distended Current Medications Medications (Trade) Dose Ordered Sig/Cristina Route PRN Reason Start Time Stop Time Status Last Admin Dose Admin Acetaminophen (Tylenol) 650 mg Q6H PRN GT Prn Headache/Temp > 101 09/16/16 10:00 10/16/16 09:59 Al Hydroxide/Mg Hydroxide (Mylanta II) 30 ml Q6H PRN GT dyspepsia 09/16/16 10:00 10/16/16 09:59 Ascorbic Acid (Vitamin C) 500 mg DAILY GT 09/16/16 10:00 10/16/16 09:59 09/24/16 08:44 Bisacodyl (Dulcolax) 10 mg DAILYPRN PRN RECTAL Constipation 09/16/16 10:00 10/16/16 09:59 Collagenase (Santyl) 1 applic DAILY@0000 TOPIC 09/22/16 00:00 10/16/16 20:59 09/25/16 00:22 Dextrose (Dextrose 50%) STAT PRN IV Hypoglycemia 09/16/16 10:00 10/16/16 09:59 Enoxaparin Sodium (Lovenox) 40 mg DAILY SUBQ 09/16/16 10:00 10/16/16 09:59 09/24/16 08:48 Gabapentin (Neurontin) 400 mg TID GT 09/16/16 10:00 10/16/16 09:59 09/24/16 18:03 Insulin Aspart (NovoLOG) Q6HR SUBQ 09/16/16 12:00 10/16/16 11:59 09/25/16 05:54 Meropenem 1 gm/ Sodium Chloride 55 ml @ 110 mls/hr Q8HR IVPB 09/16/16 14:00 09/26/16 23:59 09/25/16 05:53 Morphine Sulfate (Morphine 10mg/ 5ml Oral Soln) 20 mg Q2H PRN GT FOR PAIN 4-10 09/21/16 13:45 09/28/16 13:44 Ondansetron HCl (Zofran) 4 mg Q6H PRN IVP Nausea & Vomiting 09/16/16 10:00 10/16/16 09:59 Polyethylene Glycol (Miralax) 17 gm DAILYPRN PRN GT Constipation 09/16/16 10:00 10/16/16 09:59 Sodium Hypochlorite (Dakin's Half Strength) 1 applic DAILY@0000 TOPIC 09/22/16 00:00 10/16/16 20:59 09/25/16 00:22 Sodium Chloride (Sodium Chloride 1000ml bag) 1,000 ml @ 125 mls/hr Q8H IV 09/16/16 09:45 10/16/16 09:44 09/25/16 02:01 Temazepam (Restoril) 15 mg HSPRN PRN GT Insomnia 09/21/16 13:45 09/28/16 13:44 Zinc Sulfate (Zinc Sulfate) 220 mg DAILY GT 09/16/16 10:00 10/16/16 09:59 09/24/16 08:44 LULU HARRIS Sep 25, 2016 09:48
[2016-09-25] MEDS: Ascorbic Acid 500mg tab GT SCH (10:17)
[2016-09-25] MEDS: Zinc Sulfate 220mg cap GT SCH (10:17)
[2016-09-25] MEDS: Gabapentin 300 MG/6 ML Soln GT SCH ×3 (10:18→18:19)
[2016-09-25] MEDS: Enoxaparin 40mg Inj SUBQ SCH (10:19)
[2016-09-25 11:42] VITALS: BP 103/68
[2016-09-25 15:56] VITALS: BP 113/71
[2016-09-25 19:00] VITALS: BP 109/71
--- NOTE | 2016-09-25 22:21 | Pulmonology Progress Note ---
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 He understands and answers the "yes and No" questions with nodding or shaking his head. I asked him if he wants the respiratory tube down his throat and respirator if he can't breath on his own. He clearly said "no" with shaking his head. I told him if he understands that he might , if we don't put him on respiratory. His answer was yes by nodding. Pt seems tired of chronic condition and doesn't want any aggressive treatment if his heart stops. Any cardiac resuscitation in case of cardiac arrest would be futile and would cause bodily damage and harm if performed. repeat cultures of sputum has MDR GNR tolerating feeding abx by ID, on meropenem pts sister apparently agreed to hospice dc planning in process check labs in am Subjective Interval Events: comfortable Allergies: Coded Allergies: PENICILLINS (Unverified Allergy, Unknown, 09/05/16) Objective Last 24 Hour Vital Signs Date Time Temp Pulse Resp B/P Pulse Ox O2 Delivery O2 Flow Rate FiO2 09/25/16 19:00 98.1 100 20 109/71 100 Nasal Cannula 3.0 09/25/16 15:56 97.3 100 20 113/71 98 Nasal Cannula 3.0 09/25/16 11:42 97.9 99 21 103/68 96 Nasal Cannula 3.0 09/25/16 07:53 99.5 106 21 100/64 97 Nasal Cannula 3.0 09/25/16 07:51 Nasal Cannula 3.0 32 09/25/16 07:50 98 Nasal Cannula 3.0 32 09/25/16 04:00 98.1 104 18 100/66 100 Nasal Cannula 2.0 09/25/16 00:00 98.4 111 18 102/61 100 Nasal Cannula 2.0 Intake and Output 09/24/16 09/25/16 19:00 07:00 Intake Total 860 ml 2370 ml Output Total 900 ml 1800 ml Balance -40 ml 570 ml Intake Oral 0 ml Free Water 200 ml 100 ml IV Total 1610 ml Tube Feeding 660 ml 660 ml Output Urine Total 900 ml 1800 ml Objective Respiratory/Chest: chest wall non-tender, lungs clear Cardiovascular: normal peripheral pulses Abdomen: normal bowel sounds, soft, non tender Extremities: no cyanosis, no clubbing Skin: no rash, no ulcers Lymphatic: no neck adenopathy Current Medications Medications (Trade) Dose Ordered Sig/Cristina Route PRN Reason Start Time Stop Time Status Last Admin Dose Admin Acetaminophen (Tylenol) 650 mg Q6H PRN GT Prn Headache/Temp > 101 09/16/16 10:00 10/16/16 09:59 Al Hydroxide/Mg Hydroxide (Mylanta II) 30 ml Q6H PRN GT dyspepsia 09/16/16 10:00 10/16/16 09:59 Ascorbic Acid (Vitamin C) 500 mg DAILY GT 09/16/16 10:00 10/16/16 09:59 09/25/16 10:17 Bisacodyl (Dulcolax) 10 mg DAILYPRN PRN RECTAL Constipation 09/16/16 10:00 10/16/16 09:59 Collagenase (Santyl) 1 applic DAILY@0000 TOPIC 09/22/16 00:00 10/16/16 20:59 09/25/16 00:22 Dextrose (Dextrose 50%) STAT PRN IV Hypoglycemia 09/16/16 10:00 10/16/16 09:59 Enoxaparin Sodium (Lovenox) 40 mg DAILY SUBQ 09/16/16 10:00 10/16/16 09:59 09/25/16 10:19 Gabapentin (Neurontin) 400 mg TID GT 09/16/16 10:00 10/16/16 09:59 09/25/16 18:19 Insulin Aspart (NovoLOG) Q6HR SUBQ 09/16/16 12:00 10/16/16 11:59 09/25/16 18:20 Meropenem 1 gm/ Sodium Chloride 55 ml @ 110 mls/hr Q8HR IVPB 09/16/16 14:00 09/25/16 23:59 09/25/16 15:13 Morphine Sulfate (Morphine 10mg/ 5ml Oral Soln) 20 mg Q2H PRN GT FOR PAIN 4-10 09/21/16 13:45 09/28/16 13:44 Ondansetron HCl (Zofran) 4 mg Q6H PRN IVP Nausea & Vomiting 09/16/16 10:00 10/16/16 09:59 Polyethylene Glycol (Miralax) 17 gm DAILYPRN PRN GT Constipation 09/16/16 10:00 10/16/16 09:59 Sodium Hypochlorite (Dakin's Half Strength) 1 applic DAILY@0000 TOPIC 09/22/16 00:00 10/16/16 20:59 09/25/16 00:22 Sodium Chloride (Sodium Chloride 1000ml bag) 1,000 ml @ 125 mls/hr Q8H IV 09/16/16 09:45 10/16/16 09:44 09/25/16 18:19 Temazepam (Restoril) 15 mg HSPRN PRN GT Insomnia 09/21/16 13:45 09/28/16 13:44 Zinc Sulfate (Zinc Sulfate) 220 mg DAILY GT 09/16/16 10:00 10/16/16 09:59 09/25/16 10:17 ROLY PERRIN Sep 25, 2016 22:21
[2016-09-26] VITALS (7 sets, daily range): BP systolic 98–126; BP diastolic 58–78
[2016-09-26] MEDS: Dakin's 0.25% (Half Strength) 16oz TOPIC SCH
[2016-09-26] MEDS: NovoLOG Insulin Flexpen SUBQ SCH ×3 (05:54→19:03)
[2016-09-26] MEDS: Zinc Sulfate 220mg cap GT SCH (10:11)
[2016-09-26] MEDS: Ascorbic Acid 500mg tab GT SCH (10:11)
[2016-09-26] MEDS: Gabapentin 300 MG/6 ML Soln GT SCH ×3 (10:11→18:58)
[2016-09-26] MEDS: Enoxaparin 40mg Inj SUBQ SCH (10:13)
--- NOTE | 2016-09-26 10:37 | Infectious Diseases Prog Note ---
Assessment/Plan Assessment/Plan ASSESSMENT: 50-year-old old male with : leukocytosis SP Fever low grade - recurrent x1, resolved UTI , probable - UCx PSA, ESBL Ecoli SP Rx Multiple lower Ext decubitus ? 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 History of DVT DM MRSA, VRE colonized PCN allergy - tolerating meropenem Full Code PLAN: Monitor pt off of ABX ( 09/25 SP Merrem d# , colistin INH d# ) ( 09/22 SP IV Vanco d# ) ( 09/21 SP Diflucan d# ) ( 09/10 Vanco d# ) ( 08/11 SP Levaquin d# 5 ) Monitor CBC, temperatures, re-culture if acute change Monitor BMP Monitor chest x-ray wound care Subjective Allergies: Coded Allergies: PENICILLINS (Unverified Allergy, Unknown, 09/05/16) Subjective remains afebrile appears comfortable Objective Vital Signs Last 24 Hour Vital Signs Date Time Temp Pulse Resp B/P Pulse Ox O2 Delivery O2 Flow Rate FiO2 09/26/16 07:47 97.7 103 16 100/63 100 Nasal Cannula 09/26/16 04:00 97.9 97 16 98/62 100 Nasal Cannula 2.0 09/26/16 00:00 98.4 98 16 105/58 98 Nasal Cannula 2.0 09/25/16 20:00 98 Nasal Cannula 3.0 32 09/25/16 20:00 Nasal Cannula 3.0 32 09/25/16 19:00 98.1 100 20 109/71 100 Nasal Cannula 3.0 09/25/16 15:56 97.3 100 20 113/71 98 Nasal Cannula 3.0 09/25/16 11:42 97.9 99 21 103/68 96 Nasal Cannula 3.0 Height (Feet): 5 Height (Inches): 7.70 Weight (Pounds): 99 General Appearance: no acute distress Respiratory/Chest: no respiratory distress Cardiovascular: normal rate, regular rhythm Abdomen: normal bowel sounds, soft, non tender, non distended Current Medications Medications (Trade) Dose Ordered Sig/Cristina Route PRN Reason Start Time Stop Time Status Last Admin Dose Admin Acetaminophen (Tylenol) 650 mg Q6H PRN GT Prn Headache/Temp > 101 09/16/16 10:00 10/16/16 09:59 Al Hydroxide/Mg Hydroxide (Mylanta II) 30 ml Q6H PRN GT dyspepsia 09/16/16 10:00 10/16/16 09:59 Ascorbic Acid (Vitamin C) 500 mg DAILY GT 09/16/16 10:00 10/16/16 09:59 09/26/16 10:11 Bisacodyl (Dulcolax) 10 mg DAILYPRN PRN RECTAL Constipation 09/16/16 10:00 10/16/16 09:59 Collagenase (Santyl) 1 applic DAILY@0000 TOPIC 09/22/16 00:00 10/16/16 20:59 09/26/16 00:00 Dextrose (Dextrose 50%) STAT PRN IV Hypoglycemia 09/16/16 10:00 10/16/16 09:59 Enoxaparin Sodium (Lovenox) 40 mg DAILY SUBQ 09/16/16 10:00 10/16/16 09:59 09/26/16 10:13 Gabapentin (Neurontin) 400 mg TID GT 09/16/16 10:00 10/16/16 09:59 09/26/16 10:11 Insulin Aspart (NovoLOG) Q6HR SUBQ 09/16/16 12:00 10/16/16 11:59 09/25/16 23:56 Morphine Sulfate (Morphine 10mg/ 5ml Oral Soln) 20 mg Q2H PRN GT FOR PAIN 4-10 09/21/16 13:45 09/28/16 13:44 Ondansetron HCl (Zofran) 4 mg Q6H PRN IVP Nausea & Vomiting 09/16/16 10:00 10/16/16 09:59 Polyethylene Glycol (Miralax) 17 gm DAILYPRN PRN GT Constipation 09/16/16 10:00 10/16/16 09:59 Sodium Hypochlorite (Dakin's Half Strength) 1 applic DAILY@0000 TOPIC 09/22/16 00:00 10/16/16 20:59 09/26/16 00:00 Sodium Chloride (Sodium Chloride 1000ml bag) 1,000 ml @ 125 mls/hr Q8H IV 09/16/16 09:45 4/12/17 09:44 09/26/16 10:12 Temazepam (Restoril) 15 mg HSPRN PRN GT Insomnia 09/21/16 13:45 09/28/16 13:44 Zinc Sulfate (Zinc Sulfate) 220 mg DAILY GT 09/16/16 10:00 10/16/16 09:59 09/26/16 10:11 LULU HARRIS Sep 26, 2016 10:37
[2016-09-26] MEDS: Acetaminophen 650mg/20.3ml GT PRN (21:40)
[2016-09-26] MEDS ORDERED: DuoNeb 0.5-3(2.5)mg/3ml neb HHN PRN (22:30)
--- NOTE | 2016-09-26 23:06 | Pulmonology Progress Note ---
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 Assessment/Plan repeat cultures, sputum has MDR GNR tolerating feeding abx by ID, on meropenem Iv fluids pts sister apparently agreed to hospice dc planning in process check labs in am Subjective Allergies: Coded Allergies: PENICILLINS (Unverified Allergy, Unknown, 09/05/16) Objective Last 24 Hour Vital Signs Date Time Temp Pulse Resp B/P Pulse Ox O2 Delivery O2 Flow Rate FiO2 09/26/16 22:46 119 22 93 Venturi Mask 12.0 50 09/26/16 22:43 99.5 120 22 122/67 87 Nasal Cannula 3.0 09/26/16 22:42 99.5 09/26/16 22:36 113 22 Nasal Cannula 3.0 32 09/26/16 22:36 113 22 Nasal Cannula 3.0 32 09/26/16 21:18 Nasal Cannula 3.0 32 09/26/16 21:18 98 Nasal Cannula 3.0 32 09/26/16 19:00 100.2 100 20 122/75 89 Nasal Cannula 3.0 09/26/16 16:00 99.1 100 20 126/78 100 Nasal Cannula 3.0 09/26/16 11:25 99.0 102 20 99/74 100 Nasal Cannula 09/26/16 08:05 Nasal Cannula 3.0 09/26/16 08:04 98 Nasal Cannula 3.0 09/26/16 07:47 97.7 103 16 100/63 100 Nasal Cannula 09/26/16 04:00 97.9 97 16 98/62 100 Nasal Cannula 2.0 09/26/16 00:00 98.4 98 16 105/58 98 Nasal Cannula 2.0 Intake and Output 09/25/16 09/26/16 19:00 07:00 Intake Total 1485 ml 2315 ml Output Total 700 ml 2500 ml Balance 785 ml -185 ml Intake Oral 0 ml Free Water 200 ml 100 ml IV Total 680 ml 1555 ml Tube Feeding 605 ml 660 ml Output Urine Total 700 ml 2500 ml Objective Respiratory/Chest: chest wall non-tender, lungs clear Cardiovascular: normal peripheral pulses Abdomen: normal bowel sounds, soft, non tender Extremities: no cyanosis, no clubbing Skin: no rash, no ulcers Lymphatic: no neck adenopathy Current Medications Medications (Trade) Dose Ordered Sig/Cristina Route PRN Reason Start Time Stop Time Status Last Admin Dose Admin Acetaminophen (Tylenol) 650 mg Q6H PRN GT Prn Headache/Temp > 101 09/16/16 10:00 10/16/16 09:59 09/26/16 21:40 Al Hydroxide/Mg Hydroxide (Mylanta II) 30 ml Q6H PRN GT dyspepsia 09/16/16 10:00 10/16/16 09:59 Albuterol/ Ipratropium (DuoNeb 0.5-3(2.5)mg/3ml) 3 ml Q4H PRN HHN Shortness of Breath 09/26/16 22:30 10/01/16 22:29 09/26/16 22:54 Ascorbic Acid (Vitamin C) 500 mg DAILY GT 09/16/16 10:00 10/16/16 09:59 09/26/16 10:11 Bisacodyl (Dulcolax) 10 mg DAILYPRN PRN RECTAL Constipation 09/16/16 10:00 10/16/16 09:59 Collagenase (Santyl) 1 applic DAILY@0000 TOPIC 09/22/16 00:00 10/16/16 20:59 09/26/16 00:00 Dextrose (Dextrose 50%) STAT PRN IV Hypoglycemia 09/16/16 10:00 10/16/16 09:59 Enoxaparin Sodium (Lovenox) 40 mg DAILY SUBQ 09/16/16 10:00 10/16/16 09:59 09/26/16 10:13 Gabapentin (Neurontin) 400 mg TID GT 09/16/16 10:00 10/16/16 09:59 09/26/16 18:58 Insulin Aspart (NovoLOG) Q6HR SUBQ 09/16/16 12:00 10/16/16 11:59 09/26/16 19:03 Morphine Sulfate (Morphine 10mg/ 5ml Oral Soln) 20 mg Q2H PRN GT FOR PAIN 4-10 09/21/16 13:45 09/28/16 13:44 Ondansetron HCl (Zofran) 4 mg Q6H PRN IVP Nausea & Vomiting 09/16/16 10:00 10/16/16 09:59 Polyethylene Glycol (Miralax) 17 gm DAILYPRN PRN GT Constipation 09/16/16 10:00 10/16/16 09:59 Sodium Hypochlorite (Dakin's Half Strength) 1 applic DAILY@0000 TOPIC 09/22/16 00:00 10/16/16 20:59 09/26/16 00:00 Sodium Chloride (Sodium Chloride 1000ml bag) 1,000 ml @ 125 mls/hr Q8H IV 09/16/16 09:45 10/16/16 09:44 09/26/16 17:30 Temazepam (Restoril) 15 mg HSPRN PRN GT Insomnia 09/21/16 13:45 09/28/16 13:44 Zinc Sulfate (Zinc Sulfate) 220 mg DAILY GT 09/16/16 10:00 10/16/16 09:59 09/26/16 10:11 ROLY PERRIN Sep 26, 2016 23:06
[2016-09-27] VITALS: BP 92/58
[2016-09-27] MEDS: Dakin's 0.25% (Half Strength) 16oz TOPIC SCH (01:52)
[2016-09-27 04:00] VITALS: BP 116/80
[2016-09-27] MEDS: NovoLOG Insulin Flexpen SUBQ SCH ×4 (06:00→17:44)
[2016-09-27 07:30] LABS: INR 1.1 (0.9-1.1); PROTHROMBIN TIME 11.5 SEC (9.30-11.50)
[2016-09-27 07:31] LABS: BASOPHILS % (AUTO) 0.9 % (0.0-2.0); EOSINOPHILS % (AUTO) 0.3 % (0.0-3.0); LYMPHOCYTES % (AUTO) 6.9 % (20.0-45.0); MEAN CORPUSCULAR HEMOGLOBIN 26.2 PG (27.0-31.0); MEAN CORPUSCULAR HGB CONC 31.3 G/DL (32.0-36.0); MEAN CORPUSCULAR VOLUME 84 FL (80-99); MONOCYTES % (AUTO) 7.2 % (1.0-10.0); NEUTROPHILS % (AUTO) 84.7 % (45.0-75.0); PLATELET COUNT 460 K/UL (150-450); RED BLOOD COUNT 3.72 M/UL (4.70-6.10); RED CELL DISTRIBUTION WIDTH 17.4 % (11.6-14.8)
[2016-09-27 07:38] LABS: ALANINE AMINOTRANSFERASE 27 U/L (3-41); ALBUMIN/GLOBULIN RATIO 0.5 (1.0-2.7); ANION GAP 11 (5-15); ASPARTATE AMINO TRANSFERASE 38 U/L (5-40); CARBON DIOXIDE 33 mEQ/L (20-30); CHLORIDE 92 mEQ/L (98-107); CREATININE 0.3 mg/dL (0.7-1.2); GLOMERULAR FILTRATION RATE > 60 mL/min (>60); HEMOLYSIS 0; MAGNESIUM 1.8 mg/dL (1.7-2.5); PHOSPHORUS 2.6 mg/dL (2.5-4.8); POTASSIUM 3.7 mEQ/L (3.4-4.9); SODIUM 136 mEQ/L (135-145)
[2016-09-27 07:39] VITALS: BP 118/70
[2016-09-27] MEDS: Ascorbic Acid 500mg tab GT SCH (08:27)
[2016-09-27] MEDS: Zinc Sulfate 220mg cap GT SCH (08:27)
[2016-09-27] MEDS: Gabapentin 300 MG/6 ML Soln GT SCH ×3 (08:27→17:44)
[2016-09-27] MEDS: Enoxaparin 40mg Inj SUBQ SCH (08:28)
--- NOTE | 2016-09-27 10:14 | Infectious Diseases Prog Note ---
Assessment/Plan Assessment/Plan ASSESSMENT: 50-year-old old male with : leukocytosis SP Fever low grade - recurrent low grade x1 UTI , probable - UCx PSA, ESBL Ecoli SP Rx Multiple lower Ext decubitus ? Pneumonia sputum Cx : MDR- ACB SP Rx Cxray : No acute cardiopulmonary disease identified CONS bacteremia - cleared 09/13, TTE(-) SBE SP Rx History of CVA status post GEAR GRINDER shunt and meningitis. History of DVT DM MRSA, VRE colonized PCN allergy - tolerating meropenem Full Code PLAN: Monitor pt off of ABX ( 09/25 SP Merrem d# , colistin INH d# ) ( 09/22 SP IV Vanco d# ) ( 09/21 SP Diflucan d# ) ( 09/10 Vanco d# ) ( 08/11 SP Levaquin d# 5 ) Monitor CBC, temperatures, re-culture if acute change Monitor BMP Monitor chest x-ray wound care Subjective Allergies: Coded Allergies: PENICILLINS (Unverified Allergy, Unknown, 09/05/16) Subjective low grade fever x1 appears comfortable Objective Vital Signs Last 24 Hour Vital Signs Date Time Temp Pulse Resp B/P Pulse Ox O2 Delivery O2 Flow Rate FiO2 09/27/16 07:39 98.4 130 20 118/70 99 Room Air 09/27/16 04:00 98.1 102 18 116/80 99 Room Air 09/27/16 00:00 97.3 101 22 92/58 99 Venturi Mask 09/26/16 22:46 119 22 93 Venturi Mask 12.0 50 09/26/16 22:43 99.5 120 22 122/67 87 Nasal Cannula 3.0 09/26/16 22:42 99.5 09/26/16 22:36 113 22 Nasal Cannula 3.0 32 09/26/16 22:36 113 22 Nasal Cannula 3.0 32 09/26/16 21:18 Nasal Cannula 3.0 32 09/26/16 21:18 98 Nasal Cannula 3.0 32 09/26/16 19:00 100.2 100 20 122/75 89 Nasal Cannula 3.0 09/26/16 16:00 99.1 100 20 126/78 100 Nasal Cannula 3.0 09/26/16 11:25 99.0 102 20 99/74 100 Nasal Cannula Height (Feet): 5 Height (Inches): 7.70 Weight (Pounds): 99 General Appearance: no acute distress Respiratory/Chest: no respiratory distress Cardiovascular: normal rate, regular rhythm Abdomen: normal bowel sounds, soft, non tender, non distended Laboratory Tests Test 09/27/16 06:05 White Blood Count 7.0 K/UL (4.8-10.8) Red Blood Count 3.72 M/UL (4.70-6.10) L Hemoglobin 9.8 G/DL (14.2-18.0) L Hematocrit 31.1 % (42.0-52.0) L Mean Corpuscular Volume 84 FL (80-99) Mean Corpuscular Hemoglobin 26.2 PG (27.0-31.0) L Mean Corpuscular Hemoglobin Concent 31.3 G/DL (32.0-36.0) L Red Cell Distribution Width 17.4 % (11.6-14.8) H Platelet Count 460 K/UL (150-450) H Mean Platelet Volume 7.0 FL (6.5-10.1) Neutrophils (%) (Auto) 84.7 % (45.0-75.0) H Lymphocytes (%) (Auto) 6.9 % (20.0-45.0) L Monocytes (%) (Auto) 7.2 % (1.0-10.0) Eosinophils (%) (Auto) 0.3 % (0.0-3.0) Basophils (%) (Auto) 0.9 % (0.0-2.0) Prothrombin Time 11.5 SEC (9.30-11.50) Prothromb Time International Ratio 1.1 (0.9-1.1) Activated Partial Thromboplast Time 31 SEC (23-33) Sodium Level 136 mEQ/L (135-145) Potassium Level 3.7 mEQ/L (3.4-4.9) Chloride Level 92 mEQ/L (98-107) L Carbon Dioxide Level 33 mEQ/L (20-30) H Anion Gap 11 (5-15) Blood Urea Nitrogen 8 mg/dL (7-23) Creatinine 0.3 mg/dL (0.7-1.2) L Estimat Glomerular Filtration Rate > 60 mL/min (>60) Glucose Level 103 mg/dL (74-106) Calcium Level 9.0 mg/dL (8.6-10.2) Phosphorus Level 2.6 mg/dL (2.5-4.8) Magnesium Level 1.8 mg/dL (1.7-2.5) Total Bilirubin 0.3 mg/dL (0.0-1.2) Aspartate Amino Transf (AST/SGOT) 38 U/L (5-40) Alanine Aminotransferase (ALT/SGPT) 27 U/L (3-41) Alkaline Phosphatase 122 U/L (40-129) Total Protein 7.0 g/dL (6.6-8.7) Albumin 2.5 g/dL (3.5-5.2) L Globulin 4.5 g/dL Albumin/Globulin Ratio 0.5 (1.0-2.7) L Current Medications Medications (Trade) Dose Ordered Sig/Cristina Route PRN Reason Start Time Stop Time Status Last Admin Dose Admin Acetaminophen (Tylenol) 650 mg Q6H PRN GT Prn Headache/Temp > 101 09/16/16 10:00 10/16/16 09:59 09/26/16 21:40 Al Hydroxide/Mg Hydroxide (Mylanta II) 30 ml Q6H PRN GT dyspepsia 09/16/16 10:00 10/16/16 09:59 Albuterol/ Ipratropium (DuoNeb 0.5-3(2.5)mg/3ml) 3 ml Q4H PRN HHN Shortness of Breath 09/26/16 22:30 10/01/16 22:29 09/26/16 22:54 Ascorbic Acid (Vitamin C) 500 mg DAILY GT 09/16/16 10:00 10/16/16 09:59 09/27/16 08:27 Bisacodyl (Dulcolax) 10 mg DAILYPRN PRN RECTAL Constipation 09/16/16 10:00 10/16/16 09:59 Collagenase (Santyl) 1 applic DAILY@0000 TOPIC 09/22/16 00:00 10/16/16 20:59 09/27/16 01:52 Dextrose (Dextrose 50%) STAT PRN IV Hypoglycemia 09/16/16 10:00 10/16/16 09:59 Enoxaparin Sodium (Lovenox) 40 mg DAILY SUBQ 09/16/16 10:00 10/16/16 09:59 09/27/16 08:28 Gabapentin (Neurontin) 400 mg TID GT 09/16/16 10:00 10/16/16 09:59 09/27/16 08:27 Insulin Aspart (NovoLOG) Q6HR SUBQ 09/16/16 12:00 10/16/16 11:59 09/26/16 19:03 Morphine Sulfate (Morphine 10mg/ 5ml Oral Soln) 20 mg Q2H PRN GT FOR PAIN 4-09/21/16 13:45 09/28/16 13:44 Ondansetron HCl (Zofran) 4 mg Q6H PRN IVP Nausea & Vomiting 09/16/16 10:00 10/16/16 09:59 Polyethylene Glycol (Miralax) 17 gm DAILYPRN PRN GT Constipation 09/16/16 10:00 10/16/16 09:59 Sodium Hypochlorite (Dakin's Half Strength) 1 applic DAILY@0000 TOPIC 09/22/16 00:00 10/16/16 20:59 09/27/16 01:52 Sodium Chloride (Sodium Chloride 1000ml bag) 1,000 ml @ 125 mls/hr Q8H IV 09/16/16 09:45 10/16/16 09:44 09/27/16 01:53 Temazepam (Restoril) 15 mg HSPRN PRN GT Insomnia 09/21/16 13:45 09/28/16 13:44 Zinc Sulfate (Zinc Sulfate) 220 mg DAILY GT 09/16/16 10:00 10/16/16 09:59 09/27/16 08:27 LULU HARRIS 24, 2017 10:14
[2016-09-27 11:39] VITALS: BP 117/66
[2016-09-27 16:00] VITALS: BP 110/65
[2016-09-27 20:00] VITALS: BP 126/80
--- NOTE | 2016-09-27 22:49 | Pulmonology Progress Note ---
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 Assessment/Plan repeat cultures, sputum has MDR GNR tolerating feeding abx by ID, on meropenem Iv fluids pts sister apparently agreed to hospice dc planning in process check labs in am Subjective Allergies: Coded Allergies: PENICILLINS (Unverified Allergy, Unknown, 09/05/16) Objective Last 24 Hour Vital Signs Date Time Temp Pulse Resp B/P Pulse Ox O2 Delivery O2 Flow Rate FiO2 09/27/16 20:50 100 Non-Rebreather 15.0 09/27/16 20:50 Non-Rebreather 15.0 100 09/27/16 20:48 118 20 Non-Rebreather 15.0 100 09/27/16 20:00 98.2 121 14 126/80 99 Room Air 09/27/16 16:00 98.8 117 14 110/65 100 Room Air 09/27/16 11:39 97.7 120 20 117/66 97 Nasal Cannula 09/27/16 07:39 98.4 130 20 118/70 99 Room Air 09/27/16 06:35 Nasal Cannula 3.0 09/27/16 06:35 97 Nasal Cannula 3.0 09/27/16 06:34 116 20 Nasal Cannula 3.0 09/27/16 04:00 98.1 102 18 116/80 99 Room Air 09/27/16 00:00 97.3 101 22 92/58 99 Venturi Mask Intake and Output 09/26/16 09/27/16 19:00 07:00 Intake Total 2110 ml 1572.5 ml Output Total 1000 ml 2600 ml Balance 1110 ml -1027.5 ml Free Water 200 ml 100 ml IV Total 1250 ml 812.5 ml Tube Feeding 660 ml 660 ml Output Urine Total 1000 ml 2600 ml Objective Respiratory/Chest: chest wall non-tender, lungs clear Cardiovascular: normal peripheral pulses Abdomen: normal bowel sounds, soft, non tender Extremities: no cyanosis, no clubbing Skin: no rash, no ulcers Lymphatic: no neck adenopathy Laboratory Tests 09/27/16 06:05: White Blood Count 7.0, Red Blood Count 3.72L, Hemoglobin 9.8L, Hematocrit 31.1L , Mean Corpuscular Volume 84, Mean Corpuscular Hemoglobin 26.2L, Mean Corpuscular Hemoglobin Concent 31.3L, Red Cell Distribution Width 17.4H, Platelet Count 460H, Mean Platelet Volume 7.0, Neutrophils (%) (Auto) 84.7H, Lymphocytes (%) (Auto) 6.9L, Monocytes (%) (Auto) 7.2, Eosinophils (%) (Auto) 0.3, Basophils (%) (Auto) 0.9, Prothrombin Time 11.5, Prothromb Time International Ratio 1.1, Activated Partial Thromboplast Time 31, Sodium Level 136, Potassium Level 3.7, Chloride Level 92L, Carbon Dioxide Level 33H, Anion Gap 11, Blood Urea Nitrogen 8, Creatinine 0.3L, Estimat Glomerular Filtration Rate > 60, Glucose Level 103, Calcium Level 9.0, Phosphorus Level 2.6, Magnesium Level 1.8, Total Bilirubin 0.3, Aspartate Amino Transf (AST/SGOT) 38, Alanine Aminotransferase (ALT/SGPT) 27, Alkaline Phosphatase 122, Total Protein 7.0, Albumin 2.5L, Globulin 4.5, Albumin/Globulin Ratio 0.5L Current Medications Medications (Trade) Dose Ordered Sig/Cristina Route PRN Reason Start Time Stop Time Status Last Admin Dose Admin Acetaminophen (Tylenol) 650 mg Q6H PRN GT Prn Headache/Temp > 101 09/16/16 10:00 10/16/16 09:59 09/26/16 21:40 Al Hydroxide/Mg Hydroxide (Mylanta II) 30 ml Q6H PRN GT dyspepsia 09/16/16 10:00 10/16/16 09:59 Albuterol/ Ipratropium (DuoNeb 0.5-3(2.5)mg/3ml) 3 ml Q4H PRN HHN Shortness of Breath 09/26/16 22:30 10/01/16 22:29 09/26/16 22:54 Ascorbic Acid (Vitamin C) 500 mg DAILY GT 09/16/16 10:00 10/16/16 09:59 09/27/16 08:27 Bisacodyl (Dulcolax) 10 mg DAILYPRN PRN RECTAL Constipation 09/16/16 10:00 10/16/16 09:59 Collagenase (Santyl) 1 applic DAILY@0000 TOPIC 09/22/16 00:00 10/16/16 20:59 09/27/16 01:52 Dextrose (Dextrose 50%) STAT PRN IV Hypoglycemia 09/16/16 10:00 10/16/16 09:59 Enoxaparin Sodium (Lovenox) 40 mg DAILY SUBQ 09/16/16 10:00 10/16/16 09:59 09/27/16 08:28 Gabapentin (Neurontin) 400 mg TID GT 09/16/16 10:00 10/16/16 09:59 09/27/16 17:44 Insulin Aspart (NovoLOG) Q6HR SUBQ 09/16/16 12:00 10/16/16 11:59 09/27/16 12:19 Morphine Sulfate (Morphine 10mg/ 5ml Oral Soln) 20 mg Q2H PRN GT FOR PAIN 4-10 09/21/16 13:45 09/28/16 13:44 Ondansetron HCl (Zofran) 4 mg Q6H PRN IVP Nausea & Vomiting 09/16/16 10:00 10/16/16 09:59 Polyethylene Glycol (Miralax) 17 gm DAILYPRN PRN GT Constipation 09/16/16 10:00 10/16/16 09:59 Sodium Hypochlorite (Dakin's Half Strength) 1 applic DAILY@0000 TOPIC 09/22/16 00:00 10/16/16 20:59 09/27/16 01:52 Sodium Chloride (Sodium Chloride 1000ml bag) 1,000 ml @ 125 mls/hr Q8H IV 09/16/16 09:45 10/16/16 09:44 09/27/16 18:57 Temazepam (Restoril) 15 mg HSPRN PRN GT Insomnia 09/21/16 13:45 09/28/16 13:44 Zinc Sulfate (Zinc Sulfate) 220 mg DAILY GT 09/16/16 10:00 10/16/16 09:59 09/27/16 08:27 ROLY PERRIN Sep 27, 2016 22:49
[2016-09-28] MEDS: NovoLOG Insulin Flexpen SUBQ SCH ×4 (00:03→18:00)
[2016-09-28] MEDS: Dakin's 0.25% (Half Strength) 16oz TOPIC SCH (00:04)
[2016-09-28 00:43] VITALS: BP 117/75
[2016-09-28] MEDS: Morphine Sulfate 10mg/5ml Oral Soln ud GT PRN ×2 (02:21→08:34)
[2016-09-28 04:00] VITALS: BP 105/50
[2016-09-28 07:41] VITALS: BP 108/58
[2016-09-28] MEDS: Ascorbic Acid 500mg tab GT SCH (08:32)
[2016-09-28] MEDS: Zinc Sulfate 220mg cap GT SCH (08:32)
[2016-09-28] MEDS: Enoxaparin 40mg Inj SUBQ SCH (08:35)
--- NOTE | 2016-09-28 09:31 | Infectious Diseases Prog Note ---
Assessment/Plan Assessment/Plan ASSESSMENT: 50-year-old old male with : leukocytosis SP Fever low grade - recurrent low grade x1 resolved UTI , probable - UCx PSA, ESBL Ecoli SP Rx Multiple lower Ext decubitus ? 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 History of DVT DM MRSA, VRE colonized PCN allergy - tolerating meropenem DNR, hospice PLAN: Monitor pt off of ABX ( 09/25 SP Merrem d# , colistin INH d# ) ( 09/22 SP IV Vanco d# ) ( 09/21 SP Diflucan d# ) ( 09/10 Vanco d# ) ( 08/11 SP Levaquin d# 5 ) Monitor CBC, temperatures, re-culture if acute change Monitor BMP Monitor chest x-ray wound care DC planning hospice Subjective Allergies: Coded Allergies: PENICILLINS (Unverified Allergy, Unknown, 09/05/16) Subjective low grade fever x1 resolved appears comfortable plan possible hospice Objective Vital Signs Last 24 Hour Vital Signs Date Time Temp Pulse Resp B/P Pulse Ox O2 Delivery O2 Flow Rate FiO2 09/28/16 07:41 98.1 112 20 108/58 95 Nasal Cannula 09/28/16 07:25 156 25 Non-Rebreather 15.0 100 09/28/16 07:25 Non-Rebreather 15.0 100 09/28/16 07:25 93 Non-Rebreather 15.0 100 09/28/16 04:00 98.1 85 20 105/50 98 Simple Mask 09/28/16 00:43 97.2 161 18 117/75 99 Simple Mask 09/27/16 20:50 100 Non-Rebreather 15.0 09/27/16 20:50 Non-Rebreather 15.0 100 09/27/16 20:48 118 20 Non-Rebreather 15.0 100 09/27/16 20:00 98.2 121 14 126/80 99 Room Air 09/27/16 16:00 98.8 117 14 110/65 100 Room Air 09/27/16 11:39 97.7 120 20 117/66 97 Nasal Cannula Height (Feet): 5 Height (Inches): 7.70 Weight (Pounds): 99 General Appearance: no acute distress Respiratory/Chest: no respiratory distress Cardiovascular: normal rate, regular rhythm Abdomen: normal bowel sounds, soft, non tender, non distended Current Medications Medications (Trade) Dose Ordered Sig/Cristina Route PRN Reason Start Time Stop Time Status Last Admin Dose Admin Acetaminophen (Tylenol) 650 mg Q6H PRN GT Prn Headache/Temp > 101 09/16/16 10:00 10/16/16 09:59 09/26/16 21:40 Al Hydroxide/Mg Hydroxide (Mylanta II) 30 ml Q6H PRN GT dyspepsia 09/16/16 10:00 10/16/16 09:59 Albuterol/ Ipratropium (DuoNeb 0.5-3(2.5)mg/3ml) 3 ml Q4H PRN HHN Shortness of Breath 09/26/16 22:30 10/01/16 22:29 09/26/16 22:54 Ascorbic Acid (Vitamin C) 500 mg DAILY GT 09/16/16 10:00 10/16/16 09:59 09/28/16 08:32 Bisacodyl (Dulcolax) 10 mg DAILYPRN PRN RECTAL Constipation 09/16/16 10:00 10/16/16 09:59 Collagenase (Santyl) 1 applic DAILY@0000 TOPIC 09/22/16 00:00 10/16/16 20:59 09/28/16 00:04 Dextrose (Dextrose 50%) STAT PRN IV Hypoglycemia 09/16/16 10:00 10/16/16 09:59 Enoxaparin Sodium (Lovenox) 40 mg DAILY SUBQ 09/16/16 10:00 10/16/16 09:59 09/28/16 08:35 Gabapentin (Neurontin) 400 mg TID GT 09/16/16 10:00 10/16/16 09:59 09/27/16 17:44 Insulin Aspart (NovoLOG) Q6HR SUBQ 09/16/16 12:00 10/16/16 11:59 09/28/16 06:32 Morphine Sulfate (Morphine 10mg/ 5ml Oral Soln) 20 mg Q2H PRN GT FOR PAIN 4-10 09/21/16 13:45 09/28/16 13:44 09/28/16 08:34 Ondansetron HCl (Zofran) 4 mg Q6H PRN IVP Nausea & Vomiting 09/16/16 10:00 10/16/16 09:59 Polyethylene Glycol (Miralax) 17 gm DAILYPRN PRN GT Constipation 09/16/16 10:00 10/16/16 09:59 Sodium Hypochlorite (Dakin's Half Strength) 1 applic DAILY@0000 TOPIC 09/22/16 00:00 10/16/16 20:59 09/28/16 00:04 Sodium Chloride (Sodium Chloride 1000ml bag) 1,000 ml @ 125 mls/hr Q8H IV 09/16/16 09:45 10/16/16 09:44 09/28/16 08:36 Temazepam (Restoril) 15 mg HSPRN PRN GT Insomnia 09/21/16 13:45 09/28/16 13:44 Zinc Sulfate (Zinc Sulfate) 220 mg DAILY GT 09/16/16 10:00 10/16/16 09:59 09/28/16 08:32 LULU HARRIS 25, 2017 09:30
[2016-09-28 11:13] VITALS: BP 93/54
[2016-09-28] MEDS: Acetaminophen 650mg/20.3ml GT PRN (11:50)
[2016-09-28] MEDS: Gabapentin 300 MG/6 ML Soln GT SCH ×3 (11:51→18:20)
[2016-09-28 15:29] VITALS: BP 138/68
[2016-09-28 20:00] VITALS: BP 91/48
--- NOTE | 2016-09-28 21:31 | Pulmonology Progress Note ---
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 Assessment/Plan repeat cultures, sputum has MDR GNR tolerating feeding abx by ID, on meropenem Iv fluids pts sister apparently agreed to hospice dc planning in process check labs in am Subjective Allergies: Coded Allergies: PENICILLINS (Unverified Allergy, Unknown, 09/05/16) Objective Last 24 Hour Vital Signs Date Time Temp Pulse Resp B/P Pulse Ox O2 Delivery O2 Flow Rate FiO2 09/28/16 20:00 96.8 117 14 91/48 98 Room Air 09/28/16 19:17 Non-Rebreather 15.0 100 09/28/16 18:22 114 16 Non-Rebreather 15.0 100 09/28/16 18:22 100 Non-Rebreather 15.0 100 09/28/16 15:29 97.5 44 15 138/68 93 Room Air 09/28/16 12:26 101.3 09/28/16 11:51 102.0 09/28/16 11:51 102.0 09/28/16 11:13 102.7 146 22 93/54 99 Simple Mask 09/28/16 07:41 98.1 112 20 108/58 95 Nasal Cannula 09/28/16 07:25 156 25 Non-Rebreather 15.0 100 09/28/16 07:25 Non-Rebreather 15.0 100 09/28/16 07:25 93 Non-Rebreather 15.0 100 09/28/16 04:00 98.1 85 20 105/50 98 Simple Mask 09/28/16 00:43 97.2 161 18 117/75 99 Simple Mask Intake and Output 09/27/16 09/28/16 19:00 07:00 Intake Total 2190 ml 985 ml Output Total 800 ml 2500 ml Balance 1390 ml -1515 ml Free Water 100 ml 200 ml IV Total 1375 ml 125 ml Tube Feeding 715 ml 660 ml Output Urine Total 800 ml 2500 ml Objective Respiratory/Chest: chest wall non-tender, lungs clear Cardiovascular: normal peripheral pulses Abdomen: normal bowel sounds, soft, non tender Extremities: no cyanosis, no clubbing Skin: no rash, no ulcers Lymphatic: no neck adenopathy Current Medications Medications (Trade) Dose Ordered Sig/Cristina Route PRN Reason Start Time Stop Time Status Last Admin Dose Admin Acetaminophen (Tylenol) 650 mg Q6H PRN GT Prn Headache/Temp > 101 09/16/16 10:00 10/16/16 09:59 09/28/16 11:50 Al Hydroxide/Mg Hydroxide (Mylanta II) 30 ml Q6H PRN GT dyspepsia 09/16/16 10:00 10/16/16 09:59 Albuterol/ Ipratropium (DuoNeb 0.5-3(2.5)mg/3ml) 3 ml Q4H PRN HHN Shortness of Breath 09/26/16 22:30 10/01/16 22:29 09/26/16 22:54 Ascorbic Acid (Vitamin C) 500 mg DAILY GT 09/16/16 10:00 10/16/16 09:59 09/28/16 08:32 Bisacodyl (Dulcolax) 10 mg DAILYPRN PRN RECTAL Constipation 09/16/16 10:00 10/16/16 09:59 Collagenase (Santyl) 1 applic DAILY@0000 TOPIC 09/22/16 00:00 10/16/16 20:59 09/28/16 00:04 Dextrose (Dextrose 50%) STAT PRN IV Hypoglycemia 09/16/16 10:00 10/16/16 09:59 Enoxaparin Sodium (Lovenox) 40 mg DAILY SUBQ 09/16/16 10:00 10/16/16 09:59 09/28/16 08:35 Gabapentin (Neurontin) 400 mg TID GT 09/16/16 10:00 10/16/16 09:59 09/28/16 18:20 Insulin Aspart (NovoLOG) Q6HR SUBQ 09/16/16 12:00 10/16/16 11:59 09/28/16 11:58 Ondansetron HCl (Zofran) 4 mg Q6H PRN IVP Nausea & Vomiting 09/16/16 10:00 10/16/16 09:59 Polyethylene Glycol (Miralax) 17 gm DAILYPRN PRN GT Constipation 09/16/16 10:00 10/16/16 09:59 Sodium Hypochlorite (Dakin's Half Strength) 1 applic DAILY@0000 TOPIC 09/22/16 00:00 10/16/16 20:59 09/28/16 00:04 Sodium Chloride (Sodium Chloride 1000ml bag) 1,000 ml @ 125 mls/hr Q8H IV 09/16/16 09:45 10/16/16 09:44 09/28/16 18:20 Zinc Sulfate (Zinc Sulfate) 220 mg DAILY GT 09/16/16 10:00 10/16/16 09:59 09/28/16 08:32 ROLY PERRIN Sep 28, 2016 21:31
[2016-09-29] VITALS: BP 97/56
[2016-09-29] MEDS: Dakin's 0.25% (Half Strength) 16oz TOPIC SCH (00:31)
[2016-09-29 04:00] VITALS: BP 90/49
[2016-09-29] MEDS: NovoLOG Insulin Flexpen SUBQ SCH ×5 (05:58→23:58)
[2016-09-29 08:00] VITALS: BP 92/56
[2016-09-29] MEDS: Ascorbic Acid 500mg tab GT SCH (09:33)
[2016-09-29] MEDS: Gabapentin 300 MG/6 ML Soln GT SCH ×3 (09:33→17:49)
[2016-09-29] MEDS: Zinc Sulfate 220mg cap GT SCH (09:34)
[2016-09-29] MEDS: Enoxaparin 40mg Inj SUBQ SCH (09:39)
--- NOTE | 2016-09-29 09:52 | Infectious Diseases Prog Note ---
Assessment/Plan Assessment/Plan ASSESSMENT: 50-year-old old male with : leukocytosis SP Fever low grade - recurrent UTI , probable - UCx PSA, ESBL Ecoli SP Rx Multiple decubiti POA ? Pneumonia sputum Cx : MDR- ACB SP Rx Cxray : No acute cardiopulmonary disease identified CONS bacteremia - cleared 09/13, TTE(-) SBE SP Rx History of CVA status post CHEMIST BIOLOGICAL shunt and meningitis. History of DVT DM Functional quadriplegia / bedbound Dysphagia SP PEG MRSA, VRE colonized PCN allergy - tolerating meropenem DNR, hospice PLAN: plan hospice. Will not w/u fever unless plans change ( 09/25 SP Merrem d# , colistin INH d# ) ( 09/22 SP IV Vanco d# ) ( 09/21 SP Diflucan d# ) ( 09/10 Vanco d# / ) ( 08/11 SP Levaquin d# 5 ) Monitor CBC, temperatures Monitor BMP Monitor chest x-ray wound care DC planning hospice d/w RN Subjective Allergies: Coded Allergies: PENICILLINS (Unverified Allergy, Unknown, 09/05/16) Subjective recurrent fever appears comfortable plan possible hospice Objective Vital Signs Last 24 Hour Vital Signs Date Time Temp Pulse Resp B/P Pulse Ox O2 Delivery O2 Flow Rate FiO2 09/29/16 07:55 92 16 Non-Rebreather 15.0 100 09/29/16 07:55 Non-Rebreather 15.0 100 09/29/16 07:55 98 Non-Rebreather 15.0 100 09/29/16 04:00 96.6 129 14 90/49 97 Room Air 09/29/16 00:00 96.9 129 14 97/56 100 Room Air 09/28/16 20:00 96.8 117 14 91/48 98 Room Air 09/28/16 19:17 Non-Rebreather 15.0 100 09/28/16 18:22 114 16 Non-Rebreather 15.0 100 09/28/16 18:22 100 Non-Rebreather 15.0 100 09/28/16 15:29 97.5 44 15 138/68 93 Room Air 09/28/16 12:26 101.3 09/28/16 11:51 102.0 09/28/16 11:51 102.0 09/28/16 11:13 102.7 146 22 93/54 99 Simple Mask Height (Feet): 5 Height (Inches): 7.70 Weight (Pounds): 99 General Appearance: no acute distress Respiratory/Chest: no respiratory distress Cardiovascular: normal rate, regular rhythm Abdomen: normal bowel sounds, soft, non tender, non distended Current Medications Medications (Trade) Dose Ordered Sig/Cristina Route PRN Reason Start Time Stop Time Status Last Admin Dose Admin Acetaminophen (Tylenol) 650 mg Q6H PRN GT Prn Headache/Temp > 101 09/16/16 10:00 10/16/16 09:59 09/28/16 11:50 Al Hydroxide/Mg Hydroxide (Mylanta II) 30 ml Q6H PRN GT dyspepsia 09/16/16 10:00 10/16/16 09:59 Albuterol/ Ipratropium (DuoNeb 0.5-3(2.5)mg/3ml) 3 ml Q4H PRN HHN Shortness of Breath 09/26/16 22:30 10/01/16 22:29 09/26/16 22:54 Ascorbic Acid (Vitamin C) 500 mg DAILY GT 09/16/16 10:00 10/16/16 09:59 09/28/16 08:32 Bisacodyl (Dulcolax) 10 mg DAILYPRN PRN RECTAL Constipation 09/16/16 10:00 10/16/16 09:59 Collagenase (Santyl) 1 applic DAILY@0000 TOPIC 09/22/16 00:00 10/16/16 20:59 09/29/16 00:31 Dextrose (Dextrose 50%) STAT PRN IV Hypoglycemia 09/16/16 10:00 10/16/16 09:59 Enoxaparin Sodium (Lovenox) 40 mg DAILY SUBQ 09/16/16 10:00 10/16/16 09:59 09/28/16 08:35 Gabapentin (Neurontin) 400 mg TID GT 09/16/16 10:00 10/16/16 09:59 09/28/16 18:20 Insulin Aspart (NovoLOG) Q6HR SUBQ 09/16/16 12:00 10/16/16 11:59 09/29/16 05:58 Ondansetron HCl (Zofran) 4 mg Q6H PRN IVP Nausea & Vomiting 09/16/16 10:00 10/16/16 09:59 Polyethylene Glycol (Miralax) 17 gm DAILYPRN PRN GT Constipation 09/16/16 10:00 10/16/16 09:59 Sodium Hypochlorite (Dakin's Half Strength) 1 applic DAILY@0000 TOPIC 09/22/16 00:00 10/16/16 20:59 09/29/16 00:31 Sodium Chloride (Sodium Chloride 1000ml bag) 1,000 ml @ 125 mls/hr Q8H IV 09/16/16 09:45 10/16/16 09:44 09/29/16 02:02 Zinc Sulfate (Zinc Sulfate) 220 mg DAILY GT 09/16/16 10:00 10/16/16 09:59 09/28/16 08:32 LULU HARRIS 26, 2017 09:52
[2016-09-29 12:00] VITALS: BP 100/57
[2016-09-29 16:00] VITALS: BP 107/60
[2016-09-29 20:00] VITALS: BP 106/60
--- NOTE | 2016-09-29 22:37 | Pulmonology Progress Note ---
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 Assessment/Plan repeat cultures, sputum has MDR GNR tolerating feeding abx by ID, on meropenem Iv fluids pts sister apparently agreed to hospice dc planning in process check labs in am Subjective Allergies: Coded Allergies: PENICILLINS (Unverified Allergy, Unknown, 09/05/16) Objective Last 24 Hour Vital Signs Date Time Temp Pulse Resp B/P Pulse Ox O2 Delivery O2 Flow Rate FiO2 09/29/16 20:00 97.9 146 14 106/60 97 Nasal Cannula 09/29/16 19:30 95 Non-Rebreather 15.0 100 09/29/16 19:30 100 16 Non-Rebreather 15.0 100 09/29/16 19:30 Non-Rebreather 15.0 100 09/29/16 16:00 97.1 68 20 107/60 92 Room Air 09/29/16 14:19 98.1 09/29/16 12:00 98.1 100 19 100/57 95 Simple Mask 15.0 09/29/16 08:00 97.8 98 19 92/56 95 Simple Mask 15.0 95 09/29/16 07:55 92 16 Non-Rebreather 15.0 100 09/29/16 07:55 Non-Rebreather 15.0 100 09/29/16 07:55 98 Non-Rebreather 15.0 100 09/29/16 04:00 96.6 129 14 90/49 97 Room Air 09/29/16 00:00 96.9 129 14 97/56 100 Room Air Intake and Output 09/28/16 09/29/16 19:00 07:00 Intake Total 255 ml 1830 ml Output Total 600 ml 500 ml Balance -345 ml 1330 ml Free Water 90 ml 100 ml IV Total 1125 ml Tube Feeding 165 ml 605 ml Output Urine Total 600 ml 500 ml Objective Respiratory/Chest: chest wall non-tender, lungs clear Cardiovascular: normal peripheral pulses Abdomen: normal bowel sounds, soft, non tender Extremities: no cyanosis, no clubbing Skin: no rash, no ulcers Lymphatic: no neck adenopathy Current Medications Medications (Trade) Dose Ordered Sig/Cristina Route PRN Reason Start Time Stop Time Status Last Admin Dose Admin Acetaminophen (Tylenol) 650 mg Q6H PRN GT Prn Headache/Temp > 101 09/16/16 10:00 10/16/16 09:59 09/28/16 11:50 Al Hydroxide/Mg Hydroxide (Mylanta II) 30 ml Q6H PRN GT dyspepsia 09/16/16 10:00 10/16/16 09:59 Albuterol/ Ipratropium (DuoNeb 0.5-3(2.5)mg/3ml) 3 ml Q4H PRN HHN Shortness of Breath 09/26/16 22:30 10/01/16 22:29 09/26/16 22:54 Ascorbic Acid (Vitamin C) 500 mg DAILY GT 09/16/16 10:00 10/16/16 09:59 09/29/16 09:33 Bisacodyl (Dulcolax) 10 mg DAILYPRN PRN RECTAL Constipation 09/16/16 10:00 10/16/16 09:59 Collagenase (Santyl) 1 applic DAILY@0000 TOPIC 09/22/16 00:00 10/16/16 20:59 09/29/16 00:31 Dextrose (Dextrose 50%) STAT PRN IV Hypoglycemia 09/16/16 10:00 10/16/16 09:59 Enoxaparin Sodium (Lovenox) 40 mg DAILY SUBQ 09/16/16 10:00 10/16/16 09:59 09/29/16 09:39 Gabapentin (Neurontin) 400 mg TID GT 09/16/16 10:00 10/16/16 09:59 09/29/16 17:49 Insulin Aspart (NovoLOG) Q6HR SUBQ 09/16/16 12:00 10/16/16 11:59 09/29/16 17:50 Ondansetron HCl (Zofran) 4 mg Q6H PRN IVP Nausea & Vomiting 09/16/16 10:00 10/16/16 09:59 Polyethylene Glycol (Miralax) 17 gm DAILYPRN PRN GT Constipation 09/16/16 10:00 10/16/16 09:59 Sodium Hypochlorite (Dakin's Half Strength) 1 applic DAILY@0000 TOPIC 09/22/16 00:00 10/16/16 20:59 09/29/16 00:31 Sodium Chloride (Sodium Chloride 1000ml bag) 1,000 ml @ 125 mls/hr Q8H IV 09/16/16 09:45 10/16/16 09:44 09/29/16 17:48 Zinc Sulfate (Zinc Sulfate) 220 mg DAILY GT 09/16/16 10:00 10/16/16 09:59 09/29/16 09:34 ROLY PERRIN Sep 29, 2016 22:37
[2016-09-30] VITALS: BP 97/54
[2016-09-30] MEDS: Dakin's 0.25% (Half Strength) 16oz TOPIC SCH (00:01)
[2016-09-30 04:00] VITALS: BP 92/53
[2016-09-30] MEDS: NovoLOG Insulin Flexpen SUBQ SCH ×2 (06:00→11:48)
[2016-09-30 08:09] VITALS: BP 112/56
--- NOTE | 2016-09-30 08:52 | Infectious Diseases Prog Note ---
Assessment/Plan Assessment/Plan ASSESSMENT: 50-year-old old male with : leukocytosis SP Fever low grade - recurrent, afebrile overnight UTI , probable - UCx PSA, ESBL Ecoli SP Rx Multiple decubiti POA ? 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 History of DVT DM Functional quadriplegia / bedbound Dysphagia SP PEG MRSA, VRE colonized PCN allergy - tolerating meropenem DNR, hospice PLAN: off ABX, plan hospice. Will not w/u fever unless plans change ( 09/25 SP Merrem d# / , colistin INH d# ) ( 09/22 SP IV Vanco d# ) ( 09/21 SP Diflucan d# ) ( 09/10 Vanco d# ) ( 08/11 SP Levaquin d# 5 ) Monitor CBC, temperatures Monitor BMP Monitor chest x-ray wound care DC planning hospice Subjective Allergies: Coded Allergies: PENICILLINS (Unverified Allergy, Unknown, 09/05/16) Subjective afebrile overnight appears comfortable plan possible hospice Objective Vital Signs Last 24 Hour Vital Signs Date Time Temp Pulse Resp B/P Pulse Ox O2 Delivery O2 Flow Rate FiO2 09/30/16 08:09 98.3 121 22 112/56 93 09/30/16 06:30 94 Non-Rebreather 15.0 100 09/30/16 06:30 63 16 Non-Rebreather 15.0 100 09/30/16 06:30 Non-Rebreather 15.0 100 09/30/16 04:00 98.1 114 14 92/53 96 Nasal Cannula 09/30/16 00:00 97.7 139 14 97/54 97 Nasal Cannula 09/29/16 20:00 97.9 146 14 106/60 97 Nasal Cannula 09/29/16 19:30 95 Non-Rebreather 15.0 100 09/29/16 19:30 100 16 Non-Rebreather 15.0 100 09/29/16 19:30 Non-Rebreather 15.0 100 09/29/16 16:00 97.1 68 20 107/60 92 Room Air 09/29/16 14:19 98.1 09/29/16 12:00 98.1 100 19 100/57 95 Simple Mask 15.0 Height (Feet): 5 Height (Inches): 7.70 Weight (Pounds): 99 General Appearance: no acute distress Respiratory/Chest: no respiratory distress Cardiovascular: normal rate, regular rhythm Abdomen: normal bowel sounds, soft, non tender, non distended Current Medications Medications (Trade) Dose Ordered Sig/Cristina Route PRN Reason Start Time Stop Time Status Last Admin Dose Admin Acetaminophen (Tylenol) 650 mg Q6H PRN GT Prn Headache/Temp > 101 09/16/16 10:00 10/16/16 09:59 09/28/16 11:50 Al Hydroxide/Mg Hydroxide (Mylanta II) 30 ml Q6H PRN GT dyspepsia 09/16/16 10:00 10/16/16 09:59 Albuterol/ Ipratropium (DuoNeb 0.5-3(2.5)mg/3ml) 3 ml Q4H PRN HHN Shortness of Breath 09/26/16 22:30 10/01/16 22:29 09/26/16 22:54 Ascorbic Acid (Vitamin C) 500 mg DAILY GT 09/16/16 10:00 10/16/16 09:59 09/29/16 09:33 Bisacodyl (Dulcolax) 10 mg DAILYPRN PRN RECTAL Constipation 09/16/16 10:00 10/16/16 09:59 Collagenase (Santyl) 1 applic DAILY@0000 TOPIC 09/22/16 00:00 10/16/16 20:59 09/30/16 00:01 Dextrose (Dextrose 50%) STAT PRN IV Hypoglycemia 09/16/16 10:00 10/16/16 09:59 Enoxaparin Sodium (Lovenox) 40 mg DAILY SUBQ 09/16/16 10:00 10/16/16 09:59 09/29/16 09:39 Gabapentin (Neurontin) 400 mg TID GT 09/16/16 10:00 10/16/16 09:59 09/29/16 17:49 Insulin Aspart (NovoLOG) Q6HR SUBQ 09/16/16 12:00 10/16/16 11:59 09/30/16 06:00 Ondansetron HCl (Zofran) 4 mg Q6H PRN IVP Nausea & Vomiting 09/16/16 10:00 10/16/16 09:59 Polyethylene Glycol (Miralax) 17 gm DAILYPRN PRN GT Constipation 09/16/16 10:00 10/16/16 09:59 Sodium Hypochlorite (Dakin's Half Strength) 1 applic DAILY@0000 TOPIC 09/22/16 00:00 10/16/16 20:59 09/30/16 00:01 Sodium Chloride (Sodium Chloride 1000ml bag) 1,000 ml @ 125 mls/hr Q8H IV 09/16/16 09:45 10/16/16 09:44 09/30/16 01:38 Zinc Sulfate (Zinc Sulfate) 220 mg DAILY GT 09/16/16 10:00 10/16/16 09:59 09/29/16 09:34 LULU HARRIS 27, 2017 08:52
[2016-09-30] MEDS: Ascorbic Acid 500mg tab GT SCH (09:19)
[2016-09-30] MEDS: Zinc Sulfate 220mg cap GT SCH (09:19)
[2016-09-30] MEDS: Enoxaparin 40mg Inj SUBQ SCH (09:19)
[2016-09-30] MEDS: Gabapentin 300 MG/6 ML Soln GT SCH ×2 (09:28→11:48)
[2016-09-30 11:44] VITALS: BP 89/77
[2016-09-30] MEDS ORDERED: Tubing IV Secondary IV ONE (14:59)
--- NOTE | 2016-10-01 13:04 | Discharge Summary ---
Discharge Summary Hospital Course Date of Admission Sep 05, 2016 at 07:00 Date of Discharge Sep 30, 2016 at 15:00 Admitting Diagnosis RESPIRATORY DISTRESS HPI Harsha Cha is a 50 year old male who was admitted on Sep 05, 2016 at 07:00 for Respiratory Distress Hospital Course dc summary #[id number] Discharge Condition Upon Discharge: critical, grave Discharge Disposition Patient on 09/30 at 1309 Discharge Diagnoses: Suman (Asyajose juan)Juana NP Oct 01, 2016 13:04
--- NOTE | 2016-10-02 07:49 | Discharge Summary 2 SIG ---
DATE OF ADMISSION: 09/05/2016 DATE OF EXPIRATION: 09/30/2016 REASON FOR ADMISSION: 50-year-old male, resident of a correction facility, was brought to the emergency room for evaluation of shortness of breath. The patient was nonverbal at baseline and had a history of OIL LEASE BROKER shunt placement after cerebrovascular accident. The patient was placed on nonrebreathing mask by paramedics since oxygen saturation was in the 80s. The patient was unable to provide any information due to the existed medical status, but there was no reported fevers or chills from the custodial. No reported chest pain. The patient was found to have respiratory distress. Chest x-ray revealed hyperinflated lungs and atelectasis. EKG revealed sinus tachycardia. No acute ischemic changes. White blood count was 13.4, anemic with hemoglobin of 9.6 and hematocrit of 30.6. Troponin was negative. Urinalysis with 3+ leukocyte esterase and few bacteria. ABG was stable on 100% nonrebreathing mask. The patient was started on volume resuscitation. The patient was pancultured and started on empiric antibiotics. The patient was initially placed on nonrebreathing mask and then switched to the BiPAP. Patient was admitted for further management. ADMITTING DIAGNOSES: 1. Acute respiratory failure, requiring BiPAP. 2. Possible sepsis. 3. Possible urinary tract infection. 4. Anemia. 5. Dysphagia, G-tube. 6. Diabetes mellitus. HOSPITAL STAY: The patient was admitted initially to the [facility]. The patient initially was full code. The patient was on the BiPAP. Supplemental oxygen via mask as well as the pulmonary toilet provided. ID doctor closely followed. The patient was on intravenous antibiotics. Urine culture revealed E. coli ESBL and Pseudomonas, the last repeated urine culture was negative. Blood culture initially revealed Staph coag-negative. Repeated blood cultures were negative. ECHO was negative for evidence of vegetation, Patient status post treatment for bacteremia. Sputum culture was positive for multidrug resistant Acinetobacter. Chest x-ray revealed no acute cardiopulmonary disease. The patient subsequently was able to be weaned from the BiPAP and was on supplemental oxygen and pulmonary toilet was provided as needed. The patient had evidence of anemia , status post blood transfusion. Hemoglobin and hematocrit remained on the baseline. Anemia workup revealed low iron and high ferritin , normal B12 and folate level. CEA was within normal limits. Strict aspiration precautions were maintained. G-tube feeding was started. The patient was able to tolerate G-tube feeding. DVT prophylaxis was provided. The patient also had an IVC filter previously inserted. Blood sugar was managed with sliding scale of insulin. The patient was hypotensive, and subsequently off any antihypertensive medication. The patient initially was on aggressive fluid resuscitation and later on gentle IV fluids. Renal parameters and electrolytes were closely monitored. Electrolytes were replaced as needed. Nutritional supplements were provided via gastrostomy tube. The patient with recurrent low-grade fevers , without significant improvement clinically despite all treatment rendered, mental status without change. The patient with chronic encephalopathy due to the history of CVA and OIL LEASE BROKER shunt. The patient's sister was made aware of patient's grave condition, poor prognosis and limited options. Family changed code status to DNR and opted for palliative care. Hospice evaluation was in progress. Wound care nurse seen the patient , who had multiple decubiti, present on admission. Wound care was provided as per wound care nurse recommendation. On 09/30/16 at 13:09 the patient was found to be nonresponsive, no breath sounds, no cardiac sounds. Patient was pronounced. Cause of - cardiopulmonary arrest. FINAL DIAGNOSES: 1. Acute respiratory failure, requiring BiPAP. 2. Sepsis with bacteremia. 3. Urinary tract infection/Escherichia coli Extended-spectrum beta-lactamase and Pseudomonas. 4. Pneumonia (Acinetobacter multidrug-resistant). 5. Acute anemia ,status post blood transfusion. 6. Dysphagia, gastrostomy tube. 7. Severe protein-calorie malnutrition. 8. History of cerebrovascular accident. 9. Status post ventriculoperitoneal shunt. 10.Acute on chronic metabolic encephalopathy. 11. Diabetes mellitus. 12. History of hypertension. 13. Severe protein-calorie malnutrition. 14. Multiple decubitus, present on admission (Sacral stage IV, right heel stage IV, left heel stage IV, right heel Avery stage IV, and right shoulder stage IV). 15. Electrolyte imbalances. Yvon Tuttle M.D. Juana Will ([facility] SystemLoi N.PMaryan DR: GREG JOB#: [id number] CC: KENDY
== END 2016-09-30 15:00 | disposition expired | DRG 720 ==
LOC: ENRESERVDT → ENRESERVTM → EDBD 06:13 → EDBEDREQ 06:45 → EMR 06:53 → 2W 07:00 → EDBEDREQ 07:44 → 4W 09-06 15:12 → 2W 09-12 19:15 → 4E 09-14 15:00 → 2W 09-14 23:52 → 4E 09-16 08:25
DX: A41.9 Sepsis, unspecified organism (principal); J96.00 Acute respiratory failure, unspecified whether with hypoxia or hypercapnia; G93.40 Encephalopathy, unspecified; E43 Unspecified severe protein-calorie malnutrition; L89.114 Pressure ulcer of right upper back, stage 4; L89.154 Pressure ulcer of sacral region, stage 4; L89.214 Pressure ulcer of right hip, stage 4; L89.624 Pressure ulcer of left heel, stage 4; R65.20 Severe sepsis without septic shock; L89.614 Pressure ulcer of right heel, stage 4; N39.0 Urinary tract infection, site not specified; Z68.1 Body mass index [BMI] 19.9 or less, adult; Z86.73 Personal history of transient ischemic attack (TIA), and cerebral infarction without residual deficits; Z93.1 Gastrostomy status; Z98.2 Presence of cerebrospinal fluid drainage device; I10 Essential (primary) hypertension; R00.0 Tachycardia, unspecified; E87.1 Hypo-osmolality and hyponatremia; R53.2 Functional quadriplegia; Z66 Do not resuscitate
CPT/HCPCS: 36415; 36600; 71010; 80048; 80053; 80069; 80202; 81003; 82164; 82378; 82550; 82553; 82607; 82728; 82746; 82803; 82962; 83540; 83550; 83605; 83690; 83735; 83880; 84100; 84484; 85007; 85025; 85610; 85651; 85730; 86140; 86850; 86900; 86901; 86920; 87040; 87070; 87081; 87086; 87181; 87205; 93005; 93306; 94640; 94660; 94664; 94760; J1815